=== PATIENT | female | born 1960 | race Caucasian/White ===

== ENCOUNTER 2016-11-11 13:50 | Emergency (ER) | payer MEDICARE, OTHER ==
[~2016-11-11 13:50] MED LIST: /ADVA50050 INH; /ATOR40TA PO; /CARB20TAB PO; /CARBXR20T PO; /MOXI40TA PO; /TIOT18INH INH; ADV500INH INH; ASCO10003 PO; ASPI1TAB PO; ASPI81TA63 PO; ATOR40TA PO; AVELOX PO; BACITAB3 PO; BACT2CRE TOP; CALC1CAP31 PO; CALC1TAB26 PO; CALCIUM PO; CALCTAB43 PO; CALCTAB68 PO; CARA1TAB2 PO; COLA100C2 OR; COLA50CA3 PO; COMBAER6 INH; COMBIVENT INH; CONTOUR TEST STRIPS; CRES20TA PO; CRES40TA PO; DELT1TAB PO; DOXY100C PO; DUONSOL INH; FERR325T3 PO; FISH100049 PO; FLEXERIL OR; FLON0.054; FURO1TAB15 PO; FURO40TA2 PO; GLIP5TAB8 PO; GLUC4GMTAB PO; HYDR-3716 PO; LASI80TA PO; LEVA500T; LEVA500T PO; LEVO250T24 PO; LEXA1TAB PO; LEXAPRO PO; MAGN500T6 PO; MECL12.575 PO; METF500T PO; MILKSUS OR; MIRA255PW PO; MIRA3350 PO; MUCI600T34 PO; NITR0.4S SL; NITR4TASL SL; OMEP20CA3 PO; POTA10CA PO; PRED10PA PO; PRED10TA PO; PRED10TA2; PRED10TA2 OR; PRED10TA2 PO; PRIL20CA PO; PRIN10TA PO; PROB1TAB PO; QUET20XRTB PO; QUET30XR PO; REGL10TA6 PO; SENO8.6T10 PO; SERO400T3 PO; SERO50TA3 PO; SING10TA31 PO; SING10TA32 PO; SPIR1CAP IN; SPIR25TA2 PO; TAB-TAB PO; TEGR200T PO; TEGRETOL PO; THERGRAN PO; TYLE325T5 PO; VIBR100C PO; VICO5TAB OR; VIT D PO; VITA-130 PO; VITMTA PO; ZONE25CA5 PO; ZONI50CA3 PO; spiriva INH
--- NOTE | 2016-11-11 15:04 | EDDOCDS ---
Nurse's Notes [facility] Name: Elvia Richardson Age: 56 yrs Sex: Female : 1960 Arrival Date: 11/11/2016 Time: 13:50 Bed I9 Private MD: Ramon Saucedo P. Diagnosis: Acute bronchitis Presentation: 11/11 14:01 Presenting complaint: Patient states: Pt presents with c/o wheezing productive cough dls green sputum since 11/06 pt uses oxygen continously. Adult Sepsis Screening: The patient does not have new or worsening altered mentation. Patient's respiratory rate is less than 22. Systolic blood pressure is greater than 100. Patient has a qSOFA score of 0- Negative Sepsis Screen. Suicide/Homicide risk assessment- the patient denies having any suicidal and/or homicidal ideations and does not present with any other emotional, behavioral or mental health complaints. Status: Patient is not a service inspector or dependent. Transition of care: patient was not received from another setting of care. 14:01 Acuity: JENN Level 3 dls 14:01 Method Of Arrival: Walkin/Carried/Asstd dls Triage Assessment: 14:06 General: Appears in no apparent distress, Behavior is cooperative. Pain: Pain currently dls is 3 out of 10 on a pain scale. HIV screening NA for this visit Offered previously. Historical: - Allergies: Advil (minimania); Aleveminimania; - Home Meds: 1. aspirin 81 mg Oral chew 1 tab once daily 2. atorvastatin 80 mg oral tab 1 tab once daily 3. Calcium + Vitamin D 600-800mg Oral daily 4. carbamazepine 400 mg Oral Tb12 1 tab every 12 hours 5. Combivent 18-103 mcg/actuation Inhl aero 2 puffs 4 times per day 6. escitalopram oxalate 10 mg oral tab 1 tab once daily 7. ferrous sulfate 325 mg (65 mg iron) Oral tab daily 8. Furosemide 80mg in AM and 40mg at noon Oral 9. glipizide 2.5 mg Oral tr24 1 tabs bid 10. hydrocodone-acetaminophen 7.5-325 mg Oral tab 1 tab every 4-6 hours 11. Mag-G 27 mg (500 mg) oral tab daily 12. Nitrostat 0.4 mg SL subl 1 tab every 5 minutes Took 2 at home prior to arrival 13. [place] 3 Fish Oil oral cap 1000 MG\E\ daily 14. Plavix 75 mg Oral tab 1 tab once daily 15. potassium chloride 10 mEq Oral cpER 1 cap once daily 16. prednisone 20 mg Oral tab once daily 17. Probiotic 100 million oral daily 18. Seroquel 500mg Oral 1 tab once daily 19. Vitamin C 1,000 mg Oral tab daily 20. zonisamide 50 mg oral cap 1 cap 2 times per day - PMHx: Bipolar disorder; congestive heart failure; COPD; Diabetes - NIDDM: controlled; Hypercholesterolemia; Hypertension; iron deficiency anemia; Myocardial infarction; Renal Failure w/o Dialysis; - PSHx: ; Appendectomy; Cholecystectomy; ganglion cyst left; Cataract Surgery- Bilateral; - Social history: Smoking status: Patient/guardian denies using No barriers to communication noted, The patient speaks fluent Wolof. - Family history: Not pertinent. - : The pt / caregiver states he / she is on anticoagulants: Plavix. Home medication list is obtained from [employer] import data. - Exposure Risk Screening:: None identified. Screenin:57 Screening information is obtained from the patient. Fall risk: No risks identified. [facility] Assistance ADL's: requires no assistance with activities of daily living. Abuse/DV Screen: The patient / caregiver reports he/she is: not in a situation that causes fear, pain or injury. Nutritional screening: No deficits noted. Advance Directives: There is no active DNR order. home support is adequate. Assessment: 14:57 General: Appears in no apparent distress, comfortable, Behavior is appropriate for age, [facility] cooperative. General: reviewed discharge instructions with patient, encouraged and answered questions, no new problems or complaints voiced, declines offer of further assistance. Pain: Denies pain. Neurological: Level of Consciousness is awake, alert, Oriented to person, place, time. Respiratory: Airway is patent Respiratory effort is even, unlabored, Respiratory pattern is regular, symmetrical. Vital Signs: 13:51 BP 103 / 69; Pulse 116; Resp 18 S; Temp 100.7(T); Pulse Ox 94% on 2 lpm NC; Weight gr2 111.58 kg (R); Height 5 ft. 3 in. (160.02 cm) (R); Pain 2/10; 13:51 Body Mass Index 43.58 (111.58 kg, 160.02 cm) gr2 Vitals: 13:51 Log In Time: November 11, 2016 at 13:51. gr2 ED Course: 13:50 Patient visited by Kilo Kuhn. gr2 13:50 Patient moved to Waiting gr2 13:51 Ramon Saucedo is Private Physician. gr2 13:53 Patient visited by Kilo Kuhn. gr2 13:54 Patient moved to Pre RCE gr2 14:03 Triage Initiated dls 14:19 Patient moved to I kcs 14:27 [facility] ke 14:27 Patient visited by Shaun Mcnair FNP. ke 14:27 Patient visited by Shaun Mcnair FNP. ke 14:43 Ramon Saucedo is Referral Physician. ke 14:57 The patient / caregiver is instructed regarding the plan of care and ED course. [facility] 14:57 No IV's were initiated during this patient's visit. No procedures done that require [facility] assistance. 15:03 [facility] Payment Agreement was scanned into [employer] and attached to record. jp5 Order Results: There are currently no results for this order. Outcome: 14:45 Discharge ordered by Provider. ke 14:57 Discharge Assessment: Patient awake, alert and oriented x 3. No cognitive and/or [facility] functional deficits noted. Patient verbalized understanding of disposition instructions. patient administered narcotics - no. The following High Risk Discharge criteria are identified: None. Discharged to home ambulatory. Condition: good Condition: stable Condition: improved. Discharge instructions given to patient, Instructed on discharge instructions, follow up and referral plans. medication usage, Demonstrated understanding of instructions, medications, Pt was receptive of discharge instructions/ teaching. Prescriptions given X 2. No special radiology studies were completed. Property :Personal belongings accompany Pt. 15:03 Patient left the ED. [facility] Signatures: Laura Reardon RN RN kcs Scott, Debra, RN RN dls Elsner, Karl, FNP FNP ke Hafner, Jane, RN RN [facility] Kilo Kuhn gr2 MccraryMatiashilaria jp5 MTDD
--- NOTE | 2016-11-11 15:04 | EDDOCDS ---
Physician Documentation [facility] Name: Elvia Richardson Age: 56 yrs Sex: Female : 1960 Arrival Date: 11/11/2016 Time: 13:50 Bed I9 Private MD: Ramon Saucedo P. Disposition: 11/11/16 14:45 Discharged to Home/Self Care. Impression: Acute bronchitis. - Condition is Stable. - Discharge Instructions: Acute Bronchitis. - Prescriptions for Moxifloxacin 400 mg Oral Tablet - take 1 tablet by ORAL route once daily; 10 tablet. Mucinex 600 mg - take 1 tablet by ORAL route 2 times per day; 30 tablet. - Medication Reconciliation, Local Pharmacy Hours form. - Follow up: Ramon Saucedo; When: 4 - 5 days; Reason: Recheck today's complaints, Continuance of care. - Problem is an ongoing problem. - Symptoms are unchanged. Historical: - Allergies: Advil (minimania); Aleveminimania; - Home Meds: 1. aspirin 81 mg Oral chew 1 tab once daily 2. atorvastatin 80 mg oral tab 1 tab once daily 3. Calcium + Vitamin D 600-800mg Oral daily 4. carbamazepine 400 mg Oral Tb12 1 tab every 12 hours 5. Combivent 18-103 mcg/actuation Inhl aero 2 puffs 4 times per day 6. escitalopram oxalate 10 mg oral tab 1 tab once daily 7. ferrous sulfate 325 mg (65 mg iron) Oral tab daily 8. Furosemide 80mg in AM and 40mg at noon Oral 9. glipizide 2.5 mg Oral tr24 1 tabs bid 10. hydrocodone-acetaminophen 7.5-325 mg Oral tab 1 tab every 4-6 hours 11. Mag-G 27 mg (500 mg) oral tab daily 12. Nitrostat 0.4 mg SL subl 1 tab every 5 minutes Took 2 at home prior to arrival 13. [place] 3 Fish Oil oral cap 1000 MG\E\ daily 14. Plavix 75 mg Oral tab 1 tab once daily 15. potassium chloride 10 mEq Oral cpER 1 cap once daily 16. prednisone 20 mg Oral tab once daily 17. Probiotic 100 million oral daily 18. Seroquel 500mg Oral 1 tab once daily 19. Vitamin C 1,000 mg Oral tab daily 20. zonisamide 50 mg oral cap 1 cap 2 times per day - PMHx: Bipolar disorder; congestive heart failure; COPD; Diabetes - NIDDM: controlled; Hypercholesterolemia; Hypertension; iron deficiency anemia; Myocardial infarction; Renal Failure w/o Dialysis; - PSHx: ; Appendectomy; Cholecystectomy; ganglion cyst left; Cataract Surgery- Bilateral; - Social history: Smoking status: Patient/guardian denies using No barriers to communication noted, The patient speaks fluent Chinese. - Family history: Not pertinent. - : The pt / caregiver states he / she is on anticoagulants: Plavix. Home medication list is obtained from [employer] import data. - Exposure Risk Screening:: None identified. Vital Signs: 11/11 13:51 BP 103 / 69; Pulse 116; Resp 18 S; Temp 100.7(T); Pulse Ox 94% on 2 lpm NC; Weight gr2 111.58 kg / 245.99 lbs (R); Height 5 ft. 3 in. (160.02 cm) (R); Pain 2/10; 13:51 Body Mass Index 43.58 (111.58 kg, 160.02 cm) gr2 MDM: 15:03 [facility] Payment Agreement was scanned into [employer] and attached to record. jp5 15:03 Financial registration complete. jp5 Signatures: Jennifer Quiñones, RN RN Shaun Downing, SENIOR FINANCIAL REPORTING ACCOUNTANT Bela BlancaRN RN [facility] Miguelangel Mccrary jp5 The chart was reviewed and I authenticate all verbal orders and agree with the evaluation and treatment provided.Attachments: 15:03 [facility] Payment Agreement jp5 MTDD
--- NOTE | 2016-11-13 16:04 | EDDOCDS ---
Nurse's Notes [facility] Name: Elvia Richardson Age: 56 yrs Sex: Female : 1960 Arrival Date: 11/11/2016 Time: 13:50 Bed I9 Private MD: Ramon Saucedo P. Diagnosis: Acute bronchitis Presentation: 11/11 14:01 Presenting complaint: Patient states: Pt presents with c/o wheezing productive cough dls green sputum since 11/06 pt uses oxygen continously. Adult Sepsis Screening: The patient does not have new or worsening altered mentation. Patient's respiratory rate is less than 22. Systolic blood pressure is greater than 100. Patient has a qSOFA score of 0- Negative Sepsis Screen. Suicide/Homicide risk assessment- the patient denies having any suicidal and/or homicidal ideations and does not present with any other emotional, behavioral or mental health complaints. Status: Patient is not a manager administrative services or dependent. Transition of care: patient was not received from another setting of care. 14:01 Acuity: JENN Level 3 dls 14:01 Method Of Arrival: Walkin/Carried/Asstd dls Triage Assessment: 14:06 General: Appears in no apparent distress, Behavior is cooperative. Pain: Pain currently dls is 3 out of 10 on a pain scale. HIV screening NA for this visit Offered previously. Historical: - Allergies: Advil (minimania); Aleveminimania; - Home Meds: 1. aspirin 81 mg Oral chew 1 tab once daily 2. atorvastatin 80 mg oral tab 1 tab once daily 3. Calcium + Vitamin D 600-800mg Oral daily 4. carbamazepine 400 mg Oral Tb12 1 tab every 12 hours 5. Combivent 18-103 mcg/actuation Inhl aero 2 puffs 4 times per day 6. escitalopram oxalate 10 mg oral tab 1 tab once daily 7. ferrous sulfate 325 mg (65 mg iron) Oral tab daily 8. Furosemide 80mg in AM and 40mg at noon Oral 9. glipizide 2.5 mg Oral tr24 1 tabs bid 10. hydrocodone-acetaminophen 7.5-325 mg Oral tab 1 tab every 4-6 hours 11. Mag-G 27 mg (500 mg) oral tab daily 12. Nitrostat 0.4 mg SL subl 1 tab every 5 minutes Took 2 at home prior to arrival 13. [place] 3 Fish Oil oral cap 1000 MG\E\ daily 14. Plavix 75 mg Oral tab 1 tab once daily 15. potassium chloride 10 mEq Oral cpER 1 cap once daily 16. prednisone 20 mg Oral tab once daily 17. Probiotic 100 million oral daily 18. Seroquel 500mg Oral 1 tab once daily 19. Vitamin C 1,000 mg Oral tab daily 20. zonisamide 50 mg oral cap 1 cap 2 times per day - PMHx: Bipolar disorder; congestive heart failure; COPD; Diabetes - NIDDM: controlled; Hypercholesterolemia; Hypertension; iron deficiency anemia; Myocardial infarction; Renal Failure w/o Dialysis; - PSHx: ; Appendectomy; Cholecystectomy; ganglion cyst left; Cataract Surgery- Bilateral; - Social history: Smoking status: Patient/guardian denies using No barriers to communication noted, The patient speaks fluent French. - Family history: Not pertinent. - : The pt / caregiver states he / she is on anticoagulants: Plavix. Home medication list is obtained from [employer] import data. - Exposure Risk Screening:: None identified. Screenin:57 Screening information is obtained from the patient. Fall risk: No risks identified. [facility] Assistance ADL's: requires no assistance with activities of daily living. Abuse/DV Screen: The patient / caregiver reports he/she is: not in a situation that causes fear, pain or injury. Nutritional screening: No deficits noted. Advance Directives: There is no active DNR order. home support is adequate. Assessment: 14:57 General: Appears in no apparent distress, comfortable, Behavior is appropriate for age, [facility] cooperative. General: reviewed discharge instructions with patient, encouraged and answered questions, no new problems or complaints voiced, declines offer of further assistance. Pain: Denies pain. Neurological: Level of Consciousness is awake, alert, Oriented to person, place, time. Respiratory: Airway is patent Respiratory effort is even, unlabored, Respiratory pattern is regular, symmetrical. Vital Signs: 13:51 BP 103 / 69; Pulse 116; Resp 18 S; Temp 100.7(T); Pulse Ox 94% on 2 lpm NC; Weight gr2 111.58 kg (R); Height 5 ft. 3 in. (160.02 cm) (R); Pain 2/10; 13:51 Body Mass Index 43.58 (111.58 kg, 160.02 cm) gr2 Vitals: 13:51 Log In Time: November 11, 2016 at 13:51. gr2 ED Course: 13:50 Patient visited by Kilo Kuhn. gr2 13:50 Patient moved to Waiting gr2 13:51 Ramon Saucedo is Private Physician. gr2 13:53 Patient visited by Kilo Kuhn. gr2 13:54 Patient moved to Pre RCE gr2 14:03 Triage Initiated dls 14:19 Patient moved to I kcs 14:27 [facility]un Mc[facility]air FNP [facility] ke 14:27 Patient visited by Shaun Mcnair FNP. ke 14:27 Patient visited by Shaun Mcnair FNP. ke 14:43 Ramon Saucedo is Referral Physician. ke 14:57 The patient / caregiver is instructed regarding the plan of care and ED course. [facility] 14:57 No IV's were initiated during this patient's visit. No procedures done that require [facility] assistance. 15:03 [facility] Payment Agreement was scanned into [employer] and attached to record. jp5 11/12 04:02 T-Sheet-- Draft Copy was scanned into [employer] and attached to record. hs2 Order Results: There are currently no results for this order. Outcome: 11/11 14:45 Discharge ordered by Provider. ke 14:57 Discharge Assessment: Patient awake, alert and oriented x 3. No cognitive and/or [facility] functional deficits noted. Patient verbalized understanding of disposition instructions. patient administered narcotics - no. The following High Risk Discharge criteria are identified: None. Discharged to home ambulatory. Condition: good Condition: stable Condition: improved. Discharge instructions given to patient, Instructed on discharge instructions, follow up and referral plans. medication usage, Demonstrated understanding of instructions, medications, Pt was receptive of discharge instructions/ teaching. Prescriptions given X 2. No special radiology studies were completed. Property :Personal belongings accompany Pt. 15:03 Patient left the ED. [facility] Signatures: Laura Reardon RN RN kcs Scott, Debra, RN RN dls Elsner, Karl, FNP FNP ke Hafner, Jane, RN RN [facility] Kilo Kuhn gr2 Miguelangel Mccrary jp5 Marisela Eid, Reg Reg hs2 Chart Complete MTDD
--- NOTE | 2016-11-13 16:04 | EDDOCDS ---
Physician Documentation [facility] Name: Elvia Richardson Age: 56 yrs Sex: Female : 1960 Arrival Date: 11/11/2016 Time: 13:50 Bed I9 Private MD: Ramon Saucedo P. Disposition: 11/11/16 14:45 Discharged to Home/Self Care. Impression: Acute bronchitis. - Condition is Stable. - Discharge Instructions: Acute Bronchitis. - Prescriptions for Moxifloxacin 400 mg Oral Tablet - take 1 tablet by ORAL route once daily; 10 tablet. Mucinex 600 mg - take 1 tablet by ORAL route 2 times per day; 30 tablet. - Medication Reconciliation, Local Pharmacy Hours form. - Follow up: Ramon Saucedo; When: 4 - 5 days; Reason: Recheck today's complaints, Continuance of care. - Problem is an ongoing problem. - Symptoms are unchanged. Historical: - Allergies: Advil (minimania); Aleveminimania; - Home Meds: 1. aspirin 81 mg Oral chew 1 tab once daily 2. atorvastatin 80 mg oral tab 1 tab once daily 3. Calcium + Vitamin D 600-800mg Oral daily 4. carbamazepine 400 mg Oral Tb12 1 tab every 12 hours 5. Combivent 18-103 mcg/actuation Inhl aero 2 puffs 4 times per day 6. escitalopram oxalate 10 mg oral tab 1 tab once daily 7. ferrous sulfate 325 mg (65 mg iron) Oral tab daily 8. Furosemide 80mg in AM and 40mg at noon Oral 9. glipizide 2.5 mg Oral tr24 1 tabs bid 10. hydrocodone-acetaminophen 7.5-325 mg Oral tab 1 tab every 4-6 hours 11. Mag-G 27 mg (500 mg) oral tab daily 12. Nitrostat 0.4 mg SL subl 1 tab every 5 minutes Took 2 at home prior to arrival 13. [place] 3 Fish Oil oral cap 1000 MG\E\ daily 14. Plavix 75 mg Oral tab 1 tab once daily 15. potassium chloride 10 mEq Oral cpER 1 cap once daily 16. prednisone 20 mg Oral tab once daily 17. Probiotic 100 million oral daily 18. Seroquel 500mg Oral 1 tab once daily 19. Vitamin C 1,000 mg Oral tab daily 20. zonisamide 50 mg oral cap 1 cap 2 times per day - PMHx: Bipolar disorder; congestive heart failure; COPD; Diabetes - NIDDM: controlled; Hypercholesterolemia; Hypertension; iron deficiency anemia; Myocardial infarction; Renal Failure w/o Dialysis; - PSHx: ; Appendectomy; Cholecystectomy; ganglion cyst left; Cataract Surgery- Bilateral; - Social history: Smoking status: Patient/guardian denies using No barriers to communication noted, The patient speaks fluent Congolese. - Family history: Not pertinent. - : The pt / caregiver states he / she is on anticoagulants: Plavix. Home medication list is obtained from [employer] import data. - Exposure Risk Screening:: None identified. Vital Signs: 11/11 13:51 BP 103 / 69; Pulse 116; Resp 18 S; Temp 100.7(T); Pulse Ox 94% on 2 lpm NC; Weight gr2 111.58 kg / 245.99 lbs (R); Height 5 ft. 3 in. (160.02 cm) (R); Pain 2/10; 13:51 Body Mass Index 43.58 (111.58 kg, 160.02 cm) gr2 MDM: 15:03 [facility] Payment Agreement was scanned into [employer] and attached to record. jp5 15:03 Financial registration complete. 5 11/12 04:02 T-Sheet-- Draft Copy was scanned into [employer] and attached to record. hs2 Signatures: Jennifer Quiñones, RN RN Shaun Downing, ANIMAL DAYCARE PROVIDER ANIMAL DAYCARE PROVIDER Bela BrittonRN RN [facility] Miguelangel Mccrary jp5 Marisela Eid, Reg Reg hs2 The chart was reviewed and I authenticate all verbal orders and agree with the evaluation and treatment provided.Attachments: 11/11 15:03 [facility] Payment Agreement jp5 11/12 04:02 T-Sheet-- Draft Copy hs2 Chart Complete MTDD
--- NOTE | 2016-11-13 16:04 | EDDOCDS ---
Physician Documentation [facility] Name: Elvia Richardson Age: 56 yrs Sex: Female : 1960 Arrival Date: 11/11/2016 Time: 13:50 Bed I9 Private MD: Ramon Saucedo P. Disposition: 11/11/16 14:45 Discharged to Home/Self Care. Impression: Acute bronchitis. - Condition is Stable. - Discharge Instructions: Acute Bronchitis. - Prescriptions for Moxifloxacin 400 mg Oral Tablet - take 1 tablet by ORAL route once daily; 10 tablet. Mucinex 600 mg - take 1 tablet by ORAL route 2 times per day; 30 tablet. - Medication Reconciliation, Local Pharmacy Hours form. - Follow up: Ramon Saucedo; When: 4 - 5 days; Reason: Recheck today's complaints, Continuance of care. - Problem is an ongoing problem. - Symptoms are unchanged. Historical: - Allergies: Advil (minimania); Aleveminimania; - Home Meds: 1. aspirin 81 mg Oral chew 1 tab once daily 2. atorvastatin 80 mg oral tab 1 tab once daily 3. Calcium + Vitamin D 600-800mg Oral daily 4. carbamazepine 400 mg Oral Tb12 1 tab every 12 hours 5. Combivent 18-103 mcg/actuation Inhl aero 2 puffs 4 times per day 6. escitalopram oxalate 10 mg oral tab 1 tab once daily 7. ferrous sulfate 325 mg (65 mg iron) Oral tab daily 8. Furosemide 80mg in AM and 40mg at noon Oral 9. glipizide 2.5 mg Oral tr24 1 tabs bid 10. hydrocodone-acetaminophen 7.5-325 mg Oral tab 1 tab every 4-6 hours 11. Mag-G 27 mg (500 mg) oral tab daily 12. Nitrostat 0.4 mg SL subl 1 tab every 5 minutes Took 2 at home prior to arrival 13. [place] 3 Fish Oil oral cap 1000 MG\E\ daily 14. Plavix 75 mg Oral tab 1 tab once daily 15. potassium chloride 10 mEq Oral cpER 1 cap once daily 16. prednisone 20 mg Oral tab once daily 17. Probiotic 100 million oral daily 18. Seroquel 500mg Oral 1 tab once daily 19. Vitamin C 1,000 mg Oral tab daily 20. zonisamide 50 mg oral cap 1 cap 2 times per day - PMHx: Bipolar disorder; congestive heart failure; COPD; Diabetes - NIDDM: controlled; Hypercholesterolemia; Hypertension; iron deficiency anemia; Myocardial infarction; Renal Failure w/o Dialysis; - PSHx: ; Appendectomy; Cholecystectomy; ganglion cyst left; Cataract Surgery- Bilateral; - Social history: Smoking status: Patient/guardian denies using No barriers to communication noted, The patient speaks fluent Chadian. - Family history: Not pertinent. - : The pt / caregiver states he / she is on anticoagulants: Plavix. Home medication list is obtained from [employer] import data. - Exposure Risk Screening:: None identified. Vital Signs: 11/11 13:51 BP 103 / 69; Pulse 116; Resp 18 S; Temp 100.7(T); Pulse Ox 94% on 2 lpm NC; Weight gr2 111.58 kg / 245.99 lbs (R); Height 5 ft. 3 in. (160.02 cm) (R); Pain 2/10; 13:51 Body Mass Index 43.58 (111.58 kg, 160.02 cm) gr2 MDM: 15:03 [facility] Payment Agreement was scanned into [employer] and attached to record. jp5 15:03 Financial registration complete. 5 11/12 04:02 T-Sheet-- Draft Copy was scanned into [employer] and attached to record. hs2 Signatures: Jennifer Quiñones, RN RN Shaun Downing, LINE HAUL TRUCK DRIVER LINE HAUL TRUCK DRIVER Bela BrittonRN RN [facility] Miguelangel Mccrary jp5 Marisela Eid, Reg Reg hs2 The chart was reviewed and I authenticate all verbal orders and agree with the evaluation and treatment provided.Attachments: 11/11 15:03 [facility] Payment Agreement jp5 11/12 04:02 T-Sheet-- Draft Copy hs2 Chart Complete MTDD
== END 2016-11-11 15:03 | disposition home or self-care (01) ==
LOC: M ED 13:50
DX: J20.9 Acute bronchitis, unspecified (principal); J44.1 Chronic obstructive pulmonary disease with (acute) exacerbation; I12.9 Hypertensive chronic kidney disease with stage 1 through stage 4 chronic kidney disease, or unspecified chronic kidney disease; I50.9 Heart failure, unspecified; I25.2 Old myocardial infarction; E11.29 Type 2 diabetes mellitus with other diabetic kidney complication; F31.9 Bipolar disorder, unspecified; E78.00 Pure hypercholesterolemia, unspecified; D50.9 Iron deficiency anemia, unspecified; Z90.49 Acquired absence of other specified parts of digestive tract; Z90.89 Acquired absence of other organs; Z79.02 Long term (current) use of antithrombotics/antiplatelets; Z79.82 Long term (current) use of aspirin; Z79.899 Other long term (current) drug therapy; Z88.6 Allergy status to analgesic agent

== ENCOUNTER → 2016-11-22 | Outpatient (REF) | payer MEDICARE, OTHER ==
[~2016-11-22] MED LIST changes: +AZIT250T3 PO; +CEFD1CAP8 PO; +CLOP75TA2 PO; +DRIS50002 PO; +IPRA2IN INH; +PRED20TA PO; +SERO200T PO
[2016-11-22 18:40] LABS: FOLATE 15.5 NG/ML
[2016-11-22 18:44] LABS: PERCENT SATURATION 26.9 % (13.2-37.4)
== END ==
LOC: M LAB REF 16:57
PROVIDERS: ATTEND Internal Medicine Nephrology
DX: N18.9 Chronic kidney disease, unspecified (principal); D63.1 Anemia in chronic kidney disease

== ENCOUNTER → 2016-11-26 | Outpatient (CLI) | payer MEDICARE, OTHER ==
[2016-11-26 08:52] LABS: ALBUMIN 3.4 GM/DL (3.2-5.2); CREATININE FOR GFR 1.53 MG/DL (0.55-1.02); GLOMERULAR FILTRATION RATE 37.1 (>51); MAGNESIUM LEVEL 2.2 MG/DL (1.8-2.4); PHOSPHORUS LEVEL 2.7 MG/DL (2.5-4.9); POTASSIUM SERUM 4.6 MEQ/L (3.5-5.1)
== END ==
LOC: M LAB 08:03
PROVIDERS: ATTEND Physician Assistant
DX: I50.32 Chronic diastolic (congestive) heart failure (principal)

== ENCOUNTER → 2016-11-26 | Outpatient (CLI) | payer MEDICARE, OTHER ==
[2016-11-26 08:35] LABS: BASO # 0.1 K/mm3 (0.0-0.2); BASO % 1.5 % (0.0-1.0); EOS # 0.3 K/mm3 (0.0-0.50); LARGE UNSTAINED CELL # 0.1 K/mm3 (0.0-0.4); LYMPH # 1.6 K/mm3 (1.5-4.5); LYMPH % 21.3 % (24.0-44.0); MEAN CORPUSCULAR HEMOGLOBIN 35.2 pg (27.0-33.0); MEAN CORPUSCULAR HGB CONC 33.6 g/dl (32.0-36.5); MEAN CORPUSCULAR VOLUME 104.6 fl (80.0-96.0); MONO # 0.3 K/mm3 (0.0-0.8); MONO % 4.2 % (0.0-5.0); NEUTROPHILS # 4.8 K/mm3 (1.8-7.7); PLATELET COUNT, AUTOMATED 323 k/mm3 (150-450); RED CELL DISTRIBUTION WIDTH 14.4 % (11.5-14.5); WHITE BLOOD COUNT 7.1 K/mm3 (4.0-10.0)
== END ==
LOC: M LAB 08:07
PROVIDERS: ATTEND Psychiatry & Neurology Psychiatry
DX: Z51.81 Encounter for therapeutic drug level monitoring (principal); Z79.899 Other long term (current) drug therapy

== ENCOUNTER 2016-12-05 11:07 | Inpatient (IN) | payer MEDICARE, OTHER ==
[~2016-12-05] VITALS: Ht 160 cm; Wt 111.3 kg
[~2016-12-05 11:07] MED LIST changes: -AZIT250T3 PO; -CEFD1CAP8 PO; -CLOP75TA2 PO; -DRIS50002 PO; -IPRA2IN INH; -PRED20TA PO; -SERO200T PO
--- NOTE | 2016-12-05 11:50 | REP ---
Portable chest, 126 and the 2017, 11:37 a.m., single AP view, the patient upright: Comparison is 02/09/2016. There is chronic cardiomegaly, unchanged. There is minor discoid atelectasis inferiorly in the right. The lung oden otherwise clear. The princess, mediastinum, bony thorax are unremarkable. Impression: Minor discoid atelectasis inferiorly in the right lung. Chronic cardiomegaly. Signed by Joe Go MD 12/05/2016 11:41 A
[2016-12-05] MEDS ORDERED: methylPREDNISolone INJ 125 MG/2 ML VIAL (J2930) As Ordered ONE (12:03)
[2016-12-05 12:06] LABS: BASO # 0.1 K/mm3 (0.0-0.2); BASO % 1.1 % (0.0-1.0); EOS # 0.1 K/mm3 (0.0-0.50); LARGE UNSTAINED CELL # 0.1 K/mm3 (0.0-0.4); LARGE UNSTAINED CELL % 2.1 % (0.0-4.0); LYMPH # 1.5 K/mm3 (1.5-4.5); LYMPH % 21.1 % (24.0-44.0); MEAN CORPUSCULAR HEMOGLOBIN 34.1 pg (27.0-33.0); MEAN CORPUSCULAR HGB CONC 33.6 g/dl (32.0-36.5); MEAN CORPUSCULAR VOLUME 101.5 fl (80.0-96.0); MONO # 0.5 K/mm3 (0.0-0.8); MONO % 7.8 % (0.0-5.0); NEUTROPHILS # 4.5 K/mm3 (1.8-7.7); PLATELET COUNT, AUTOMATED 161 k/mm3 (150-450); RED CELL DISTRIBUTION WIDTH 14.6 % (11.5-14.5); WHITE BLOOD COUNT 6.7 K/mm3 (4.0-10.0)
[2016-12-05 12:15] LABS: CALCIUM LEVEL 8.7 MG/DL (8.5-10.1); CREATININE FOR GFR 1.69 MG/DL (0.55-1.02); GLOMERULAR FILTRATION RATE 33.1 (>51); POTASSIUM SERUM 3.1 MEQ/L (3.5-5.1)
[2016-12-05] MEDS ORDERED: IPRATROPIUM 0.5MG/ALBUTEROL 2.5MG INH SOL UD 3ML (DUONEB)(J7620) As Ordered ONE (12:19)
[2016-12-05 12:34] LABS: ABG BASE EXCESS 4.8 (-2.0-2.0); ABG DEVICE NASAL CANN; ABG HCO3 29.8 MEQ/L (22.0-26.0); ABG PARTIAL PRESSURE CO2 46.3 mmHg (35.0-45.0); ABG PARTIAL PRESSURE O2 72.9 mmHg (75.0-100.0); ABG STANDARD HCO3 28.7 MEQ/L (22.0-26.0); ABG TOTAL CO2 31.3 MEQ/L (22.0-29.0); ABG pH (ARTERIAL) 7.427 UNITS (7.350-7.450)
[2016-12-05] MEDS ORDERED: POTASSIUM CHLORIDE 10 MEQ SR TABLET As Ordered ONE (13:13)
[2016-12-05] MEDS ORDERED: PRED10TA PO (14:56)
[2016-12-05] MEDS ORDERED: CLOP75TA2 PO (14:56)
[2016-12-05] MEDS ORDERED: IPRA2IN INH (14:56)
[2016-12-05] MEDS ORDERED: CALC1CAP31 PO (14:58)
[2016-12-05] MEDS ORDERED: AZIT250T3 PO (14:58)
[2016-12-05] MEDS ORDERED: DRIS50002 PO (15:00)
[2016-12-05] MEDS ORDERED: SERO400T3 PO (15:02)
[2016-12-05] MEDS ORDERED: SERO200T PO (15:02)
--- NOTE | 2016-12-05 15:46 | HPEPDOC ---
Medical History and Physical Date of Admission 12/05/16 History and Physical ATTENDING: Dr. Lassiter PCP: Dr Saucedo CC: SOB HPI:56 yo female with a past medical history significant for O2 dependent COPD, CAD, chronic kidney disease, hypertension who states she was seen by her primary care provider on Friday and treated for bronchitis with oral steroids and azithromycin. She states since then she has been feeling worse. Increased shortness of breath, wheezing, productive cough of green sputum. She reports a fever of 101.5. Chest tightness. Increased nebulizer use. For these reasons she reported to the emergency department today for further evaluation. Denies any RAMOS, palpitations, abdominal pain, N/V/D or changes in bowel or bladder habits. Upon presentation to the hospital the patient was found to have COPD exacerbation, thus the hospitalist team was consulted. PMHx: COPD. O2 dependent- follows with Dr. Farley CAD/status post stent 2001- . Bipolar disorder. Dr Cantor Diabetes CKD 3. Dr Genao. Hypertension Hyperlipidemia Iron deficiency anemia CHF Migraine headache Chronic low back pain PSHX: Appendectomy Cholecystectomy Ganglion cyst removal Bilateral cataract surgery Cardiac stent SOCHX: Resides in: [place] Marital Status: Kids: 2 Tobacco use: Quit 2006 ETOH: Denies Illicit Drugs: Denies Recent travel: Denies Advanced directives: None FAMHX: Mother: , cervical cancer Father: , emphysema Siblings: 2 sisters, one brother Alive, well. One brother lung cancer. Children: Alive, well Unexpected deaths due to medical reasons: None. ROS: As noted in HPI, otherwise 11pt ROS of systems reviewed and unremarkable. PE: GEN: 56 yo female, appears stated age. Well-nourished, well developed. No acute distress. Alert and oriented x 3. Pleasant, interactive. HEENT: Normocephalic, atraumatic. Pupils are equal, round, and reactive to light. Extraocular movements are intact. No nystagmus appreciated. Sclera are nonicteric. Conjunctiva without injection. Nose midline. Nasal turbinates without bogginess. EACs both patent BL.No facial asymmetry. Moist mucous membranes. Dentition fair. Pharynx pink and moist, no cobblestoning. Neck supple , trachea midline. No lymphadenopathy or thyromegaly appreciated. CHEST: Regular rate and rhythm, +S1, +S2 LUNGS: Decreased breath sounds throughout with diffuse inspiratory/expiratory wheezes. No rales, or rhonchi. Breathing appears symmetric and easy. Patient is speaking in full sentences. No accessory muscle use. ABD: Round, soft, non-tender, non-distended. +Bowel sounds throughout. No rebound or guarding. No costovertebral angle tenderness. EXT: Pulses 2+ bilaterally dorsalis pedis and radial. No lower extremity edema appreciated. SKIN: [place], dry, warm. Capillary refill <2sec. No rashes. NEURO: Alert and oriented x 3. Cranial nerves III-XII are intact. No focal deficits appreciated. CXR: Minor discoid atelectasis inferiorly in the right lung. Chronic cardiomegaly. EKG: Sinus tachycardia, nonspecific ST-T abnormality, 103 bpm BLOOD CULTURES: 2 pending A&P: 56 yo female with a past medical history significant for O2 dependent COPD , CAD, chronic kidney disease, hypertension who states she was seen by her primary care provider on Friday and treated for bronchitis with oral steroids and azithromycin. She states since then she has been feeling worse. Increased shortness of breath, wheezing, productive cough of green sputum. She reports a fever of 101.5. Chest tightness. Increased nebulizer use. For these reasons she reported to the emergency department today for further evaluation. The patient will be admitted to /S for at least [address] Lassiter's service. COPD exacerbation. Solu-Medrol 60 mg IV every 6. IV Rocephin/Zithromax. Supplemental O2. Nebulizer treatments. COPD/O2 dependent. Continue outpatient regimen. CAD/stent. Cont outpt regimen. CKD3. 1.69. Appears to be at baseline 1.4-1.7. Hypertension/CHF. BNP is noted to be 32.2. Hyperlipidemia. Continue statin. DM. Consistent carbohydrate diet. Sliding scale insulin. Iron deficiency anemia. Hemoglobin appears to be at baseline. 11.2. Chronic migraine headache. Cont outpt regimen. Chronic low back pain. Cont outpt regimen. DVT prophylaxis. The patient is a full code. Vital Signs 139/60 96 22 93% 2 L nasal cannula Laboratory Data Labs 24H Laboratory Tests 2 12/05/16 11:45: Creatine Kinase MB 1.0, Creatine Kinase MB Relative Index 2.17, Total Creatine Kinase 46, Troponin I < 0.02 12/05/16 11:46: Anion Gap 10, B-Type Natriuretic Peptide 32.2, White Blood Count 6.7, Red Blood Count 3.29L, Hemoglobin 11.2L, Hematocrit 33.4L, Mean Corpuscular Volume 101.5H , Mean Corpuscular Hemoglobin 34.1H, Mean Corpuscular Hemoglobin Concent 33.6, Red Cell Distribution Width 14.6H, Platelet Count 161, Neutrophils (%) (Auto) 67.0H, Lymphocytes (%) (Auto) 21.1L, Monocytes (%) (Auto) 7.8H, Eosinophils (%) (Auto) 1.0, Basophils (%) (Auto) 1.1H, Neutrophils # (Auto) 4.5, Lymphocytes # ( Auto) 1.5, Monocytes # (Auto) 0.5, Eosinophils # (Auto) 0.1, Basophils # (Auto) 0.1, Blood Urea Nitrogen 22H, Creatinine 1.69H, Sodium Level 143, Potassium Level 3.1L, Chloride Level 103, Carbon Dioxide Level 30, Calcium Level 8.7, Glomerular Filtration Rate 33.1L, Large Unclassified Cells # 0.1, Large Unclassified Cells % 2.1 12/05/16 12:26: Arterial Blood pH 7.427, Arterial Blood Partial Pressure CO2 46.3H, Arterial Blood Partial Pressure O2 72.9L, Arterial Blood Total CO2 31.3H, Arterial Blood HCO3 29.8H, Arterial Blood Base Excess 4.8H, Arterial Blood Oxygen Saturation 94.3L, Blood Gas Bicarbonate Standard 28.7H, Oxygen Delivery Device NASAL SCOTT CBC/BMP Laboratory Tests 12/05/16 11:46 Calcium Level 8.7, Red Blood Count 3.29 L, Mean Corpuscular Volume 101.5 H, Mean Corpuscular Hemoglobin 34.1 H, Mean Corpuscular Hemoglobin Concent 33.6, Red Cell Distribution Width 14.6 H, Neutrophils (%) (Auto) 67.0 H, Lymphocytes ( %) (Auto) 21.1 L, Monocytes (%) (Auto) 7.8 H, Eosinophils (%) (Auto) 1.0, Basophils (%) (Auto) 1.1 H, Neutrophils # (Auto) 4.5, Lymphocytes # (Auto) 1.5, Monocytes # (Auto) 0.5, Eosinophils # (Auto) 0.1, Basophils # (Auto) 0.1 Microbiology Microbiology 12/05/16 Blood Culture, Received Pending 12/05/16 Blood Culture, Received Pending Home Medications Scheduled Ascorbic Acid (Ascorbic Acid) 1,000 Mg Tab 1,000 MG PO DAILY Aspirin (Aspirin 81) 81 Mg Tab 81 MG PO DAILY Atorvastatin Calcium (Atorvastatin Calcium) 40 Mg Tab 80 MG PO QHS Azithromycin (Azithromycin) 250 Mg Tab 250 MG PO DAILY STARTED 12/02/16 FOR 5 DAYS Calcitriol (Calcitriol) 0.25 Mcg Cap 0.25 MCG PO DAILY Carbamazepine (Tegretol) 200 Mg Tab 400 MG PO BID Clopidogrel Bisulfate (Clopidogrel) 75 Mg Tab 75 MG PO DAILY Escitalopram Oxalate (Lexapro) 10 Mg Tab 10 MG PO DAILY Ferrous Sulfate (Ferrous Sulfate) 325 Mg Tab 325 MG PO DAILY Fish Oil (Fish Oil 1000 mg) 1 Cap Cap 1 CAP PO DAILY Furosemide (Furosemide) 40 Mg Tab 40 MG PO DAILY TAKES AT NOON Furosemide (Furosemide) 80 Mg Tab 80 MG PO QAM Glipizide (Glipizide) 5 Mg Tab 2.5 MG PO BID Magnesium Gluconate (Magnesium Gluconate) 500 Mg Tab 500 MG PO DAILY Montelukast Sodium (Singulair) 10 Mg Tab 10 MG PO DAILY Nitroglycerin (Nitrostat) 0.4 Mg Subl 0.4 MG SL NITRO Potassium Chloride (Klor-Con M10) 10 Meq Tabcr 10 MEQ PO DAILY Prednisone (Prednisone) 10 Mg Tab 30 MG PO ASDIRECTED TAPER DOSE - SEE COMMENTS Quetiapine Fumerate (Seroquel Xr) 400 Mg Tab 400 MG PO QHS Quetiapine Fumerate (Seroquel) 200 Mg Tab 200 MG PO QHS Vitamin D (Drisdol) 50,000 Unit Cap 50,000 UNIT PO QMONTH TAKES AT BEGINNING OF MONTH Zonisamide (Zonisamide) 50 Mg Cap 50 MG PO BID Scheduled PRN Acetaminophen (Tylenol) 325 Mg Tab 650 MG PO Q4H PRN PRN PAIN Acetaminophen/Hydrocodone (Hydrocodone/Acetaminophen 7.5-325 mg) 1 Tab Tab 1 TAB PO Q4H PRN PRN PAIN Albuterol/Ipratropium (Combivent Respimat 20-100 Mcg/Act) 1 Aer Aer 2 PUFF INH QID PRN PRN SHORTNESS OF BREATH Ipratropium [place] (Ipratropium [place]) 0.5 Mg/2.5 Ml Soln 0.5 MG INH PRN PRN PRN SHORTNESS OF BREATH Allergies Coded Allergies: Ondansetron (Verified Allergy, Severe, ELEVATED B/P, ELEVATED HR, UNCONSCIOUS EPISODE, 11/04/14) 11/03/14 Lisinopril (Verified Allergy, Intermediate, RASH, 02/09/13) NSAIDs (Verified Adverse Reaction, Unknown, ALEVE,ADVIL- MANIC REACTION, ) Suha Novoa Dec 05, 2016 15:46
[2016-12-05] MEDS ORDERED: DEXTROSE 50% 50 ML SYRINGE IV PRN (16:00)
[2016-12-05] MEDS ORDERED: ANEXSIA, NORCO 7.5MG/325MG TABLET(HYDROCODONE/APAP) PO PRN (16:00)
[2016-12-05] MEDS ORDERED: IPRATROPIUM 0.5MG/ALBUTEROL 2.5MG INH SOL UD 3ML (DUONEB)(J7620) NEB PRN (16:00)
[2016-12-05] MEDS ORDERED: GLUCOSE 4 GM CHEW TABLET PO PRN (16:00)
[2016-12-05] MEDS ORDERED: GLUCAGON FOR INJ 1 MG VIAL (J1610) SC PRN (16:00)
[2016-12-05 17:00] LABS: MAGNESIUM LEVEL 2.2 MG/DL (1.8-2.4)
[2016-12-05 17:12] LABS: VITAMIN B12 LEVEL 234 PG/ML (247-911)
[2016-12-05 17:13] LABS: FOLATE > 24.0 NG/ML (>5.4)
[2016-12-05] MEDS ORDERED: cefTRIAXone SOD 1 GM VIAL (J0696) As Ordered ONE (17:35)
--- NOTE | 2016-12-05 17:59 | EDDOCDS ---
Nurse's Notes [facility] Name: Elvia Richardson Age: 56 yrs Sex: Female : 1960 Arrival Date: 12/05/2016 Time: 11:07 Bed 13 Private MD: Ramon Saucedo P. Diagnosis: Chronic obstructive pulmonary disease with acute lower respiratory infection Presentation: 12/05 11:11 Presenting complaint: Patient states: Increase difficulty breathing, oxygen dependant, dwg worsening symptoms despite being on Prednisone and EES for 3-4 days. Also complains of generalized chest pain. Adult Sepsis Screening: The patient does not have new or worsening altered mentation. Patient has a respiratory rate of greater than or equal to 22 (1 point). Systolic blood pressure is greater than 100. Patient has a qSOFA score of 1- Negative Sepsis Screen. Adult Sepsis Screening: Patient has cough and/or SOB- Positive Sepsis Screen. Notified Homa Doe MD Patient made JENN Level 2. Patient placed in exam room. Charge nurse notified. Suicide/Homicide risk assessment- the patient denies having any suicidal and/or homicidal ideations and does not present with any other emotional, behavioral or mental health complaints. Status: Patient is not a greeter guest services or dependent. Transition of care: patient was not received from another setting of care. 11:11 Acuity: JENN Level 2 dwg 11:11 Method Of Arrival: Walkin/Carried/Asstd dwg Triage Assessment: 11:21 General: Appears in no apparent distress. Pain: Pain currently is 7 out of 10 on a pain dwg scale. HIV screening NA for this visit Offered previously. Historical: - Allergies: Advil (minimania); Aleveminimania; - Home Meds: 1. aspirin 81 mg Oral chew 1 tab once daily (Last dose: 12/05/2016 08:00) 2. atorvastatin 80 mg oral tab 1 tab once daily (Last dose: 12/04/2016 20:00) 3. carbamazepine 400 mg Oral Tb12 1 tab every 12 hours (Last dose: 12/05/2016 08:00) 4. Combivent 18-103 mcg/actuation Inhl aero 2 puffs 4 times per day (Last dose: 12/05/2016 08:00) 5. escitalopram oxalate 10 mg oral tab 1 tab once daily (Last dose: 12/05/2016 08:00) 6. ferrous sulfate 325 mg (65 mg iron) Oral tab daily (Last dose: 12/05/2016 08:00) 7. Furosemide 80mg in AM and 40mg at noon Oral (Last dose: 12/05/2016 08:00) 8. glipizide 2.5 mg Oral tr24 1 tabs bid (Last dose: 12/05/2016 08:00) 9. hydrocodone-acetaminophen 7.5-325 mg Oral tab 1 tab every 4-6 hours (Last dose: 12/04/2016 20:00) 10. Mag-G 27 mg (500 mg) oral tab daily (Last dose: 12/05/2016 08:00) 11. Nitrostat 0.4 mg SL subl 1 tab every 5 minutes Took 2 at home prior to arrival (Last dose: 09/04/2016) 12. Dora 3 Fish Oil oral cap 1000 MG\E\ daily (Last dose: 12/05/2016 08:00) 13. Plavix 75 mg Oral tab 1 tab once daily (Last dose: 12/05/2016 08:00) 14. potassium chloride 10 mEq Oral cpER 1 cap once daily (Last dose: 12/05/2016 08:00) 15. prednisone 30mg Oral tab once daily (Last dose: 12/05/2016 08:00) 16. Seroquel 500mg Oral 1 tab once daily (Last dose: 12/04/2016 20:00) 17. Vitamin C 1,000 mg Oral tab daily (Last dose: 12/05/2016 08:00) 18. Erythromycin Oral Unknown once daily (Last dose: 12/05/2016 08:00) 19. zonisamide 50 mg oral cap 1 cap 2 times per day (Last dose: 12/05/2016 08:00) - PMHx: Bipolar disorder; congestive heart failure; COPD; Diabetes - NIDDM: controlled; Hypercholesterolemia; Hypertension; iron deficiency anemia; Myocardial infarction; Renal Failure w/o Dialysis; - PSHx: Appendectomy; ; Cholecystectomy; Cataract Surgery- Bilateral; Cardiac stents (January 2016); - Social history: Smoking status: Patient states former smoker of tobacco. No barriers to communication noted, The patient speaks fluent Palauan. - Family history: Not pertinent. - : The pt / caregiver states he / she is on anticoagulants: Plavix. Home medication list is obtained from the patient. - Exposure Risk Screening:: None identified. Screenin:27 Screening information is obtained from the patient. Fall risk: No risks identified. kcs Assistance ADL's: requires no assistance with activities of daily living. Abuse/DV Screen: The patient / caregiver reports he/she is: not in a situation that causes fear, pain or injury. Nutritional screening: No deficits noted. Advance Directives: Currently, there is no health care proxy. home support is adequate. Assessment: 11:57 Reassessment: Patient states symptoms have not improved. General: Appears comfortable, kcs obese, well developed, well nourished, well groomed, Behavior is cooperative, pleasant. Neurological: Level of Consciousness is awake, alert. Cardiovascular: Rhythm is sinus rhythm rate = 98 bpm. Respiratory: Airway is patent Respiratory effort is even, labored, Respiratory pattern is regular, symmetrical, Breath sounds are diminished bilaterally. Breath sounds with wheezes bilaterally. edema noted of both lower extremities. Derm: Skin is intact, is healthy with good turgor, Skin is dry, Skin is normal. 13:18 Reassessment: Patient comfortable - still with harsh cough - raspy voice. Drinking kcs fluids and retaining. Respirations easy. Color = pink.. 15:04 Reassessment: Patient resting on stretcher - watching TV. Denies any needs. kcs Respirations still slightly labored - no drooling, no stridor. Color = pink. Nasal O2 on. Drinking fluids and retaining.. 15:15 Adult Sepsis Screening: The patient does not have new or worsening altered mentation. kcs Patient's respiratory rate is less than 22. Systolic blood pressure is greater than 100. Patient has a qSOFA score of 0- Negative Sepsis Screen. Patient has cough and/or SOB- Positive Sepsis Screen. 17:27 Reassessment: Patient states she feels that her breathing is a little better - still kcs with grunting respirations. Watching TV. Drinking fluids and retaining.. General: Appears comfortable, obese, well developed, well nourished, well groomed, Behavior is cooperative, pleasant. Pain: Location: chest Pain currently is 5 out of 10 on a pain scale. Quality of pain is described as tight. Neurological: Level of Consciousness is awake, alert. Cardiovascular: Rhythm is sinus rhythm No ectopy. Respiratory: Airway is patent Respiratory effort is even, labored, Respiratory pattern is regular, symmetrical. Derm: Skin is intact, is healthy with good turgor, Skin is dry, Skin is normal. 17:53 Reassessment: Patient states symptoms have improved. General: Appears comfortable, kcs obese, well developed, well nourished, well groomed, Behavior is cooperative, pleasant. Pain: Location: chest Pain currently is 5 out of 10 on a pain scale. Neurological: Level of Consciousness is awake, alert. Respiratory: Airway is patent Respiratory effort is labored, Respiratory pattern is regular, symmetrical, harsh congested cough. Derm: Skin is intact, is healthy with good turgor, Skin is dry, Skin is normal. Vital Signs: 11:09 BP 102 / 75; Pulse 118; Resp 26; Pulse Ox 89% on 2 lpm NC; Weight 111.13 kg; Height 5 elp ft. 3 in. (160.02 cm); 11:37 BP 130 / 64 (auto/); kcs 11:37 Pulse 100 MON; Pulse Ox 94% ; kcs 11:47 BP 128 / 60 (auto/); kcs 11:48 Pulse 100 MON; Pulse Ox 95% ; kcs 12:02 BP 115 / 59 (auto/); kcs 12:03 Pulse 92 MON; Pulse Ox 94% ; kcs 12:17 BP 133 / 65 (auto/); kcs 12:17 Pulse 90 MON; Pulse Ox 95% ; kcs 12:32 BP 121 / 64 (auto/); kcs 12:32 Pulse 92 MON; Pulse Ox 93% ; kcs 12:47 BP 125 / 64 (auto/); kcs 12:48 Pulse 96 MON; Pulse Ox 89% ; kcs 13:02 BP 132 / 61 (auto/); kcs 13:02 Pulse 94 MON; Pulse Ox 93% ; kcs 13:17 BP 139 / 60 (auto/); kcs 13:17 Pulse 96 MON; Resp 22; Pulse Ox 93% ; kcs 13:32 BP 119 / 64 (auto/); kcs 13:32 Pulse 104 MON; Pulse Ox 92% ; kcs 15:10 BP 127 / 68 (auto/); kcs 15:10 Pulse 94 MON; Resp 20; Pulse Ox 93% ; kcs 15:40 BP 125 / 67 (auto/); kcs 15:41 Pulse 92 MON; Pulse Ox 93% ; kcs 16:10 BP 133 / 64 (auto/); kcs 16:11 Pulse 94 MON; Pulse Ox 93% ; kcs 16:40 BP 134 / 73 (auto/); kcs 16:40 Pulse 92 MON; Pulse Ox 94% ; kcs 17:10 BP 128 / 71 (auto/); kcs 17:10 Pulse 92 MON; Pulse Ox 94% ; kcs 17:26 BP 128 / 71; Pulse 93; Resp 22; Temp 99.4(O); Pulse Ox 93% on 2 lpm NC; Pain 5/10; kcs 17:53 BP 124 / 67; Pulse 92; Resp 22; Temp 99.7(O); Pulse Ox 93% on 2 lpm NC; Pain 5/10; kcs 11:09 Body Mass Index 43.40 (111.13 kg, 160.02 cm) elp Vitals: 11:09 Log In Time: December 05, 2016 at 11:07. RN notified that patient meets Red Flag elp criteria. ED Course: 11:09 Patient visited by Lois Alvarez PCA. elp 11:09 Ramon Saucedo is Private Physician. elp 11:09 Patient moved to Waiting elp 11:10 Patient visited by Lois Alvarez PCA. elp 11:14 Triage Initiated dwg 11:22 Patient moved to 13 dwg 11:30 O2 via nasal cannula \T\ 2L/min. kcs 11:33 Patient has correct armband on for positive identification. Placed in gown. Bed in low ct3 position. Call light in reach. Side rails up X 1. campus monitor on. Pulse ox on. NIBP on. 11:33 EKG done. (by ED staff). Reviewed by Homa Doe MD. ct3 11:34 Patient visited by Lucille Young PCA. ct3 11:40 Inserted saline lock: 20 gauge in left antecubital area The patient tolerated the kcs procedure well. 11:43 Homa Doe MD is Attending Physician. sd1 11:51 Patient visited by Homa Doe MD. sd1 11:57 The patient / caregiver is instructed regarding the plan of care and ED course. kcs 12:01 CIP Sent. kcs 12:01 Troponin Sent. kcs 12:07 Chest, 1 View Returned. EDMS 12:30 -Arterial Blood Gas Sent. js 12:59 Patient name changed from Elvia\S\Yee\S\Richardson\S\ to Elvia\S\E\S\Richardson. EDMS 12:59 [facility] [place] was scanned into [employer] and attached to record. lg 13:03 Patient visited by Lucille Young PCA. ct3 13:20 Patient visited by Laura Reardon RN. kcs 13:47 Patient was ambulated with a Pulseox, per 's order. Patient's initial PulseOx jrd reading was 92% O2 on 2lpm(nasal canula), 108 bpm. Patient walked about 20 feet with normal gait, unassisted. However, patient then became very labored with her breathing and dropped to 89% O2 w/ 118bpm rate. Patient returned to bed without assistance. 13:53 Patient visited by Houston Chaudhry PCA. jrd 15:03 Bibiana Thompson is Hospitalizing Provider. sd1 17:53 IV is intact, with fluids infusing freely. No procedures done that require assistance. kcs Administered Medications: 12:08 Drug: Solu-MEDROL 125 mg [Solu-Medrol 500 mg intravenous solution (125 mg)] Route: IVP; kcs Site: left antecubital; 12:31 Drug: Albuterol-Ipratropium 1 neb [ipratropium-albuterol 0.5 mg-3 mg(2.5 mg base)/3 mL js nebulization soln (1 neb)] Route: Nebulizer; 12:49 Drug: Albuterol-Ipratropium 1 neb [ipratropium-albuterol 0.5 mg-3 mg(2.5 mg base)/3 mL js nebulization soln (1 neb)] Route: Nebulizer; 13:18 Drug: Potassium Chloride 40 mEq [potassium chloride ER 10 mEq tablet,extended release kcs (4 tabs)] Route: PO; 17:46 Drug: cefTRIAXone 1 grams [ceftriaxone 1 gram solution for injection] Route: IVPB; kcs Infused Over: 30 mins; Site: left antecubital; RT: 12:31 ABG's drawn from right brachial artery allens test done and positive no bleeding noted js pressure bandage applied specimen sent pt. tolerated well. Initial Med Neb Given as ordered Patient was instructed and evaluated on procedure Patient tolerated procedure well without adverse effect. Respiratory: Breath sounds are coarse Breath sounds are diminished bilaterally. Breath sounds with wheezes. 12:50 Subsequent Med Neb Given as ordered. Respiratory: Breath sounds are coarse Breath js sounds with wheezes bilaterally. at expiration at inspiration. Order Results: Lab Order: B-Type Natiuretic Peptide; SPEC'M 12/05/16 11:46 Test: BRAIN NATRIURETIC PEPTIDE; Value: 32.2; Range: <100; Units: PG/ML; Status: F Lab Order: Basic Metabolic Profile; SPEC'M 12/05/16 11:46 Test: GLUCOSE, FASTING; Value: 140; Range: 70-105; Abnormal: Above high normal; Units: MG/DL; Status: F Test: BLOOD UREA NITROGEN; Value: 22; Range: 7-18; Abnormal: Above high normal; Units: MG/DL; Status: F Test: CREATININE FOR GFR; Value: 1.69; Range: 0.55-1.02; Abnormal: Above high normal; Units: MG/DL; Status: F Test: GLOMERULAR FILTRATION RATE; Value: 33.1; Range: >51; Abnormal: Below low normal; Status: F Test: SODIUM LEVEL; Value: 143; Range: 136-145; Units: MEQ/L; Status: F Test: POTASSIUM SERUM; Value: 3.1; Range: 3.5-5.1; Abnormal: Below low normal; Units: MEQ/L; Status: F Test: CHLORIDE LEVEL; Value: 103; Range: 98-107; Units: MEQ/L; Status: F Test: CARBON DIOXIDE LEVEL; Value: 30; Range: 21-32; Units: MEQ/L; Status: F Test: ANION GAP; Value: 10; Range: 8-16; Units: MEQ/L; Status: F Test: CALCIUM LEVEL; Value: 8.7; Range: 8.5-10.1; Units: MG/DL; Status: F Test Note: ; Units are mL/min/1.73 m2 Chronic Kidney Disease Staging per NKF: Stage I & II GFR >=60 Normal to Mildly Decreased Stage III GFR 30-59 Moderately Decreased Stage IV GFR 15-29 Severely Decreased Stage V GFR <15 Very Little GFR Left ESRD GFR <15 on OIL BURNER Lab Order: CBC with Diff; SPEC'M 12/05/16 11:46 Test: WHITE BLOOD COUNT; Value: 6.7; Range: 4.0-10.0; Units: K/mm3; Status: F Test: RED BLOOD COUNT; Value: 3.29; Range: 4.00-5.40; Abnormal: Below low normal; Units: M/mm3; Status: F Test: HEMOGLOBIN; Value: 11.2; Range: 12.0-16.0; Abnormal: Below low normal; Units: g/dl; Status: F Test: HEMATOCRIT; Value: 33.4; Range: 36.0-47.0; Abnormal: Below low normal; Units: %; Status: F Test: MEAN CORPUSCULAR VOLUME; Value: 101.5; Range: 80.0-96.0; Abnormal: Above high normal; Units: fl; Status: F Test: MEAN CORPUSCULAR HEMOGLOBIN; Value: 34.1; Range: 27.0-33.0; Abnormal: Above high normal; Units: pg; Status: F Test: MEAN CORPUSCULAR HGB CONC; Value: 33.6; Range: 32.0-36.5; Units: g/dl; Status: F Test: RED CELL DISTRIBUTION WIDTH; Value: 14.6; Range: 11.5-14.5; Abnormal: Above high normal; Units: %; Status: F Test: PLATELET COUNT, AUTOMATED; Value: 161; Range: 150-450; Units: k/mm3; Status: F Test: NEUTROPHILS %; Value: 67.0; Range: 36.0-66.0; Abnormal: Above high normal; Units: %; Status: F Test: LYMPH %; Value: 21.1; Range: 24.0-44.0; Abnormal: Below low normal; Units: %; Status: F Test: MONO %; Value: 7.8; Range: 0.0-5.0; Abnormal: Above high normal; Units: %; Status: F Test: EOS %; Value: 1.0; Range: 0.0-3.0; Units: %; Status: F Test: BASO %; Value: 1.1; Range: 0.0-1.0; Abnormal: Above high normal; Units: %; Status: F Test: LARGE UNSTAINED CELL %; Value: 2.1; Range: 0.0-4.0; Units: %; Status: F Test: NEUTROPHILS #; Value: 4.5; Range: 1.8-7.7; Units: K/mm3; Status: F Test: LYMPH #; Value: 1.5; Range: 1.5-4.5; Units: K/mm3; Status: F Test: MONO #; Value: 0.5; Range: 0.0-0.8; Units: K/mm3; Status: F Test: EOS #; Value: 0.1; Range: 0.0-0.50; Units: K/mm3; Status: F Test: BASO #; Value: 0.1; Range: 0.0-0.2; Units: K/mm3; Status: F Test: LARGE UNSTAINED CELL #; Value: 0.1; Range: 0.0-0.4; Units: K/mm3; Status: F Lab Order: -Arterial Blood Gas; SPEC'M 12/05/16 12:26 Test: ABG pH (ARTERIAL); Value: 7.427; Range: 7.350-7.450; Units: UNITS; Status: F Test: ABG PARTIAL PRESSURE CO2; Value: 46.3; Range: 35.0-45.0; Abnormal: Above high normal; Units: mmHg; Status: F Test: ABG PARTIAL PRESSURE O2; Value: 72.9; Range: 75.0-100.0; Abnormal: Below low normal; Units: mmHg; Status: F Test: ABG TOTAL CO2; Value: 31.3; Range: 22.0-29.0; Abnormal: Above high normal; Units: MEQ/L; Status: F Test: ABG HCO3; Value: 29.8; Range: 22.0-26.0; Abnormal: Above high normal; Units: MEQ/L; Status: F Test: ABG BASE EXCESS; Value: 4.8; Range: -2.0-2.0; Abnormal: Above high normal; Status: F Test: ABG STANDARD HCO3; Value: 28.7; Range: 22.0-26.0; Abnormal: Above high normal; Units: MEQ/L; Status: F Test: ABG O2 SATURATION; Value: 94.3; Range: 95.0-99.0; Abnormal: Below low normal; Units: %; Status: F Test: ABG DEVICE; Value: NASAL SCOTT; Status: F Lab Order: CIP; 12/05/16 11:45 Test: CPK CREATINE PHOSPHOKINASE; Value: 46; Range: 26-192; Units: U/L; Status: F Test: CK-MB VALUE MASS; Value: 1.0; Range: 0.0-3.6; Units: NG/ML; Status: F Test: MB/CK RELATIVE INDEX; Value: 2.17; Range: < OR =4; Status: F Test Note: ; DIAGNOSIS CRITERIA MMB ng/ml Relative Index (RI) NON-AMI < or = 5 N/A [place] > 5 < or = 4 AMI > 5 > 4 Lab Order: Troponin; 12/05/16 11:45 Test: TROPONIN I; Value: < 0.02; Range: < 0.10; Units: NG/ML; Status: F Test Note: ; Troponin I Reference Interval for [email or web address] LOCI: 99th Percentile= 0.00-0.045 ng/ml Risk Stratification: <= 0.10 ng/ml Decreased Risk for Adverse Clinical Events. 0.10-1.50 ng/ml Increased Risk for Adverse Clinical Events. Evaluation of additional criterion and/or repeat testing in 2-6 hours is suggested to rule out myocardial damage. >= 1.50 ng/ml Indicative of Myocardial Injury. Lab Order: VITAMIN B12 LEVEL; SPEC12/05/16 16:07 Test: VITAMIN B12 LEVEL; Value: 234; Range: 247-911; Abnormal: Below low normal; Units: PG/ML; Status: F Test Note: ; VITAMIN B12 NORMAL RANGE NORMAL 247 - 911 PG/ML INDETERMINATE 211 - 246 PG/ML DEFICIENT LESS THAN 211 PG/ML Lab Order: [facility]OLATE; [facility] 16[facility]07 Test: FOLATE; Value: > 24.0; Range: >5.4; Units: NG/ML; Status: F Test Note: ; FOLATE NORMAL RANGE NORMAL GREATER THAN 5.4 NG/ML INDETERMINATE 3.4-5.4 NG/ML DEFICIENT LESS THAN 3.4 NG/ML Lab Order: MAGNESIUM LEVEL; [facility] 16:07 Test: MAGNESIUM LEVEL; Value: 2.2; Range: 1.8-2.4; Units: MG/DL; Status: F Radiology Order: Chest, 1 View Test: Chest, 1 View REASON FOR EXAMINATION: Shortness of Breath; Portable chest, 126 and the 2017, 11:37 a.m., single AP view, the patient; upright:; ; Comparison is 02/09/2016.; ; There is chronic cardiomegaly, unchanged.; ; There is minor discoid atelectasis inferiorly in the right.; ; The lung oden otherwise clear. The princess, mediastinum, bony thorax are; unremarkable.; ; Impression: Minor discoid atelectasis inferiorly in the right lung. Chronic; cardiomegaly.; ; ; Signed by; Joe Go MD 12/05/2016 11:41 A; Outcome: 15:03 Decision to Hospitalize by Provider. sd1 15:40 No special radiology studies were completed. Admission hand-off: Report Faxed. Property kcs :Personal belongings accompany Pt. 17:53 Discharge Assessment: Patient awake, alert and oriented x 3. No cognitive and/or kcs functional deficits noted. Patient verbalized understanding of disposition instructions. Patient awake and alert. patient administered narcotics - no. The following High Risk Discharge criteria are identified: None. Admitted to Med/Surg accompanied by tech, via stretcher, with oxygen, with chart. Condition: stable. 17:58 Patient left the ED. keeley Signatures: Dispatcher [employer] EDMS Homa Doe MD MD sd1 Laura Reardon RN RN kcs Greene, Daniel, RN RN dwg Ganter, LoriLee, Terence Augustin lg, Consuelo, CLOTHES IRONER CLOTHES IRONER ct3 Lois Alvarez, CLOTHES IRONER CLOTHES IRONER elp Houston Chaudhry, CLOTHES IRONER CLOTHES IRONER jrd Corrections: (The following items were deleted from the chart) 12:00 11:57 Cardiovascular: Rhythm is sinus rhythm keeley mina [employer]
--- NOTE | 2016-12-05 17:59 | EDDOCDS ---
Physician Documentation [facility] Name: Elvia Richardson Age: 56 yrs Sex: Female : 1960 Arrival Date: 12/05/2016 Time: 11:07 Bed 13 Private MD: Ramon Saucedo P. Disposition: 12/05/16 15:03 Hospitalization ordered by Bibiana Thompson for Inpatient Admission. Preliminary diagnosis is Chronic obstructive pulmonary disease with acute lower respiratory infection. - Bed requested for 4 [place]. - Status is Inpatient Admission. kcs - Condition is Stable. - Problem is an acute exacerbation. - Symptoms have improved. Historical: - Allergies: Advil (minimania); Aleveminimania; - Home Meds: 1. aspirin 81 mg Oral chew 1 tab once daily (Last dose: 12/05/2016 08:00) 2. atorvastatin 80 mg oral tab 1 tab once daily (Last dose: 12/04/2016 20:00) 3. carbamazepine 400 mg Oral Tb12 1 tab every 12 hours (Last dose: 12/05/2016 08:00) 4. Combivent 18-103 mcg/actuation Inhl aero 2 puffs 4 times per day (Last dose: 12/05/2016 08:00) 5. escitalopram oxalate 10 mg oral tab 1 tab once daily (Last dose: 12/05/2016 08:00) 6. ferrous sulfate 325 mg (65 mg iron) Oral tab daily (Last dose: 12/05/2016 08:00) 7. Furosemide 80mg in AM and 40mg at noon Oral (Last dose: 12/05/2016 08:00) 8. glipizide 2.5 mg Oral tr24 1 tabs bid (Last dose: 12/05/2016 08:00) 9. hydrocodone-acetaminophen 7.5-325 mg Oral tab 1 tab every 4-6 hours (Last dose: 12/04/2016 20:00) 10. Mag-G 27 mg (500 mg) oral tab daily (Last dose: 12/05/2016 08:00) 11. Nitrostat 0.4 mg SL subl 1 tab every 5 minutes Took 2 at home prior to arrival (Last dose: 09/04/2016) 12. [place] 3 Fish Oil oral cap 1000 MG\E\ daily (Last dose: 12/05/2016 08:00) 13. Plavix 75 mg Oral tab 1 tab once daily (Last dose: 12/05/2016 08:00) 14. potassium chloride 10 mEq Oral cpER 1 cap once daily (Last dose: 12/05/2016 08:00) 15. prednisone 30mg Oral tab once daily (Last dose: 12/05/2016 08:00) 16. Seroquel 500mg Oral 1 tab once daily (Last dose: 12/04/2016 20:00) 17. Vitamin C 1,000 mg Oral tab daily (Last dose: 12/05/2016 08:00) 18. Erythromycin Oral Unknown once daily (Last dose: 12/05/2016 08:00) 19. zonisamide 50 mg oral cap 1 cap 2 times per day (Last dose: 12/05/2016 08:00) - PMHx: Bipolar disorder; congestive heart failure; COPD; Diabetes - NIDDM: controlled; Hypercholesterolemia; Hypertension; iron deficiency anemia; Myocardial infarction; Renal Failure w/o Dialysis; - PSHx: Appendectomy; ; Cholecystectomy; Cataract Surgery- Bilateral; Cardiac stents (January 2016); - Social history: Smoking status: Patient states former smoker of tobacco. No barriers to communication noted, The patient speaks fluent Burmese. - Family history: Not pertinent. - : The pt / caregiver states he / she is on anticoagulants: Plavix. Home medication list is obtained from the patient. - Exposure Risk Screening:: None identified. Vital Signs: 12/05 11:09 BP 102 / 75; Pulse 118; Resp 26; Pulse Ox 89% on 2 lpm NC; Weight 111.13 kg / 245 lbs; elp Height 5 ft. 3 in. (160.02 cm); 11:37 BP 130 / 64 (auto/); kcs 11:37 Pulse 100 MON; Pulse Ox 94% ; kcs 11:47 BP 128 / 60 (auto/); kcs 11:48 Pulse 100 MON; Pulse Ox 95% ; kcs 12:02 BP 115 / 59 (auto/); kcs 12:03 Pulse 92 MON; Pulse Ox 94% ; kcs 12:17 BP 133 / 65 (auto/); kcs 12:17 Pulse 90 MON; Pulse Ox 95% ; kcs 12:32 BP 121 / 64 (auto/); kcs 12:32 Pulse 92 MON; Pulse Ox 93% ; kcs 12:47 BP 125 / 64 (auto/); kcs 12:48 Pulse 96 MON; Pulse Ox 89% ; kcs 13:02 BP 132 / 61 (auto/); kcs 13:02 Pulse 94 MON; Pulse Ox 93% ; kcs 13:17 BP 139 / 60 (auto/); kcs 13:17 Pulse 96 MON; Resp 22; Pulse Ox 93% ; kcs 13:32 BP 119 / 64 (auto/); kcs 13:32 Pulse 104 MON; Pulse Ox 92% ; kcs 15:10 BP 127 / 68 (auto/); kcs 15:10 Pulse 94 MON; Resp 20; Pulse Ox 93% ; kcs 15:40 BP 125 / 67 (auto/); kcs 15:41 Pulse 92 MON; Pulse Ox 93% ; kcs 16:10 BP 133 / 64 (auto/); kcs 16:11 Pulse 94 MON; Pulse Ox 93% ; kcs 16:40 BP 134 / 73 (auto/); kcs 16:40 Pulse 92 MON; Pulse Ox 94% ; kcs 17:10 BP 128 / 71 (auto/); kcs 17:10 Pulse 92 MON; Pulse Ox 94% ; kcs 17:26 BP 128 / 71; Pulse 93; Resp 22; Temp 99.4(O); Pulse Ox 93% on 2 lpm NC; Pain 5/10; kcs 17:53 BP 124 / 67; Pulse 92; Resp 22; Temp 99.7(O); Pulse Ox 93% on 2 lpm NC; Pain 5/10; kcs 11:09 Body Mass Index 43.40 (111.13 kg, 160.02 cm) elp MDM: 11:13 -Blood Culture (Adults Only), peripheral from different site, or from device/port/PICC sd1 etc. if present ordered. 11:13 Staffing Operations Manager/Pulse Ox/q 15 min VS ordered. sd1 11:13 IV Saline Lock ordered. sd1 11:13 Oxygen at 4L/Min NC or Home dosage ordered. sd1 11:13 Rhythm Strip to chart ordered. sd1 11:14 -Blood Culture Ordered. EDMS 11:14 B-Type Natiuretic Peptide Ordered. EDMS 11:14 Basic Metabolic Profile Ordered. EDMS 11:14 CBC with Diff Ordered. EDMS 11:14 ECG WITH READING ER PHYS+CARDIAG ordered. EDMS 11:15 Chest, 1 View Ordered. EDMS 11:25 -Blood Culture (Adults Only), peripheral from different site, or from device/port/PICC deg etc. if present complete. 11:26 BLOOD CULTURES Ordered. EDMS 11:54 Solu-MEDROL 125 mg IVP once ordered. sd1 11:54 Albuterol-Ipratropium 1 neb Nebulizer every 20 minutes x3 ordered. sd1 11:55 Call Respiratory ordered. sd1 11:55 -Arterial Blood Gas Ordered. EDMS 11:57 CIP Ordered. EDMS 11:57 Troponin Ordered. EDMS 12:04 Call Respiratory complete. deg 12:16 Financial registration complete. lg 12:37 Basic Metabolic Profile Reviewed. sd1 12:37 CBC with Diff Reviewed. sd1 12:37 -Arterial Blood Gas Reviewed. sd1 12:37 B-Type Natiuretic Peptide Reviewed. sd1 12:37 CIP Reviewed. sd1 12:37 Troponin Reviewed. sd1 12:37 Chest, 1 View Reviewed. sd1 12:48 Potassium Chloride Extended Release Tablet 40 mEq PO once ordered. sd1 12:59 [facility] Payment Agreement was scanned into [employer] and attached to record. lg 13:31 Misc. Nursing Order ordered. sd1 14:18 BED REQUEST+ADM ordered. EDMS 15:54 Admission / Observation Status ordered. EDMS 15:58 CONSISTENT CARBOHYDRATES ordered. EDMS 15:58 VITAMIN B12 LEVEL Ordered. EDMS 15:58 FOLATE Ordered. EDMS 15:59 MAGNESIUM LEVEL Ordered. EDMS 15:59 RESPIRATORY PANEL Ordered. EDMS 17:34 cefTRIAXone 1 grams IVPB once over 30 mins; dilute in 50mL of NS or D5W ordered. kcs Administered Medications: 12:08 Drug: Solu-MEDROL 125 mg [Solu-Medrol 500 mg intravenous solution (125 mg)] Route: IVP; kcs Site: left antecubital; 12:31 Drug: Albuterol-Ipratropium 1 neb [ipratropium-albuterol 0.5 mg-3 mg(2.5 mg base)/3 mL js nebulization soln (1 neb)] Route: Nebulizer; 12:49 Drug: Albuterol-Ipratropium 1 neb [ipratropium-albuterol 0.5 mg-3 mg(2.5 mg base)/3 mL js nebulization soln (1 neb)] Route: Nebulizer; 13:18 Drug: Potassium Chloride 40 mEq [potassium chloride ER 10 mEq tablet,extended release kcs (4 tabs)] Route: PO; 17:46 Drug: cefTRIAXone 1 grams [ceftriaxone 1 gram solution for injection] Route: IVPB; kcs Infused Over: 30 mins; Site: left antecubital; Signatures: Dispatcher [employer] EDMS Homa Doe MD MD sd1 Laura Reardon RN RN Jacquie Kidd, [employer] Attacher Unit deg Joe Heredia RN RN dwg Geovanna Bustamante, Reg Reg lg Terence Servin The chart was reviewed and I authenticate all verbal orders and agree with the evaluation and treatment provided.Attachments: 12:59 [facility] Payment Agreement lg MTDD
[2016-12-05 18:15] VITALS: BP 155/81
[2016-12-05] MEDS: AZITHROMYCIN INJ 500 MG, VIAL MATE ADAPTER 1 EACH in D5W 250 ML IV SCH (18:37)
[2016-12-05] MEDS: methylPREDNISolone INJ 125 MG/2 ML VIAL (J2930) IV SCH ×2 (18:37→23:48)
[2016-12-05] MEDS: HumaLOG INSULIN (NovoLOG) PER UNIT SC SCH ×2 (18:38→21:00)
[2016-12-05] MEDS: ENOXAPARIN 30 MG/0.3 ML SYR (J1650) SC SCH (18:38)
[2016-12-05] MEDS: ZONISAMIDE 50 MG CAP (ZONEGRAN) PO SCH (20:34)
[2016-12-05] MEDS: QUEtiapine FUMARATE 200 MG TAB PO SCH (20:35)
[2016-12-05] MEDS: carBAMazepine 200 MG TAB PO SCH (20:35)
[2016-12-05] MEDS: ATORVASTATIN 20 MG TAB PO SCH (20:35)
[2016-12-05] MEDS: QUEtiapine FUMARATE **XR** 200MG TABLET PO SCH (20:35)
[2016-12-05 22:00] VITALS: BP 119/72
[2016-12-06] MEDS: IPRATROPIUM 0.5MG/ALBUTEROL 2.5MG INH SOL UD 3ML (DUONEB)(J7620) NEB SCH ×5 (01:12→19:08)
[2016-12-06 01:35] VITALS: O2SAT 92
[2016-12-06] MEDS: methylPREDNISolone INJ 125 MG/2 ML VIAL (J2930) IV SCH ×3 (05:16→23:02)
[2016-12-06 06:00] VITALS: BP 123/95
--- NOTE | 2016-12-06 07:19 | ECGEPIP ---
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
[2016-12-06] MEDS: HumaLOG INSULIN (NovoLOG) PER UNIT SC SCH ×4 (09:11→21:00)
[2016-12-06] MEDS: ASCORBIC ACID 500 MG TAB PO SCH (09:12)
[2016-12-06] MEDS: POTASSIUM CHLORIDE 10 MEQ SR TABLET PO SCH (09:12)
[2016-12-06] MEDS: carBAMazepine 200 MG TAB PO SCH ×2 (09:12→20:52)
[2016-12-06] MEDS: ESCITALOPRAM OXALATE 10 MG TAB (LEXAPRO) PO SCH (09:12)
[2016-12-06] MEDS: CLOPIDOGREL 75 MG TAB PO SCH (09:12)
[2016-12-06] MEDS: FUROSEMIDE 80 MG TAB PO SCH (09:12)
[2016-12-06] MEDS: ENOXAPARIN 30 MG/0.3 ML SYR (J1650) SC SCH (09:12)
[2016-12-06] MEDS: ZONISAMIDE 50 MG CAP (ZONEGRAN) PO SCH ×2 (09:12→20:52)
[2016-12-06] MEDS: CALCITRIOL 0.25 MCG CAP (S0169) PO SCH (09:12)
[2016-12-06] MEDS: MAGNESIUM GLUCONATE 500 MG TAB PO SCH (09:13)
[2016-12-06] MEDS: MONTELUKAST 10 MG TAB PO SCH (09:13)
[2016-12-06] MEDS: ASPIRIN 81 MG ENTERIC TAB PO SCH (09:13)
[2016-12-06] MEDS: FERROUS SULFATE 325MG TAB PO SCH (09:13)
[2016-12-06] MEDS: ACETAMINOPHEN TAB 650MG DOSE (2X325MG) PO PRN (09:19)
[2016-12-06 09:27] LABS: BASO % 0.5 % (0.0-1.0); EOS % 0.2 % (0.0-3.0); LARGE UNSTAINED CELL # 0.1 K/mm3 (0.0-0.4); LARGE UNSTAINED CELL % 2.2 % (0.0-4.0); LYMPH # 0.7 K/mm3 (1.5-4.5); LYMPH % 17.9 % (24.0-44.0); MEAN CORPUSCULAR HEMOGLOBIN 34.7 pg (27.0-33.0); MEAN CORPUSCULAR HGB CONC 33.2 g/dl (32.0-36.5); MEAN CORPUSCULAR VOLUME 104.4 fl (80.0-96.0); MONO # 0.1 K/mm3 (0.0-0.8); NEUTROPHILS # 2.8 K/mm3 (1.8-7.7); NEUTROPHILS % 76.3 % (36.0-66.0); PLATELET COUNT, AUTOMATED 172 k/mm3 (150-450); RED CELL DISTRIBUTION WIDTH 13.6 % (11.5-14.5); WHITE BLOOD COUNT 3.7 K/mm3 (4.0-10.0)
[2016-12-06 09:38] LABS: CREATININE FOR GFR 1.71 MG/DL (0.55-1.02); GLOMERULAR FILTRATION RATE 32.6 (>51); MAGNESIUM LEVEL 2.6 MG/DL (1.8-2.4); POTASSIUM SERUM 4.2 MEQ/L (3.5-5.1)
[2016-12-06] MEDS ORDERED: FUROSEMIDE 40 MG TAB PO SCH (12:00)
[2016-12-06 14:00] VITALS: BP 142/77
--- NOTE | 2016-12-06 17:35 | IPNPDOC ---
Text Note Date of Service The patient was seen on 12/06/16 at 17:12. NOTE Subjective: She states her shortness of breath has improved. Continues to have mild wheezing. Objective: Vitals: (see below) General: No acute distress, laying comfortably in bed. HEENT: Moist mucous membranes. Neck: No JVD or lymphadenopathy Cardiac: RRR, No murmurs Pulm: Expiratory wheezing bilaterally b/l. Mild rhonchi. No stridor. Abd: NT/ND + BS Ext: No edema or cyanosis Labs (see below) Images: CXR 12/06/16 Impression: Minor discoid atelectasis inferiorly in the right lung. Chronic cardiomegaly. Assessment/Plan 1. COPD exacerbation- patient is oxygen dependent. Continue steroids, antibiotics, nebs. We'll continue to trend clinical improvement. 2. History of CAD status post stent- continue home meds 3. CKD stage III- stable. Avoid nephrotoxins. 4 Hypertension- continue home meds. 5. Hyperlipidemia- continue statin 6. Type 2 diabetes mellitus- sliding-scale insulin 7. Iron deficiency anemia- hemoglobin baseline. Continue monitor hemoglobin. 8. Chronic migraine headaches- continue home meds 9. Chronic lower back pain- continue meds. DVT prophy: Enoxaparin VS,Fishbone, I+O VS, Fishbone, I+O Laboratory Tests 12/06/16 09:12 Calcium Level 9.0, Red Blood Count 3.15 L, Mean Corpuscular Volume 104.4 H, Mean Corpuscular Hemoglobin 34.7 H, Mean Corpuscular Hemoglobin Concent 33.2, Red Cell Distribution Width 13.6, Neutrophils (%) (Auto) 76.3 H, Lymphocytes (% ) (Auto) 17.9 L, Monocytes (%) (Auto) 3.0, Eosinophils (%) (Auto) 0.2, Basophils (%) (Auto) 0.5, Neutrophils # (Auto) 2.8, Lymphocytes # (Auto) 0.7 L, Monocytes # (Auto) 0.1, Eosinophils # (Auto) 0.0, Basophils # (Auto) 0.0 Vital Signs Date Time Temp Pulse Resp B/P Pulse Ox O2 Delivery O2 Flow Rate FiO2 12/06/16 14:00 96.7 91 20 142/77 91 Room Air 12/06/16 10:13 2.0 I&O- Last 24 Hours up to 6 AM 12/06/16 06:00 Intake Total 915 ml Output Total 900 ml Balance 15 ml HAZEL FRANCO MD Dec 06, 2016 17:35
[2016-12-06 17:51] VITALS: BP 138/83
[2016-12-06] MEDS: cefTRIAXone SOD 1 GM in D5W MINI-BAG PLUS 50 ML IV SCH (17:59)
[2016-12-06] MEDS: AZITHROMYCIN INJ 500 MG, VIAL MATE ADAPTER 1 EACH in D5W 250 ML IV SCH (18:36)
[2016-12-06] MEDS: ATORVASTATIN 20 MG TAB PO SCH (20:52)
[2016-12-06] MEDS: QUEtiapine FUMARATE **XR** 200MG TABLET PO SCH (20:53)
[2016-12-06] MEDS: QUEtiapine FUMARATE 200 MG TAB PO SCH (20:53)
[2016-12-06 22:00] VITALS: BP 147/76
[2016-12-06] MEDS ORDERED: FUROSEMIDE 40 MG/4 ML VIAL (J1940) IV ONE (22:45)
[2016-12-07] MEDS: IPRATROPIUM 0.5MG/ALBUTEROL 2.5MG INH SOL UD 3ML (DUONEB)(J7620) NEB SCH ×4 (02:00→20:00)
[2016-12-07 06:00] VITALS: BP 124/78
[2016-12-07 06:06] LABS: MEAN CORPUSCULAR HEMOGLOBIN 34.3 pg (27.0-33.0); MEAN CORPUSCULAR HGB CONC 32.9 g/dl (32.0-36.5); MEAN CORPUSCULAR VOLUME 104.2 fl (80.0-96.0); RED CELL DISTRIBUTION WIDTH 13.6 % (11.5-14.5); WHITE BLOOD COUNT 5.3 K/mm3 (4.0-10.0)
[2016-12-07 06:19] LABS: CALCIUM LEVEL 8.7 MG/DL (8.5-10.1); CREATININE FOR GFR 1.62 MG/DL (0.55-1.02); GLOMERULAR FILTRATION RATE 34.7 (>51); POTASSIUM SERUM 4.4 MEQ/L (3.5-5.1)
[2016-12-07] MEDS: HumaLOG INSULIN (NovoLOG) PER UNIT SC SCH ×4 (08:01→20:59)
[2016-12-07] MEDS: ENOXAPARIN 30 MG/0.3 ML SYR (J1650) SC SCH (08:01)
[2016-12-07] MEDS: ASCORBIC ACID 500 MG TAB PO SCH (08:02)
[2016-12-07] MEDS: FUROSEMIDE 80 MG TAB PO SCH (08:02)
[2016-12-07] MEDS: ASPIRIN 81 MG ENTERIC TAB PO SCH (08:02)
[2016-12-07] MEDS: carBAMazepine 200 MG TAB PO SCH ×2 (08:02→20:16)
[2016-12-07] MEDS: MONTELUKAST 10 MG TAB PO SCH (08:02)
[2016-12-07] MEDS: CALCITRIOL 0.25 MCG CAP (S0169) PO SCH (08:03)
[2016-12-07] MEDS: ESCITALOPRAM OXALATE 10 MG TAB (LEXAPRO) PO SCH (08:03)
[2016-12-07] MEDS: FERROUS SULFATE 325MG TAB PO SCH (08:03)
[2016-12-07] MEDS: ZONISAMIDE 50 MG CAP (ZONEGRAN) PO SCH ×2 (08:03→20:16)
[2016-12-07] MEDS: POTASSIUM CHLORIDE 10 MEQ SR TABLET PO SCH (08:03)
[2016-12-07] MEDS: CLOPIDOGREL 75 MG TAB PO SCH (08:03)
[2016-12-07] MEDS: MAGNESIUM GLUCONATE 500 MG TAB PO SCH (08:04)
[2016-12-07 08:10] VITALS: O2SAT 94
[2016-12-07] MEDS ORDERED: FURO40TA2 PO (10:59)
[2016-12-07] MEDS ORDERED: FUROSEMIDE 40 MG TAB PO ONE (11:15)
[2016-12-07] MEDS ORDERED: DOCUSATE SODIUM 100 MG CAP PO PRN (11:30)
[2016-12-07] MEDS: ADVAIR DISKUS 500/50 INH PWD INH SCH ×2 (11:51→20:05)
[2016-12-07] MEDS: methylPREDNISolone INJ 125 MG/2 ML VIAL (J2930) IV SCH ×2 (12:38→23:38)
[2016-12-07 14:00] VITALS: BP 144/78
[2016-12-07] MEDS: AZITHROMYCIN 250 MG TAB PO SCH (15:25)
[2016-12-07] MEDS: cefTRIAXone SOD 1 GM in D5W MINI-BAG PLUS 50 ML IV SCH (17:26)
--- NOTE | 2016-12-07 18:59 | EDDOCDS ---
Nurse's Notes [facility] Name: Elvia Richardson Age: 56 yrs Sex: Female : 1960 Arrival Date: 12/05/2016 Time: 11:07 Bed 13 Private MD: Ramon Saucedo P. Diagnosis: Chronic obstructive pulmonary disease with acute lower respiratory infection Presentation: 12/05 11:11 Presenting complaint: Patient states: Increase difficulty breathing, oxygen dependant, dwg worsening symptoms despite being on Prednisone and EES for 3-4 days. Also complains of generalized chest pain. Adult Sepsis Screening: The patient does not have new or worsening altered mentation. Patient has a respiratory rate of greater than or equal to 22 (1 point). Systolic blood pressure is greater than 100. Patient has a qSOFA score of 1- Negative Sepsis Screen. Adult Sepsis Screening: Patient has cough and/or SOB- Positive Sepsis Screen. Notified Homa Doe MD Patient made JENN Level 2. Patient placed in exam room. Charge nurse notified. Suicide/Homicide risk assessment- the patient denies having any suicidal and/or homicidal ideations and does not present with any other emotional, behavioral or mental health complaints. Status: Patient is not a conference service coordinator or dependent. Transition of care: patient was not received from another setting of care. 11:11 Acuity: JENN Level 2 dwg 11:11 Method Of Arrival: Walkin/Carried/Asstd dwg Triage Assessment: 11:21 General: Appears in no apparent distress. Pain: Pain currently is 7 out of 10 on a pain dwg scale. HIV screening NA for this visit Offered previously. Historical: - Allergies: Advil (minimania); Aleveminimania; - Home Meds: 1. aspirin 81 mg Oral chew 1 tab once daily (Last dose: 12/05/2016 08:00) 2. atorvastatin 80 mg oral tab 1 tab once daily (Last dose: 12/04/2016 20:00) 3. carbamazepine 400 mg Oral Tb12 1 tab every 12 hours (Last dose: 12/05/2016 08:00) 4. Combivent 18-103 mcg/actuation Inhl aero 2 puffs 4 times per day (Last dose: 12/05/2016 08:00) 5. escitalopram oxalate 10 mg oral tab 1 tab once daily (Last dose: 12/05/2016 08:00) 6. ferrous sulfate 325 mg (65 mg iron) Oral tab daily (Last dose: 12/05/2016 08:00) 7. Furosemide 80mg in AM and 40mg at noon Oral (Last dose: 12/05/2016 08:00) 8. glipizide 2.5 mg Oral tr24 1 tabs bid (Last dose: 12/05/2016 08:00) 9. hydrocodone-acetaminophen 7.5-325 mg Oral tab 1 tab every 4-6 hours (Last dose: 12/04/2016 20:00) 10. Mag-G 27 mg (500 mg) oral tab daily (Last dose: 12/05/2016 08:00) 11. Nitrostat 0.4 mg SL subl 1 tab every 5 minutes Took 2 at home prior to arrival (Last dose: 09/04/2016) 12. [place] 3 Fish Oil oral cap 1000 MG\E\ daily (Last dose: 12/05/2016 08:00) 13. Plavix 75 mg Oral tab 1 tab once daily (Last dose: 12/05/2016 08:00) 14. potassium chloride 10 mEq Oral cpER 1 cap once daily (Last dose: 12/05/2016 08:00) 15. prednisone 30mg Oral tab once daily (Last dose: 12/05/2016 08:00) 16. Seroquel 500mg Oral 1 tab once daily (Last dose: 12/04/2016 20:00) 17. Vitamin C 1,000 mg Oral tab daily (Last dose: 12/05/2016 08:00) 18. Erythromycin Oral Unknown once daily (Last dose: 12/05/2016 08:00) 19. zonisamide 50 mg oral cap 1 cap 2 times per day (Last dose: 12/05/2016 08:00) - PMHx: Bipolar disorder; congestive heart failure; COPD; Diabetes - NIDDM: controlled; Hypercholesterolemia; Hypertension; iron deficiency anemia; Myocardial infarction; Renal Failure w/o Dialysis; - PSHx: Appendectomy; ; Cholecystectomy; Cataract Surgery- Bilateral; Cardiac stents (January 2016); - Social history: Smoking status: Patient states former smoker of tobacco. No barriers to communication noted, The patient speaks fluent [place]. - Family history: Not pertinent. - : The pt / caregiver states he / she is on anticoagulants: Plavix. Home medication list is obtained from the patient. - Exposure Risk Screening:: None identified. Screenin:27 Screening information is obtained from the patient. Fall risk: No risks identified. kcs Assistance ADL's: requires no assistance with activities of daily living. Abuse/DV Screen: The patient / caregiver reports he/she is: not in a situation that causes fear, pain or injury. Nutritional screening: No deficits noted. Advance Directives: Currently, there is no health care proxy. home support is adequate. Assessment: 11:57 Reassessment: Patient states symptoms have not improved. General: Appears comfortable, kcs obese, well developed, well nourished, well groomed, Behavior is cooperative, pleasant. Neurological: Level of Consciousness is awake, alert. Cardiovascular: Rhythm is sinus rhythm rate = 98 bpm. Respiratory: Airway is patent Respiratory effort is even, labored, Respiratory pattern is regular, symmetrical, Breath sounds are diminished bilaterally. Breath sounds with wheezes bilaterally. edema noted of both lower extremities. Derm: Skin is intact, is healthy with good turgor, Skin is dry, Skin is normal. 13:18 Reassessment: Patient comfortable - still with harsh cough - raspy voice. Drinking kcs fluids and retaining. Respirations easy. Color = pink.. 15:04 Reassessment: Patient resting on stretcher - watching TV. Denies any needs. kcs Respirations still slightly labored - no drooling, no stridor. Color = pink. Nasal O2 on. Drinking fluids and retaining.. 15:15 Adult Sepsis Screening: The patient does not have new or worsening altered mentation. kcs Patient's respiratory rate is less than 22. Systolic blood pressure is greater than 100. Patient has a qSOFA score of 0- Negative Sepsis Screen. Patient has cough and/or SOB- Positive Sepsis Screen. 17:27 Reassessment: Patient states she feels that her breathing is a little better - still kcs with grunting respirations. Watching TV. Drinking fluids and retaining.. General: Appears comfortable, obese, well developed, well nourished, well groomed, Behavior is cooperative, pleasant. Pain: Location: chest Pain currently is 5 out of 10 on a pain scale. Quality of pain is described as tight. Neurological: Level of Consciousness is awake, alert. Cardiovascular: Rhythm is sinus rhythm No ectopy. Respiratory: Airway is patent Respiratory effort is even, labored, Respiratory pattern is regular, symmetrical. Derm: Skin is intact, is healthy with good turgor, Skin is dry, Skin is normal. 17:53 Reassessment: Patient states symptoms have improved. General: Appears comfortable, kcs obese, well developed, well nourished, well groomed, Behavior is cooperative, pleasant. Pain: Location: chest Pain currently is 5 out of 10 on a pain scale. Neurological: Level of Consciousness is awake, alert. Respiratory: Airway is patent Respiratory effort is labored, Respiratory pattern is regular, symmetrical, harsh congested cough. Derm: Skin is intact, is healthy with good turgor, Skin is dry, Skin is normal. Vital Signs: 11:09 BP 102 / 75; Pulse 118; Resp 26; Pulse Ox 89% on 2 lpm NC; Weight 111.13 kg; Height 5 elp ft. 3 in. (160.02 cm); 11:37 BP 130 / 64 (auto/); kcs 11:37 Pulse 100 MON; Pulse Ox 94% ; kcs 11:47 BP 128 / 60 (auto/); kcs 11:48 Pulse 100 MON; Pulse Ox 95% ; kcs 12:02 BP 115 / 59 (auto/); kcs 12:03 Pulse 92 MON; Pulse Ox 94% ; kcs 12:17 BP 133 / 65 (auto/); kcs 12:17 Pulse 90 MON; Pulse Ox 95% ; kcs 12:32 BP 121 / 64 (auto/); kcs 12:32 Pulse 92 MON; Pulse Ox 93% ; kcs 12:47 BP 125 / 64 (auto/); kcs 12:48 Pulse 96 MON; Pulse Ox 89% ; kcs 13:02 BP 132 / 61 (auto/); kcs 13:02 Pulse 94 MON; Pulse Ox 93% ; kcs 13:17 BP 139 / 60 (auto/); kcs 13:17 Pulse 96 MON; Resp 22; Pulse Ox 93% ; kcs 13:32 BP 119 / 64 (auto/); kcs 13:32 Pulse 104 MON; Pulse Ox 92% ; kcs 15:10 BP 127 / 68 (auto/); kcs 15:10 Pulse 94 MON; Resp 20; Pulse Ox 93% ; kcs 15:40 BP 125 / 67 (auto/); kcs 15:41 Pulse 92 MON; Pulse Ox 93% ; kcs 16:10 BP 133 / 64 (auto/); kcs 16:11 Pulse 94 MON; Pulse Ox 93% ; kcs 16:40 BP 134 / 73 (auto/); kcs 16:40 Pulse 92 MON; Pulse Ox 94% ; kcs 17:10 BP 128 / 71 (auto/); kcs 17:10 Pulse 92 MON; Pulse Ox 94% ; kcs 17:26 BP 128 / 71; Pulse 93; Resp 22; Temp 99.4(O); Pulse Ox 93% on 2 lpm NC; Pain 5/10; kcs 17:53 BP 124 / 67; Pulse 92; Resp 22; Temp 99.7(O); Pulse Ox 93% on 2 lpm NC; Pain 5/10; kcs 11:09 Body Mass Index 43.40 (111.13 kg, 160.02 cm) elp Vitals: 11:09 Log In Time: December 05, 2016 at 11:07. RN notified that patient meets Red Flag elp criteria. ED Course: 11:09 Patient visited by Lois Alvarez PCA. elp 11:09 Ramon Saucedo is Private Physician. elp 11:09 Patient moved to Waiting elp 11:10 Patient visited by Lois Alvarez PCA. elp 11:14 Triage Initiated dwg 11:22 Patient moved to 13 dwg 11:30 O2 via nasal cannula \T\ 2L/min. kcs 11:33 Patient has correct armband on for positive identification. Placed in gown. Bed in low ct3 position. Call light in reach. Side rails up X 1. medical technologist generalist on. Pulse ox on. NIBP on. 11:33 EKG done. (by ED staff). Reviewed by Homa Doe MD. ct3 11:34 Patient visited by Lucille Young PCA. ct3 11:40 Inserted saline lock: 20 gauge in left antecubital area The patient tolerated the kcs procedure well. 11:43 Homa Doe MD is Attending Physician. sd1 11:51 Patient visited by Homa Doe MD. sd1 11:57 The patient / caregiver is instructed regarding the plan of care and ED course. kcs 12:01 CIP Sent. kcs 12:01 Troponin Sent. kcs 12:07 Chest, 1 View Returned. EDMS 12:30 -Arterial Blood Gas Sent. js 12:59 Patient name changed from Elvia\S\Yee\S\Richardson\S\ to Elvia\S\E\S\Richardson. EDMS 12:59 [facility] Payment Agreement was scanned into [employer] and attached to record. lg 13:03 Patient visited by Lucille Young PCA. ct3 13:20 Patient visited by Laura Reardon RN. kcs 13:47 Patient was ambulated with a Pulseox, per 's order. Patient's initial PulseOx jrd reading was 92% O2 on 2lpm(nasal canula), 108 bpm. Patient walked about 20 feet with normal gait, unassisted. However, patient then became very labored with her breathing and dropped to 89% O2 w/ 118bpm rate. Patient returned to bed without assistance. 13:53 Patient visited by Houston Chaudhry PCA. jrd 15:03 Bibiana Thompson is Hospitalizing Provider. sd1 17:53 IV is intact, with fluids infusing freely. No procedures done that require assistance. kcs 12/06 09:40 T-Sheet-- Draft Copy was scanned into [employer] and attached to record. gb 09:41 ECG/EKG was scanned into [employer] and attached to record. gb 09:41 Trend VS was scanned into [employer] and attached to record. gb Administered Medications: 12/05 12:08 Drug: Solu-MEDROL 125 mg [Solu-Medrol 500 mg intravenous solution (125 mg)] Route: IVP; kcs Site: left antecubital; 12:31 Drug: Albuterol-Ipratropium 1 neb [ipratropium-albuterol 0.5 mg-3 mg(2.5 mg base)/3 mL js nebulization soln (1 neb)] Route: Nebulizer; 12:49 Drug: Albuterol-Ipratropium 1 neb [ipratropium-albuterol 0.5 mg-3 mg(2.5 mg base)/3 mL js nebulization soln (1 neb)] Route: Nebulizer; 13:18 Drug: Potassium Chloride 40 mEq [potassium chloride ER 10 mEq tablet,extended release kcs (4 tabs)] Route: PO; 17:46 Drug: cefTRIAXone 1 grams [ceftriaxone 1 gram solution for injection] Route: IVPB; kcs Infused Over: 30 mins; Site: left antecubital; Attachments: 09:41 Trend VS gb RT: 12/05 12:31 ABG's drawn from right brachial artery allens test done and positive no bleeding noted js pressure bandage applied specimen sent pt. tolerated well. Initial Med Neb Given as ordered Patient was instructed and evaluated on procedure Patient tolerated procedure well without adverse effect. Respiratory: Breath sounds are coarse Breath sounds are diminished bilaterally. Breath sounds with wheezes. 12:50 Subsequent Med Neb Given as ordered. Respiratory: Breath sounds are coarse Breath js sounds with wheezes bilaterally. at expiration at inspiration. Order Results: Lab Order: B-Type Natiuretic Peptide; SPEC'M 12/05/16 11:46 Test: BRAIN NATRIURETIC PEPTIDE; Value: 32.2; Range: <100; Units: PG/ML; Status: F Lab Order: Basic Metabolic Profile; SPEC'M 12/05/16 11:46 Test: GLUCOSE, FASTING; Value: 140; Range: 70-105; Abnormal: Above high normal; Units: MG/DL; Status: F Test: BLOOD UREA NITROGEN; Value: 22; Range: 7-18; Abnormal: Above high normal; Units: MG/DL; Status: F Test: CREATININE FOR GFR; Value: 1.69; Range: 0.55-1.02; Abnormal: Above high normal; Units: MG/DL; Status: F Test: GLOMERULAR FILTRATION RATE; Value: 33.1; Range: >51; Abnormal: Below low normal; Status: F Test: SODIUM LEVEL; Value: 143; Range: 136-145; Units: MEQ/L; Status: F Test: POTASSIUM SERUM; Value: 3.1; Range: 3.5-5.1; Abnormal: Below low normal; Units: MEQ/L; Status: F Test: CHLORIDE LEVEL; Value: 103; Range: 98-107; Units: MEQ/L; Status: F Test: CARBON DIOXIDE LEVEL; Value: 30; Range: 21-32; Units: MEQ/L; Status: F Test: ANION GAP; Value: 10; Range: 8-16; Units: MEQ/L; Status: F Test: CALCIUM LEVEL; Value: 8.7; Range: 8.5-10.1; Units: MG/DL; Status: F Test Note: ; Units are mL/min/1.73 m2 Chronic Kidney Disease Staging per NKF: Stage I & II GFR >=60 Normal to Mildly Decreased Stage III GFR 30-59 Moderately Decreased Stage IV GFR 15-29 Severely Decreased Stage V GFR <15 Very Little GFR Left ESRD GFR <15 on TAR DISTRIBUTOR OPERATOR Lab Order: CBC with Diff; NIDIA'Cricket 12/05/16 11:46 Test: WHITE BLOOD COUNT; Value: 6.7; Range: 4.0-10.0; Units: K/mm3; Status: F Test: RED BLOOD COUNT; Value: 3.29; Range: 4.00-5.40; Abnormal: Below low normal; Units: M/mm3; Status: F Test: HEMOGLOBIN; Value: 11.2; Range: 12.0-16.0; Abnormal: Below low normal; Units: g/dl; Status: F Test: HEMATOCRIT; Value: 33.4; Range: 36.0-47.0; Abnormal: Below low normal; Units: %; Status: F Test: MEAN CORPUSCULAR VOLUME; Value: 101.5; Range: 80.0-96.0; Abnormal: Above high normal; Units: fl; Status: F Test: MEAN CORPUSCULAR HEMOGLOBIN; Value: 34.1; Range: 27.0-33.0; Abnormal: Above high normal; Units: pg; Status: F Test: MEAN CORPUSCULAR HGB CONC; Value: 33.6; Range: 32.0-36.5; Units: g/dl; Status: F Test: RED CELL DISTRIBUTION WIDTH; Value: 14.6; Range: 11.5-14.5; Abnormal: Above high normal; Units: %; Status: F Test: PLATELET COUNT, AUTOMATED; Value: 161; Range: 150-450; Units: k/mm3; Status: F Test: NEUTROPHILS %; Value: 67.0; Range: 36.0-66.0; Abnormal: Above high normal; Units: %; Status: F Test: LYMPH %; Value: 21.1; Range: 24.0-44.0; Abnormal: Below low normal; Units: %; Status: F Test: MONO %; Value: 7.8; Range: 0.0-5.0; Abnormal: Above high normal; Units: %; Status: F Test: EOS %; Value: 1.0; Range: 0.0-3.0; Units: %; Status: F Test: BASO %; Value: 1.1; Range: 0.0-1.0; Abnormal: Above high normal; Units: %; Status: F Test: LARGE UNSTAINED CELL %; Value: 2.1; Range: 0.0-4.0; Units: %; Status: F Test: NEUTROPHILS #; Value: 4.5; Range: 1.8-7.7; Units: K/mm3; Status: F Test: LYMPH #; Value: 1.5; Range: 1.5-4.5; Units: K/mm3; Status: F Test: MONO #; Value: 0.5; Range: 0.0-0.8; Units: K/mm3; Status: F Test: EOS #; Value: 0.1; Range: 0.0-0.50; Units: K/mm3; Status: F Test: BASO #; Value: 0.1; Range: 0.0-0.2; Units: K/mm3; Status: F Test: LARGE UNSTAINED CELL #; Value: 0.1; Range: 0.0-0.4; Units: K/mm3; Status: F Lab Order: -Arterial Blood Gas; SPEC'M 12/05/16 12:26 Test: ABG pH (ARTERIAL); Value: 7.427; Range: 7.350-7.450; Units: UNITS; Status: F Test: ABG PARTIAL PRESSURE CO2; Value: 46.3; Range: 35.0-45.0; Abnormal: Above high normal; Units: mmHg; Status: F Test: ABG PARTIAL PRESSURE O2; Value: 72.9; Range: 75.0-100.0; Abnormal: Below low normal; Units: mmHg; Status: F Test: ABG TOTAL CO2; Value: 31.3; Range: 22.0-29.0; Abnormal: Above high normal; Units: MEQ/L; Status: F Test: ABG HCO3; Value: 29.8; Range: 22.0-26.0; Abnormal: Above high normal; Units: MEQ/L; Status: F Test: ABG BASE EXCESS; Value: 4.8; Range: -2.0-2.0; Abnormal: Above high normal; Status: F Test: ABG STANDARD HCO3; Value: 28.7; Range: 22.0-26.0; Abnormal: Above high normal; Units: MEQ/L; Status: F Test: ABG O2 SATURATION; Value: 94.3; Range: 95.0-99.0; Abnormal: Below low normal; Units: %; Status: F Test: ABG DEVICE; Value: NASAL SCOTT; Status: F Lab Order: CIP; 12/05/16 11:45 Test: CPK CREATINE PHOSPHOKINASE; Value: 46; Range: 26-192; Units: U/L; Status: F Test: CK-MB VALUE MASS; Value: 1.0; Range: 0.0-3.6; Units: NG/ML; Status: F Test: MB/CK RELATIVE INDEX; Value: 2.17; Range: < OR =4; Status: F Test Note: ; DIAGNOSIS CRITERIA MMB ng/ml Relative Index (RI) NON-AMI < or = 5 N/A [place] > 5 < or = 4 AMI > 5 > 4 Lab Order: Troponin; 12/05/16 11:45 Test: TROPONIN I; Value: < 0.02; Range: < 0.10; Units: NG/ML; Status: F Test Note: ; Troponin I Reference Interval for Acheive CCA LOCI: 99th Percentile= 0.00-0.045 ng/ml Risk Stratification: <= 0.10 ng/ml Decreased Risk for Adverse Clinical Events. 0.10-1.50 ng/ml Increased Risk for Adverse Clinical Events. Evaluation of additional criterion and/or repeat testing in 2-6 hours is suggested to rule out myocardial damage. >= 1.50 ng/ml Indicative of Myocardial Injury. Lab Order: VITAMIN B12 LEVEL; 12/05/16 16:07 Test: VITAMIN B12 LEVEL; Value: 234; Range: 247-911; Abnormal: Below low normal; Units: PG/ML; Status: F Test Note: ; VITAMIN B12 NORMAL RANGE NORMAL 247 - 911 PG/ML INDETERMINATE 211 - 246 PG/ML DEFICIENT LESS THAN 211 PG/ML Lab Order: FOLATE; SPEC 12/05/16 16:07 Test: FOLATE; Value: > 24.0; Range: >5.4; Units: NG/ML; Status: F Test Note: ; FOLATE NORMAL RANGE NORMAL GREATER THAN 5.4 NG/ML INDETERMINATE 3.4-5.4 NG/ML DEFICIENT LESS THAN 3.4 NG/ML Lab Order: MAGNESIUM LEVEL; SPEC'M 12/05/16 16:07 Test: MAGNESIUM LEVEL; Value: 2.2; Range: 1.8-2.4; Units: MG/DL; Status: F Radiology Order: Chest, 1 View Test: Chest, 1 View REASON FOR EXAMINATION: Shortness of Breath; Portable chest, 126 and the 2017, 11:37 a.m., single AP view, the patient; upright:; ; Comparison is 02/09/2016.; ; There is chronic cardiomegaly, unchanged.; ; There is minor discoid atelectasis inferiorly in the right.; ; The lung oden otherwise clear. The princess, mediastinum, bony thorax are; unremarkable.; ; Impression: Minor discoid atelectasis inferiorly in the right lung. Chronic; cardiomegaly.; ; ; Signed by; Joe Go MD 12/05/2016 11:41 A; Outcome: 15:03 Decision to Hospitalize by Provider. sd1 15:40 No special radiology studies were completed. Admission hand-off: Report Faxed. Property kcs :Personal belongings accompany Pt. 17:53 Discharge Assessment: Patient awake, alert and oriented x 3. No cognitive and/or kcs functional deficits noted. Patient verbalized understanding of disposition instructions. Patient awake and alert. patient administered narcotics - no. The following High Risk Discharge criteria are identified: None. Admitted to Med/Surg accompanied by tech, via stretcher, with oxygen, with chart. Condition: stable. 17:58 Patient left the ED. kcs Signatures: Dispatcher [employer] EDMS Homa Deo MD MD sd1 Laura Reardon RN RN kcs Greene, Daniel, RN RN dwg Nandini Rush, Reg Reg gb Geovanna Bustamante, Reg Reg lg Malathi,Lucille Larsen, THIRD OFFICER THIRD OFFICER ct3 Lois Alvarez, THIRD OFFICER THIRD OFFICER elp Houston Chaudhry, THIRD OFFICER THIRD OFFICER jrd Corrections: (The following items were deleted from the chart) 12:00 11:57 Cardiovascular: Rhythm is sinus rhythm kcs kcs Chart Complete MTDD
--- NOTE | 2016-12-07 18:59 | EDDOCDS ---
Physician Documentation [facility] Name: Elvia Richardson Age: 56 yrs Sex: Female : 1960 Arrival Date: 12/05/2016 Time: 11:07 Bed 13 Private MD: Ramon Saucedo P. Disposition: 12/05/16 15:03 Hospitalization ordered by Bibiana Thompson for Inpatient Admission. Preliminary diagnosis is Chronic obstructive pulmonary disease with acute lower respiratory infection. - Bed requested for 4 [place]. - Status is Inpatient Admission. kcs - Condition is Stable. - Problem is an acute exacerbation. - Symptoms have improved. Historical: - Allergies: Advil (minimania); Aleveminimania; - Home Meds: 1. aspirin 81 mg Oral chew 1 tab once daily (Last dose: 12/05/2016 08:00) 2. atorvastatin 80 mg oral tab 1 tab once daily (Last dose: 12/04/2016 20:00) 3. carbamazepine 400 mg Oral Tb12 1 tab every 12 hours (Last dose: 12/05/2016 08:00) 4. Combivent 18-103 mcg/actuation Inhl aero 2 puffs 4 times per day (Last dose: 12/05/2016 08:00) 5. escitalopram oxalate 10 mg oral tab 1 tab once daily (Last dose: 12/05/2016 08:00) 6. ferrous sulfate 325 mg (65 mg iron) Oral tab daily (Last dose: 12/05/2016 08:00) 7. Furosemide 80mg in AM and 40mg at noon Oral (Last dose: 12/05/2016 08:00) 8. glipizide 2.5 mg Oral tr24 1 tabs bid (Last dose: 12/05/2016 08:00) 9. hydrocodone-acetaminophen 7.5-325 mg Oral tab 1 tab every 4-6 hours (Last dose: 12/04/2016 20:00) 10. Mag-G 27 mg (500 mg) oral tab daily (Last dose: 12/05/2016 08:00) 11. Nitrostat 0.4 mg SL subl 1 tab every 5 minutes Took 2 at home prior to arrival (Last dose: 09/04/2016) 12. Gypsy 3 Fish Oil oral cap 1000 MG\E\ daily (Last dose: 12/05/2016 08:00) 13. Plavix 75 mg Oral tab 1 tab once daily (Last dose: 12/05/2016 08:00) 14. potassium chloride 10 mEq Oral cpER 1 cap once daily (Last dose: 12/05/2016 08:00) 15. prednisone 30mg Oral tab once daily (Last dose: 12/05/2016 08:00) 16. Seroquel 500mg Oral 1 tab once daily (Last dose: 12/04/2016 20:00) 17. Vitamin C 1,000 mg Oral tab daily (Last dose: 12/05/2016 08:00) 18. Erythromycin Oral Unknown once daily (Last dose: 12/05/2016 08:00) 19. zonisamide 50 mg oral cap 1 cap 2 times per day (Last dose: 12/05/2016 08:00) - PMHx: Bipolar disorder; congestive heart failure; COPD; Diabetes - NIDDM: controlled; Hypercholesterolemia; Hypertension; iron deficiency anemia; Myocardial infarction; Renal Failure w/o Dialysis; - PSHx: Appendectomy; ; Cholecystectomy; Cataract Surgery- Bilateral; Cardiac stents (January 2016); - Social history: Smoking status: Patient states former smoker of tobacco. No barriers to communication noted, The patient speaks fluent Albanian. - Family history: Not pertinent. - : The pt / caregiver states he / she is on anticoagulants: Plavix. Home medication list is obtained from the patient. - Exposure Risk Screening:: None identified. Vital Signs: 12/05 11:09 BP 102 / 75; Pulse 118; Resp 26; Pulse Ox 89% on 2 lpm NC; Weight 111.13 kg / 245 lbs; elp Height 5 ft. 3 in. (160.02 cm); 11:37 BP 130 / 64 (auto/); kcs 11:37 Pulse 100 MON; Pulse Ox 94% ; kcs 11:47 BP 128 / 60 (auto/); kcs 11:48 Pulse 100 MON; Pulse Ox 95% ; kcs 12:02 BP 115 / 59 (auto/); kcs 12:03 Pulse 92 MON; Pulse Ox 94% ; kcs 12:17 BP 133 / 65 (auto/); kcs 12:17 Pulse 90 MON; Pulse Ox 95% ; kcs 12:32 BP 121 / 64 (auto/); kcs 12:32 Pulse 92 MON; Pulse Ox 93% ; kcs 12:47 BP 125 / 64 (auto/); kcs 12:48 Pulse 96 MON; Pulse Ox 89% ; kcs 13:02 BP 132 / 61 (auto/); kcs 13:02 Pulse 94 MON; Pulse Ox 93% ; kcs 13:17 BP 139 / 60 (auto/); kcs 13:17 Pulse 96 MON; Resp 22; Pulse Ox 93% ; kcs 13:32 BP 119 / 64 (auto/); kcs 13:32 Pulse 104 MON; Pulse Ox 92% ; kcs 15:10 BP 127 / 68 (auto/); kcs 15:10 Pulse 94 MON; Resp 20; Pulse Ox 93% ; kcs 15:40 BP 125 / 67 (auto/); kcs 15:41 Pulse 92 MON; Pulse Ox 93% ; kcs 16:10 BP 133 / 64 (auto/); kcs 16:11 Pulse 94 MON; Pulse Ox 93% ; kcs 16:40 BP 134 / 73 (auto/); kcs 16:40 Pulse 92 MON; Pulse Ox 94% ; kcs 17:10 BP 128 / 71 (auto/); kcs 17:10 Pulse 92 MON; Pulse Ox 94% ; kcs 17:26 BP 128 / 71; Pulse 93; Resp 22; Temp 99.4(O); Pulse Ox 93% on 2 lpm NC; Pain 5/10; kcs 17:53 BP 124 / 67; Pulse 92; Resp 22; Temp 99.7(O); Pulse Ox 93% on 2 lpm NC; Pain 5/10; kcs 11:09 Body Mass Index 43.40 (111.13 kg, 160.02 cm) elp MDM: 11:13 -Blood Culture (Adults Only), peripheral from different site, or from device/port/PICC sd1 etc. if present ordered. 11:13 Dry Cleaning Supervisor/Pulse Ox/q 15 min VS ordered. sd1 11:13 IV Saline Lock ordered. sd1 11:13 Oxygen at 4L/Min NC or Home dosage ordered. sd1 11:13 Rhythm Strip to chart ordered. sd1 11:14 -Blood Culture Ordered. EDMS 11:14 B-Type Natiuretic Peptide Ordered. EDMS 11:14 Basic Metabolic Profile Ordered. EDMS 11:14 CBC with Diff Ordered. EDMS 11:14 ECG WITH READING ER PHYS+CARDIAG ordered. EDMS 11:15 Chest, 1 View Ordered. EDMS 11:25 -Blood Culture (Adults Only), peripheral from different site, or from device/port/PICC deg etc. if present complete. 11:26 BLOOD CULTURES Ordered. EDMS 11:54 Solu-MEDROL 125 mg IVP once ordered. sd1 11:54 Albuterol-Ipratropium 1 neb Nebulizer every 20 minutes x3 ordered. sd1 11:55 Call Respiratory ordered. sd1 11:55 -Arterial Blood Gas Ordered. EDMS 11:57 CIP Ordered. EDMS 11:57 Troponin Ordered. EDMS 12:04 Call Respiratory complete. deg 12:16 Financial registration complete. lg 12:37 Basic Metabolic Profile Reviewed. sd1 12:37 CBC with Diff Reviewed. sd1 12:37 -Arterial Blood Gas Reviewed. sd1 12:37 B-Type Natiuretic Peptide Reviewed. sd1 12:37 CIP Reviewed. sd1 12:37 Troponin Reviewed. sd1 12:37 Chest, 1 View Reviewed. sd1 12:48 Potassium Chloride Extended Release Tablet 40 mEq PO once ordered. sd1 12:59 [facility] Payment Agreement was scanned into Million-[employer]-1 and attached to record. lg 13:31 Misc. Nursing Order ordered. sd1 14:18 BED REQUEST+ADM ordered. EDMS 15:54 Admission / Observation Status ordered. EDMS 15:58 CONSISTENT CARBOHYDRATES ordered. EDMS 15:58 VITAMIN B12 LEVEL Ordered. EDMS 15:58 FOLATE Ordered. EDMS 15:59 MAGNESIUM LEVEL Ordered. EDMS 15:59 RESPIRATORY PANEL Ordered. EDMS 17:34 cefTRIAXone 1 grams IVPB once over 30 mins; dilute in 50mL of NS or D5W ordered. kcs 12/06 09:40 T-Sheet-- Draft Copy was scanned into Million-[employer]-1 and attached to record. gb 09:41 ECG/EKG was scanned into [employer] and attached to record. gb 09:41 Trend VS was scanned into [employer] and attached to record. gb Administered Medications: 12/05 12:08 Drug: Solu-MEDROL 125 mg [Solu-Medrol 500 mg intravenous solution (125 mg)] Route: IVP; kcs Site: left antecubital; 12:31 Drug: Albuterol-Ipratropium 1 neb [ipratropium-albuterol 0.5 mg-3 mg(2.5 mg base)/3 mL js nebulization soln (1 neb)] Route: Nebulizer; 12:49 Drug: Albuterol-Ipratropium 1 neb [ipratropium-albuterol 0.5 mg-3 mg(2.5 mg base)/3 mL js nebulization soln (1 neb)] Route: Nebulizer; 13:18 Drug: Potassium Chloride 40 mEq [potassium chloride ER 10 mEq tablet,extended release kcs (4 tabs)] Route: PO; 17:46 Drug: cefTRIAXone 1 grams [ceftriaxone 1 gram solution for injection] Route: IVPB; kcs Infused Over: 30 mins; Site: left antecubital; Signatures: Dispatcher [employer] EDMS Homa Doe MD MD sd1 Laura Reardon RN RN kcs Jacquie Price, [employer] [facility] deg Joe Heredia, JOCELYNE RN dwg Nandini Rush, Reg Reg gb Geovanna Bustamante, Reg Reg lg Terence Servin The chart was reviewed and I authenticate all verbal orders and agree with the evaluation and treatment provided.Attachments: 12:59 [facility] [place] Payment Agreement lg 12/06 09:40 T-Sheet-- Draft Copy gb 09:41 ECG/EKG gb Chart Complete MTDD
[2016-12-07] MEDS: ACETAMINOPHEN TAB 650MG DOSE (2X325MG) PO PRN (19:43)
[2016-12-07 20:05] VITALS: O2SAT 92
[2016-12-07] MEDS: QUEtiapine FUMARATE 200 MG TAB PO SCH (20:16)
[2016-12-07] MEDS: QUEtiapine FUMARATE **XR** 200MG TABLET PO SCH (20:16)
[2016-12-07] MEDS: ATORVASTATIN 20 MG TAB PO SCH (20:17)
[2016-12-07 22:00] VITALS: BP 129/78
--- NOTE | 2016-12-08 00:49 | ECGEPIP ---
Stationary ECG Study [facility] Test Date: 2016-12-06 Pat Name: YOLANDA PENA Department: Room: [place] [address] Gender: F Metal Checker: : 1960 Requested By: KAYLAN Alex Order Number: [id number] Reading MD: Sergio De Santiago Measurements Intervals [place] Rate: 99 P: 62 MA: 176 QRS: 61 QRSD: 97 T: 40 QT: 356 QTc: 457 Interpretive Statements SINUS RHYTHM NONSPECIFIC ST & T-WAVE ABNORMALITY Last tracing on 12/05/2016 at 11:31:26. No significant changes Electronically Signed On 12-08-2016 0:49:15 EST by Sergio De Santiago
[2016-12-08] MEDS: IPRATROPIUM 0.5MG/ALBUTEROL 2.5MG INH SOL UD 3ML (DUONEB)(J7620) NEB SCH ×4 (02:00→20:00)
[2016-12-08 06:00] VITALS: BP 135/71
[2016-12-08 06:23] LABS: MEAN CORPUSCULAR HEMOGLOBIN 34.5 pg (27.0-33.0); MEAN CORPUSCULAR HGB CONC 33.2 g/dl (32.0-36.5); MEAN CORPUSCULAR VOLUME 103.9 fl (80.0-96.0); RED CELL DISTRIBUTION WIDTH 14.6 % (11.5-14.5); WHITE BLOOD COUNT 5.6 K/mm3 (4.0-10.0)
[2016-12-08 06:34] LABS: CALCIUM LEVEL 8.8 MG/DL (8.5-10.1); CREATININE FOR GFR 1.64 MG/DL (0.55-1.02); GLOMERULAR FILTRATION RATE 34.3 (>51); POTASSIUM SERUM 4.7 MEQ/L (3.5-5.1)
[2016-12-08] MEDS: ADVAIR DISKUS 500/50 INH PWD INH SCH ×2 (07:58→20:06)
[2016-12-08] MEDS: HumaLOG INSULIN (NovoLOG) PER UNIT SC SCH ×4 (08:44→20:44)
[2016-12-08] MEDS: CALCITRIOL 0.25 MCG CAP (S0169) PO SCH (08:44)
[2016-12-08] MEDS: ESCITALOPRAM OXALATE 10 MG TAB (LEXAPRO) PO SCH (08:45)
[2016-12-08] MEDS: FUROSEMIDE 40 MG TAB PO SCH (08:45)
[2016-12-08] MEDS: ASPIRIN 81 MG ENTERIC TAB PO SCH (08:45)
[2016-12-08] MEDS: MAGNESIUM GLUCONATE 500 MG TAB PO SCH (08:45)
[2016-12-08] MEDS: MONTELUKAST 10 MG TAB PO SCH (08:45)
[2016-12-08] MEDS: AZITHROMYCIN 250 MG TAB PO SCH (08:46)
[2016-12-08] MEDS: FERROUS SULFATE 325MG TAB PO SCH (08:46)
[2016-12-08] MEDS: POTASSIUM CHLORIDE 10 MEQ SR TABLET PO SCH (08:46)
[2016-12-08] MEDS: ASCORBIC ACID 500 MG TAB PO SCH (08:46)
[2016-12-08] MEDS: carBAMazepine 200 MG TAB PO SCH ×2 (08:46→20:40)
[2016-12-08] MEDS: ZONISAMIDE 50 MG CAP (ZONEGRAN) PO SCH ×2 (08:46→20:39)
[2016-12-08] MEDS: CLOPIDOGREL 75 MG TAB PO SCH (08:46)
[2016-12-08] MEDS: ENOXAPARIN 30 MG/0.3 ML SYR (J1650) SC SCH (08:47)
--- NOTE | 2016-12-08 11:18 | IPNPDOC ---
Text Note Date of Service The patient was seen on 12/08/16 at 11:16. NOTE Subjective: She states her shortness of breath has improved. Denies any dyspnea on exertion Continues to have mild wheezing. Objective: Vitals: (see below) General: No acute distress, laying comfortably in bed. HEENT: Moist mucous membranes. Neck: No JVD or lymphadenopathy Cardiac: RRR, No murmurs Pulm: Expiratory wheezing bilaterally b/l. No rhonchi. No stridor. Abd: NT/ND + BS Ext: No edema or cyanosis Labs (see below) Images: CXR 12/06/16 Impression: Minor discoid atelectasis inferiorly in the right lung. Chronic cardiomegaly. Assessment/Plan 1. COPD exacerbation- patient is oxygen dependent. Continue steroids, antibiotics, nebs. Patient states she does have significant improvement since yesterday. We'll continue to trend clinical improvement. Sputum cultures pending. 2. History of CAD status post stent- continue home meds 3. CKD stage III- stable. Avoid nephrotoxins. 4 Hypertension- continue home meds. 5. Hyperlipidemia- continue statin 6. Type 2 diabetes mellitus- sliding-scale insulin 7. Iron deficiency anemia- hemoglobin baseline. Continue monitor hemoglobin. 8. Chronic migraine headaches- continue home meds 9. Chronic lower back pain- continue meds. 10. Questionable history of CHF. Patient does have an echocardiogram pending. Continue current doses of Lasix. Patient states she takes 120 mg in the morning and prefers that instead of the dosage being spaced out. DVT prophy: Enoxaparin Plan to discharge in the next 24 hours. VS,Sbe, I+O VS, [place], I+O Laboratory Tests 12/08/16 05:21 Calcium Level 8.8, Red Blood Count 2.96 L, Mean Corpuscular Volume 103.9 H, Mean Corpuscular Hemoglobin 34.5 H, Mean Corpuscular Hemoglobin Concent 33.2, Red Cell Distribution Width 14.6 H Vital Signs Date Time Temp Pulse Resp B/P Pulse Ox O2 Delivery O2 Flow Rate FiO2 12/08/16 09:00 Nasal Cannula 2.0 12/08/16 06:00 97.0 77 18 135/71 92 I&O- Last 24 Hours up to 6 AM 12/08/16 06:00 Intake Total 1730 ml Output Total 1950 ml Balance -220 ml HAZEL FRANCO MD Dec 08, 2016 11:18
[2016-12-08] MEDS: methylPREDNISolone INJ 125 MG/2 ML VIAL (J2930) IV SCH (12:42)
[2016-12-08 14:00] VITALS: BP 142/75
[2016-12-08] MEDS: cefTRIAXone SOD 1 GM in D5W MINI-BAG PLUS 50 ML IV SCH (17:27)
[2016-12-08 20:07] VITALS: O2SAT 97
[2016-12-08] MEDS: ATORVASTATIN 20 MG TAB PO SCH (20:39)
[2016-12-08] MEDS: QUEtiapine FUMARATE **XR** 200MG TABLET PO SCH (20:40)
[2016-12-08] MEDS: QUEtiapine FUMARATE 200 MG TAB PO SCH (20:40)
[2016-12-08 22:00] VITALS: BP 114/63
[2016-12-09] MEDS: methylPREDNISolone INJ 125 MG/2 ML VIAL (J2930) IV SCH (00:03)
[2016-12-09] MEDS: IPRATROPIUM 0.5MG/ALBUTEROL 2.5MG INH SOL UD 3ML (DUONEB)(J7620) NEB SCH ×5 (02:00→19:57)
[2016-12-09 06:00] VITALS: BP 141/84
[2016-12-09 06:09] LABS: MEAN CORPUSCULAR HEMOGLOBIN 34.3 pg (27.0-33.0); MEAN CORPUSCULAR HGB CONC 33.1 g/dl (32.0-36.5); MEAN CORPUSCULAR VOLUME 103.8 fl (80.0-96.0); RED CELL DISTRIBUTION WIDTH 13.6 % (11.5-14.5); WHITE BLOOD COUNT 6.1 K/mm3 (4.0-10.0)
[2016-12-09 06:30] LABS: CALCIUM LEVEL 8.8 MG/DL (8.5-10.1); CREATININE FOR GFR 1.68 MG/DL (0.55-1.02); GLOMERULAR FILTRATION RATE 33.3 (>51); POTASSIUM SERUM 4.7 MEQ/L (3.5-5.1)
[2016-12-09] MEDS: ADVAIR DISKUS 500/50 INH PWD INH SCH ×2 (07:43→19:57)
[2016-12-09] MEDS ORDERED: MIRALAX *UNIT DOSE* 17GM PACKET PO PRN (07:45)
--- NOTE | 2016-12-09 08:31 | IPN ---
DATE: 12/07/2016 SUBJECTIVE: This is a 56-year-old female who was seen and examined at bedside. Overnight, was complaining of shortness of breath and was given Lasix 40 mg intravenously times one. EKG and cardiac markers were performed at that time and were unrevealing. Reports feeling a lot better after she urinated with intravenous Lasix. States that she normally takes Lasix 120 mg by mouth daily in the morning. She was also on the equivalent of Spiriva and Advair outside and wanted to know if they can be restarted. Denies any chest pain, shortness of breath currently, palpitations, fevers, chills, night sweats, nausea, vomiting. Feels constipated, although she states that she usually is constipated while in the hospital. Cough is more frequent with yellow production. OBJECTIVE: VITAL SIGNS: Blood pressure 124/78, heart rate 98, respiration rate 20, temperature 97, pulse oximetry 94% on room air. Intake and output the last 24 hours 2243 and 2900. GENERAL: The patient is sitting in the chair comfortable. No acute distress. Alert, awake, oriented times three. Pleasant, cooperative, obese appearing. HEENT: Normocephalic, atraumatic. Moist oral mucosa. Upper denture in place. Lower portion edentulous. NECK: Supple. Trachea midline. Difficult to appreciate jugular venous distention (JVD) secondary to large neck size. Breath sounds with still expiratory wheezing and occasional rhonchi at the lung bases. HEART: Regular rate and rhythm. S1, S2 present. ABDOMEN: Obese but nontender, nondistended. Bowel sounds present. No guarding. No rebound. EXTREMITIES: No pedal edema. Pedal pulses present bilaterally. LABORATORY DATA: WBC 5.8, hemoglobin 10.4, hematocrit 31.5, platelets 178. Sodium 140, potassium 4.4, chloride 106, carbon dioxide 30, BUN 30, creatinine 1.62 and yesterday 1.71. Glucose 174, calcium 8.7. Cardiac enzymes last night were unrevealing. Blood cultures negative after 24 hours. Chest x-ray on admission showed mild discoid atelectasis inferiorly in the right lung with cardiomegaly, chronic. IMPRESSION/PLAN: Ms. Richardson is a 56-year-old female who presented on 2016 for chronic obstructive pulmonary disease (COPD) exacerbation. 1. COPD exacerbation, on day three of Solu-Medrol. Dose was decreased from 60 every 6 hours to 60 twice a day. Currently on azithromycin and Rocephin, will be day three today. She is oxygen dependent at home with 2 liters nasal cannula at nighttime and as needed only. States that she receives equivalent of Spiriva and Advair outpatient, though we do not have this listed currently as her medication list. We will restart Advair while inpatient. Added incentive spirometry. Because of worsening cough, have checked sputum. Blood culture so far is negative. 2. Coronary artery disease, status post stent. She is on aspirin 81 mg by mouth daily, Lipitor 80 mg at night. Not on a beta sudhakar, likely secondary to underlying lung disease. 3. Chronic kidney disease, baseline is stage III. Her creatinine level appears to be within her baseline since admission. 4. Congestive heart failure, diastolic, decompensated. Most recent echocardiogram was in 2013 and showing ejection fraction of 60 to 65% with underlying pulmonary artery systolic pressure of 38. Repeat echo is pending at this time. 5. Hypertension. Continue blood pressure control. She is on Lasix home dose. 6. Hyperlipidemia. Continue statin. 7. Type 2 diabetes. Continue insulin sliding scale. Was on glipizide outpatient. Dose can be restarted whenever amenable to be discharged. 8. Iron deficiency anemia. Her hemoglobin used to be in the 11 range. Currently, no evidence of bleeding at this time. Continue to monitor. She is on iron supplementation. 9. Constipation. Likely secondary to iron supplementation. We have added Colace as needed. 10. History of migraine headache, continue home medications, including zonisamide. 11. Bipolar disorder. Continue home dose of Tegretol. 12. Chronic low back pain. Her home dose, [place], is ordered; however, has not been needing it. 13. Obesity. Body Mass Index (BMI) 44. Unfortunately, will complicate medical management. 14. Deep vein thrombosis (DVT) prophylaxis. Sequential compression device (SCD), TEDs and Lovenox. My preceptor for this patient encounter was Dr. Lassiter. The preceptor was physically present in the building during the encounter and was fully available. As needed, all aspects of the patient interview, examination, medical decision making process, and medical care plan development were reviewed and approved by the preceptor. The preceptor is aware and concurs with the plan as stated in the body of this note and will attest to such by his/her cosignature. GARO
[2016-12-09] MEDS: HumaLOG INSULIN (NovoLOG) PER UNIT SC SCH ×4 (08:37→20:57)
[2016-12-09] MEDS: MAGNESIUM GLUCONATE 500 MG TAB PO SCH (08:43)
[2016-12-09] MEDS: ENOXAPARIN 30 MG/0.3 ML SYR (J1650) SC SCH (08:43)
[2016-12-09] MEDS: ASPIRIN 81 MG ENTERIC TAB PO SCH (08:44)
[2016-12-09] MEDS: POTASSIUM CHLORIDE 10 MEQ SR TABLET PO SCH (08:44)
[2016-12-09] MEDS: ZONISAMIDE 50 MG CAP (ZONEGRAN) PO SCH ×2 (08:44→21:05)
[2016-12-09] MEDS: CLOPIDOGREL 75 MG TAB PO SCH (08:44)
[2016-12-09] MEDS: CALCITRIOL 0.25 MCG CAP (S0169) PO SCH (08:48)
[2016-12-09] MEDS: carBAMazepine 200 MG TAB PO SCH ×2 (08:48→21:05)
[2016-12-09] MEDS: FERROUS SULFATE 325MG TAB PO SCH (08:48)
[2016-12-09] MEDS: ESCITALOPRAM OXALATE 10 MG TAB (LEXAPRO) PO SCH (08:48)
[2016-12-09] MEDS: DOCUSATE SODIUM 100 MG CAP PO SCH ×2 (08:48→21:05)
[2016-12-09] MEDS: FUROSEMIDE 40 MG TAB PO SCH (08:48)
[2016-12-09] MEDS: ASCORBIC ACID 500 MG TAB PO SCH (08:49)
[2016-12-09] MEDS: MONTELUKAST 10 MG TAB PO SCH (08:49)
[2016-12-09] MEDS: AZITHROMYCIN 250 MG TAB PO SCH (08:49)
[2016-12-09] MEDS: ACETAMINOPHEN TAB 650MG DOSE (2X325MG) PO PRN (08:49)
--- NOTE | 2016-12-09 09:23 | ECHO ---
DATE OF PROCEDURE: 12/08/2016 REASON FOR ECHOCARDIOGRAM: Congestive heart failure. 2D MEASUREMENT: IVS - 1.4 cm LV - 4.4 cm LVPW - 1.4 cm LA - 5.2 cm Aorta - 3.0 cm RV - 3.5 cm IVC - 2.0 cm DOPPLER MEASUREMENT: Peak velocity across the aortic valve - 2.7 m/s. Peak velocity across the LVOT - 1.7 m/s. Peak gradient across the aortic valve - 30 mmHg. Mean gradient across the aortic valve 18 mmHg. Mitral E 1.6, mitral A 1.3 with a ratio of 1.2. Peak gradient across the mitral valve 10 mmHg. Mean gradient across the mitral valve 5 mmHg. 2D COMMENTS: 1. Normal left ventricular size, wall thickness and normal global left ventricular systolic function estimated at 60 to 65%. 2. Moderately enlarged left atrium. Normal right atrium and right ventricle. 3. Normal aortic root. 4. The atrial septum appeared to be normal without evidence of defect or shunt. 5. Small pericardial effusion noted. No evidence of cardiac tamponade. 6. Calcified aortic valve with mildly reduced leaflet motion. Mildly calcified mitral annulus with normal anterior mitral anterior valve leaflet motion. Normal tricuspid valve. Normal pulmonic valve and proximal pulmonary artery branches. 7. The inferior cava appears to be borderline enlarged. DOPPLER: It detects mild aortic regurgitation, mild mitral regurgitation. Abnormal relaxation pattern was noted across the mitral valve annulus consistent with a pseudo-normal pattern, left ventricle end-diastolic pressure might be elevated. IMPRESSION: 1. Normal global left ventricular systolic function. There are features of left ventricular diastolic dysfunction, grade 2. 2. Aortic valve sclerosis with mild aortic regurgitation and mild aortic stenosis. 3. Mitral annulus calcification with mild calcific mitral regurgitation and moderately enlarged left atrium. 4. Small pericardial effusion noted. No evidence of cardiac tamponade. [facility]
[2016-12-09] MEDS: predniSONE 20 MG TAB PO SCH (11:46)
--- NOTE | 2016-12-09 13:50 | REP ---
CT abdomen and pelvis without IV or oral contrast: Renal stone protocol. History: Left CVA pain. Comparison study January 03, 2011. Findings: Preliminary expansion joint finisher radiograph shows an unremarkable bowel gas pattern. There is coarse bibasilar linear discoid atelectasis. This is slightly more pronounced than on the 2011 prior study. It is also a little more prominent than on the May 22, [address] study from [facility]. No pleural effusion is seen. The liver and the spleen are normal in size and homogeneous in texture. There are clips in the gallbladder fossa. No adrenal lesion is seen on either side. There is pancolonic diverticulosis. There is no CT evidence of diverticulitis. Spleen is unremarkable. There is a tiny accessory splenule. No pancreatic abnormality is observed. There is moderate to marked diffuse atrophy affecting the left kidney. This is a new finding when compared with the 2011 prior study. There is no evidence of hydronephrosis. No intrarenal calculus is seen on either side. There are two small cysts in the left kidney lower pole. No bladder calculus or ureteral calculus is seen. No uterine or ovarian abnormality is seen on either side. Small and large intestinal bowel loops are otherwise unremarkable. Impression: Moderate atrophy affecting the left kidney, new since the 2011 study. No urinary tract calculus or hydronephrosis is seen. Vascular calcification noted. Pancolonic diverticulosis without CT evidence of diverticulitis. Prior cholecystectomy. Appendix not directly visualized but no CT evidence to suggest appendicitis. Signed by Richard Kemp MD 12/09/2016 03:17 P
--- NOTE | 2016-12-09 13:55 | IPN ---
DATE OF SERVICE: 12/09/2016 SUBJECTIVE: This is a 56-year-old female who was seen and examined at bedside. Overnight, no reported acute events. Feels her breathing is better. No chest pain, shortness of breath, nausea, vomiting, diarrhea, constipation. Had one bowel movement. OBJECTIVE: VITAL SIGNS: Blood pressure 141/84, heart rate 82, temperature 96.3, respiratory rate 21, pulse oximetry 94% on 2 liters nasal cannula. INTAKE AND OUTPUT: The last 24 hours, 2280 and 2450. Since admission, she is net negative of 3.67 liters. GENERAL: The patient is lying in bed comfortable. In no acute distress. Alert , awake, oriented times three. Pleasant. Cooperative. HEENT: Normocephalic, atraumatic. Moist oral mucosa. Upper denture in place. Lower portion edentulous. No thrush, lesions appreciated. NECK: Supple. Trachea midline. Large neck. Could not appreciate jugular venous distention (JVD) secondary to neck size. CHEST: Symmetric chest rise. No accessory muscle use. Breath sounds still with diffuse wheezing in bilateral lung bases. HEART: Regular rate and rhythm, S1, S2 present. ABDOMEN: Soft, nontender, nondistended. No guarding, no rebound. EXTREMITIES: No pedal edema. Pedal pulses present bilaterally. MUSCULOSKELETAL: Positive for left costovertebral angle (CVA) tenderness. LABORATORY DATA: WBC 6.1, hemoglobin 10.6, hematocrit 32.2, platelets 197. Sodium 142, potassium 4.7, chloride 104, carbon dioxide 32, BUN 32, creatinine 1.68, glucose 168. Sputum showed normal amada. Echocardiogram shows ejection fraction (EF) at 60% to 65%, moderately enlarged left atrium, small pericardial effusion, grade 2 diastolic dysfunction. No evidence of cardiac tamponade. IMPRESSION AND PLAN: Ms. Richardson is a 56-year-old female who presented for chronic obstructive pulmonary disease (COPD) exacerbation. 1. Chronic obstructive pulmonary disease exacerbation. Day #4 of Solu-Medrol. We will switch her to by mouth prednisone today. On azithromycin and Rocephin day #5. She is oxygen-dependent at home, 2 liters nasal cannula, but only as needed and nighttime. She has been on oxygen supplementation fairly throughout the day here. Encourage incentive spirometry use. We have restarted Advair. Sputum culture was checked and was only showing normal amada. Her wheezing could be due to her underlying congestive heart failure (CHF). Continue Rocephin and azithromycin. She still has some distant wheezing, however. It is possible that this could be her baseline. Will try and see if the patient can be weaned off oxygen, as she was only taking it as needed and nightly. 2. Congestive heart failure, grade 2 diastolic. Appears decompensated. Continue Lasix 120 mg daily by mouth in the morning, which she takes at home. However, we have added a one-time dose of Lasix to help with diuresis. It is possible that her wheezing could be secondary to a combination of COPD and CHF. 3. Coronary artery disease (CAD), status post stent. Continue aspirin, Lipitor. Not on a beta sudhakar, likely secondary to underlying lung problem. 4. Chronic kidney disease stage III. Renal function continues to be within her baseline. 5. Hypertension. She is on home-dose Lasix with a one-time dose of intravenous (IV) Lasix added today. 6. Hyperlipidemia. Continue statin. 7. Type 2 diabetes. Continue insulin sliding scale inpatient. She may resume her by mouth medication at discharge. 8. Iron-deficiency anemia. She is on her iron supplementation. Have added stool softeners to help with her bowel movement while on iron supplementation. 9. History of migraine. Continue home medications. 10. History of bipolar disorder. Continue Tegretol. 11. Chronic low back pain. Home-dose [place] is ordered. 12. Obesity. Body mass index (BMI) is 44. Unfortunately, will complicate medical management. 13. Deep venous thrombosis (DVT) prophylaxis. Sequential compression devices (SCDs) and thromboembolic deterrents (TEDs) and Lovenox. DISPOSITION: If she continues to be improving, we hope to have discharge planning within the next 24-48 hours. My preceptor for this patient encounter was Dr. Chavez Lassiter. The preceptor was physically present in the building during the encounter and was fully available. As needed, all aspects of the patient interview, examination, medical decision making process, and medical care plan development were reviewed and approved by the preceptor. The preceptor is aware and concurs with the plan as stated in the body of this note and will attest to such by his/her cosignature. GARO
[2016-12-09 14:00] VITALS: BP 136/67
[2016-12-09] MEDS ORDERED: FUROSEMIDE 40 MG/4 ML VIAL (J1940) IV ONE (14:00)
[2016-12-09] MEDS ORDERED: FUROSEMIDE 20 MG/2 ML VIAL (J1940) IV ONE (16:00)
[2016-12-09] MEDS: cefTRIAXone SOD 1 GM in D5W MINI-BAG PLUS 50 ML IV SCH (16:15)
[2016-12-09] MEDS: QUEtiapine FUMARATE 200 MG TAB PO SCH (21:05)
[2016-12-09] MEDS: ATORVASTATIN 20 MG TAB PO SCH (21:05)
[2016-12-09] MEDS: QUEtiapine FUMARATE **XR** 200MG TABLET PO SCH (21:05)
[2016-12-09 22:00] VITALS: BP 123/73
[2016-12-10 06:00] VITALS: BP 117/73
[2016-12-10 06:11] LABS: MEAN CORPUSCULAR HEMOGLOBIN 34.4 pg (27.0-33.0); MEAN CORPUSCULAR HGB CONC 33.4 g/dl (32.0-36.5); MEAN CORPUSCULAR VOLUME 103.2 fl (80.0-96.0); RED CELL DISTRIBUTION WIDTH 14.7 % (11.5-14.5); WHITE BLOOD COUNT 7.8 K/mm3 (4.0-10.0)
[2016-12-10 06:19] LABS: CALCIUM LEVEL 8.7 MG/DL (8.5-10.1); CREATININE FOR GFR 1.63 MG/DL (0.55-1.02); GLOMERULAR FILTRATION RATE 34.5 (>51); POTASSIUM SERUM 3.7 MEQ/L (3.5-5.1)
[2016-12-10] MEDS: HumaLOG INSULIN (NovoLOG) PER UNIT SC SCH ×2 (07:22→13:00)
[2016-12-10] MEDS: ADVAIR DISKUS 500/50 INH PWD INH SCH (07:43)
[2016-12-10] MEDS: IPRATROPIUM 0.5MG/ALBUTEROL 2.5MG INH SOL UD 3ML (DUONEB)(J7620) NEB SCH ×3 (08:00→12:00)
[2016-12-10] MEDS: CALCITRIOL 0.25 MCG CAP (S0169) PO SCH (08:10)
[2016-12-10] MEDS: DOCUSATE SODIUM 100 MG CAP PO SCH (08:10)
[2016-12-10] MEDS: ENOXAPARIN 30 MG/0.3 ML SYR (J1650) SC SCH (08:10)
[2016-12-10] MEDS: MAGNESIUM GLUCONATE 500 MG TAB PO SCH (08:10)
[2016-12-10] MEDS: ASCORBIC ACID 500 MG TAB PO SCH (08:11)
[2016-12-10] MEDS: FUROSEMIDE 40 MG TAB PO SCH (08:11)
[2016-12-10] MEDS: ESCITALOPRAM OXALATE 10 MG TAB (LEXAPRO) PO SCH (08:11)
[2016-12-10] MEDS: MONTELUKAST 10 MG TAB PO SCH (08:11)
[2016-12-10] MEDS: FERROUS SULFATE 325MG TAB PO SCH (08:11)
[2016-12-10] MEDS: CLOPIDOGREL 75 MG TAB PO SCH (08:11)
[2016-12-10] MEDS: AZITHROMYCIN 250 MG TAB PO SCH (08:12)
[2016-12-10] MEDS: ACETAMINOPHEN TAB 650MG DOSE (2X325MG) PO PRN (08:12)
[2016-12-10] MEDS: POTASSIUM CHLORIDE 10 MEQ SR TABLET PO SCH (08:12)
[2016-12-10] MEDS: ASPIRIN 81 MG ENTERIC TAB PO SCH (08:12)
[2016-12-10] MEDS: predniSONE 20 MG TAB PO SCH (08:12)
[2016-12-10] MEDS: ZONISAMIDE 50 MG CAP (ZONEGRAN) PO SCH (08:12)
[2016-12-10] MEDS: carBAMazepine 200 MG TAB PO SCH (08:12)
[2016-12-10] MEDS ORDERED: CEFD1CAP8 PO (09:42)
[2016-12-10] MEDS ORDERED: PRED20TA PO (09:42)
--- NOTE | 2016-12-10 13:58 | DSES ---
DATE OF ADMISSION: 12/05/2016 DATE OF DISCHARGE: 12/10/2016 PRIMARY CARE PROVIDER: Dr. Ramon Saucedo CONSULTS: None. PROCEDURES: None. COMPLICATIONS: None. DIAGNOSTIC STUDIES: Echocardiogram showed ejection fraction of 60% to 65%, moderately enlarged left atrium, grade 2 diastolic dysfunction, normal left ventricular systolic function , aortic valve sclerosis with aortic regurgitation and mild aortic stenosis, small pericardial effusion but no tamponade. CT abdomen and pelvis without contrast showed moderate atrophy affecting left kidney. No urinary tract calculus or hydronephrosis. Pancolonic diverticulosis without diverticulitis. No appendicitis. Chest x-ray on admission showed a minor discoid atelectasis inferiorly in the right lung. Sputum culture showed normal amada. Blood cultures negative after 72 hours. DISCHARGE DIAGNOSES: 1. Chronic obstructive pulmonary disease (COPD) exacerbation. 2. Diastolic congestive heart failure. 3. Coronary artery disease (CAD), status post stent. 4. Chronic kidney disease stage III. 5. Hypertension. 6. Hyperlipidemia. 7. Anemia. No evidence of bleeding. SECONDARY ADMITTING DIAGNOSES: 1. Chronic obstructive pulmonary disease (COPD) with CO2 dependent as needed and nightly at home. 2. Type 2 diabetes. 3. Iron-deficiency anemia. 4. History of migraine headaches. 5. Bipolar disorder. 6. Chronic back pain. 7. Obesity. Body mass index (BMI) 44. BRIEF HOSPITAL COURSE: Ms. Richardson is a 56-year-old female with past medical history as mentioned above who presented to the emergency department (ED) on the day of admission with complaint of shortness of breath and chest tightness. The patient was previously treated outpatient for bronchitis with oral steroids and azithromycin. However, despite treatment, her symptoms worsened. She reportedly had increased shortness of breath, wheezing, with green productive cough, and her temperature was 101.5. On admission, she had a CXR with unrevealing finding for any infectious etiology. A cardiac workup for her symptoms was negative. EKG did not show any acute cardiac disease. She was then admitted for COPD exacerbation and was also started on Rocephin and azithromycin. With intravenous (IV) steroids, Azithromycin, and Rocephin, her symptoms slowly improved. However, she intermittently complained of shortness of breath. She did require extra doses of diuresis compared to her regular dose of Lasix 120 mg daily. With diuresis , her shortness of breath resolved. This admission, she was net negative of total 6 liters. Because she returned to her baseline prior to discharge without further diuresis, she was continued with her home dose Lasix at discharge. For her other medical conditions, her medications were continued without change. PHYSICAL EXAMINATION AT TIME OF DISCHARGE: VITAL SIGNS: Blood pressure 117/73, heart rate 95, temperature 96.7, respiration rate 20, pulse oximetry 90% on room air. GENERAL: The patient was sitting in chair, comfortable. In no acute distress. She is alert, awake, oriented times three. Pleasant. Cooperative. Obese appearing. HEENT: Normocephalic, atraumatic. Moist oral mucosa. Upper denture in place. Lower portion edentulous. No thrush or lesions appreciated. NECK: Supple. Trachea midline. Could not appreciate jugular venous distention (JVD) secondary to large neck size. CHEST: Symmetric chest rise. No accessory muscle use. Breath sounds are no longer wheezing as wheezing compared to yesterday. It is diminished but clear. HEART: Regular rate and rhythm. S1, S2 present. ABDOMEN: Soft, obese, nontender, nondistended. No guarding, no rebound. EXTREMITIES: No pedal edema. Pedal pulses present bilaterally. LABORATORY DATA: WBC 7.8, hemoglobin 10.4, hematocrit 31.2, platelets 206. Sodium 143, potassium 3.7, chloride 104, carbon dioxide 32, BUN 31, creatinine 0.63, glucose 99. DISPOSITION: Home. CONDITION: Stable. ACTIVITY: As tolerated. The patient may resume her oxygen as needed and nightly. DIET: Carbohydrate-consistency diet. DISCHARGE MEDICATIONS: New medications: - cefdinir 300 mg by mouth twice a day for 2 more days - prednisone 40 mg tapering dose Continue the following home medications: - Tylenol 650 mg by mouth every 4 hours as needed - [place] one tablet every 4 hours as needed - Combivent two puffs inhaled every 4 hours as needed - ascorbic acid 1000 mg daily - aspirin 81 mg daily - Lipitor 80 mg by mouth daily nightly - calcitriol 0.25 mcg by mouth daily - Tegretol 400 mg by mouth twice a day - Plavix 75 mg by mouth daily - Lexapro 10 mg by mouth daily - ferrous sulfate 325 mg by mouth daily - fish oil one capsule daily - Lasix 120 mg by mouth daily (per patient, takes these all in the morning) - glipizide 2.5 mg by mouth twice a day - atrovent 0.5 mg by mouth as needed - magnesium gluconate 500 mg by mouth daily - Singulair 10 mg by mouth daily - Nitrostat 0.4 mg sublingual - potassium chloride 10 mEq by mouth daily - Seroquel 600 total nightly - vitamin D 50,000 units by mouth daily - zonisamide 50 mg by mouth twice a day Stop the following home medications: - azithromycin 250 mg daily - prednisone Followup with Dr. Saucedo in 7- 10 days. INSTRUCTIONS: The patient was instructed to return to the hospital if she has worsening or recurrent symptoms. All this was explained to the patient at the time of discharge and all questions answered. TIME SPENT: 35 minutes. My preceptor for this patient encounter was Dr. Jose Francisco Cummings. The preceptor was physically present in the building during the encounter and was fully available. As needed, all aspects of the patient interview, examination, medical decision making process, and medical care plan development were reviewed and approved by the preceptor. The preceptor is aware and concurs with the plan as stated in the body of this note and will attest to such by his/her cosignature. cc: Dr. Lewis WYMAN
== END 2016-12-10 13:30 | disposition home or self-care (01) | DRG 190 ==
LOC: M ED 11:07 → M ED INP 15:52 → M MSPAV 18:12
PROVIDERS: ADMIT Internal Medicine; ATTEND Internal Medicine
DX: J44.1 Chronic obstructive pulmonary disease with (acute) exacerbation (principal); I50.33 Acute on chronic diastolic (congestive) heart failure; Z68.41 Body mass index [BMI] 40.0-44.9, adult; Z99.81 Dependence on supplemental oxygen; N18.3 Chronic kidney disease, stage 3 (moderate); I12.9 Hypertensive chronic kidney disease with stage 1 through stage 4 chronic kidney disease, or unspecified chronic kidney disease; D50.9 Iron deficiency anemia, unspecified; E11.9 Type 2 diabetes mellitus without complications; I25.10 Atherosclerotic heart disease of native coronary artery without angina pectoris; E78.5 Hyperlipidemia, unspecified; F31.9 Bipolar disorder, unspecified; J45.909 Unspecified asthma, uncomplicated; K59.00 Constipation, unspecified; M54.5 Low back pain; E66.9 Obesity, unspecified; Z79.84 Long term (current) use of oral hypoglycemic drugs; Z79.82 Long term (current) use of aspirin; Z95.9 Presence of cardiac and vascular implant and graft, unspecified; Z90.49 Acquired absence of other specified parts of digestive tract; Z87.891 Personal history of nicotine dependence; Z80.1 Family history of malignant neoplasm of trachea, bronchus and lung; Z80.49 Family history of malignant neoplasm of other genital organs; Z83.6 Family history of other diseases of the respiratory system; Z88.8 Allergy status to other drugs, medicaments and biological substances; Z88.6 Allergy status to analgesic agent; Z79.899 Other long term (current) drug therapy

== ENCOUNTER → 2017-02-15 | Outpatient (CLI) | payer MEDICARE, MEDICAID ==
[~2017-02-15] MED LIST changes: +AZIT250T3 PO; +CEFD1CAP8 PO; +CLOP75TA2 PO; +DRIS50002 PO; +IPRA2IN INH; +PRED20TA PO; +SERO200T PO
[2017-02-15 09:44] LABS: BASO % 0.3 % (0.0-1.0); EOS # 0.4 K/mm3 (0.0-0.50); EOS % 5.3 % (0.0-3.0); LARGE UNSTAINED CELL # 0.1 K/mm3 (0.0-0.4); LARGE UNSTAINED CELL % 1.3 % (0.0-4.0); LYMPH # 1.7 K/mm3 (1.5-4.5); LYMPH % 24.3 % (24.0-44.0); MEAN CORPUSCULAR HEMOGLOBIN 35.5 pg (27.0-33.0); MEAN CORPUSCULAR HGB CONC 33.7 g/dl (32.0-36.5); MEAN CORPUSCULAR VOLUME 105.1 fl (80.0-96.0); MONO # 0.3 K/mm3 (0.0-0.8); MONO % 4.2 % (0.0-5.0); NEUTROPHILS # 4.4 K/mm3 (1.8-7.7); NEUTROPHILS % 64.5 % (36.0-66.0); PLATELET COUNT, AUTOMATED 244 k/mm3 (150-450); RED CELL DISTRIBUTION WIDTH 13.6 % (11.5-14.5); WHITE BLOOD COUNT 6.9 K/mm3 (4.0-10.0)
== END ==
LOC: M LAB 09:13
PROVIDERS: ATTEND Psychiatry & Neurology Psychiatry
DX: Z79.899 Other long term (current) drug therapy (principal)

== ENCOUNTER → 2017-02-15 | Outpatient (CLI) | payer MEDICARE, MEDICAID ==
[2017-02-15 10:02] LABS: ALBUMIN 3.4 GM/DL (3.2-5.2); ALBUMIN/GLOBULIN RATIO 1.03 (1.00-1.93); BILIRUBIN,TOTAL 0.3 MG/DL (0.2-1.0); CALCIUM LEVEL 8.7 MG/DL (8.5-10.1); CREATININE FOR GFR 1.59 MG/DL (0.55-1.02); GLOMERULAR FILTRATION RATE 35.5 (>51); MAGNESIUM LEVEL 2.1 MG/DL (1.8-2.4); POTASSIUM SERUM 4.6 MEQ/L (3.5-5.1); TOTAL PROTEIN 6.7 GM/DL (6.4-8.2)
== END ==
LOC: M LAB 09:09
PROVIDERS: ATTEND Emergency Medicine
DX: E11.9 Type 2 diabetes mellitus without complications (principal)

== ENCOUNTER → 2017-02-24 | Outpatient (CLI) | payer MEDICARE, MEDICAID ==
--- NOTE | 2017-02-24 16:28 | REP ---
Follow-up CT of the chest: There are no comparisons are 02/04/2016 and 05/22/2016 and a remote study of 01/03/2011. There is a focal band of atelectasis in the right lower lobe, stable and unchanged from 05/22/2016. Has decreased in size from 02/04/2016. The configuration of this band of atelectasis is slightly different from that 01/03/2011. This may be a new focal zone of atelectasis, there is/ensuing scarring different from the 01/03/2011 study. Nevertheless is stable and unchanged for 8 months dating to 05/22/2016. In spite of the stability for 8 months, stability should be documented spanning at least 2 years, therefore, another follow-up study in approximate 1 year might be considered for further evaluation. There are no acute infiltrates. There are no nodules or masses. There are no pleural effusions. There is no mediastinal adenopathy. No axillary adenopathy. The absence of IV contrast the study is insensitive for hilar adenopathy. Pericardial thickening is again noted maximally measuring 13 mm along the right cardiac margin, unchanged from 02/04/2016. The thoracic aorta is unremarkable. Cardiac size is borderline, unchanged. The visualized upper abdominal contents are unchanged. There is left renal cortical atrophy, unchanged from 05/22/2016. The left kidney was not imaged on the 02/04/2016 and the left kidney was normal size, 01/03/2011. Impression: The band of increased density in the right lower lobe is stable and unchanged from 05/22/2016, decreased in size from 02/04/2016. Stability should be documented for least 2 years, therefore recommend follow-up CT of the chest in the approximate 1 year. Chronic pericardial thickening is again noted, unchanged. Left renal cortical atrophy is again noted, unchanged from 02/04/2016. Signed by Joe Go MD 02/24/2017 04:19 P
== END ==
LOC: M RAD 14:24
PROVIDERS: ATTEND Internal Medicine Pulmonary Disease
DX: R91.8 Other nonspecific abnormal finding of lung field (principal)

== ENCOUNTER → 2017-03-28 | Outpatient (CLI) | payer MEDICARE, MEDICAID ==
--- NOTE | 2017-03-28 08:53 | REP ---
Clinical: COPD with acute dyspnea. Technique: PA and lateral. Comparison: 12/05/2016. Findings: Mediastinum demonstrates stable cardiomegaly. Pleuroparenchymal changes involving the right base appear increased from prior examination and may reflect chronic changes with superimposed acute process including infiltrate/atelectasis. Remainder of lung oden appear well-aerated and clear. No effusion. No pneumothorax. Skeletal structures intact. Impression: Increased pleuroparenchymal changes at the right base when compared to prior examination. Cannot exclude superimposed acute process. Signed by Shashi Jameson MD 03/28/2017 08:44 A
== END ==
LOC: M LAB 08:22
PROVIDERS: ATTEND Family Medicine
DX: J44.1 Chronic obstructive pulmonary disease with (acute) exacerbation (principal)

== ENCOUNTER → 2017-04-25 | Outpatient (CLI) | payer MEDICARE, MEDICAID ==
[~2017-04-25] VITALS: Ht 160 cm; Wt 108.9 kg
[~2017-04-25] MED LIST changes: +LIDOCAINE 2% INJ 100 MG/5 ML SDV (FOR ANES.) As Ordered ONE; +NS 1,000 ML IV ONE; +PROPOFOL 200 MG/20 ML VIAL As Ordered ONE
--- NOTE | 2017-04-25 10:33 | ROOR ---
Patient Name: Elvia Richardson Procedure Date: 04/25/2017 10:13 AM Date of : 1960 Age: 56 Room: [facility] Gender: Female Note Status: Finalized Procedure: Colonoscopy Indications: High risk colon cancer surveillance: Personal history of colonic polyps, Last colonoscopy: August 2015 Providers: Jose Francisco GARZA MD Referring MD: ROGELIO CEBALLOS MD Requesting Provider: Medicines: Monitored Anesthesia Care Complications: No immediate complications. Procedure: Pre-Anesthesia Assessment: - The heart rate, respiratory rate, oxygen saturations, blood pressure, adequacy of pulmonary ventilation, and response to care were monitored throughout the procedure. The Colonoscope was introduced through the anus and advanced to the cecum, identified by appendiceal orifice and ileocecal valve. The colonoscopy was performed without difficulty. The patient tolerated the procedure well. The quality of the bowel preparation was fair. Findings: The perianal and digital rectal examinations were normal. (EXAM: Complete, PREP: Suboptimal) A 5 mm polyp was found in the sigmoid colon. The polyp was sessile. The polyp was removed with a cold snare. Resection and retrieval were complete. Multiple medium-mouthed diverticula were found in the sigmoid colon. The exam was otherwise without abnormality on direct and retroflexion views. Impression: - Preparation of the colon was fair. - (EXAM: Complete, PREP: Suboptimal) - One 5 mm polyp in the sigmoid colon, removed with a cold snare. Resected and retrieved. - Moderate diverticulosis in the sigmoid colon. - The examination was otherwise normal on direct and retroflexion views. Recommendation: - Repeat colonoscopy in 3 years for surveillance. - Repeat colonoscopy in 3 years because the bowel preparation was suboptimal. - Resume Plavix (clopidogrel) at prior dose today. Jose Francisco Garza MD Jose Francisco GARZA MD 04/25/2017 10:32:39 AM This report has been signed electronically. Number of Addenda: 0 Note Initiated On: 04/25/2017 10:13 AM Estimated Blood Loss: Estimated blood loss: none.
[2017-04-25 11:00] VITALS: BP 136/89
== END | disposition home or self-care (01) ==
LOC: M OPP 08:53
PROVIDERS: ATTEND Internal Medicine Gastroenterology
DX: D12.5 Benign neoplasm of sigmoid colon (principal); K57.30 Diverticulosis of large intestine without perforation or abscess without bleeding; Z88.8 Allergy status to other drugs, medicaments and biological substances; J44.9 Chronic obstructive pulmonary disease, unspecified; J45.909 Unspecified asthma, uncomplicated; F31.9 Bipolar disorder, unspecified; N18.3 Chronic kidney disease, stage 3 (moderate)

== ENCOUNTER → 2017-06-18 | Outpatient (CLI) | payer MEDICARE, MEDICAID ==
[~2017-06-18] MED LIST changes: -ATOR40TA PO; +ATOR40TA75 PO; +AZIT-12 PO; -AZIT250T3 PO; +BACITAB PO; -BACITAB3 PO; -CALCTAB43 PO; +CALCTAB74 PO; -FURO1TAB15 PO; +FURO80TA2 PO; +LEVA1TAB2 PO; -LEVA500T PO; +LEVO250T12 PO; -LEVO250T24 PO; -LIDOCAINE 2% INJ 100 MG/5 ML SDV (FOR ANES.) As Ordered ONE; -NS 1,000 ML IV ONE; -PROPOFOL 200 MG/20 ML VIAL As Ordered ONE; -VITA-130 PO; +VITA500T PO
[2017-06-18 14:01] LABS: ALBUMIN 3.6 GM/DL (3.2-5.2); CREATININE FOR GFR 1.55 MG/DL (0.55-1.02); GLOMERULAR FILTRATION RATE 36.6 (>51); MAGNESIUM LEVEL 2.2 MG/DL (1.8-2.4); PHOSPHORUS LEVEL 3.7 MG/DL (2.5-4.9)
[2017-06-18 14:03] LABS: POTASSIUM SERUM 5.3 MEQ/L (3.5-5.1)
== END ==
LOC: M LAB 12:31
PROVIDERS: ATTEND Physician Assistant
DX: I50.32 Chronic diastolic (congestive) heart failure (principal)

== ENCOUNTER → 2017-08-19 | Outpatient (CLI) | payer MEDICARE, MEDICAID ==
[2017-08-19 08:58] LABS: BASO % 0.1 % (0.0-1.0); EOS # 0.3 10^3/uL (0.0-0.50); EOS % 4.1 % (0.0-3.0); IMMATURE GRANULOCYTE % 0.5 % (0-0); LYMPH # 1.4 10^3/uL (1.5-4.5); LYMPH % 18.8 % (24.0-44.0); MEAN CORPUSCULAR HEMOGLOBIN 34.2 pg (27.0-33.0); MEAN CORPUSCULAR HGB CONC 33.1 g/dl (32.0-36.5); MEAN CORPUSCULAR VOLUME 103.3 fl (80.0-96.0); MONO # 0.5 10^3/uL (0.0-0.8); MONO % 6.6 % (0.0-5.0); NEUTROPHILS # 5.2 10^3/uL (1.8-7.7); NEUTROPHILS % 69.9 % (36.0-66.0); PLATELET COUNT, AUTOMATED 219 10^3/uL (150-450); RED CELL DISTRIBUTION WIDTH 13.1 % (11.5-14.5); WHITE BLOOD COUNT 7.4 10^3/uL (4.0-10.0)
== END ==
LOC: M LAB 08:11
PROVIDERS: ATTEND Psychiatry & Neurology Psychiatry
DX: Z51.81 Encounter for therapeutic drug level monitoring (principal); Z79.899 Other long term (current) drug therapy

== ENCOUNTER → 2017-08-19 | Outpatient (CLI) | payer MEDICARE, MEDICAID ==
[2017-08-19 09:27] LABS: ALBUMIN 3.5 GM/DL (3.2-5.2); ALBUMIN/GLOBULIN RATIO 0.81 (1.00-1.93); BILIRUBIN,TOTAL 0.3 MG/DL (0.2-1.0); CALCIUM LEVEL 9.3 MG/DL (8.5-10.1); CREATININE FOR GFR 1.5 MG/DL (0.55-1.02); MAGNESIUM LEVEL 1.8 MG/DL (1.8-2.4); POTASSIUM SERUM 4.4 MEQ/L (3.5-5.1); TOTAL PROTEIN 7.8 GM/DL (6.4-8.2)
== END ==
LOC: M LAB 08:08
PROVIDERS: ATTEND Emergency Medicine
DX: I10 Essential (primary) hypertension (principal); E11.9 Type 2 diabetes mellitus without complications; E78.2 Mixed hyperlipidemia; E83.42 Hypomagnesemia; Z51.81 Encounter for therapeutic drug level monitoring; Z79.899 Other long term (current) drug therapy

== ENCOUNTER → 2017-08-25 | Outpatient (REF) | payer MEDICARE, MEDICAID ==
[2017-08-25 13:24] LABS: BASO % 0.5 % (0.0-1.0); EOS # 0.3 10^3/uL (0.0-0.50); EOS % 4.1 % (0.0-3.0); IMMATURE GRANULOCYTE % 0.8 % (0-0); LYMPH # 1.6 10^3/uL (1.5-4.5); LYMPH % 26.7 % (24.0-44.0); MEAN CORPUSCULAR HEMOGLOBIN 34.6 pg (27.0-33.0); MONO # 0.4 10^3/uL (0.0-0.8); MONO % 6.8 % (0.0-5.0); NEUTROPHILS # 3.7 10^3/uL (1.8-7.7); NEUTROPHILS % 61.1 % (36.0-66.0); PLATELET COUNT, AUTOMATED 216 10^3/uL (150-450); RED CELL DISTRIBUTION WIDTH 13.3 % (11.5-14.5)
[2017-08-25 13:32] LABS: ALBUMIN 3.5 GM/DL (3.2-5.2); ALBUMIN/GLOBULIN RATIO 0.92 (1.00-1.93); ALKALINE PHOSPHATASE 121 U/L (45-117); ALT/SGPT 24 U/L (12-78); ANION GAP 6 MEQ/L (8-16); AST/SGOT 13 U/L (15-37); BILIRUBIN,TOTAL 0.3 MG/DL (0.2-1.0); BLOOD UREA NITROGEN 26 MG/DL (7-18); CALCIUM LEVEL 8.6 MG/DL (8.5-10.1); CARBON DIOXIDE LEVEL 35 MEQ/L (21-32); CHLORIDE LEVEL 103 MEQ/L (98-107); CREATININE FOR GFR 1.48 MG/DL (0.55-1.02); GLOMERULAR FILTRATION RATE 38.6 (>51); GLUCOSE, FASTING 92 MG/DL (70-105); POTASSIUM SERUM 4.2 MEQ/L (3.5-5.1); SODIUM LEVEL 144 MEQ/L (136-145); TOTAL PROTEIN 7.3 GM/DL (6.4-8.2)
[2017-08-25 14:20] LABS: ERYTHROCYTE SEDIMENTATION RATE 61 mm/hr (0-30)
== END ==
LOC: M LABNEURO 10:17
PROVIDERS: ATTEND Psychiatry & Neurology Neurology
DX: G43.009 Migraine without aura, not intractable, without status migrainosus (principal)

== ENCOUNTER → 2017-11-05 | Outpatient (REF) | payer MEDICARE, MEDICAID ==
[2017-11-05 17:39] LABS: FOLATE 7.3 NG/ML; VITAMIN B12 LEVEL 378 PG/ML
== END ==
LOC: M LAB REF 16:18
DX: D53.9 Nutritional anemia, unspecified (principal)
CPT/HCPCS: 82746

== ENCOUNTER 2018-03-07 10:55 | Inpatient (IN) | payer MEDICARE, MEDICAID ==
[2018-03-07] MEDS: FUROSEMIDE 40 MG TAB PO (12:00)
[2018-03-07] MEDS: FUROSEMIDE 80 MG TAB PO (12:00)
[2018-03-07 12:19] LABS: BASO % 0.2 % (0.0-1.0); EOS # 0.2 10^3/uL (0.0-0.50); EOS % 1.3 % (0.0-3.0); HEMATOCRIT 30.1 % (36.0-47.0); HEMOGLOBIN 9.9 g/dl (12.0-15.5); IMMATURE GRANULOCYTE % 0.4 % (0-3.0); LYMPH # 1.1 10^3/uL (1.5-4.5); LYMPH % 8.6 % (24.0-44.0); MEAN CORPUSCULAR HEMOGLOBIN 34.9 pg (27.0-33.0); MEAN CORPUSCULAR HGB CONC 32.9 g/dl (32.0-36.5); MONO # 0.8 10^3/uL (0.0-0.8); MONO % 6.2 % (0.0-5.0); NEUTROPHILS # 10.7 10^3/uL (1.8-7.7); NEUTROPHILS % 83.3 % (36.0-66.0); PLATELET COUNT, AUTOMATED 216 10^3/uL (150-450); RED BLOOD COUNT 2.84 10^6/uL (4.00-5.40); RED CELL DISTRIBUTION WIDTH 13.6 % (11.5-14.5); WHITE BLOOD COUNT 12.8 10^3/uL (4.0-10.0)
[2018-03-07] MEDS: IPRATROPIUM 0.5MG/ALBUTEROL 2.5MG INH SOL UD 3ML (DUONEB)(J7620) NEB ×4 (12:20→19:59)
[2018-03-07 12:22] LABS: INR 1.08; PROTHROMBIN TIME 14.2 SECONDS (12.4-14.5)
[2018-03-07 12:42] LABS: ANION GAP 8 MEQ/L (8-16); BLOOD UREA NITROGEN 20 MG/DL (7-18); CALCIUM LEVEL 8.9 MG/DL (8.5-10.1); CARBON DIOXIDE LEVEL 33 MEQ/L (21-32); CHLORIDE LEVEL 101 MEQ/L (98-107); CK-MB VALUE MASS < 1.0 NG/ML (<3.6); CPK CREATINE PHOSPHOKINASE 61 U/L (26-192); GLOMERULAR FILTRATION RATE 35.1 (>51); GLUCOSE, FASTING 140 MG/DL (70-100); MB/CK RELATIVE INDEX 1.63 (< OR =4); POTASSIUM SERUM 3.5 MEQ/L (3.5-5.1); SODIUM LEVEL 142 MEQ/L (136-145); TROPONIN I < 0.02 NG/ML (< 0.10)
[2018-03-07 12:53] LABS: ABG BASE EXCESS 5.9 (-2.0-2.0); ABG HCO3 30.9 MEQ/L (22.0-26.0); ABG O2 SATURATION 99.1 % (95.0-99.0); ABG PARTIAL PRESSURE O2 145.4 mmHg (75.0-100.0); ABG STANDARD HCO3 29.9 MEQ/L (22.0-26.0); ABG TOTAL CO2 32.4 MEQ/L (22.0-29.0); ABG pH (ARTERIAL) 7.436 UNITS (7.350-7.450)
[2018-03-07 12:56] LABS: INFLUENZA A AMPLIFICATION NEGATIVE (NEGATIVE); INFLUENZA B AMPLIFICATION NEGATIVE (NEGATIVE)
[2018-03-07] MEDS: cefTRIAXone SOD 1 GM in D5W MINI-BAG PLUS 50 ML IV (13:13)
[2018-03-07] MEDS: AZITHROMYCIN INJ 500 MG, VIAL MATE ADAPTER 1 EACH in D5W 250 ML IV (13:42)
[2018-03-07 13:59] LABS: LACTIC ACID SEPSIS PROTOCOL 1.5 MMOL/L (0.4-2.0)
[2018-03-07] MEDS ORDERED: GLUCAGON FOR INJ 1 MG VIAL (J1610) SC (14:15)
[2018-03-07] MEDS ORDERED: DEXTROSE 50% 50 ML SYRINGE IV (14:15)
[2018-03-07] MEDS ORDERED: ONDANSETRON 4 MG TAB (S0181) PO (14:15)
[2018-03-07] MEDS ORDERED: ACETAMINOPHEN TAB 650MG DOSE (2X325MG) PO (14:15)
[2018-03-07] MEDS ORDERED: NITROGLYCERIN 0.4 MG SUBL TABLET SL (14:15)
[2018-03-07] MEDS ORDERED: GLUCOSE 4 GM CHEW TABLET PO (14:15)
[2018-03-07 14:39] LABS: REASON FOR REVIEW ANEMIA / RBC MORPH; SLIDE REVIEW Report; SOURCE PERIPHERAL SMEAR
[2018-03-07 15:12] LABS: FERRITIN 391 NG/ML (8-252); IRON (FE) 30 UG/DL (50-170); PERCENT SATURATION 14.3 % (13.2-45.0); TOTAL IRON BINDING CAPACITY 210 UG/DL (250-450)
[2018-03-07 15:25] LABS: RETIC HEMOGLOBIN EQUIVALENT 30.5 pg (24-36); RETICULOCYTE % 2.6 % (0.5-1.5)
[2018-03-07] MEDS: methylPREDNISolone INJ 125 MG/2 ML VIAL (J2930) IV (15:32)
[2018-03-07 17:23] LABS: BEDSIDE GLUCOSE 169 MG/DL (70-105)
[2018-03-07] MEDS: LACTOBACILLUS ACIDOPHILUS CAP (BACID) PO (18:34)
[2018-03-07] MEDS: QUEtiapine FUMARATE 200 MG TAB PO (18:35)
[2018-03-07] MEDS: QUEtiapine FUMARATE **XR** 200MG TABLET PO (18:35)
[2018-03-07] MEDS: HumaLOG INSULIN (NovoLOG) PER UNIT SC ×2 (18:36→21:00)
[2018-03-07] MEDS: ADVAIR HFA 230/21MCG INHALER INH (20:00)
[2018-03-07] MEDS ORDERED: QUEtiapine FUMARATE 200 MG TAB PO (21:00)
[2018-03-07] MEDS ORDERED: QUEtiapine FUMARATE **XR** 200MG TABLET PO (21:00)
[2018-03-07 21:19] LABS: CPK CREATINE PHOSPHOKINASE 59 U/L (26-192); TROPONIN I < 0.02 NG/ML (< 0.10)
[2018-03-07 21:20] LABS: CK-MB VALUE MASS < 1.0 NG/ML (<3.6); MB/CK RELATIVE INDEX 1.69 (< OR =4)
[2018-03-07] MEDS: DIVALPROEX 500 MG TAB PO (21:26)
[2018-03-07] MEDS: ATORVASTATIN 20 MG TAB PO (21:26)
[2018-03-07] MEDS: MONTELUKAST 10 MG TAB PO (21:26)
[2018-03-07] MEDS: carBAMazepine 200 MG TAB PO (21:26)
[2018-03-07] MEDS: HEPARIN SOD (PORCINE) 5000 UNITS/ML VIAL SC (21:27)
[2018-03-07 21:37] LABS: BEDSIDE GLUCOSE 232 MG/DL (70-105)
[2018-03-08] MEDS: IPRATROPIUM 0.5MG/ALBUTEROL 2.5MG INH SOL UD 3ML (DUONEB)(J7620) NEB ×4 (01:46→20:00)
[2018-03-08] MEDS: methylPREDNISolone INJ 125 MG/2 ML VIAL (J2930) IV ×2 (03:23→17:13)
[2018-03-08] MEDS: HEPARIN SOD (PORCINE) 5000 UNITS/ML VIAL SC ×3 (05:43→22:08)
[2018-03-08 05:53] LABS: BASO % 0.2 % (0.0-1.0); EOS % 0.3 % (0.0-3.0); HEMATOCRIT 28.1 % (36.0-47.0); HEMOGLOBIN 9.2 g/dl (12.0-15.5); IMMATURE GRANULOCYTE % 0.7 % (0-3.0); LYMPH # 0.8 10^3/uL (1.5-4.5); LYMPH % 6.4 % (24.0-44.0); MEAN CORPUSCULAR HEMOGLOBIN 34.5 pg (27.0-33.0); MEAN CORPUSCULAR HGB CONC 32.7 g/dl (32.0-36.5); MEAN CORPUSCULAR VOLUME 105.2 fl (80.0-96.0); MONO # 0.5 10^3/uL (0.0-0.8); MONO % 3.8 % (0.0-5.0); NEUTROPHILS # 11.4 10^3/uL (1.8-7.7); NEUTROPHILS % 88.6 % (36.0-66.0); PLATELET COUNT, AUTOMATED 199 10^3/uL (150-450); RED BLOOD COUNT 2.67 10^6/uL (4.00-5.40); RED CELL DISTRIBUTION WIDTH 13.4 % (11.5-14.5); WHITE BLOOD COUNT 12.9 10^3/uL (4.0-10.0)
[2018-03-08 06:27] LABS: BLOOD UREA NITROGEN 22 MG/DL (7-18); CALCIUM LEVEL 8.9 MG/DL (8.5-10.1); CARBON DIOXIDE LEVEL 31 MEQ/L (21-32); CHLORIDE LEVEL 101 MEQ/L (98-107); CPK CREATINE PHOSPHOKINASE 62 U/L (26-192); CREATININE FOR GFR 1.57 MG/DL (0.55-1.30); GLUCOSE, FASTING 139 MG/DL (70-100); POTASSIUM SERUM 3.7 MEQ/L (3.5-5.1); SODIUM LEVEL 138 MEQ/L (136-145); TROPONIN I < 0.02 NG/ML (< 0.10)
[2018-03-08 06:32] LABS: CK-MB VALUE MASS < 1.0 NG/ML (<3.6); MB/CK RELATIVE INDEX 1.61 (< OR =4)
[2018-03-08] MEDS: FUROSEMIDE 80 MG TAB PO (07:06)
[2018-03-08] MEDS: HumaLOG INSULIN (NovoLOG) PER UNIT SC ×4 (07:07→20:20)
[2018-03-08 07:17] LABS: ANION GAP 6 MEQ/L (8-16)
[2018-03-08] MEDS: ADVAIR HFA 230/21MCG INHALER INH ×2 (08:08→20:30)
[2018-03-08] MEDS: TIOTROPIUM INHALER/CAPSULE (SPIRIVA) INH (08:09)
[2018-03-08] MEDS: FERROUS SULFATE 325MG TAB PO (08:16)
[2018-03-08] MEDS: ASCORBIC ACID 500 MG TAB PO (08:17)
[2018-03-08] MEDS: carBAMazepine 200 MG TAB PO ×2 (08:17→22:06)
[2018-03-08] MEDS: ASPIRIN 81 MG ENTERIC TAB PO (08:17)
[2018-03-08] MEDS: PANTOPRAZOLE 40MG TAB (PROTONIX) PO (08:17)
[2018-03-08] MEDS: CLOPIDOGREL 75 MG TAB PO (08:17)
[2018-03-08] MEDS: MAGNESIUM OXIDE 400 MG TAB (MAG-OX) PO (08:17)
[2018-03-08] MEDS: OMEGA-3 1050MG CAPSULE PO (08:17)
[2018-03-08] MEDS: ESCITALOPRAM OXALATE 10 MG TAB (LEXAPRO) PO (08:18)
[2018-03-08] MEDS: POTASSIUM CHLORIDE 10 MEQ SR TABLET PO (08:18)
[2018-03-08] MEDS: LACTOBACILLUS ACIDOPHILUS CAP (BACID) PO ×2 (08:18→17:55)
[2018-03-08] MEDS: CALCITRIOL 0.25 MCG CAP (S0169) PO (08:18)
[2018-03-08 12:20] LABS: BEDSIDE GLUCOSE 218 MG/DL (70-105)
[2018-03-08] MEDS: FUROSEMIDE 40 MG TAB PO (14:02)
[2018-03-08] MEDS: cefTRIAXone SOD 1 GM in D5W MINI-BAG PLUS 50 ML IV (14:04)
[2018-03-08] MEDS: AZITHROMYCIN INJ 500 MG, VIAL MATE ADAPTER 1 EACH in D5W 250 ML IV (15:23)
[2018-03-08 17:07] LABS: BEDSIDE GLUCOSE 139 MG/DL (70-105)
[2018-03-08] MEDS: QUEtiapine FUMARATE 200 MG TAB PO (17:55)
[2018-03-08] MEDS: QUEtiapine FUMARATE **XR** 200MG TABLET PO (17:56)
[2018-03-08] MEDS: DIVALPROEX 500 MG TAB PO (22:06)
[2018-03-08] MEDS: ATORVASTATIN 20 MG TAB PO (22:07)
[2018-03-08] MEDS: MONTELUKAST 10 MG TAB PO (22:07)
[2018-03-08] MEDS: ANEXSIA, NORCO 7.5MG/325MG TABLET(HYDROCODONE/APAP) PO (22:08)
[2018-03-09] MEDS: IPRATROPIUM 0.5MG/ALBUTEROL 2.5MG INH SOL UD 3ML (DUONEB)(J7620) NEB ×4 (01:54→20:00)
[2018-03-09] MEDS: methylPREDNISolone INJ 125 MG/2 ML VIAL (J2930) IV ×2 (04:13→15:58)
[2018-03-09] MEDS: HEPARIN SOD (PORCINE) 5000 UNITS/ML VIAL SC ×3 (06:10→21:40)
[2018-03-09 06:21] LABS: BASO % 0.1 % (0.0-1.0); EOS % 0.3 % (0.0-3.0); HEMATOCRIT 27.1 % (36.0-47.0); HEMOGLOBIN 8.8 g/dl (12.0-15.5); IMMATURE GRANULOCYTE % 1.6 % (0-3.0); LYMPH # 1.1 10^3/uL (1.5-4.5); MEAN CORPUSCULAR HEMOGLOBIN 34.6 pg (27.0-33.0); MEAN CORPUSCULAR HGB CONC 32.5 g/dl (32.0-36.5); MEAN CORPUSCULAR VOLUME 106.7 fl (80.0-96.0); MONO # 0.4 10^3/uL (0.0-0.8); MONO % 4.6 % (0.0-5.0); NEUTROPHILS # 7.7 10^3/uL (1.8-7.7); NEUTROPHILS % 81.4 % (36.0-66.0); PLATELET COUNT, AUTOMATED 198 10^3/uL (150-450); RED BLOOD COUNT 2.54 10^6/uL (4.00-5.40); RED CELL DISTRIBUTION WIDTH 13.3 % (11.5-14.5); WHITE BLOOD COUNT 9.4 10^3/uL (4.0-10.0)
[2018-03-09 06:55] LABS: ANION GAP 9 MEQ/L (8-16); BLOOD UREA NITROGEN 26 MG/DL (7-18); CALCIUM LEVEL 8.9 MG/DL (8.5-10.1); CARBON DIOXIDE LEVEL 30 MEQ/L (21-32); CHLORIDE LEVEL 105 MEQ/L (98-107); CREATININE FOR GFR 1.59 MG/DL (0.55-1.30); GLOMERULAR FILTRATION RATE 35.4 (>51); GLUCOSE, FASTING 151 MG/DL (70-100); POTASSIUM SERUM 3.7 MEQ/L (3.5-5.1); SODIUM LEVEL 144 MEQ/L (136-145)
[2018-03-09] MEDS: FUROSEMIDE 80 MG TAB PO (07:58)
[2018-03-09] MEDS: carBAMazepine 200 MG TAB PO ×2 (07:58→21:40)
[2018-03-09] MEDS: ESCITALOPRAM OXALATE 10 MG TAB (LEXAPRO) PO (07:58)
[2018-03-09] MEDS: HumaLOG INSULIN (NovoLOG) PER UNIT SC ×4 (07:59→21:40)
[2018-03-09] MEDS: OMEGA-3 1050MG CAPSULE PO (07:59)
[2018-03-09] MEDS: ASCORBIC ACID 500 MG TAB PO (07:59)
[2018-03-09] MEDS: CALCITRIOL 0.25 MCG CAP (S0169) PO (07:59)
[2018-03-09] MEDS: PANTOPRAZOLE 40MG TAB (PROTONIX) PO (08:00)
[2018-03-09] MEDS: LACTOBACILLUS ACIDOPHILUS CAP (BACID) PO ×2 (08:00→17:52)
[2018-03-09] MEDS: ASPIRIN 81 MG ENTERIC TAB PO (08:00)
[2018-03-09] MEDS: FERROUS SULFATE 325MG TAB PO (08:00)
[2018-03-09] MEDS: CLOPIDOGREL 75 MG TAB PO (08:00)
[2018-03-09] MEDS: MAGNESIUM OXIDE 400 MG TAB (MAG-OX) PO (08:00)
[2018-03-09] MEDS: POTASSIUM CHLORIDE 10 MEQ SR TABLET PO (08:00)
[2018-03-09 08:04] LABS: BEDSIDE GLUCOSE 226 MG/DL (70-105)
[2018-03-09] MEDS: TIOTROPIUM INHALER/CAPSULE (SPIRIVA) INH (08:14)
[2018-03-09] MEDS: ADVAIR HFA 230/21MCG INHALER INH ×2 (08:14→20:31)
[2018-03-09] MEDS: FUROSEMIDE 40 MG TAB PO (11:47)
[2018-03-09 11:56] LABS: BEDSIDE GLUCOSE 259 MG/DL (70-105)
[2018-03-09 12:53] LABS: FOLATE 13.5 NG/ML (>5.4); VITAMIN B12 LEVEL 265 PG/ML (247-911)
[2018-03-09] MEDS: cefTRIAXone SOD 1 GM in D5W MINI-BAG PLUS 50 ML IV (13:24)
[2018-03-09] MEDS: AZITHROMYCIN INJ 500 MG, VIAL MATE ADAPTER 1 EACH in D5W 250 ML IV (14:33)
[2018-03-09 16:42] LABS: BEDSIDE GLUCOSE 179 MG/DL (70-105)
[2018-03-09] MEDS: QUEtiapine FUMARATE **XR** 200MG TABLET PO (17:52)
[2018-03-09] MEDS: QUEtiapine FUMARATE 200 MG TAB PO (17:52)
[2018-03-09 20:07] LABS: BEDSIDE GLUCOSE 258 MG/DL (70-105)
[2018-03-09] MEDS: MONTELUKAST 10 MG TAB PO (21:40)
[2018-03-09] MEDS: ATORVASTATIN 20 MG TAB PO (21:40)
[2018-03-09] MEDS: DIVALPROEX 500 MG TAB PO (21:41)
[2018-03-10] MEDS: IPRATROPIUM 0.5MG/ALBUTEROL 2.5MG INH SOL UD 3ML (DUONEB)(J7620) NEB ×4 (00:50→20:00)
[2018-03-10] MEDS: methylPREDNISolone INJ 125 MG/2 ML VIAL (J2930) IV ×2 (04:13→17:30)
[2018-03-10 05:45] LABS: BASO % 0.4 % (0.0-1.0); EOS % 0.3 % (0.0-3.0); HEMATOCRIT 27.7 % (36.0-47.0); HEMOGLOBIN 8.9 g/dl (12.0-15.5); LYMPH # 1.3 10^3/uL (1.5-4.5); LYMPH % 18.9 % (24.0-44.0); MEAN CORPUSCULAR HGB CONC 32.1 g/dl (32.0-36.5); MEAN CORPUSCULAR VOLUME 109.1 fl (80.0-96.0); MONO # 0.4 10^3/uL (0.0-0.8); MONO % 5.7 % (0.0-5.0); NEUTROPHILS % 71.7 % (36.0-66.0); PLATELET COUNT, AUTOMATED 204 10^3/uL (150-450); RED BLOOD COUNT 2.54 10^6/uL (4.00-5.40); RED CELL DISTRIBUTION WIDTH 13.2 % (11.5-14.5)
[2018-03-10 06:10] LABS: ANION GAP 4 MEQ/L (8-16); BLOOD UREA NITROGEN 29 MG/DL (7-18); CARBON DIOXIDE LEVEL 33 MEQ/L (21-32); CHLORIDE LEVEL 104 MEQ/L (98-107); CREATININE FOR GFR 1.46 MG/DL (0.55-1.30); GLUCOSE, FASTING 153 MG/DL (70-100); POTASSIUM SERUM 3.6 MEQ/L (3.5-5.1); SODIUM LEVEL 141 MEQ/L (136-145)
[2018-03-10] MEDS: HEPARIN SOD (PORCINE) 5000 UNITS/ML VIAL SC ×3 (06:37→21:01)
[2018-03-10] MEDS: carBAMazepine 200 MG TAB PO ×2 (08:02→21:02)
[2018-03-10] MEDS: POTASSIUM CHLORIDE 10 MEQ SR TABLET PO (08:02)
[2018-03-10] MEDS: OMEGA-3 1050MG CAPSULE PO (08:02)
[2018-03-10] MEDS: LACTOBACILLUS ACIDOPHILUS CAP (BACID) PO ×2 (08:02→17:30)
[2018-03-10] MEDS: ASCORBIC ACID 500 MG TAB PO (08:03)
[2018-03-10] MEDS: CALCITRIOL 0.25 MCG CAP (S0169) PO (08:03)
[2018-03-10] MEDS: FERROUS SULFATE 325MG TAB PO (08:03)
[2018-03-10] MEDS: CLOPIDOGREL 75 MG TAB PO (08:03)
[2018-03-10] MEDS: ASPIRIN 81 MG ENTERIC TAB PO (08:03)
[2018-03-10] MEDS: PANTOPRAZOLE 40MG TAB (PROTONIX) PO (08:03)
[2018-03-10] MEDS: FUROSEMIDE 80 MG TAB PO (08:03)
[2018-03-10] MEDS: ESCITALOPRAM OXALATE 10 MG TAB (LEXAPRO) PO (08:04)
[2018-03-10] MEDS: HumaLOG INSULIN (NovoLOG) PER UNIT SC ×4 (08:04→20:55)
[2018-03-10] MEDS: MAGNESIUM OXIDE 400 MG TAB (MAG-OX) PO (08:04)
[2018-03-10] MEDS: ADVAIR HFA 230/21MCG INHALER INH ×2 (08:19→20:12)
[2018-03-10] MEDS: TIOTROPIUM INHALER/CAPSULE (SPIRIVA) INH (08:20)
[2018-03-10] MEDS: FUROSEMIDE 40 MG TAB PO (11:59)
[2018-03-10 13:16] LABS: BEDSIDE GLUCOSE 241 MG/DL (70-105)
[2018-03-10] MEDS: cefTRIAXone SOD 1 GM in D5W MINI-BAG PLUS 50 ML IV (13:18)
[2018-03-10] MEDS: AZITHROMYCIN INJ 500 MG, VIAL MATE ADAPTER 1 EACH in D5W 250 ML IV (14:11)
[2018-03-10 16:47] LABS: BEDSIDE GLUCOSE 228 MG/DL (70-105)
[2018-03-10] MEDS: QUEtiapine FUMARATE **XR** 200MG TABLET PO (17:30)
[2018-03-10] MEDS: QUEtiapine FUMARATE 200 MG TAB PO (17:30)
[2018-03-10 20:49] LABS: BEDSIDE GLUCOSE 224 MG/DL (70-105)
[2018-03-10] MEDS: ATORVASTATIN 20 MG TAB PO (21:02)
[2018-03-10] MEDS: MONTELUKAST 10 MG TAB PO (21:02)
[2018-03-10] MEDS: DIVALPROEX 500 MG TAB PO (21:02)
[2018-03-11] MEDS: IPRATROPIUM 0.5MG/ALBUTEROL 2.5MG INH SOL UD 3ML (DUONEB)(J7620) NEB ×2 (02:48→08:00)
[2018-03-11] MEDS: methylPREDNISolone INJ 125 MG/2 ML VIAL (J2930) IV (04:02)
[2018-03-11 05:53] LABS: HEMATOCRIT 29.5 % (36.0-47.0); HEMOGLOBIN 9.3 g/dl (12.0-15.5); MEAN CORPUSCULAR HEMOGLOBIN 34.1 pg (27.0-33.0); MEAN CORPUSCULAR HGB CONC 31.5 g/dl (32.0-36.5); MEAN CORPUSCULAR VOLUME 108.1 fl (80.0-96.0); PLATELET COUNT, AUTOMATED 225 10^3/uL (150-450); RED BLOOD COUNT 2.73 10^6/uL (4.00-5.40); RED CELL DISTRIBUTION WIDTH 13.3 % (11.5-14.5); WHITE BLOOD COUNT 7.8 10^3/uL (4.0-10.0)
[2018-03-11 06:02] LABS: ADD MANUAL DIFFER YES; DIFF SLIDE NUMBER 26; POS COUNT POS FLAG; POSITIVE MORPH POS FLAG
[2018-03-11 06:05] LABS: ANION GAP 6 MEQ/L (8-16); BLOOD UREA NITROGEN 29 MG/DL (7-18); C REACTIVE PROTEIN QUANTITATIV 8.31 MG/DL (0.00-0.30); CALCIUM LEVEL 9.4 MG/DL (8.5-10.1); CARBON DIOXIDE LEVEL 32 MEQ/L (21-32); CHLORIDE LEVEL 104 MEQ/L (98-107); CREATININE FOR GFR 1.45 MG/DL (0.55-1.30); GLOMERULAR FILTRATION RATE 39.3 (>51); GLUCOSE, FASTING 165 MG/DL (70-100); POTASSIUM SERUM 3.9 MEQ/L (3.5-5.1); SODIUM LEVEL 142 MEQ/L (136-145)
[2018-03-11] MEDS: HEPARIN SOD (PORCINE) 5000 UNITS/ML VIAL SC (06:18)
[2018-03-11 06:29] LABS: BANDS 5 % (< 11); LYMPHOCYTES 19 % (16-52); MONOCYTES 5 % (0-8); NEUTROPHILS 71 % (35-75); PLATELET ESTIMATE NORMAL (NORMAL)
[2018-03-11] MEDS: CALCITRIOL 0.25 MCG CAP (S0169) PO (08:07)
[2018-03-11] MEDS: FERROUS SULFATE 325MG TAB PO (08:07)
[2018-03-11] MEDS: carBAMazepine 200 MG TAB PO (08:07)
[2018-03-11] MEDS: MAGNESIUM OXIDE 400 MG TAB (MAG-OX) PO (08:07)
[2018-03-11] MEDS: CLOPIDOGREL 75 MG TAB PO (08:07)
[2018-03-11] MEDS: PANTOPRAZOLE 40MG TAB (PROTONIX) PO (08:07)
[2018-03-11] MEDS: ASCORBIC ACID 500 MG TAB PO (08:08)
[2018-03-11] MEDS: OMEGA-3 1050MG CAPSULE PO (08:08)
[2018-03-11] MEDS: ESCITALOPRAM OXALATE 10 MG TAB (LEXAPRO) PO (08:08)
[2018-03-11] MEDS: LACTOBACILLUS ACIDOPHILUS CAP (BACID) PO (08:09)
[2018-03-11] MEDS: HumaLOG INSULIN (NovoLOG) PER UNIT SC (08:09)
[2018-03-11] MEDS: FUROSEMIDE 80 MG TAB PO (08:09)
[2018-03-11] MEDS: ASPIRIN 81 MG ENTERIC TAB PO (08:09)
[2018-03-11] MEDS: POTASSIUM CHLORIDE 10 MEQ SR TABLET PO (08:10)
[2018-03-11] MEDS: TIOTROPIUM INHALER/CAPSULE (SPIRIVA) INH (08:32)
[2018-03-11] MEDS: ADVAIR HFA 230/21MCG INHALER INH (08:32)
[2018-03-11] MEDS: predniSONE 20 MG TAB PO (09:39)
[2018-03-11 11:54] LABS: BEDSIDE GLUCOSE 263 MG/DL (70-105)
[2018-03-12] MEDS ORDERED: predniSONE 20 MG TAB PO (09:00)
== END 2018-03-11 11:57 | disposition home or self-care (01) | DRG 190 ==
LOC: M ED 10:55 → M ED INP 14:58 → M MSPAV 16:05
DX: J44.1 Chronic obstructive pulmonary disease with (acute) exacerbation (principal); J18.9 Pneumonia, unspecified organism; J96.11 Chronic respiratory failure with hypoxia; I50.32 Chronic diastolic (congestive) heart failure; I13.0 Hypertensive heart and chronic kidney disease with heart failure and stage 1 through stage 4 chronic kidney disease, or unspecified chronic kidney disease; Z68.42 Body mass index [BMI] 45.0-49.9, adult; E66.01 Morbid (severe) obesity due to excess calories; J44.0 Chronic obstructive pulmonary disease with (acute) lower respiratory infection; G43.909 Migraine, unspecified, not intractable, without status migrainosus; I25.10 Atherosclerotic heart disease of native coronary artery without angina pectoris; E78.5 Hyperlipidemia, unspecified; D50.9 Iron deficiency anemia, unspecified; K21.9 Gastro-esophageal reflux disease without esophagitis; N18.3 Chronic kidney disease, stage 3 (moderate); E11.22 Type 2 diabetes mellitus with diabetic chronic kidney disease; M54.5 Low back pain; F32.9 Major depressive disorder, single episode, unspecified; I25.2 Old myocardial infarction; Z99.81 Dependence on supplemental oxygen; Z79.82 Long term (current) use of aspirin; Z79.84 Long term (current) use of oral hypoglycemic drugs; Z79.899 Other long term (current) drug therapy; Z88.8 Allergy status to other drugs, medicaments and biological substances; Z88.6 Allergy status to analgesic agent; Z90.49 Acquired absence of other specified parts of digestive tract; Z98.41 Cataract extraction status, right eye; Z98.42 Cataract extraction status, left eye; Z95.9 Presence of cardiac and vascular implant and graft, unspecified; Z87.891 Personal history of nicotine dependence

== ENCOUNTER → 2018-08-20 | Outpatient (CLI) | payer MEDICARE, MEDICAID ==
[2018-08-20 11:23] LABS: CREATININE FOR GFR 1.68 MG/DL (0.55-1.30); GLOMERULAR FILTRATION RATE 33.2 (>51)
== END ==
LOC: M LAB 10:02
DX: Z04.89 Encounter for examination and observation for other specified reasons (principal)
CPT/HCPCS: 82565

== ENCOUNTER → 2018-08-31 | Outpatient (CLI) | payer MEDICARE, MEDICAID ==
[2018-08-31 12:17] LABS: ANION GAP 11 MEQ/L (8-16); BLOOD UREA NITROGEN 16 MG/DL (7-18); CALCIUM LEVEL 8.9 MG/DL (8.5-10.1); CARBON DIOXIDE LEVEL 30 MEQ/L (21-32); CHLORIDE LEVEL 101 MEQ/L (98-107); CREATININE FOR GFR 1.59 MG/DL (0.55-1.30); GLOMERULAR FILTRATION RATE 35.4 (>51); GLUCOSE, FASTING 87 MG/DL (70-100); POTASSIUM SERUM 4.1 MEQ/L (3.5-5.1); SODIUM LEVEL 142 MEQ/L (136-145)
== END ==
LOC: M LAB 10:26
DX: K91.2 Postsurgical malabsorption, not elsewhere classified (principal)
CPT/HCPCS: 80048

== ENCOUNTER → 2018-09-11 | Outpatient (CLI) | payer MEDICARE, MEDICAID | LOC: M PAIN 13:15 | DX: Z53.29 Procedure and treatment not carried out because of patient's decision for other reasons (principal) ==

== ENCOUNTER → 2018-10-06 | Outpatient (CLI) | payer MEDICARE, MEDICAID ==
[2018-10-06 11:11] LABS: ESTIMATED AVERAGE GLUCOSE 111 MG/DL (60-110); HEMOGLOBIN A1c 5.5 %
== END ==
LOC: M LAB 08:40
DX: E11.21 Type 2 diabetes mellitus with diabetic nephropathy (principal)
CPT/HCPCS: 83036

== ENCOUNTER → 2018-10-06 | Outpatient (CLI) | payer MEDICARE, MEDICAID ==
[2018-10-06 10:16] LABS: ANION GAP 8 MEQ/L (8-16); BLOOD UREA NITROGEN 18 MG/DL (7-18); CALCIUM LEVEL 9.2 MG/DL (8.8-10.2); CARBON DIOXIDE LEVEL 30 MEQ/L (21-32); CHLORIDE LEVEL 103 MEQ/L (98-107); CREATININE FOR GFR 1.44 MG/DL (0.55-1.30); GLOMERULAR FILTRATION RATE 39.5 (>45); GLUCOSE, FASTING 99 MG/DL (70-100); MAGNESIUM LEVEL 1.8 MG/DL (1.8-2.4); POTASSIUM SERUM 4.3 MEQ/L (3.5-5.1); SODIUM LEVEL 141 MEQ/L (136-145)
== END ==
LOC: M LAB 08:32
DX: I50.32 Chronic diastolic (congestive) heart failure (principal)

== ENCOUNTER → 2018-10-06 | Outpatient (CLI) | payer MEDICARE, MEDICAID ==
[~2018-10-06] MED LIST changes: +ALBU83IN INH; +ATOR80TA59 PO; +AVEL1TAB3 PO; +BREO1INH3 INH; +DIVA250T67 PO; -DRIS50002 PO; +DRIS50003 PO; +INCR1INH INH; +KLOR10TA76 PO; +MAGN400T5 PO; +NEBUMIS2 XX; +PANT40TA3 PO; -POTA10CA PO; +POTA10TA17 PO; -QUET20XRTB PO; +SERO200T43 PO; +SERO50TA27 PO; -SERO50TA3 PO; -ZONE25CA5 PO; +ZONE25CA6 PO
[2018-10-06 09:48] LABS: BASO % 0.5 % (0.0-1.0); EOS # 0.3 10^3/uL (0.0-0.50); EOS % 5.2 % (0.0-3.0); HEMATOCRIT 35.1 % (36.0-47.0); HEMOGLOBIN 11.4 g/dl (12.0-15.5); LYMPH # 1.8 10^3/uL (1.5-4.5); LYMPH % 30.6 % (24.0-44.0); MEAN CORPUSCULAR HEMOGLOBIN 33.5 pg (27.0-33.0); MEAN CORPUSCULAR HGB CONC 32.5 g/dl (32.0-36.5); MEAN CORPUSCULAR VOLUME 103.2 fl (80.0-96.0); MONO # 0.4 10^3/uL (0.0-0.8); MONO % 7.3 % (0.0-5.0); NEUTROPHILS # 3.3 10^3/uL (1.8-7.7); NEUTROPHILS % 56.1 % (36.0-66.0); PLATELET COUNT, AUTOMATED 241 10^3/uL (150-450); WHITE BLOOD COUNT 5.8 10^3/uL (4.0-10.0)
[2018-10-06 09:54] LABS: HEMATOCRIT 35.1 % (36.0-47.0)
[2018-10-06 10:17] LABS: ALBUMIN 3.7 GM/DL (3.2-5.2); BILIRUBIN,TOTAL 0.4 MG/DL (0.2-1.0); CALCIUM LEVEL 9.3 MG/DL (8.8-10.2); CREATININE FOR GFR 1.4 MG/DL (0.55-1.30); GLOMERULAR FILTRATION RATE 40.8 (>45); PERCENT SATURATION 26.2 % (13.2-45.0); PHOSPHORUS LEVEL 3.7 MG/DL (2.5-4.9); POTASSIUM SERUM 4.2 MEQ/L (3.5-5.1); TOTAL PROTEIN 6.9 GM/DL (6.4-8.2)
[2018-10-06 10:24] LABS: TOTAL 25(OH) VITAMIN D 51.4 NG/ML (30.0-100.0)
[2018-10-06 11:11] LABS: HEMOGLOBIN A1c 5.4 %
== END ==
LOC: M LAB 08:46
PROVIDERS: ATTEND Surgery
DX: K91.2 Postsurgical malabsorption, not elsewhere classified (principal); E55.9 Vitamin D deficiency, unspecified; Z98.84 Bariatric surgery status

== ENCOUNTER → 2018-10-20 | Outpatient (REF) | payer MEDICARE, MEDICAID ==
[2018-10-20 14:17] LABS: FOLATE 5.7 NG/ML; VITAMIN B12 LEVEL 395 PG/ML
== END ==
LOC: M LAB REF 13:07
DX: D53.1 Other megaloblastic anemias, not elsewhere classified (principal)
CPT/HCPCS: 82746

== ENCOUNTER 2018-11-27 18:00 | Emergency (ER) | payer MEDICARE, MEDICAID ==
[~2018-11-27] VITALS: Ht 160 cm; Wt 94.1 kg
[2018-11-27] MEDS ORDERED: METOCLOPRAMIDE INJ 10MG/2ML VIAL (J2765) IV ONE (18:30)
[2018-11-27] MEDS ORDERED: CHARCOAL ACTIVATED LIQUID 25 GM/120 ML BTL PO ONE (18:30)
[2018-11-27 18:33] LABS: BASO % 0.4 % (0.0-1.0); EOS # 0.4 10^3/uL (0.0-0.50); EOS % 4.9 % (0.0-3.0); HEMATOCRIT 34.4 % (36.0-47.0); HEMOGLOBIN 11.3 g/dl (12.0-15.5); LYMPH # 3.2 10^3/uL (1.5-4.5); MEAN CORPUSCULAR HEMOGLOBIN 34.3 pg (27.0-33.0); MEAN CORPUSCULAR HGB CONC 32.8 g/dl (32.0-36.5); MEAN CORPUSCULAR VOLUME 104.6 fl (80.0-96.0); MONO # 0.7 10^3/uL (0.0-0.8); MONO % 8.1 % (0.0-5.0); NEUTROPHILS # 3.7 10^3/uL (1.8-7.7); NEUTROPHILS % 46.4 % (36.0-66.0); PLATELET COUNT, AUTOMATED 251 10^3/uL (150-450); RED BLOOD COUNT 3.29 10^6/uL (4.00-5.40)
[2018-11-27 19:08] LABS: ACETAMINOPHEN LEVEL 42.7 UG/ML (10.0-30.0); ALBUMIN 3.2 GM/DL (3.2-5.2); ALT/SGPT 23 U/L (12-78); BILIRUBIN,DIRECT < 0.1 MG/DL (0.0-0.2); BILIRUBIN,TOTAL 0.2 MG/DL (0.2-1.0); BLOOD UREA NITROGEN 17 MG/DL (7-18); CALCIUM LEVEL 8.3 MG/DL (8.8-10.2); CARBON DIOXIDE LEVEL 24 MEQ/L (21-32); CHLORIDE LEVEL 109 MEQ/L (98-107); CPK CREATINE PHOSPHOKINASE 60 U/L (26-192); CREATININE FOR GFR 1.51 MG/DL (0.55-1.30); ETHYL ALCOHOL (ETHANOL) < 0.003 % (0.000-0.010); GLOMERULAR FILTRATION RATE 37.4 (>45); GLUCOSE, FASTING 150 MG/DL (70-100); POTASSIUM SERUM 3.8 MEQ/L (3.5-5.1); SALICYLATE LEVEL < 1.7 MG/DL (5.0-30.0); SODIUM LEVEL 144 MEQ/L (136-145); TOTAL PROTEIN 6.2 GM/DL (6.4-8.2)
[2018-11-27 23:30] VITALS: BP 139/68
--- NOTE | 2018-11-29 06:52 | ECGEPIP ---
Stationary ECG Study [facility] - ED Test Date: 2018-11-27 Pat Name: YOLANDA PENA Department: Room: - Gender: F Platform Stapler: fortunato : 1960 Requested By: DAMEON Avelar Order Number: [id number] Reading MD: Leisa Martinez Measurements Intervals [place] Rate: 67 P: 26 MS: 188 QRS: 34 QRSD: 102 T: 7 QT: 423 QTc: 449 Interpretive Statements SINUS RHYTHM NONSPECIFIC ST T WAVE CHANGES 03/07/[address] T WAVE CHANGES Electronically Signed On 11-29-2018 6:51:56 EST by Leisa Martinez
== END 2018-11-27 23:41 | disposition home or self-care (01) ==
LOC: EDBD 18:00 → M ED 18:00
DX: T40.691A Poisoning by other narcotics, accidental (unintentional), initial encounter (principal); X58.XXXA Exposure to other specified factors, initial encounter; Y92.89 Other specified places as the place of occurrence of the external cause; E11.9 Type 2 diabetes mellitus without complications; I50.9 Heart failure, unspecified; J44.9 Chronic obstructive pulmonary disease, unspecified; E78.00 Pure hypercholesterolemia, unspecified; F31.9 Bipolar disorder, unspecified; F41.9 Anxiety disorder, unspecified; G47.33 Obstructive sleep apnea (adult) (pediatric); G43.909 Migraine, unspecified, not intractable, without status migrainosus; Z79.899 Other long term (current) drug therapy; Z79.82 Long term (current) use of aspirin; Z88.8 Allergy status to other drugs, medicaments and biological substances; Z87.891 Personal history of nicotine dependence
CPT/HCPCS: 36415; 80048; 80076; 82550; 84443; 85025; 93005; 93041; 94760; 96374; 99285; G0480; J2765

== ENCOUNTER → 2018-12-02 | Outpatient (CLI) | payer MEDICARE, MEDICAID ==
--- NOTE | 2018-12-03 07:31 | REP ---
Clinical: Lung screening. History smoking. Comparison: 02/24/2017 Technique: Axial low-dose noncontrast images from the thoracic inlet to the upper abdomen using lung screening technique. Findings: The lung oden are well-aerated with scattered chronic-appearing fibroatelectatic changes similar to prior examination. No consolidation, obvious significant nodule or mass lesion is appreciated. No pleural effusion/reaction or pneumothorax. Tracheobronchial tree is patent. Mediastinum demonstrates mild atherosclerotic changes of the coronary arteries without cardiomegaly. Impression: Lung-RADS category I-S. No nodule or suspicious abnormality. Chronic fibroatelectatic changes may obscure small nodule or active pathology. Management recommendations include annual low-dose CT evaluation. Electronically Signed by Shashi Jameson MD 12/03/2018 07:23 A
== END ==
LOC: M RAD 08:29
PROVIDERS: ATTEND Internal Medicine Pulmonary Disease
DX: Z12.2 Encounter for screening for malignant neoplasm of respiratory organs (principal); Z87.891 Personal history of nicotine dependence

== ENCOUNTER → 2018-12-23 | Outpatient (CLI) | payer MEDICARE, MEDICAID ==
[2018-12-23 08:23] LABS: BASO % 0.7 % (0.0-1.0); EOS # 0.2 10^3/uL (0.0-0.50); EOS % 4.3 % (0.0-3.0); HEMATOCRIT 34.6 % (36.0-47.0); HEMOGLOBIN 11.6 g/dl (12.0-15.5); LYMPH # 1.7 10^3/uL (1.5-4.5); LYMPH % 32.1 % (24.0-44.0); MEAN CORPUSCULAR HEMOGLOBIN 34.3 pg (27.0-33.0); MEAN CORPUSCULAR HGB CONC 33.5 g/dl (32.0-36.5); MEAN CORPUSCULAR VOLUME 102.4 fl (80.0-96.0); MONO # 0.3 10^3/uL (0.0-0.8); MONO % 6.1 % (0.0-5.0); NEUTROPHILS # 3.1 10^3/uL (1.8-7.7); NEUTROPHILS % 56.6 % (36.0-66.0); PLATELET COUNT, AUTOMATED 224 10^3/uL (150-450); RED BLOOD COUNT 3.38 10^6/uL (4.00-5.40); WHITE BLOOD COUNT 5.4 10^3/uL (4.0-10.0)
== END ==
LOC: M LAB 07:45
PROVIDERS: ATTEND Psychiatry & Neurology Psychiatry
DX: Z79.899 Other long term (current) drug therapy (principal)

== ENCOUNTER → 2018-12-23 | Outpatient (CLI) | payer MEDICARE, MEDICAID ==
[2018-12-23 08:53] LABS: ALBUMIN 3.6 GM/DL (3.2-5.2); BILIRUBIN,TOTAL 0.3 MG/DL (0.2-1.0); CREATININE FOR GFR 1.49 MG/DL (0.55-1.30); POTASSIUM SERUM 4.9 MEQ/L (3.5-5.1); TOTAL PROTEIN 6.8 GM/DL (6.4-8.2)
[2018-12-23 09:05] LABS: HEMOGLOBIN A1c 5.3 %
== END ==
LOC: M LAB 07:49
PROVIDERS: ATTEND Physician Assistant
DX: N18.4 Chronic kidney disease, stage 4 (severe) (principal); E11.21 Type 2 diabetes mellitus with diabetic nephropathy; Z79.899 Other long term (current) drug therapy

== ENCOUNTER → 2018-12-23 | Outpatient (CLI) | payer MEDICARE, MEDICAID ==
[2018-12-23 08:51] LABS: CALCIUM LEVEL 9.1 MG/DL (8.8-10.2); CREATININE FOR GFR 1.47 MG/DL (0.55-1.30); GLOMERULAR FILTRATION RATE 38.6 (>45); POTASSIUM SERUM 4.4 MEQ/L (3.5-5.1)
== END ==
LOC: M LAB 07:54
PROVIDERS: ATTEND Physician Assistant
DX: I50.32 Chronic diastolic (congestive) heart failure (principal)

== ENCOUNTER → 2019-02-14 | Outpatient (CLI) | payer MEDICARE, MEDICAID ==
[~2019-02-14] MED LIST changes: -/ADVA50050 INH; -/ATOR40TA PO; -/CARB20TAB PO; -/CARBXR20T PO; -/MOXI40TA PO; -/TIOT18INH INH; +ADVA1AER2 INH; -ASPI1TAB PO; +ASPI81TA26 PO; +AVEL1TAB2 PO; +CARB1TAB20 PO; -GLUC4GMTAB PO; +LEAD1CHW PO; -LEXAPRO PO; +LIPI1TAB2 PO; -MIRA255PW PO; +POLY1POW4 PO; +PRED-351 PO; -PRED10TA PO; -QUET30XR PO; +SERO300T20 PO; -SERO400T3 PO; +SERO400T4 PO; -SERO50TA27 PO; +SERO50TA4 PO; +SPIR1CAP INH; +TEGR1TAB PO
[2019-02-14 08:41] LABS: HEMOGLOBIN 11.2 g/dl (12.0-15.5); MEAN CORPUSCULAR HEMOGLOBIN 34.1 pg (27.0-33.0); MEAN CORPUSCULAR HGB CONC 32.9 g/dl (32.0-36.5); MEAN CORPUSCULAR VOLUME 103.7 fl (80.0-96.0); PLATELET COUNT, AUTOMATED 206 10^3/uL (150-450); RED BLOOD COUNT 3.28 10^6/uL (4.00-5.40); WHITE BLOOD COUNT 6.3 10^3/uL (4.0-10.0)
--- NOTE | 2019-02-14 09:29 | REP ---
Clinical: Hypertension. Technique: PA and lateral. Comparison: 03/28/2017. Findings: Bibasilar fibroatelectatic changes are appreciated and may represent both acute and chronic change. No focal consolidation. No definite effusion. No pneumothorax. Mediastinum and cardiac silhouette are stable. Prior CABG. Impression: Acute on chronic bibasilar fibroatelectatic changes suggested. Electronically Signed by Shashi Jameson MD 02/14/2019 09:21 A
[2019-02-14 09:49] LABS: ALBUMIN 3.5 GM/DL (3.2-5.2); BILIRUBIN,TOTAL 0.4 MG/DL (0.2-1.0); CALCIUM LEVEL 8.7 MG/DL (8.8-10.2); CHOLESTEROL RISK RATIO 3.132 (<5); CREATININE FOR GFR 1.29 MG/DL (0.55-1.30); GLOMERULAR FILTRATION RATE 44.9 (>45); POTASSIUM SERUM 5.1 MEQ/L (3.5-5.1); THYROID STIMULATING HORMONE 1.67 uIU/ML (0.358-3.740); TOTAL PROTEIN 6.6 GM/DL (6.4-8.2)
[2019-02-14 10:22] LABS: HEMOGLOBIN A1c 5.1 %
--- NOTE | 2019-02-14 12:51 | ECGEPIP ---
Stationary ECG Study [facility] Test Date: 2019-02-14 Pat Name: YOLANDA PENA Department: Room: - Gender: F Sales Incentive Analyst: JULISA : 1960 Requested By: Kalin Callejas Order Number: [id number] Reading MD: Amparo Kauffman Measurements Intervals [place] Rate: 71 P: 64 [place]: 221 QRS: 48 QRSD: 97 T: 29 QT: 406 QTc: 442 Interpretive Statements SINUS RHYTHM WITH FIRST DEGREE AV BLOCK NEW SEPTAL T ABN AGAIN PRESENT C/W 11/27/18 Electronically Signed On 02-14-2019 12:51:19 EDT by Amparo Kauffman
[2019-02-15 10:43] LABS: TOTAL 25(OH) VITAMIN D 49.5 NG/ML (30.0-100.0)
== END ==
LOC: M LAB 08:13
PROVIDERS: ATTEND Family Medicine
DX: I10 Essential (primary) hypertension (principal)

== ENCOUNTER → 2019-04-29 | Outpatient (REF) | payer MEDICARE, MEDICAID ==
[2019-05-05 16:11] LABS: HPV HYBRID CAPTURE II Negative (Negative)
== END ==
LOC: M SFHCWAGY 10:09
PROVIDERS: ATTEND Nurse Practitioner Women's Health
DX: Z12.4 Encounter for screening for malignant neoplasm of cervix (principal)
CPT/HCPCS: 87624; G0123

== ENCOUNTER → 2019-04-29 | Outpatient (CLI) | payer MEDICARE, MEDICAID ==
[~2019-04-29] MED LIST changes: -OMEP20CA3 PO; +OMEP20CA4 PO
--- NOTE | 2019-04-29 11:12 | REPMRS ---
Patient History The patient states she had a clinical breast exam in 04/2019. Family history of breast cancer in sister, unknown cancer in mother, unknown cancer in brother. Benign radio exam breast specimen of the right breast, April 19, 2013. Benign stereotatic loc for ea lesion of the right breast, April 19, 2013.
== END ==
LOC: M WHC 10:17
PROVIDERS: ATTEND Nurse Practitioner Women's Health
DX: Z01.419 Encounter for gynecological examination (general) (routine) without abnormal findings (principal); Z12.31 Encounter for screening mammogram for malignant neoplasm of breast; Z80.3 Family history of malignant neoplasm of breast; Z80.8 Family history of malignant neoplasm of other organs or systems; Z86.018 Personal history of other benign neoplasm
CPT/HCPCS: 77063; 77067; 87624; G0101; G0123

== ENCOUNTER → 2019-06-14 | Outpatient (CLI) | payer MEDICARE, MEDICAID ==
--- NOTE | 2019-06-15 04:43 | REP ---
Clinical: Pneumonia. Technique: PA and lateral. Comparison: 02/14/2019. Findings: Right middle lobe/right lower lobe infiltrates with small right pleural effusion. Chronic bibasilar fibro atelectatic changes are appreciated. There is a subtle area of irregular opacity along the subpleural left mid lung zone which represents a new finding. No pneumothorax. Mediastinum and cardiac silhouette stable. Impression: 1. Chronic fibro atelectatic changes with superimposed basilar atelectasis and suspected right basilar infiltrates with small pleural effusion. 2. Very subtle irregular opacity along the subpleural lateral left midlung zone. 3. Above findings require follow-up to resolution and/or chest CT evaluation. Electronically Signed by Shashi Jameson MD 06/15/2019 04:34 A
== END ==
LOC: M SMT 09:21
PROVIDERS: ATTEND Internal Medicine Pulmonary Disease
DX: R91.8 Other nonspecific abnormal finding of lung field (principal); J90 Pleural effusion, not elsewhere classified

== ENCOUNTER → 2019-07-23 | Outpatient (CLI) | payer MEDICARE, MEDICAID ==
[2019-07-23 07:18] LABS: BASO % 0.8 % (0.0-1.0); EOS # 0.2 10^3/uL (0.0-0.5); EOS % 4.3 % (0.0-3.0); HEMATOCRIT 35.4 % (36.0-47.0); HEMOGLOBIN 11.7 g/dl (12.0-15.5); LYMPH % 37.8 % (24.0-44.0); MEAN CORPUSCULAR HEMOGLOBIN 34.7 pg (27.0-33.0); MEAN CORPUSCULAR HGB CONC 33.1 g/dl (32.0-36.5); MONO # 0.4 10^3/uL (0.0-0.8); MONO % 7.2 % (0.0-5.0); NEUTROPHILS # 2.6 10^3/uL (1.5-8.5); NEUTROPHILS % 49.7 % (36.0-66.0); PLATELET COUNT, AUTOMATED 198 10^3/uL (150-450); RED BLOOD COUNT 3.37 10^6/uL (4.00-5.40); WHITE BLOOD COUNT 5.2 10^3/uL (4.0-10.0)
== END ==
LOC: M LAB 06:38
PROVIDERS: ATTEND Psychiatry & Neurology Psychiatry
DX: Z79.899 Other long term (current) drug therapy (principal)

== ENCOUNTER → 2019-08-10 | Outpatient (CLI) | payer MEDICARE ==
--- NOTE | 2019-08-10 09:53 | REP ---
REASON: History of pneumonia. COMPARISON: 06/14/2019. Patchy bibasilar opacities have improved, however, a significant residual persists. The basilar opacities seen today have waxed and waned over the years when multiple priors have also been reviewed. There is bilateral chronic CP angle blunting. There are no new abnormal opacities. The heart is unchanged. The osseous structures are stable and intact. IMPRESSION: Likely chronic basilar changes as described above. Correlate clinically. Electronically Signed by Stefan Mathews DO 08/10/2019 02:35 P
== END ==
LOC: M SMT 08:02
PROVIDERS: ATTEND Internal Medicine Pulmonary Disease
DX: R91.8 Other nonspecific abnormal finding of lung field (principal)

== ENCOUNTER → 2019-10-20 | Outpatient (CLI) | payer MEDICARE, MEDICAID ==
[~2019-10-20] MED LIST changes: -MECL12.575 PO; +MECL12.589 PO; +OMEP1CAP73 PO; -OMEP20CA4 PO; +ZONI50CA11 PO; -ZONI50CA3 PO
[2019-10-20 07:47] LABS: HEMATOCRIT 33.3 % (36.0-47.0)
[2019-10-20 07:49] LABS: BASO % 0.4 % (0.0-1.0); EOS # 0.2 10^3/uL (0.0-0.5); EOS % 3.4 % (0.0-3.0); HEMATOCRIT 32.3 % (36.0-47.0); HEMOGLOBIN 10.8 g/dl (12.0-15.5); LYMPH # 1.7 10^3/uL (1.5-5.0); LYMPH % 30.7 % (24.0-44.0); MEAN CORPUSCULAR HEMOGLOBIN 36.1 pg (27.0-33.0); MEAN CORPUSCULAR HGB CONC 33.4 g/dl (32.0-36.5); MONO # 0.3 10^3/uL (0.0-0.8); MONO % 6.1 % (0.0-5.0); NEUTROPHILS # 3.3 10^3/uL (1.5-8.5); NEUTROPHILS % 59.2 % (36.0-66.0); PLATELET COUNT, AUTOMATED 155 10^3/uL (150-450); RED BLOOD COUNT 2.99 10^6/uL (4.00-5.40); WHITE BLOOD COUNT 5.5 10^3/uL (4.0-10.0)
[2019-10-20 08:18] LABS: ALBUMIN 3.4 GM/DL (3.2-5.2); BILIRUBIN,TOTAL 0.5 MG/DL (0.2-1.0); CREATININE FOR GFR 1.11 MG/DL (0.55-1.30); GLOMERULAR FILTRATION RATE 53.2 (>45); MAGNESIUM LEVEL 1.8 MG/DL (1.8-2.4); PERCENT SATURATION 28.5 % (13.2-45.0); POTASSIUM SERUM 4.6 MEQ/L (3.5-5.1); TOTAL PROTEIN 6.2 GM/DL (6.4-8.2)
[2019-10-20 08:41] LABS: HEMOGLOBIN A1c 5.2 %
[2019-10-20 11:11] LABS: TOTAL 25(OH) VITAMIN D 56.8 NG/ML (30.0-100.0)
== END ==
LOC: M LAB 07:11
PROVIDERS: ATTEND Physician Assistant
DX: K91.2 Postsurgical malabsorption, not elsewhere classified (principal); E55.9 Vitamin D deficiency, unspecified; Z98.84 Bariatric surgery status; Z86.39 Personal history of other endocrine, nutritional and metabolic disease; D64.9 Anemia, unspecified; R53.83 Other fatigue; E03.9 Hypothyroidism, unspecified

== ENCOUNTER → 2019-10-20 | Outpatient (CLI) | payer MEDICARE, MEDICAID ==
[~2019-10-20] MED LIST changes: +MECL12.575 PO; -MECL12.589 PO; +OMEP-172 PO; -OMEP1CAP73 PO; -ZONI50CA11 PO; +ZONI50CA3 PO
[2019-10-20 07:49] LABS: HEMATOCRIT 33.3 % (36.0-47.0); HEMOGLOBIN 10.8 g/dl (12.0-15.5); MEAN CORPUSCULAR HEMOGLOBIN 35.5 pg (27.0-33.0); MEAN CORPUSCULAR HGB CONC 32.4 g/dl (32.0-36.5); MEAN CORPUSCULAR VOLUME 109.5 fl (80.0-96.0); PLATELET COUNT, AUTOMATED 160 10^3/uL (150-450); RED BLOOD COUNT 3.04 10^6/uL (4.00-5.40); WHITE BLOOD COUNT 5.6 10^3/uL (4.0-10.0)
[2019-10-20 08:22] LABS: ALBUMIN 3.3 GM/DL (3.2-5.2); BILIRUBIN,TOTAL 0.4 MG/DL (0.2-1.0); CALCIUM LEVEL 8.7 MG/DL (8.8-10.2); CHOLESTEROL RISK RATIO 2.304 (<5); CREATININE FOR GFR 1.12 MG/DL (0.55-1.30); GLOMERULAR FILTRATION RATE 52.7 (>45); POTASSIUM SERUM 4.4 MEQ/L (3.5-5.1); THYROID STIMULATING HORMONE 1.69 uIU/ML (0.358-3.740); TOTAL PROTEIN 6.2 GM/DL (6.4-8.2)
[2019-10-20 08:40] LABS: HEMOGLOBIN A1c 5.2 %
== END ==
LOC: M LAB 07:13
PROVIDERS: ATTEND Family Medicine
DX: D64.9 Anemia, unspecified (principal); R53.83 Other fatigue; E03.9 Hypothyroidism, unspecified

== ENCOUNTER → 2020-01-17 | Outpatient (CLI) | payer MEDICARE, MEDICAID ==
[~2020-01-17] MED LIST changes: -MECL12.575 PO; +MECL12.589 PO; -OMEP-172 PO; +OMEP1CAP73 PO; +ZONI50CA11 PO; -ZONI50CA3 PO
--- NOTE | 2020-01-18 03:43 | REP ---
Clinical: Lung screening. History smoking. Comparison: 12/02/2018 Technique: Axial low-dose noncontrast images from the thoracic inlet to the upper abdomen using lung screening technique. Findings: The lung oden are well-aerated. Chronic changes at the bilateral lung bases remain relatively stable. No consolidation, significant nodule or mass lesion is appreciated. No pleural effusion/reaction or pneumothorax. Tracheobronchial tree is patent. Mediastinum demonstrates mild atherosclerotic changes of the coronary arteries without cardiomegaly. Impression: 1. Lung-RADS category I-S. Stable chronic changes primarily involving the bilateral lung bases. 2. Annual follow-up should be considered. Electronically Signed by Shashi Jameson MD 01/18/2020 03:33 A
== END ==
LOC: M RAD 12:45
PROVIDERS: ATTEND Internal Medicine Pulmonary Disease
DX: Z87.891 Personal history of nicotine dependence (principal)

== ENCOUNTER → 2020-02-08 | Outpatient (REF) | payer MEDICARE, MEDICAID | LOC: M LAB REF 13:17 | PROVIDERS: ATTEND Internal Medicine Nephrology | DX: K91.2 Postsurgical malabsorption, not elsewhere classified (principal); D53.1 Other megaloblastic anemias, not elsewhere classified ==

== ENCOUNTER → 2020-03-17 | Outpatient (CLI) | payer MEDICARE, MEDICAID ==
[~2020-03-17] MED LIST changes: +VITA-243 PO; -VITA500T PO
[2020-03-17 08:53] LABS: BASO % 0.5 % (0.0-1.0); EOS # 0.2 10^3/uL (0.0-0.5); HEMATOCRIT 33.4 % (36.0-47.0); HEMOGLOBIN 11.2 g/dl (12.0-15.5); LYMPH # 1.8 10^3/uL (1.5-5.0); LYMPH % 47.9 % (24.0-44.0); MEAN CORPUSCULAR HEMOGLOBIN 36.5 pg (27.0-33.0); MEAN CORPUSCULAR HGB CONC 33.5 g/dl (32.0-36.5); MEAN CORPUSCULAR VOLUME 108.8 fl (80.0-96.0); MONO # 0.3 10^3/uL (0.0-0.8); MONO % 7.1 % (0.0-5.0); NEUTROPHILS # 1.5 10^3/uL (1.5-8.5); NEUTROPHILS % 39.5 % (36.0-66.0); PLATELET COUNT, AUTOMATED 167 10^3/uL (150-450); RED BLOOD COUNT 3.07 10^6/uL (4.00-5.40); WHITE BLOOD COUNT 3.8 10^3/uL (4.0-10.0)
== END ==
LOC: M LAB 08:26
PROVIDERS: ATTEND Psychiatry & Neurology Psychiatry
DX: Z79.899 Other long term (current) drug therapy (principal)

== ENCOUNTER → 2020-05-30 | Outpatient (CLI) | payer MEDICARE, MEDICAID ==
[~2020-05-30] MED LIST changes: +PANT40TA29 PO; -PANT40TA3 PO; -TAB-TAB PO; +TAB-TAB2 PO
[2020-05-30 07:39] LABS: HEMATOCRIT 36.5 % (36.0-47.0); HEMOGLOBIN 12.2 g/dl (12.0-15.5); MEAN CORPUSCULAR HEMOGLOBIN 36.5 pg (27.0-33.0); MEAN CORPUSCULAR HGB CONC 33.4 g/dl (32.0-36.5); MEAN CORPUSCULAR VOLUME 109.3 fl (80.0-96.0); PLATELET COUNT, AUTOMATED 179 10^3/uL (150-450); RED BLOOD COUNT 3.34 10^6/uL (4.00-5.40); WHITE BLOOD COUNT 4.5 10^3/uL (4.0-10.0)
[2020-05-30 07:59] LABS: HEMOGLOBIN A1c 4.9 %
--- NOTE | 2020-05-30 07:59 | REP ---
Clinical: Fatigue and anemia. Technique: PA and lateral. Comparison: 08/10/2019. Findings: Mediastinum and cardiac silhouette are stable with evidence of prior CABG again noted chronic-appearing bibasilar fibroatelectatic changes are similar to prior examination. No new acute consolidation, obvious effusion, or pneumothorax. Skeletal structures are intact. Impression: Chronic stable bibasilar changes. Electronically Signed by Shashi Jameson MD 05/30/2020 07:50 A
[2020-05-30 08:09] LABS: ALBUMIN 3.6 GM/DL (3.2-5.2); ALT/SGPT 55 U/L (12-78); BILIRUBIN,TOTAL 0.3 MG/DL (0.2-1.0); BLOOD UREA NITROGEN 20 MG/DL (7-18); CALCIUM LEVEL 8.9 MG/DL (8.8-10.2); CARBON DIOXIDE LEVEL 31 MEQ/L (21-32); CHLORIDE LEVEL 106 MEQ/L (98-107); CHOLESTEROL LEVEL 172 MG/DL (<200); CREATININE FOR GFR 1.16 MG/DL (0.55-1.30); GLOMERULAR FILTRATION RATE 50.6 (>45); GLUCOSE, FASTING 87 MG/DL (70-100); HDL CHOLESTEROL 86 MG/DL (>40); LDL CHOLESTEROL 73 MG/DL (<100); NON-HDL-C 86 MG/DL; POTASSIUM SERUM 5.5 MEQ/L (3.5-5.1); SODIUM LEVEL 140 MEQ/L (136-145); TOTAL PROTEIN 6.4 GM/DL (6.4-8.2); TRIGLYCERIDES LEVEL 67 MG/DL (<150)
[2020-05-30 10:28] LABS: TOTAL 25(OH) VITAMIN D 46.4 NG/ML (30.0-100.0)
--- NOTE | 2020-05-30 23:07 | ECGEPIP ---
[facility] Test Date: 2020-05-30 Pat Name: YOLANDA PENA Department: Room: - Gender: Female Rewind Operator: DAVIDSON : 1960 Requested By: Kalin Callejas Order Number: [id number] Reading MD: Jose Francisco Bowen Measurements Intervals [place] Rate: 70 P: 68 [place]: 215 QRS: 59 QRSD: 96 T: 46 QT: 388 QTc: 419 Interpretive Statements SINUS RHYTHM WITH FIRST DEGREE AV BLOCK No significant change compared with 02/14/2019. Electronically Signed on 05-30-2020 23:06:41 EDT by Jose Francisco Bowen
== END ==
LOC: M LAB 06:51
PROVIDERS: ATTEND Family Medicine
DX: D64.9 Anemia, unspecified (principal); R53.83 Other fatigue; Z79.899 Other long term (current) drug therapy

== ENCOUNTER → 2020-08-09 | Outpatient (REF) | payer MEDICARE, MEDICAID | LOC: M LAB REF 16:53 | PROVIDERS: ATTEND Nurse Practitioner Family | DX: D53.1 Other megaloblastic anemias, not elsewhere classified (principal) ==

== ENCOUNTER → 2020-12-03 | Outpatient (CLI) | payer MEDICARE, MEDICAID ==
[~2020-12-03] MED LIST changes: +MAGN400T2 PO; -MECL12.589 PO; +MECL12.590 PO
== END ==
LOC: M LABSMTC 08:08
PROVIDERS: ATTEND Anesthesiology
DX: Z01.812 Encounter for preprocedural laboratory examination (principal); Z20.822 Contact with and (suspected) exposure to COVID-19

== ENCOUNTER 2020-12-08 07:01 | Day surgery (SDC) | payer MEDICARE, MEDICAID ==
[~2020-12-08] VITALS: Ht 160 cm; Wt 66.2 kg
[~2020-12-08 07:01] MED LIST changes: +NS 1,000 ML IV ONE
--- OUTSIDE RECORDS SUMMARY | 2020-12-08 07:06 | CCD | Continuity of Care Document ---
Author Author Elvia KENNEY MD Organization Unknown Address [facility] [place] [address] Phone [phone] Care Team Providers Care Field Sales Trainer Name Role Phone Shaun Mcnair AUTM [phone] Ramon Saucedo MD AUTM [phone] Bridgette Artis MD AUTM [phone] Ganesh Sumner MD AUTM [phone] Uriel Brooks MD AUTM [phone] Thania Morelos MD AUTM [phone] Cricket Youngblood MD AUTM [phone] Problems Active Problems Provider Date Coronary arteriosclerosis Diane Sue Dangelow, PA-C Onset: 2010 Old myocardial infarction Diane Sue Dangelow, PA-C Onset: 2010 Patient post percutaneous transluminal coronary angiop lasty Diane Dangelow, PA-C Onset: 09/17/2011 Benign hypertensive heart disease with congestive card iac failure Diane E Loretow, PA-C Onset: 09/17/2011 Chronic diastolic heart failure Diane E Symenow, PA-C Onset: 09/17/2011 Aortic valve disorder Diane E Symenow, PA-C Onset: 09/17/2011 Pure hypercholesterolemia Diane E Lunaenow, PA-C Onset: 2010 Morbid obesity Diane E Symenow, PA-C Onset: 09/17/2011 Mitral valve disorder Diane E Lunaenow, PA-C Onset: 10/12/2015 Obesity Diane E Symenow, PA-C Onset: 10/12/2015 Mixed hyperlipidemia Diane Rogers JACQUELINE Mares Onset: 12/02/2016 Dietary management surveillance Diane Rogers JACQUELINE Mares Onset: 06/18/2017 Social History Type Date Description Comments Sex Unknown Tobacco Use Start: Unknown End: Unknown Former Cigarette Smo ker 3 Packs Daily Hx of 40 yrs quit 2006 ETOH Use Does not consume alcohol Tobacco Use Start: Unknown End: Unknown Patient is a former smoker up to 3ppd x40 yrs, quit 2006 Smoking Status Reviewed: 03/13/20 Patient is a former smoker up to 3ppd x40 yrs, quit 2006 Exercise Type/Frequency Does housework sporadica lly Exercise Type/Frequency Walks daily Exercise Limitations Shortness Of Breath when ca rrying something heavy Allergies, Adverse Reactions, Alerts Active Allergies Reaction Severity Comments Date Advil manic 09/19/2008 Aleve manic state 07/18/2009 Zofran loss of conscienceness 08/10 Medications Active Medications SIG Qnty Indications Ordering Provide r Date Iron 325(65Fe) mg Tablets 1 by mouth twice a day Unknown 03/12/2020 Meloxicam 7.5mg Tablets 1 by mouth every day Unknown 03/12/2020 Vitamin C 500mg Capsules 1 by mouth every day Unknown 03/12/2020 Potassium 99mg Tablets 1 by mouth every day Unknown 03/12/2020 Breo Ellipta 200-25mcg/Inh Aerosol 1 puff daily as directed Unknown 06/09/2019 Ferrous Sulfate 325(65Fe) mg Table ts 1 by mouth every day Unknown 03/23/2019 Cyanocobalamin 1000mcg/ML Solution injection once monthly Unknown 9 Seroquel 200mg Tablets 1 by mouth every night at bedtime Unknown 08/31/2018 Magnesium Oxide 400mg Capsules 1 by mouth daily Unknown 08/31/2018 Aspir-[address] 1 by mouth every day Unknown 08/31/2018 Vitamin B-12 ER 1500mcg Tablets ER 1 by mouth every day Unknown 01/07/2018 Incruse Ellipta 62.5mcg/Inh Aeroso l 1 puff daily Unknown 06/17/2017 Calcitriol 0.25mcg Capsules 3 by mouth 7 days weekly Ryan Genao MD 08/29/2016 Atorvastatin Calcium 80mg Tablets 1 by mouth every night at bedtime 30tabs I25.10 Terence Kenney MD 01/22/2016 Seroquel XR 400mg Tablets ER 24HR 1 by mouth every day at bedtime with 200 MG dose Bridgette Hardy MD 01/21/2016 Tab-A-Kasey Tablets 1 by mouth every day Unknown 10/18/2014 Lexapro 10mg Tablets 1 po qd Ramon Saucedo MD 10/08/2010 Nitrostat 0.4mg Tablets Sub 1 sl every 5min x3 as needed for chest pain 25tabs I25.10 Terence Kenney MD 01/20/2009 Combivent Aerosol 2 Puffs qid (inplace of Duoneb if not at home) 1units Terence Kenney MD 2008 Duoneb Solution q4h prn Ramon Saucedo MD Singulair 10mg Tablets 1 PO q d Ramon Saucedo MD Carbamazepine 400mg Tablets 1 PO bid Ramon Saucedo MD Immunizations Description No Information Available Vital Signs Date Vital Result Comment 03/13/2020 9:48am Weight 146.00 lb Home Weight 141lb no home weight Height 63 inches 5'3" BMI (Body Mass Index) 25.9 kg/m2 Heart Rate 60 /min Regular Respiratory Rate 16 /min BP Systolic Right Arm 128 mmHg sitting, regular c uff BP Diastolic Right Arm 74 mmHg sitting, regular cuff BP Systolic Left Arm 124 mmHg sitting BP Diastolic Left Arm 74 mmHg sitting 09/15/2019 9:08am Weight 159.00 lb Home Weight 155lb home weight Height 63 inches 5'3" BMI (Body Mass Index) 28.2 kg/m2 Heart Rate 64 /min Regular Respiratory Rate 16 /min BP Systolic Right Arm 118 mmHg Sitting, regular c uff BP Diastolic Right Arm 64 mmHg Sitting, regular cuff BP Systolic Left Arm 116 mmHg Sitting BP Diastolic Left Arm 64 mmHg Sitting Results Test Acquired Date Facility Test Result H/L Range Note Renal Profile 08/09/2020 [facility] ([facility])- - Glucose 98 70-100 Blood Urea Nitrogen 22.7 High 5-21 Creatinine 0.7 0.6-1.5 GFR (Calculated) 85 Sodium 141.1 136-146 Potassium 4.88 3.5-5.3 Chloride 104.3 98-110 Carbon Dioxide 29.1 20-32 Calcium 8.7 8.4-10.4 Phosphorus 3.7 Albumin 3.7 3.5-4.7 CBC without Differential 08/09/2020 [facility] ([facility])- - White Blood Count 3.7 Low 4.3-10.9 Red Blood Count 3.27 Low 4.70-6.20 Platelets 197 130-400 Hemoglobin 11.7 Low 13.0-17.0 Hematocrit 35.5 Low 39.0-50.0 Laboratory test finding 08/09/2020 [facility] ([facility])- - Magnesium Level 1.90 Procedures Description No Information Available Medical Devices Description No Information Available Encounters Type Date Location Provider Dx Diagnosis Office Visit 09/07/2020 10:32a Main Office Terence Kenney MD I50.32 Chronic diastolic (congestive) heart failure I35.1 Nonrheumatic aortic (valve) insufficiency I34.0 Nonrheumatic mitral (valve) insufficiency E78.2 Mixed hyperlipidemia Assessments Date Code Description Provider 09/07/2020 I50.32 Chronic diastolic (congestive) h eart failure Terence Kenney MD 09/07/2020 I35.1 Nonrheumatic aortic (valve) insu fficiency Terence Kenney MD 09/07/2020 I34.0 Nonrheumatic mitral (valve) insu fficiency Terence Kenney MD 09/07/2020 E78.2 Mixed hyperlipidemia Terence rosa MD Plan of Treatment 03/13/2020 - Diane Mares PA-C* I25.10 Atherosclerotic heart disease of [place] coronary artery with * I25.2 Old myocardial infarction * Z95.5 Presence of coronary angioplasty implant and graft * I50.32 Chronic diastolic (congestive) heart failure* Recommendations:* Follow a 2 grams sodium diet and 50 ounces fluid restriction per 24 hour and do daily weights. Call the office for weight gain of 3 lbs or more. * I11.0 Hypertensive heart disease with heart failure * I35.1 Nonrheumatic aortic (valve) insufficiency * I34.0 Nonrheumatic mitral (valve) insufficiency * E78.2 Mixed hyperlipidemia * Z71.3 Dietary counseling and surveillance* Recommendations:* Follow a low fat/low cholesterol diet and do at least 30 minutes of sustained aerobic activity daily. * All * Follow up:* 6 month follow up. Functional Status Functional Condition Comment Date Status Independent with all ADL's Activ e Mental Status Description No Information Available Referrals Description No Information Available
--- OUTSIDE RECORDS SUMMARY | 2020-12-08 07:06 | CCD ---
Author Author [facility] Organization [facility] Address Unknown Phone Unavailable Care Team Providers Care Tooth Cutter Pinion Name Role Phone Bonnie Salgaod Unavailable PROBLEMS Type Condition ICD9-CM Code [id number] Code Onset Dates Condition S tatus SNOMED Code Notes Problem History of abnormal mammogram V15.89 Active 16 2086514 Problem Postmenopausal bleeding 627.1 Active 72154407 Problem Postmenopausal status (age-related) (natural) V49.81 Active 87668125 Problem Routine gynecological examination V72.31 Active 605552095044836 Problem Morbid obesity 278.01 Active 691671471 ALLERGIES Allergen (clinical drug ingredient) Drug/Non Drug Allergy do cumented on EMR Reaction Allergy Type Onset Date Status ibuprofen Advil(ND Code:[address]-78) manic state Drug Allergy Active ondansetron Zofran(ND Code:[address]-47) Unknown Drug Allergy Active naproxen Aleve(ND Code:[address]-65) manic state Drug Allergy Active ENCOUNTERS from 1960 to 2020-10-05 Encounter Location Date Provider Diagnosis [facility] [address] [place] [id number] Apr, Bonnie Salgado Routine gynecologica l examination Z01.419 ; Encounter for screening mammogram for malignant neoplasm of breast Z12.31 and Cervical cancer screening Z12.4 IMMUNIZATIONS No Information SOCIAL HISTORY Sex Assigned At : Social History Observation Description Sex Assigned At Unknown Language: Question Answer Notes Languages spoken: Slovak Sexual Hx: Question Answer Notes Had sex in the last 12 months (vaginal, oral, or anal)? No LMP: post menopause Have you ever had an STD? No BMI Care Goal Follow-Up Question Answer Notes Above Normal BMI Follow-Up Giving encouragement to exercise, Weight monitoring REASON FOR REFERRAL No Information VITAL SIGNS Weight 181 lbs Apr, Height 63 in Apr, BMI 32.06 kg/m2 Apr, Heart Rate 95 /min Apr, Respiratory Rate 18 /min Apr, Temperature 98.9 degrees Fahrenheit Apr, Oximetry 86 Apr, Blood pressure systolic 120 mm Hg Apr, Blood pressure diastolic 80 mm Hg Apr, MEDICATIONS Medication SIG (Take, Route, Frequency, Duration) Notes Start Da te End Date Status Pepcid 20 MG 1 tablet Orally bid Not -Taking Atorvastatin Calcium 80 MG 1 tablet Orally Once a day Active Seroquel XR 400 MG 1 tablet in the evening Orally Once a day Active Magnesium 400 MG 1 tablet with food Orally once a day Active Nitroglycerin 2 MG as directed Bucally as needed Active Lasix 20 MG 1 tablet in am Orally Once a day Active Breo Ellipta 200-25 MCG/INH INHALE 1 PUFF BY MOUTH ONCE LISA Y Inhalation for 90 Active Singulair 10 mg 1 tablet in the evening p.o. Once a day for 30 day(s) Active Calcitriol 0.25 MCG 3 capsule Orally Once a day Active Q55-Iuxqei 1 MG Orally Active Combivent 18-103 MCG/ACT 2 puffs Inhalation Four times a day Active Cyanocobalamin 1000 MCG/ML INJECT ONE MILLILITER INTRA MUSCULARLY ONCE A MONTH Injection for 30 Active Incruse Ellipta 62.5 MCG/INH 1 puff Inhalation Once a day Active Escitalopram Oxalate 10 MG 1 tablet Orally Once a day Active Vicodin ES 7.5-300 MG 1 tablet as needed Orally every 6 hrs Active SEROquel 200 MG 1 tablet Orally Once a day Active Multivitamins otc 1 tab(s) p.o. once a day Active Aspir-81 81 MG 1 tablet p.o. Once a day for 30 day(s) Active Carbamazepine 200 MG 2 tablets p.o. Twice a day for 30 day(s) Active PROCEDURES No Information RESULTS Component Value Reference Range Woman to Woman DIGITAL WOMAN SCREEN MAMM O (Ultrasound if indicated) Reviewed date:05/04/2019 16:05:30 Interpretation: Performing Lab:[facility], [place] [address] PAP REQUEST FOR SERVICE Reviewed date:05/05/2019 16:27:13 Interpretation:neg pap, hpv neg Performing Lab:[facility] [address] [facility] [address] , ,[place] [address] PAP REQUEST FOR SERVICE Reviewed date:05/10/2019 15:49:40 Interpretation:neg pap, hpv neg Performing Lab:[facility] [address] [facility] [address] , ,[place] [address] REASON FOR VISIT ANNUAL & MAMMO MEDICAL (GENERAL) HISTORY Type Description Date Medical History heart disease Medical History copd Medical History bipolar Medical History hpercholesterolemia Medical History diabetes Medical History hx of [place] Medical History morbid obesity Medical History chronic pain Surgical History cholecystectomy Surgical History appendectomy Surgical History C section 1981 Surgical History ganglion cyst removed left top of hand Surgical History cardiac stent Surgical History colonoscopy Surgical History biopsy right breast benign 05/2013 Surgical History gastric bypass 08/25/18 Hospitalization History COPD, at [facility] for eight days 08/2015 Goals Section No Information Health Concerns No Information MEDICAL EQUIPMENT No Information MENTAL STATUS No Information FUNCTIONAL STATUS No Information ASSESSMENTS Encounter Date Diagnosis Assessment Notes Treatment Notes Treatm ent Clinical Notes Apr, Routine gynecological examination (ICD-10 - Z01. 419) Apr, Encounter for screening mamm ogram for malignant neoplasm of breast (ICD-10 - Z12.31) Apr, Cervical cancer screening (ICD-10 - Z12.4) PLAN OF TREATMENT Next Appt Details 1 Year Reason:mammo Follow Up:1 Yearmammo Insurance Providers Payer Name Payer Address Payer Phone Insured Name Patient Relati onship to Insured Coverage Start Date Coverage End Date MEDICARE Part A and B [address] [facility] [phone] YOLANDA PENA MEDICAID [facility] [address] [facility] [id number] YOLANDA PENA
--- OUTSIDE RECORDS SUMMARY | 2020-12-08 07:06 | CCD ---
Author Author [facility] Organization [facility] Address Unknown Phone Unavailable Care Team Providers Care De Icer Element Winder Name Role Phone Bonnie Salgado Unavailable PROBLEMS Type Condition ICD9-CM Code FHE21-TD Code Onset Dates Condition S tatus SNOMED Code Notes Problem History of abnormal mammogram V15.89 Active 16 5092173 Problem Postmenopausal bleeding 627.1 Active 39605403 Problem Postmenopausal status (age-related) (natural) V49.81 Active 52498778 Problem Routine gynecological examination V72.31 Active 266732278881485 Problem Morbid obesity 278.01 Active 049848570 ALLERGIES Allergen (clinical drug ingredient) Drug/Non Drug Allergy do cumented on EMR Reaction Allergy Type Onset Date Status ibuprofen Advil(ND Code:[address]-58) manic state Drug Allergy Active ondansetron Zofran(ND Code:[address]-04) Unknown Drug Allergy Active naproxen Aleve(ND Code:[address]-07) manic state Drug Allergy Active ENCOUNTERS from 1960 to 2020-10-06 Encounter Location Date Provider Diagnosis [facility] [address] [place] [phone] Apr, Bonnie Salgado Routine gynecologica l examination Z01.419 ; Encounter for screening mammogram for malignant neoplasm of breast Z12.31 and Cervical cancer screening Z12.4 IMMUNIZATIONS No Information SOCIAL HISTORY Sex Assigned At : Social History Observation Description Sex Assigned At Unknown Language: Question Answer Notes Languages spoken: Afghan Sexual Hx: Question Answer Notes Had sex [...] 3 capsule Orally Once a day Active C31-Fulkrl 1 MG Orally Active Combivent 18-103 MCG/ACT [...] if indicated) Reviewed date:05/04/2019 16:05:30 Interpretation: Performing Lab:[facility] [address] PAP REQUEST FOR SERVICE Reviewed date:05/05/2019 16:27:13 Interpretation:neg pap, hpv neg Performing Lab:[facility] LABORATORY [address] [facility] [address] , ,[place] [address] PAP REQUEST FOR SERVICE Reviewed date:05/10/2019 15:49:40 Interpretation:neg pap, hpv neg Performing Lab:[facility] [address] [facility] [address] , ,[place] [address] REASON FOR VISIT ANNUAL & MAMMO MEDICAL (GENERAL) HISTORY Type Description Date Medical History heart disease Medical History copd Medical History bipolar Medical History hpercholesterolemia Medical History diabetes Medical History hx of [place] Medical History morbid obesity Medical History chronic pain Surgical History cholecystectomy Surgical History appendectomy Surgical History C section 1981 Surgical History ganglion cyst removed left top of hand Surgical History cardiac stent Surgical History colonoscopy Surgical History biopsy right breast benign 05/2013 Surgical History gastric bypass 08/25/18 Hospitalization History COPD, at [facility] for eight days 08/2015 Goals Section No [...] Part A and B [address] [facility] [phone] YOLANDA PENA [facility]ID [facility] [address] [facility] [id number] YOLANDA PENA
--- OUTSIDE RECORDS SUMMARY | 2020-12-08 07:07 | CCD ---
Author Author [facility] Organization [facility] Address Unknown Phone Unavailable Care Team Providers Care Press Room Supervisor Name Role Phone Shawnee Mullins Unavailable Unavailable Shawnee Mullins Unavailable Unavailable Shawnee Mullins Unavailable Unavailable Shawnee Mullins Unavailable Unavailable Emily Mares Unavailable Unavailable Emily Mares Unavailable Unavailable SymenoEmily quintanilla Unavailable Unavailable Emily Mares Unavailable Unavailable Emily Mares Unavailable Unavailable Emily Mares Unavailable Unavailable Emily Mares Unavailable Unavailable Emily Mares Unavailable Unavailable Emily Mares Unavailable Unavailable Emily Mares PA Unavailable Unavailable Emily Mares Unavailable Unavailable Emily Mares Unavailable Unavailable Symenow, Emily Diane PA Unavailable Unavailable Symenow, Emily Diane PA Unavailable Unavailable Symenow, Emily Diane PA Unavailable Unavailable Symenow, Emily Diane PA Unavailable Unavailable Symenow, Emily Diane PA Unavailable Unavailable Symenow, Emily Diane PA Unavailable Unavailable Symenow, Emily Diane PA Unavailable Unavailable Symenow, Emily Diane PA Unavailable Unavailable Symenow, Emily Diane PA Unavailable Unavailable Symenow, Emily Diane PA Unavailable Unavailable Symenow, Emily Diane PA Unavailable Unavailable Symenow, Emily Diane PA Unavailable Unavailable Symenow, Emily Diane PA Unavailable Unavailable Symenow, Emily Diane PA Unavailable Unavailable Symenow, Emily Diane PA Unavailable Unavailable Symenow, Emily Diane PA Unavailable Unavailable Symenow, Emily Diane PA Unavailable Unavailable Symenow, Emily Diane PA Unavailable Unavailable Symenow, Emily Diane PA Unavailable Unavailable Symenow, Emily Diane PA Unavailable Unavailable Symenow, Emily Diane PA Unavailable Unavailable Symenow, Emily Diane PA Unavailable Unavailable Symenow, Emily Diane PA Unavailable Unavailable Symenow, Emily Diane PA Unavailable Unavailable GRANT CEBALLOS MD Unavailable ([phone] 05 GRANT CEBALLOS MD Unavailable ([phone] 05 GRANT CEBALLOS MD Unavailable ([phone] 05 GRANT CEBALLOS MD Unavailable ([phone] 05 GRANT CEBALLOS MD Unavailable ([phone] 05 GRANT CEBALLOS MD Unavailable ([phone] 05 GRANT CEBALLOS MD Unavailable [phone] GRANT CEBALLOS MD Unavailable ([phone] 05 GRANT CEBALLOS MD Unavailable ([phone] 05 GRANT CEBALLOS MD Unavailable ([phone] 05 GRANT CEBALLOS MD Unavailable ([phone] 05 BLACK, GRANT CHRISTOPHER MD Unavailable [phone] BLACK, GRANT MERCADO MD Unavailable [phone] BLACK, GRANT MERCADO MD Unavailable [phone] BLACK, GRANT MERCADO MD Unavailable [phone] BLACK, GRANT MCCARTHYER MD Unavailable [phone] BLACK, GRANT MERCADO MD Unavailable [phone] BLACK, GRANT MERCADO MD Unavailable [phone] BLACK, GRANT MERCADO MD Unavailable [phone] BLACK, GRANT MERCADO MD Unavailable [phone] BLACK, GRANT MERCADO MD Unavailable [phone] BLACK, GRANT MERCADO MD Unavailable [phone] BLACK, GRANT MERCADO MD Unavailable [phone] BLACK, GRANT MERCADO MD Unavailable [phone] BLACK, GRANT EMRCADO MD Unavailable [phone] BLACK, GRANT MERCADO MD Unavailable [phone] BLACK, GRANT MERCADO MD Unavailable [phone] BLACK, GRANT MERCADO MD Unavailable [phone] BLACK, RGANT MERCADO MD Unavailable [phone] BLACK, GRANT MERCADO MD Unavailable [phone] BLACK, GRANT MERCADO MD Unavailable [phone] BLACK, GRANT MERCADO MD Unavailable [phone] BLACK, GRANT MERCADO MD Unavailable [phone] BLACK, GRANT MERCADO MD Unavailable [phone] BLACK, GRANT MERCADO MD Unavailable [phone] BLACK, GRANT MERCADO MD Unavailable [phone] BLACK, GRANT MERCADO MD Unavailable [phone] BLACK, GRANT MERCADO MD Unavailable [phone] BLACK, GRANT MERCADO MD Unavailable [phone] BLACK, GRANT MERCADO MD Unavailable [phone] BLACK, GRANT MERCADO MD Unavailable [phone] BLACK, GRANT CHRISTOPHER MD Unavailable [phone] BLACK, GRANT MERCADO MD Unavailable [phone] BLACK, GRANT MERCADO MD Unavailable [phone] BLACK, GRANT MERCADO MD Unavailable [phone] GRANT CEBALLOS MD Unavailable [phone] BLACK, GRANT MERCADO MD Unavailable [phone] BLACK, GRANT MERCADO MD Unavailable [phone] BLACK, GRANT MERCADO MD Unavailable [phone] BLACK, GRANT MERCADO MD Unavailable [phone] FISCHI, Lexa BAILON MD Unavailable Unavailable FISCHI, Lexa BAILON MD Unavailable Unavailable FISCHI, Lexa BAILON MD Unavailable Unavailable FISCHI, Lexa BAILON MD Unavailable Unavailable FISCHI, Lexa BAILON MD Unavailable Unavailable FISCHI, Lexa BAILON MD Unavailable Unavailable FISCHI, Lexa BAILON MD Unavailable Unavailable FISCHI, Lexa BAILON MD Unavailable Unavailable FISCHI, Lexa BAILON MD Unavailable Unavailable FISCHI, Lexa BAILON MD Unavailable Unavailable FISCHI, Lexa BAILON MD Unavailable Unavailable FISCHI, Lexa BAILON MD Unavailable Unavailable FISCHI, Lexa BAILON MD Unavailable Unavailable FISCHI, Lexa BAILON MD Unavailable Unavailable FISCHI, Lexa BAILON MD Unavailable Unavailable FISCHI, Lexa BAILON MD Unavailable Unavailable FISCHI, Lexa BAILON MD Unavailable Unavailable FISCHI, Lexa BAILON MD Unavailable Unavailable FISCHI, Lexa BAILON MD Unavailable Unavailable FISCHI, Lexa BAILON MD Unavailable Unavailable FISCHI, Lexa BAILON MD Unavailable Unavailable FISCHI, Lexa BAILON MD Unavailable Unavailable FISCHI, Lexa BAILON MD Unavailable Unavailable FISCHI, Lexa BAILON MD Unavailable Unavailable FISCHI, Lexa BAILON MD Unavailable Unavailable FISCHI, Lexa BAILON MD Unavailable Unavailable FISCHI, Lexa BAILON MD Unavailable Unavailable FISCHI, Lexa BAILON MD Unavailable Unavailable FISCHI, Lexa BAILON MD Unavailable Unavailable FISCHI, Lexa BAILON MD Unavailable Unavailable FISCHI, Lexa BAILON MD Unavailable Unavailable FISCHI, Lexa BAILON MD Unavailable Unavailable FISCHI, Lexa BAILON MD Unavailable Unavailable FISCHI, Lexa BAILON MD Unavailable Unavailable FISCHI, Lexa BAILON MD Unavailable Unavailable FISCHI, Lexa BAILON MD Unavailable Unavailable FISCHI, Lexa BAILON MD Unavailable Unavailable FISCHI, Lexa BAILON MD Unavailable Unavailable FISCHI, Lexa BAILON MD Unavailable Unavailable FISCHI, Lexa BAILON MD Unavailable Unavailable FISCHI, Lexa BAILON MD Unavailable Unavailable FISCHI, Lexa BAILON MD Unavailable Unavailable FISCHI, Lexa BAILON MD Unavailable Unavailable FISCHI, Lexa BAILON MD Unavailable Unavailable FISCHI, Lexa BAILON MD Unavailable Unavailable FISCHI, Lexa BAILON MD Unavailable Unavailable FISCHI, Lexa BAILON MD Unavailable Unavailable FISCHI, Lexa BAILON MD Unavailable Unavailable FISCHI, Lexa BAILON MD Unavailable Unavailable FISCHI, Lexa BAILON MD Unavailable Unavailable FISCHI, Lexa BAILON MD Unavailable Unavailable FISCHI, Lexa BAILON MD Unavailable Unavailable FISCHI, Lexa BAILON MD Unavailable Unavailable FISCHI, Lexa BAILON MD Unavailable Unavailable FISCHI, Lexa BAILON MD Unavailable Unavailable FISCHI, Lexa BAILON MD Unavailable Unavailable FISCHI, Lexa BAILON MD Unavailable Unavailable FISCHI, Lexa BAILON MD Unavailable Unavailable FISCHI, Lexa BAILON MD Unavailable Unavailable FISCHI, Lexa BAILON MD Unavailable Unavailable FISCHI, Lexa BAILON MD Unavailable Unavailable FISCHI, Lexa BAILON MD Unavailable Unavailable FISCHI, Lexa BAILON MD Unavailable Unavailable FISCHI, Lexa BAILON MD Unavailable Unavailable FISCHI, Lexa BAILON MD Unavailable Unavailable FISCHI, Lexa BAILON MD Unavailable Unavailable FISCHI, Lexa BAILON MD Unavailable Unavailable FISCHI, Lexa BAILON MD Unavailable Unavailable FISCHI, Lexa BAILON MD Unavailable Unavailable FISCHI, Lexa BAILON MD Unavailable Unavailable FISCHI, Lexa BAILON MD Unavailable Unavailable FISCHI, Lexa BAILON MD Unavailable Unavailable FISCHI, Lexa BAILON MD Unavailable Unavailable FISCHI, Lexa BAILON MD Unavailable Unavailable FISCHI, Lexa BAILON MD Unavailable Unavailable FISCHI, Lexa BAILON MD Unavailable Unavailable FISCHI, Lexa BAILON MD Unavailable Unavailable FISCHI, Lexa BAILON MD Unavailable Unavailable Sue CROW MD Unavailable Unavailable Sue CROW MD Unavailable Unavailable Sue CROW MD Unavailable Unavailable Sue CROW MD Unavailable Unavailable Sue CROW MD Unavailable Unavailable Sue CROW MD Unavailable Unavailable Sue CROW MD Unavailable Unavailable Sue CROW MD Unavailable Unavailable Sue CROW MD Unavailable Unavailable Sue CROW MD Unavailable Unavailable Sue CROW MD Unavailable Unavailable Sue CROW MD Unavailable Unavailable Sue CROW MD Unavailable Unavailable Sue CROW MD Unavailable Unavailable Sue CROW MD Unavailable Unavailable Sue CROW MD Unavailable Unavailable Sue CROW MD Unavailable Unavailable Sue CROW MD Unavailable Unavailable Sue CROW MD Unavailable Unavailable Sue CROW MD Unavailable Unavailable Sue CROW MD Unavailable Unavailable Sue CROW MD Unavailable Unavailable Sue CROW MD Unavailable Unavailable Sue CROW MD Unavailable Unavailable Sue CROW MD Unavailable Unavailable Sue CROW MD Unavailable Unavailable Sue CROW MD Unavailable Unavailable Sue CROW MD Unavailable Unavailable CROWSue Foss MD Unavailable Unavailable CROWSue Foss MD Unavailable Unavailable CROWSue Foss MD Unavailable Unavailable CROWSue Foss MD Unavailable Unavailable CROWSue Foss MD Unavailable Unavailable CROWSue Foss MD Unavailable Unavailable CROWSue Foss MD Unavailable Unavailable CROWSue MD Unavailable Unavailable CROWSue MD Unavailable Unavailable CROWSue Foss MD Unavailable Unavailable CROWSue MD Unavailable Unavailable CROWSue Foss MD Unavailable Unavailable CROWSue Foss MD Unavailable Unavailable CROWSue Foss MD Unavailable Unavailable CROWSue Foss MD Unavailable Unavailable CROWSue MD Unavailable Unavailable CROWSue Foss MD Unavailable Unavailable CROWSue MD Unavailable Unavailable CROWSue MD Unavailable Unavailable CROWSue Foss MD Unavailable Unavailable CROWSue MD Unavailable Unavailable CROWSue Foss MD Unavailable Unavailable CROWSue Foss MD Unavailable Unavailable CROWSue Foss MD Unavailable Unavailable Sue CROW MD Unavailable Unavailable CROWSue Foss MD Unavailable Unavailable Sue CROW MD Unavailable Unavailable Sue CROW MD Unavailable Unavailable CROWSue Foss MD Unavailable Unavailable Keiko Youngblood MD Unavailable Unavailable Keiko Youngblood MD Unavailable Unavailable Keiko Youngblood MD Unavailable Unavailable Keiko Youngblood MD Unavailable Unavailable Keiko Youngblood MD Unavailable Unavailable Keiko Youngblood MD Unavailable Unavailable Keiko Youngblood MD Unavailable Unavailable Keiko Youngblood MD Unavailable Unavailable Keiko Youngblood MD Unavailable Unavailable Keiko Youngblood MD Unavailable Unavailable Keiko Youngblood MD Unavailable Unavailable Keiko Youngblood MD Unavailable Unavailable Keiko Youngblood MD Unavailable Unavailable Keiko Youngblood MD Unavailable Unavailable Keiko Youngblood MD Unavailable Unavailable Keiko Youngblood MD Unavailable Unavailable Keiko Youngblood MD Unavailable Unavailable Keiko Youngblood MD Unavailable Unavailable Keiko Youngblood MD Unavailable Unavailable Keiko Youngblood MD Unavailable Unavailable Keiko Youngblood MD Unavailable Unavailable Keiko Youngblood MD Unavailable Unavailable Keiko Youngblood MD Unavailable Unavailable Keiko Youngblood MD Unavailable Unavailable Keiko Youngblood MD Unavailable Unavailable Keiko Youngblood MD Unavailable Unavailable Keiko Youngblood MD Unavailable Unavailable Keiko Youngblood MD Unavailable Unavailable Keiko Youngblood MD Unavailable Unavailable Keiko Youngblood MD Unavailable Unavailable Keiko Youngblood MD Unavailable Unavailable Keiko Youngblood MD Unavailable Unavailable Keiko Youngblood MD Unavailable Unavailable Keiko Youngblood MD Unavailable Unavailable Keiko Youngblood MD Unavailable Unavailable Keiko Youngblood MD Unavailable Unavailable Keiko Youngblood MD Unavailable Unavailable Keiko Youngblood MD Unavailable Unavailable Keiko Youngblood MD Unavailable Unavailable Keiko Youngblood MD Unavailable Unavailable Keiko Youngblood MD Unavailable Unavailable Keiko Youngblood MD Unavailable Unavailable Keiko Youngblood MD Unavailable Unavailable Keiko Youngblood MD Unavailable Unavailable Keiko Youngblood MD Unavailable Unavailable Keiko Youngblood MD Unavailable Unavailable Keiko Youngblood MD Unavailable Unavailable Keiko Youngblood MD Unavailable Unavailable Keiko Youngblood MD Unavailable Unavailable Keiko Youngblood MD Unavailable Unavailable Keiko Youngblood MD Unavailable Unavailable Keiko Youngblood MD Unavailable Unavailable Keiko Youngblood MD Unavailable Unavailable Keiko Youngblood MD Unavailable Unavailable Keiko Youngblood MD Unavailable Unavailable Keiko Youngblood MD Unavailable Unavailable Keiko Youngblood MD Unavailable Unavailable Keiko Youngblood MD Unavailable Unavailable Keiko Youngblood MD Unavailable Unavailable Keiko Youngblood MD Unavailable Unavailable Keiko Youngblood MD Unavailable Unavailable Keiko Youngblood MD Unavailable Unavailable Keiko Youngblood MD Unavailable Unavailable Keiko Youngblood MD Unavailable Unavailable Keiko Youngblood MD Unavailable Unavailable Josefina PLASCENCIA MD Unavailable Unavailable Josefina PLASCENCIA MD Unavailable Unavailable Josefina PLASCENCIA MD Unavailable Unavailable Josefina PLASCENCIA MD Unavailable Unavailable Josefina PLASCENCIA MD Unavailable Unavailable Josefina PLASCENCIA MD Unavailable Unavailable Josefina PLASCENCIA MD Unavailable Unavailable Josefina PLASCENCIA MD Unavailable Unavailable Josefina PLASCENCIA MD Unavailable Unavailable SEARS, A CHERIE DO Unavailable Unavailable SEARS, A CHERIE DO Unavailable Unavailable SEARS, A CHERIE DO Unavailable Unavailable SEARS, A CHERIE DO Unavailable Unavailable SEARS, A CHERIE DO Unavailable Unavailable SEARS, A CHERIE DO Unavailable Unavailable SEARS, A CHERIE DO Unavailable Unavailable SEARS, A CHERIE DO Unavailable Unavailable SEARS, A CHERIE DO Unavailable Unavailable SEARS, A CHERIE DO Unavailable Unavailable SEARS, A CHERIE DO Unavailable Unavailable SEARS, A CHERIE DO Unavailable Unavailable SEARS, A CHERIE DO Unavailable Unavailable SEARS, A CHERIE DO Unavailable Unavailable SEARS, A CHERIE DO Unavailable Unavailable SEARS, A CHERIE DO Unavailable Unavailable SEARS, A CHERIE DO Unavailable Unavailable SEARS, A CHERIE DO Unavailable Unavailable SEARS, A CHERIE DO Unavailable Unavailable SEARS, A CHERIE DO Unavailable Unavailable SEARS, A CHERIE DO Unavailable Unavailable SEARS, A CHERIE DO Unavailable Unavailable SEARS, A CHERIE DO Unavailable Unavailable SEARS, A CHERIE DO Unavailable Unavailable SEARS, A CHERIE DO Unavailable Unavailable SEARS, A CHERIE DO Unavailable Unavailable SEARS, A CHERIE DO Unavailable Unavailable SEARS, A CHERIE DO Unavailable Unavailable SEARS, A CHERIE DO Unavailable Unavailable SEARS, A CHERIE DO Unavailable Unavailable SEARS, A CHERIE DO Unavailable Unavailable SEARS, A CHERIE DO Unavailable Unavailable SEARS, A CHERIE DO Unavailable Unavailable SEARS, A CHERIE DO Unavailable Unavailable SEARS, A CHERIE DO Unavailable Unavailable SEARS, A CHERIE DO Unavailable Unavailable SEARS, A CHERIE DO Unavailable Unavailable SEARS, A CHERIE DO Unavailable Unavailable SEARS, A CHERIE DO Unavailable Unavailable SEARS, A CHERIE DO Unavailable Unavailable SEARS, A CHERIE DO Unavailable Unavailable SEARS, A CHERIE DO Unavailable Unavailable SEARS, A CHERIE DO Unavailable Unavailable SEARS, A CHERIE DO Unavailable Unavailable SEARS, A CHERIE DO Unavailable Unavailable SEARS, A CHERIE DO Unavailable Unavailable Re-disclosure Warning The records that you are about to access may contain information from federally-assisted alcohol or drug abuse programs. If such information is present, then the following federally mandated warning applies: This information has been disclosed to you from records protected by federal confidentiality rules (42 CFR part 2). The federal rules prohibit you from making any further disclosure of this information unless further disclosure is expressly permitted by the written consent of the person to whom it pertains or as otherwise permitted by 42 CFR part 2. A general authorization for the release of medical or other information is NOT sufficient for this purpose. The Federal rules restrict any use of the information to criminally investigate or prosecute any alcohol or drug abuse patient.The records that you are about to access may contain highly sensitive health information, the redisclosure of which is protected by Article 27-F of the [facility] Public Health law. If you continue you may have access to information: Regarding HIV / AIDS; Provided by facilities licensed or operated by the [facility] Office of Mental Health; or Provided by the [facility] Office for People With Developmental Disabilities. If such information is present, then the following [facility] mandated warning applies: This information has been disclosed to you from confidential records which are protected by state law. State law prohibits you from making any further disclosure of this information without the specific written consent of the person to whom it pertains, or as otherwise permitted by law. Any unauthorized further disclosure in violation of state law may result in a fine or fdc sentence or both. A general authorization for the release of medical or other information is NOT sufficient authorization for further disc losure. Allergies and Adverse Reactions Type Description Substance Reaction Status Data Source(s ) [facility] History Family Member Name Family Member Gender Family Member Status Date o f Status Description Data Source(s) Unknown Unknown Problem [facility] ([facility] Encounters Encounter Providers Location Date Indications Data Source(s ) Office Visit Attender: SHERICE CROW MD Main Office 09/07/2020 10:32:0 0 AM EDT [facility] ([facility] Inpatient Attender: UVALDO HAZEL MDReferrer: UVALDO MEDINA CHI, MD [id number] 06/13/2020 11:00:00 AM EDT - 06/14/2020 04:29:[address] [facility] Patient discharged. Outpatient Attender: Shawnee Pearson er: MITCH PLASCENCIA MDConsultant: ROGELIO CEBALLOS MD 06/11/2020 09:38:00 AM EDT - 06/13/2020 09:15:00 AM EDT [facility] Patient discharged. [place] [address] [address] 06/01/2020 12:00:00 AM EDT eCW1 ([facility]) [place] [address] [address] 05/01/2020 12:00:00 AM EDT eCW1 ([facility]) Outpatient Attender: Diane MCCAIN Main Office 03/13/2020 09:45:00 AM EDT [facility] ([facility]) Outpatient Referrer: Britta Youngblood MD 01/25/2020 11:18:00 AM E [facility] Outpatient Attender: CHERIE Gan/Dong/Enoc/Janet 01/19/2020 01:30:00 PM EDT [facility] ([facility]) Outpatient Referrer: Britta Youngblood MD 12/06/2019 07:24:[address] [facility] Outpatient Referrer: Britta Youngblood MD 12/06/2019 07:24:[address] [facility] Outpatient Referrer: Britta Youngblood MD 12/03/2019 01:05:[address] [facility] Outpatient Referrer: Britta Youngblood MD 12/03/2019 12:59:[address] [facility] Medications Medication Brand Name Start Date Product Form Dose Route Admi nistrative Instructions Pharmacy Instructions Status Indications Reaction Description Data Source(s) ferrous sulfate 325 MG Oral Tablet ferrous sulfate tab let 325 mg ferrous sulfate tablet 325 mg 06/14/2020 07:00:00 AM EDT 325 mg Oral acti ve 325 mg, Oral, Daily with breakfast, First dose on Fri06/14/20 at 0700
Separate from antacids as far as possible.Take with food, do not crush
[facility] Medication administered onsite atorvastatin 80 MG Oral Tablet atorvastatin (LIPITOR) tablet 80 mg atorvastatin (LIPITOR) tablet 80 mg 06/13/2020 09:00:00 PM EDT 80 mg Oral active 80 mg, Oral, Daily, First dose on Fri06/13/[address] [facility] Medication administered onsite montelukast 10 MG Oral Tablet montelukast (SINGULAIR) tablet 10 mg montelukast (SINGULAIR) tablet 10 mg 06/13/2020 09:00:00 PM EDT 10 mg Oral active 10 mg, Oral, Nightly, First dose on Fri06/13/[address] [facility] Medication administered onsite 24 HR quetiapine 200 MG Extended Release Oral Tablet QUEtiapine (SEROquel XR) 24hr tablet 400 mg QUEtiapine (SEROquel XR) 24hr tablet 400 mg 06/13/2020 09:00:00 PM EDT 400 mg Oral active 400 mg, Oral, Nightly, First dose on Fri06/13/[address] [facility] Medication administered onsite 60 ACTUAT formoterol fumarate 0.005 MG/A CTUAT / mometasone furoate 0.2 MG/ACTUAT Metered Dose Inhaler mometasone-formoterol (DULERA) 200-5 MCG/ACT inhaler 2 puff mometasone-formoterol (DULERA) 200-5 MCG/ACT inhaler 2 puff 06/13/2020 08:00:00 PM EDT 2 {puff} Inhalation active 2 pu ff, Inhalation, 2 times daily, First dose on Fri06/13/20 at 2000
Please send a spacer home with patient if discharged with a metered dose inhaler. After use of steroid inhaler please have patient rinse mouth with water
[facility] Medication administered onsite sodium chloride 0.9% (NS) infusion 7597-3981-00 06/13/2020 04:00:00 P M EDT Intravenous completed at 100 mL/hr, Intravenous, Continuous, Starting Fri06/13/20 at 1600, For 2 hours, Post-op [facility] Medication administered onsite Acetaminophen 325 MG Oral Tablet acetaminophen (TYLENO L) 325 MG tablet 650 mg acetaminophen (TYLENOL) 325 MG tablet 650 mg 06/13/2020 03:07:17 PM EDT 650 mg Oral active 650 mg, Or al, Every 4 hours PRN, headaches, and non cardiac pain, Starting Fri06/13/20 at 1507, Post-op
"Maximum dose of acetaminophen is 4,000 mg from all sources in 24 hours."
[facility] Medication administered onsite Nitroglycerin 0.4 MG Sublingual Tablet n itroglycerin (NITROSTAT) SL tablet 0.4 mg nitroglycerin (NITROSTAT) SL tablet 0.4 mg 06/13/2020 03:07:17 P M EDT 0.4 mg Sublingual active 0.4 mg, S ublingual, Every 5 min PRN, chest pain, Starting Fri06/13/20 at 1507, Post-op
May administer every 5 minutes for 3 doses and call cardio lab MD.
[facility] Medication administered onsite Escitalopram 10 MG Oral Tablet escitalopram (LEXAPRO) tablet 10 mg escitalopram (LEXAPRO) tablet 10 mg 06/13/2020 02:00:00 PM EDT 10 mg Oral active 10 mg, Oral, Daily, First dose on Fri06/13/[address] [facility] Medication administered onsite Carbamazepine 200 MG Oral Tablet carBAMazepine (TEGret ol) tablet 400 mg carBAMazepine (TEGretol) tablet 400 mg 06/13/2020 02:00:00 PM EDT 4 00 mg Oral active 400 mg, Oral, 2 times daily, First dose on Fri06/13/20 at 1400
For administration and preparation considerations, refer to Hazardous Drugs in the Workplace Policy on Intranet.
[facility] Medication administered onsite Aspirin 81 MG Chewable Tablet aspirin chewable tablet 81 mg aspirin chewable tablet 81 mg 06/13/2020 02:00:00 PM EDT 81 mg Oral activ e 81 mg, Oral, Daily, First dose on Fri06/13/[address] [facility] Medication administered onsite normal saline flush 0.9 % injection 3 mL [id number] 06/13/2020 02:00:00 PM EDT 3 mL Intravenous active 3 mL , Intravenous, Every 8 hours (scheduled), First dose on Fri06/13/20 at 1400
flush per protocol, D/C Main IV fluid if appropriate
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 Medication administered onsite Calcitriol 0.44684 MG Oral Capsule calcitriol (ROCALTR OL) capsule 0.25 mcg calcitriol (ROCALTROL) capsule 0.25 mcg 06/13/2020 02:00:00 PM EDT 0.25 ug Oral active 0.25 mcg, Oral, Luann y, First dose on Fri06/13/[address] [facility] Medication administered onsite sodium chloride 0.9% (NS) infusion 2822-7801-64 06/13/2020 02:00:00 PM EDT 100 mL/h Intravenous active at 100 m L/hr, 100 mL/hr, Intravenous, Continuous, Starting Fri06/13/20 at 1400, Pre-op
Start two hours prior to scheduled start time
[facility] Medication administered onsite Simethicone 80 MG Chewable Tablet simethicone (MYLICON ) chewable tablet 80 mg simethicone (MYLICON) chewable tablet 80 mg 06/13/2020 12:51:56 PM EDT 80 mg Oral active 80 mg, Oral, E very 6 hours PRN, flatulence, Starting Fri06/13/[address] [facility] Medication administered onsite Albuterol 0.833 MG/ML / Ipratropium Brom tatianna 0.167 MG/ML Inhalant Solution ipratropium-albuterol (DUO-NEB) 0.5-2.5 mg/mL nebulizer solution 3 mL ipratropium-albuterol (DUO-NEB) 0.5-2.5 mg/mL nebulizer solution 3 mL 06/13/2020 12:51:46 PM EDT 3 mL Inhalation active 3 mL, Inhalation, Every 6 hours PRN, shortness of breath, Starting Fri06/13/[address] [facility] Medication administered onsite Magnesium Hydroxide 80 MG/ML Oral Suspension Milk Of Magnesi a 05/24/2020 12:00:00 AM EDT ORAL active M EDSHANTANU ([facility]) POLYETHYLENE GLYCOL 3350 105 MG/ML / Pot assium Chloride 0.56226 MEQ/ML / Sodium Bicarbonate 0.017 MEQ/ML / Sodium Chloride 0.0479 MEQ/ML Oral Solution [NuLytely] Nulytely With Flavor Packs 05/24/2020 12:00:00 AM EDT active [facility] ([facility] ) ferrous sulfate 325 MG Oral Tablet Iron 03/12/2020 12:00:00 AM EDT ORAL active [facility] ([facility]) meloxicam 7.5 MG Oral Tablet Meloxicam 03/12/2020 12:00:00 AM EDT ORAL active [facility] ([facility]) Ascorbic Acid 500 MG Oral Tablet Vitamin C 03/12/2020 12:00:00 AM EDT ORAL active [facility] ([facility]) Potassium 03/12/2020 12:00:00 AM EDT ORAL active [facility] ([facility]) Simethicone 80 MG Chewable Tablet simethicone (MYLICON ) 80 MG chewable tablet simethicone (MYLICON) 80 MG chewable tablet 08/25/2018 12:00:00 AM EDT 80 mg Oral aborted Chew 1 tablet (80 mg total) every 6 (six) hours as needed for flatulence [facility] Acetaminophen 325 MG / Hydrocodone Andrew trate 7.5 MG Oral Tablet HYDROcodone- acetaminophen (NORCO) 7.5-325 MG per tablet HYDROcodone-acetaminophen (NORCO) 7.5-325 MG per tablet 1 {tbl} Oral aborted Take 1 tablet by mouth every 6 (six) hours as needed for pain [facility] Albuterol 0.83 MG/ML Inhalant Solution a lbuterol (PROVENTIL) (2.5 MG/3ML) 0.083% nebulizer solution albuterol (PROVENTIL) (2.5 MG/3ML) 0.083 % nebulizer solution 2.5 mg aborted Take 2.5 mg by nebulization every 6 (six) hours as needed for shortness of breath [facility] 24 HR quetiapine 200 MG Extended Release Oral Tablet QUEtiapine (SEROQUEL XR) 200 MG 24 hr tablet QUEtiapine (SEROQUEL XR) 200 MG 24 hr tablet 200 mg Oral aborted Take 200 mg by mouth nightly [facility] Insurance Providers Payer name Policy type / Coverage type Policy ID Covered green party ID Covered green party's relationship to pena Policy Pena Plan Information ANOTNY [id number] SP [id number] [facility] [id number] SP [id number] [facility] HMO [id number] SP [id number] [facility] O [id number] S [id number] MEDICAID M [id number] INSURANCE COVID-19 COVID Donna C OVID [facility] MEDICARE [id number] Donna [id number] MEDICAID [id number] Donna [id number] UNHC CP DUAL COMP - FACILITY [id number] 18 [id number] MEDICAID -O/P [id number] 18 [id number] MEDICAID [id number] [facility] MEDICARE [id number] MEDICARE [id number] Donna [id number] UNHC CP DUAL COMP - FACILITY [id number] 18 [id number] MEDICARE PART A -O/P [id number] 18 [id number] UNHC COMMUNITY PLAN XIX [id number] 18 [id number] MEDICARE PART A -O/P [id number] 18 [id number] UNHC AMERICHOICE XIX -HMO [id number] 18 [id number] MEDICAID -O/P EMERGENCY ROOM [id number] 18 [id number] MEDICAID [id number] SP [id number] MEDICARE [id number] SP [id number] [facility] Medigap Part B [id number] Self [id number] [facility] Comm Plan [facility] Garcia Commercial [id number] Self [id number] Medicaid Medigap Part B [id number] Self [id number] Medicaid Medigap Part B [id number] Self [id number] [facility]-[place] Medigap Part B [id number] Self [id number] Medicare (Part B) Medicare Primary [id number] Self [id number] [facility] Medigap Part B [id number] Self [id number] [facility] Comm Plan FHP Garcia Commercial [id number] Self [id number] Medicaid Medigap Part B [id number] Self [id number] Medicaid Medigap Part B [id number] Self [id number] [facility] Medigap Part B [id number] Self [id number] Medicare (Part B) Medicare Primary [id number] Self [id number] Medicaid Medigap Part B [id number] Self [id number] Uhc-MCR Dual Cov Plan Commercial [id number] Self [id number] ANSI-Medicare Part B [id number] ANSI-Medicaid [id number] ANSI-Medicaid [id number] ANSI-Medicare Part B [id number] [facility] Medigap Part B [id number] Self [id number] [facility] Comm Plan [facility] Commercial [id number] Self [id number] Medicaid Medigap Part B [id number] Self [id number] Medicaid Medigap Part B [id number] Self [id number] [facility] Medigap Part B [id number] Self [id number] Medicare (Part B) Medicare Primary [id number] Self [id number] Medicaid Medigap Part B [id number] Self [id number] [facility] Dual Cov Plan Commercial [id number] Self [id number] [facility] Medigap Part B [id number] Self [id number] [facility] Comm [facility] Commercial [id number] Self [id number] Medicaid Medigap Part B [id number] Self [id number] Medicaid Medigap Part B [id number] Self [id number] [facility] Medigap Part B [id number] Self [id number] Medicare (Part B) Medicare Primary [id number] Self [id number] Medicaid Medigap Part B [id number] Self [id number] [facility] Cov Plan Commercial [id number] Self [id number] [facility] [id number] SP [id number] [place] Part B [id number] Self [id number] [place] [id number] Self [id number] [facility] Medicare Commercial [id number] Self [id number] [place] Medigap Part B [id number] Self [id number] [place] Medigap Part B [id number] Self [id number] [facility] Medicare Commercial [id number] Self [id number] [facility] [id number] SP [id number] [place] Medigap Part B [id number] Self [id number] [place] Medig[place] Part B [id number] Self [id number] [facility] Medicare Commercial [id number] Self [id number] MEDICARE [id number] SP [id number] Medicare [facility] Medigap Part B [id number] Self [id number] Medicaid Medicaid [id number] Self [id number] Medicare Medicare Primary [id number] Self [id number] ANSI-Medicare Part B [id number] ANSI-Medicaid [id number] [place] Medigap Part B [id number] Self [id number] [facility] Community Plan Commercial [id number] Self [id number] [place] Primary [id number] Self [id number] [place]ig[place] Part B [id number] Self [id number] [facility] Community Plan Commercial [id number] Self [id number] [place] Primary [id number] Self [id number] Uhc Comm Plan [facility] Commercial [id number] Self [id number] Medicaid Medigap Part B [id number] Self [id number] Medicaid Medigap Part B [id number] Self [id number] Uh-Community Plan-[facility] Medigap Part B [id number] Self [id number] Medicare (Part B) Medicare Primary [id number] Self [id number] MEDICARE [id number] Donna [id number] MEDICARE PI PI MEDICARE [id number] Donna [id number] MEDICAID PI PI MEDICARE [id number] Donna [id number] [facility]hc Comm Plan [facility] Commercial [id number] Self [id number] Medicaid Medigap Part B [id number] Self [id number] Medicaid Medigap Part B [id number] Self [id number] [facility] Medigap Part B [id number] Self [id number] Medicare (Part B) Medicare Primary [id number] Self [id number] MEDICARE [id number] SP [id number] W [facility] Comm Plan [facility] Commercial [id number] Self [id number] Medicaid Medigap Part B [id number] Self [id number] Medicaid Medigap Part B [id number] Self [id number] [facility] Medigap Part B [id number] Self [id number] Medicare (Part B) Medicare Primary [id number] Self [id number] MEDICARE C [id number] S [id number] W [place] Medig[place] Part B [id number] Self [id number] [facility] Community Plan Commercial [id number] Self [id number] [place] Primary [id number] Self [id number] Uhc Comm Plan FH Garcia Commercial [id number] Self [id number] Medicaid Medigap Part B [id number] Self [id number] Medicaid Medigap Part B [id number] Self [id number] [facility]-Community Plan-[place] Medigap Part B [id number] Self [id number] Medicare (Part B) Medicare Primary [id number] Self [id number] [place] Medigap Part B [id number] Self [id number] [facility] Community Plan Commercial [id number] Self [id number] Medicare [facility] Medicare Primary [id number] Self [id number] Uhc Comm Plan [facility] Commercial [id number] Self [id number] Medicaid Medigap Part B [id number] Self [id number] Medicaid Medigap Part B [id number] Self [id number] [facility] Medigap Part B [id number] Self [id number] Medicare (Part B) Medicare Primary [id number] Self [id number] [place] Part B [id number] Self [id number] [facility] Community Plan Commercial [id number] Self [id number] [place] Primary [id number] Self [id number] MEDICAID -O [id number] MEDICARE PART A -O [id number] 18 [id number] MEDICAID -I/P [id number] 18 [id number] MEDICARE PART A -I/P [id number] 18 [id number] [place] Part B [id number] Self [id number] [facility] Community [facility] Commercial [id number] Self [id number] Medicare [facility] Medicare Primary [id number] Self [id number] Medicaid Medicaid [id number] Self [id number] Medicare Medicare Primary [id number] Self [id number] Medicaid Medicaid [id number] Self [id number] Medicare Medicare Primary [id number] Self [id number] Medicaid Medicaid [id number] Self [id number] Medicare Medicare Primary [id number] Self [id number] Uhc Comm Plan [facility] Commercial [id number] Self [id number] Medicaid Medigap Part B [id number] Self [id number] Medicaid Medigap Part B [id number] Self [id number] [facility] Medigap Part B [id number] Self [id number] Medicare (Part B) Medicare Primary [id number] Self [id number] MEDICARE [id number] SP [id number] [place] Medigap Part B [id number] Self [id number] [facility] Community [facility] Commercial [id number] Self [id number] [place] Primary [id number] Self [id number] [facility] Medigap Part B [id number] Self [id number] [place] Medigap Part B [id number] Self [id number] [place]/[facility] Medicare Primary [id number] Self [id number] [place] Medig[place] Part B [id number] Self [id number] Uhc Community Plan Commercial [id number] Self [id number] [place] Primary [id number] Self [id number] UNHC COMMUNITY PLAN MCDHMO [id number] SP [id number] [place]ig[place] Part B [id number] Self [id number] Uhc Community Plan Commercial [id number] Self [id number] [place] Medicare Primary [id number] Self [id number] MEDICAID [id number] SP [id number] Uhc Comm Plan FHP [place] Commercial [id number] Self [id number] Medicaid Medigap Part B [id number] Self [id number] Medicaid Medigap Part B [id number] Self [id number] Uhc-Community Plan-[place] Medigap Part B [id number] Self [id number] Medicare (Part B) Medicare Primary [id number] Self [id number] Uhc Comm Plan FHP [place] Commercial [id number] Self [id number] Medicaid Medigap Part B [id number] Self [id number] Medicaid Medigap Part B [id number] Self [id number] [facility]hc-Community Plan-[place] Medigap Part B [id number] Self [id number] Medicare (Part B) Medicare Primary [id number] Self [id number] UNHC COMMUNITY PLAN MCDO [id number] SP [id number] MEDICAID [id number] SP [id number] [place] Part B [id number] Self [id number] [place] Primary [id number] Self [id number] [place]ig[place] Part B [id number] Self [id number] [place] Primary [id number] Self [id number] Uhc Community Plan Commercial [id number] Self [id number] [place] Medicare Primary [id number] Self [id number] UNHC COMMUNITY PLAN MCDO [id number] SP [id number] [place] Medicare Primary Self Uhc Community Plan Commercial Self Uhc-Community Plan-[place] Commercial Self Uhc-Community Plan-[place] Commercial Self Uhc Comm Plan FHP Garcia Commercial Self Medicaid Medicaid 1 1 Self 1 1 UNHC COMMUNITY PLAN MCDHMO [id number] SP [id number] [facility] HEALTH GARCIA [id number] SP [id number] [facility] [id number] SP [id number] [facility] Community Plan Commercial Self UNITED HEALTHCARE(MCAID) O [id number] S [id number] [facility] HEALTH GARCIA [id number] SP [id number] [place] Medigap Part B Self [employer] Garcia/MCR Health Maintenance [facility] (HMO) Self UHC MEDICAID [id number] Donna [id number] UHC [id number] Donna [id number] United Healthcare Commercial Self UNHC COMMUNITY PLAN MCDHMO [id number] SP [id number] UNITED HEALTHCARE [id number] SP [id number] MEDICAID [id number] SP [id number] MEDICAID [id number] SP [id number] Problems, Conditions, and Diagnoses Code Display Name Description Problem Type Effective Dates Data Source(s) E11.9 Diabetes mellitus Diabetes mellitus [id number] 06/13/2020 12:00:[address] [facility] F31.10 Bipolar affective, manic Bipolar affective, manic 6457 200006/13/2020 12:00:[address] [facility] J45.909 Asthma Asthma [id number] 06/13/2020 12:00:[address] [facility] J44.9 COPD (chronic obstructive pulmonary dise ase) COPD (chronic obstructive pulmonary disease) [id number] 06/13/2020 12:00:[address] [facility] I25.10 Coronary artery disease Coronary artery disease [id number] 06/13/2020 12:00:[address] [facility] E78.5 Hyperlipidemia Hyperlipidemia [id number] 06/13/2020 12:00: [address] [facility] I10 Hypertension Hypertension [id number] 06/13/2020 12:00:[address] [facility] I20.9 Angina pectoris Angina pectoris [id number] 06/13/2020 12:0 0:[address] [facility] I21.9 Acute myocardial infarction, unspecified Acute myocardial infarction, unspecified Diagnosis 06/13/2020 11:00:[address] [facility] I10 Essential (primary) hypertension Essential (primary) h ypertension Diagnosis 06/13/2020 11:00:[address] [facility] E785 Hyperlipidemia, unspecified Hyperlipidemia, unspecifie d Diagnosis 06/11/2020 09:38:00 AM EDT [facility] R911 Solitary pulmonary nodule Solitary pulmonary nodule Di agnosis 06/11/2020 09:38:00 AM EDT [facility] [id number] Personal history of nicotine dependence Personal history of nicotine dependence Diagnosis 06/11/2020 09:38:00 AM EDT [facility] I252 Old myocardial infarction Old myocardial infarction Di agnosis 06/11/2020 09:38:00 AM EDT [facility] F319 Bipolar disorder, unspecified Bipolar disorder, unspec ified Diagnosis 06/11/2020 09:38:00 AM EDT [facility] F419 Anxiety disorder, unspecified Anxiety disorder, unspec ified Diagnosis 06/11/2020 09:38:00 AM EDT [facility] E119 Type 2 diabetes mellitus without complic ations Type 2 diabetes mellitus without complications Diagnosis 06/11/2020 09:38:00 AM EDT [facility] J441 Chronic obstructive pulmonary disease wi th (acute) exacerbation Chronic obstructive pulmonary disease with (acute) exacerbation Diagnosis 06/11/2020 09:38:00 AM EDT [facility] I209 Angina pectoris, unspecified Angina pectoris, unspecif ied Diagnosis 06/11/2020 09:38:00 AM EDT [facility] Surgeries/Procedures Procedure Description Date Indications Data Source(s) BLOOD COUNT COMPLETE AUTOMATED CBC Routine 06/14/2020 4:39 A M EDT 06/14/2020 08:39:00 AM EDT [facility] BASIC METABOLIC PANEL CALCIUM TOTAL BASIC METABOLIC PANEL Routi ne 06/14/2020 4:39 AM EDT 06/14/2020 08:39:00 AM EDT [facility] CARDIAC CATHETERIZATION CARDIAC CATHETERIZATION Routine 06/13/2020 2:46 PM EDT Acute myocardial infarction 06/13/2020 06:46:23 PM EDT Acute myocardial infarction [facility] Acute myocardial infarction 2019 NCOV AMPLIFIED 2019 NCOV AMPLIFIED Routine 06/13/2020 12:30 PM EDT 06/13/2020 04:30:00 PM EDT [facility] ECG ROUTINE ECG W/LEAST 12 LDS TRCG ONLY W/O I&R ECG 12-LEAD Routine 06/13/2020 11:55 AM EDT 06/13/2020 03:55:[address] [facility] ECG ROUTINE ECG W/LEAST 12 LDS W/I&R 03/13/2020 12:00: 00 AM EDT [facility] ([facility]) Spirometry 01/19/2020 12:00:00 AM EDT M [facility]ENT ([facility], ) Results ID Date Data Source [id number] 12/03/2020 09:00:00 AM EST [facility] Name Value Range Interpretation Code Description Data Ely rce(s) Supporting Document(s) SARS coronavirus 2 RNA Not Detected [facility] [place] This lab was ordered by [facility] and reported by [facility]. ID Date Data Source [id number] 08/09/2020 09:43:00 AM EDT [facility] ([facility]) Name Value Range Interpretation Code Description Data Ely rce(s) Supporting Document(s) Magnesium Level 1.90 [facility] ([facility]) ID Date Data Source [id number] 08/09/2020 09:43:00 AM EDT [facility] ([facility]) Name Value Range Interpretation Code Description Data Ely rce(s) Supporting Document(s) White Blood Count 3.7 4.3-10.9 [facility] ([facility] Red Blood Count 3.27 4.70-6.20 [facility] ([facility]) Platelets 197 130-400 [facility] Hematocrit 35.5 39.0-50.0 [facility] ([facility]) Hemoglobin 11.7 13.0-17.0 [facility]) ID Date Data Source [id number] 08/09/2020 09:43:00 AM EDT [facility] Name Value Range Interpretation Code Description Data Ely rce(s) Supporting Document(s) Glucose 98 70-100 [facility] [place] Blood Urea Nitrogen 22.7 5-21 [facility] ([facility] Creatinine 0.7 0.6-1.5 [facility] ([facility]) Glomerular filtration rate/1.73 sq M.pre dicted [Volume Rate/Area] in Serum or Plasma by Creatinine-based formula (MDRD) 85 [facility] ([facility]) Chloride 104.3 98-110 [facility] [place] Sodium 141.1 136-146 [facility] [place] Potassium 4.88 3.5-5.3 [facility] [place] Phosphorus 3.7 [facility] ([facility]) Carbon Dioxide 29.1 20-32 [facility] Calcium 8.7 8.4-10.4 [facility] [place] Albumin 3.7 3.5-4.7 [facility] [place] ID Date Data Source [id number] 07/20/2020 10:26:00 AM EDT [facility] ([facility], ) Name Value Range Interpretation Code Description Data Ely rce(s) Supporting Document(s) FVC-Pred 3.04 L [facility] ([facility], ) PDFReport Laboratory test result [facility] ([facility] ) FVC-%Pred-Pre 75 L [facility] ([facility]) FVC-Pre 2.28 L [facility] ([facility]) FVC-LLN 2.39 L [facility] ([facility]) Fev1-Pre 1.16 L [facility] ([facility]) Fev1-Pred 2.34 L [facility] ([facility]) Fev1-%Pred-Pre 49 L [facility] ([facility]) Fev6-Pred 2.93 L [facility] ([facility], ) Fev1-LLN 1.79 L [facility] ([facility]) Fev6-Pre 2.17 L [facility] ([facility]) Fev6-LLN 2.29 L [facility] ([facility]) Snq9tyt-Elkb 78 % [facility] ([facility]) Fev6-%Pred-Pre 74 L [facility] ([facility], ) Rok4etg-QXX 68 % [facility] ([facility]) Zug9ocj-%Pred-Pre 65 % [facility] ([facility]) Taz5rzk-Oae 51 % [facility] ([facility]) Dpx8jva-Tav 95 % [facility] ([facility]) Dym3nqm-%Pred-Pre 98 % [facility] ([facility]) Flh8osn-Utgt 96 % [facility] ([facility]) FEFMax-Pre 3.11 L/E/sec [facility] ([facility]) FEFMax-%Pred-Pre 52 L/E/sec [facility] ([facility]) FEFMax-Pred 5.94 L/E/sec [facility] ([facility]) Nte1601-Uqt 0.50 L/E/sec [facility] ([facility]) Bbf3686-Lqzy 2.19 L/E/sec [facility] ([facility]) FEFMax-LLN 4.32 L/E/sec [facility] ([facility]) Sto1292-CUR 1.03 L/E/sec [facility] ([facility]) Aej7228-%Pred-Pre 22 L/E/sec [facility] ([facility]) ExpTime-Pre 8.05 sec [facility] ([facility]) Onq1quh2-Pjfy 81 % [facility] ([facility]) Kad6qlm4-Tpp 53 % [facility] ([facility]) Ofy3uil1-ZWS 72 % [facility] ([facility], ) Xtx8bdj0-%Pred-Pre 66 % [facility] ([facility], ) ID Date Data Source [id number] 06/15/2020 01:41:55 PM [facility]T [facility] INFORMATIONPatient MRN Name Date of Age Gend*PT [id number] Yolanda Pena 1960 59 years F SDCXPT Location Admission Date/Time Visit ID Attending [id number] 06/13/20 1100 --- --- EPI ID CSN Admitting Provider [id number] ---Attestation signed by Uvaldo Hazel MD at 06/15/2020 1:41 PMAgree with d/c home.Signature: JERMAINE Reesate: June 15, 2020Time: 1:41 PM --Physician Discharge Summary Yolanda PenaMRN: [id number] date: 06/13/2020Attending Physician: No admitting provider for patient encounter.Admission Diagnosis: Angina pectorisSecondary Diagnoses: Principal Problem: Angina pectorisActive Problems: Hypertension Hyperlipidemia Coronary artery disease COPD (chronic obstructive pulmonary disease) Asthma Bipolar affective, manic Diabetes mellitus Atherosclerosis of [place] coronary artery of [place] heartPrinciple Procedures:Cardiac catheterization 06/13/2020: Ost Cx to Mid Cx lesion is 25% stenosed.The left circumflex stent is patent with minimal in-stent restenosis. There isno other angiographically significant disease. Medical management recommended.Indication for Admission: chest painHospital Course & Complications:This patient is a 59 years female with PMHx CAD s/p NH in 2006 with PCI, DM type2, Bipolar disorder, COPD, asthma, CVA- 30 years ago, past smoker, gastricbypass with 140lb weight loss. Patient presented to [facility] on Friday morning after developingleft sided chest pressure while watching TV. She had associated dizziness anddiaphoresis. She tells me her symptoms were similar to when she had her NH [id number]. She was given SL nitro by EMS with no change. She states that thediscomfort resolved with time. She has since had intermittent chest pressure.At [place] she was ruled out for acute event. She reportedly had Echo donewhich revealed moderate AR and . Transfer was arranged for further workup. On arrival she feels well. Has had mild chest pressure intermittently sinceSunday. She was treated with nitro patch which has since been discontinued. Jeff underwent coronary angiography in 2018 which revealed patent stent in LCx.She had an abnormal stress test at that time. She reports no other cardiacconcerns on presentation. She follows with Dr Crow in [place]. Cardiac catheterization as above did not show any occlusive disease, and onlyminimal instent restenosis of the LCx. Medical therapy was recommended. Patientwill continue daily aspirin, statin therapy. Her blood pressure has beenacceptable with no anti-hypertensive medications. Recommend checking lipid paneland adding PCSK9 inhibitor if not at acceptable level. The patient has ambulatedaround the unit. Denies any recurrence of chest pain. Recommend follow up withher PCP for non-cardiac causes of chest pain. Patient will follow up with Ramírez MCCAIN at Dr. Crow's office in 2 weeks.Past Medical History:Past Medical History:Diagnosis Date Asthma Bipolar affective, manic COPD (chronic obstructive pulmonary disease) Coronary artery disease Sherice Crow MD Dependence on supplemental oxygen 2 L/min via N/C Depression Diabetes mellitus type 2; oral medication Hyperlipidemia Hypertension Myocardial infarction 2002 and 2016 Pneumonia StrokeMost Recent Labs:BMP:Lab ResultsComponent Value Date NA 145 06/14/2020 K 4.0 06/14/2020 CL 112 (H) 06/14/2020 CO2 30 06/14/2020 ANIONGAP 3 (L) 06/14/2020 CALCIUM 8.4 06/14/2020 GLU 76 06/14/2020 BUN 19 06/14/2020 CREATININE 0.91 06/14/2020 GFRAA >60 06/14/2020 GFRNONAA >60 06/14/2020Cardiac:Lab ResultsComponent Value Date TROPONINI <0.06 01/15/2016CBC Brief:Lab Resul tsComponent Value Date WBC 4.0 (L) 06/14/2020 HGB 11.8 (L) 06/14/2020 HCT 34.0 (L) 06/14/2020 PLT 143 (L) 06/14/2020D-Dimer: No results found for: DDAT, PROCALCITON, CKUBAZEXduZ3f:Lab ResultsComponent Value Date HGBA1C 5.5 08/04/2018Hyperlipidemia: No results found for: CHOL, TRIG, HDL, CHOLHDL, LDL, LDLCALCMagnesium: No results found for: MGThyroid:Lab ResultsComponent Value Date TSH 1.030 08/04/2018Medications:Your medication listCONTINUE taking these medications Instructions Last Dose Given Morning Afternoon Evening Bedtime As Neededacetaminophen 325 MG tabletCommonly known as: TYLENOL Take 2 tablets (650 mg total) by mouth every 6 (six) hours as needed for painaspirin 81 MG chewable tablet Chew 81 mg dailyatorvastatin 80 MG tabletCommonly known as: LIPITOR Take 80 mg by mouth dailyBREO ELLIPTA IN Inhale dailycalcitriol 0.25 MCG capsuleCommonly known as: ROCALTROL Take 0.25 mcg by mouth dailycarBAMazepine 200 MG tabletCommonly known as: TEGretol Take 400 mg by mouth 2 (two) times a dayescitalopram 10 MG tabletCommonly known as: LEXAPRO Take 10 mg by mouth dailyferrous sulfate 325 (65 FE) MG tablet Take 325 mg by mouth daily with breakfastINCRUSE ELLIPTA IN Inhale 1 puff dailyipratropium-albuterol 18-103 MCG/ACT inhalerCommonly known as: COMBIVENT Inhale 1 puff every 6 (six) hours as neededMagnesium 200 MG Tabs Take 200 mg by mouth dailymeloxicam 7.5 MG tabletCommonly known as: MOBIC Take 7.5 mg by mouth dailyQUEtiapine 400 MG 24 hr tabletCommonly known as: SEROquel XR Take 400 mg by mouth nightlysimethicone 80 MG chewable tabletCommonly known as: MYLICON Chew 1 tablet (80 mg total) every 6 (six) hours as needed for flatulenceSINGULAIR 10 MG tabletGeneric drug: montelukast Take 10 mg by mouth nightlyvitamin D (Ergocalciferol) 1.25 MG (97083 UT) Caps Take 1 capsule by mouth every 30 (thirty) daysDischarge Exam:Vitals: Temp: [97.7 F-99 F] 98.6 FHeart Rate: [63-90] 63Resp: [17-18] 18BP: (115-135)/(57-79) 123/63Pleasant, comfortable, not in acute distress.Awake, alert, oriented times 3.Lungs: Clear to auscultation bilaterally.Heart: regular rate and rhythm, S1, S2 normal, Soft SMAbdomen: Soft, nontender, bowel sounds present.Extremities: No edema. +2 pulses bilaterally radial, femoral, and dorsalis pedis. Right radial sitewith elastoplast, no bleeding, no complications, healing appropriately.Skin: No rash or lumps.Discharged Condition:stableDisposition: Home or Self CareFollow Up: Diane MCCAIN 06/29/20ignature: Álvaro Phoenix PADate: June 14, 2020Time: 8:50 AM Name Value Range Interpretation Code Description Data Ely rce(s) Supporting Document(s) ID Date Data Source [id number] 06/12/2020 10:03:00 [place] [address] CONSULTATIONNAME: BECKY Rogers ROOM#: [id number] OF : 1960 MR#: [id number] PHYS: Shawnee Mullins PA-C DATE: 06/11/20CHIEF COMPLAINT: This is a 59-year-old white female who presented with chest pressure for thelast few days.HISTORY OF PRESENT ILLNESS:This patient has not been doing well for the last few days. She has constant chest pressure in the upperchest. Patient has known history of coronary artery disease, NH, COPD, anxiety, diabetes controlledwith diet.MEDICATIONS:1. Aspirin 81 mg daily2. Lipitor 80 mg daily3. Combivent inhaler4. Depakote 250 mg b.i.d.5. DuoNeb treatment6. Lasix 40 mg daily7. Lexapro 10 mg daily8. Plavix 75 mg daily9. Protonix 40 mg daily10. Seroquel 200 mg at iirykfo51. Tegretol 200 mg b.i.d.12. Glipizide 2.5 mg twice a dayREVIEW OF SYSTEMS:The patient has constant, dull chest pain. She is tender in the upper chest. There is no history of anyorthopnea or paroxysmal nocturnal dyspnea. No chills or fever. No cough or hemoptysis. No boweldisturbance. No urinary problem. No ankle edema.PAST MEDICAL HISTORY:The patient has COPD, diabetes, hypertension, history of epilepsy.FAMILY HISTORY:Father is . Mother had cervical cancer.PHYSICAL EXAMINATION:GENERAL: Moderately-built.VITAL SIGNS: Blood pressure is 140/80. Pulse was 70.HEENT: Head and eyes are normal. Pupils and fundus are normal. Mouth normal. Tongue dry. [address] [place] [address] CONSULTATIONNAME: BECKY Rogers ROOM#: [id number] OF : 1960 MR#: [id number] PHYS: Shawnee Mullins PA-C DATE: 06/11/20NECK: Supple. No lymphadenopathy. Thyroid not enlarged. Neck veins are not distended. No carotidbruits.CHEST: Symmetrical.HEART: Regular sinus rhythm. No murmur or gallop.LUNGS: Clear with no rales or rhonchi.ABDOMEN: Soft and nontender.EXTREMITIES: Normal. Peripheral pulses are palpable.NEUROLOGICAL: Normal.IMPRESSION:Patient's CBC was reviewed. Patient is slightly anemic. Hemoglobin is 11.2. Troponin is normal.Patient is quite tender in the upper chest, most likely atypical chest pain and costochondritis, however Iwill do a cardiac work up, including repeat BNP and Troponin. The iron is low. We will give Ilaaljt808 mg IV and Procrit 20,000 subcutaneous. Nitropaste will be removed from the chest. Solu-Medrolwill be given for 2 dosages at 62.5 mg b.i.d. for costochondritis. I will review the records from ' office, her previous stress test and echocardiogram and make further suggestions.DD: Marcus Ruiz MD, PC 06/12/20 09:34DT: CRISTIANE 06/12/20 21:52DS: Marcus Ruiz MD, PC 06/15/20 08:43 2 Name Value Range Interpretation Code Description Data Ely rce(s) Supporting Document(s) ID Date Data Source [id number] 06/14/2020 07:30:17 AM EDT [facility] Name Value Range Interpretation Code Description Data Ely rce(s) Supporting Document(s) SODIUM 145 mmol/L (136-145) [facility] POTASSIUM 4.0 mmol/L (3.6-5.2) [facility] CHLORIDE 112 mmol/L (100-108) H [facility] CO2 30 mmol/L (22-31) [facility] ANION GAP 3 mmol/L (7-16) L [facility] UREA NITROGEN 19 mg/dL (7-24) [facility] CREATININE 0.91 mg/dL (0.60-1.00) [facility] BUN/CREAT RATIO 20.9 RATIO (10.0-20.0) H [facility] GLUCOSE 76 mg/dL (70-99) [facility] CALCIUM 8.4 mg/dL (8.4-10.2) [facility] GFR >60 ml/min/1.73m2 (>59) [facility] GFR ( AMER) >60 ml/min/1.73m2 (>59) [facility] GFR INTERPRETATION [facility] --NORMAL KIDNEY FUNCTION OR MILD DISEASE - GFR >OR= 60CHRONIC KIDNEY DISEASE - GFR 15 - 59RENAL FAILURE - GFR <15 Est. GFR calculation based on the MDRDstudy equation, which assumes a steadystate for creatinine. Est. GFR should notbe used for medication dosing. ID Date Data Source [id number] 06/14/2020 06:56:35 AM EDT [facility] Name Value Range Interpretation Code Description Data Ely rce(s) Supporting Document(s) WBC 4.0 10*3/uL (4.1-11.0) L [facility] RBC 3.22 10*6/uL (4.00-5.40) L [facility] HGB 11.8 g/dL (12.0-16.0) L [facility] HCT 34.0 % (36.0-47.0) L [facility] PERFORMED AT [address] [place] [address] [address] [address] MCV 105.8 fL (80.0-95.0) H [facility] MCH 36.7 pg (27.0-32.0) H [facility] MCHC 34.7 g/dL (32.0-36.0) [facility] RDW 12.8 % (10.5-14.5) [facility] PLT 143 10*3/uL (150-450) L [facility] MPV 6.9 fL (7.1-10.7) L [facility] ID Date Data Source [id number] 06/13/2020 03:09:53 PM EDT [facility]PAT[facility] NT INFORMATIONPatient MRN Name Date of Age Gend*PT [id number] Yolanda Pena 1960 59 years F SDCXPT Location Admission Date/Time Visit ID Attending [id number] 06/13/20 1100 --- Uvaldo Hazel MD([id number]) EPI ID CSN Admitting Provider [id number] Attestation signed by Uvaldo Hazel MD at 06/13/2020 3:09 PMI saw and evaluated the patient and reviewed Ms. Núñez's note. I agree withthe history, physical and medical decision making.Signature: JERMAINE Reesate: June 13, 2020Time: 3:09 PM --ADMISSION HISTORY AND PHYSICALName: Yolanda Pena Gender: femaleDate of : 1960 Age: 59 yearsDate/Time of Admit: 06/13/2020 11:00 AM Code Status: Full CodePrimary Care Provider / Referring Physician: ROGELIO CEBALLOS MDInformant:Current HistoryChief Complaint: Chest painHPI:This patient is a 59 years female with PMHx CAD s/p NH in 2005 with PCI, DM type2, Bipolar disorder, COPD, asthma, CVA- 30 years ago, past smoker, gastricbypass with 140lb weight loss.Patient presented to [facility] on Friday morning after developingleft sided chest pressure while watching TV. She had associated dizziness anddiaphoresis. She tells me her symptoms were similar to when she had her NH [id number]. She was given SL nitro by EMS with no change. She states that thediscomfort resolved with time. She has since had intermittent chest pressure.At [place] she was ruled out for acute event. She reportedly had Echo donewhich revealed moderate AR and . Transfer was arranged for further workup.On arrival she feels well. Has had mild chest pressure intermittently sinceSunday. She was treated with nitro patch which has since been discontinued.She last underwent coronary angiography in 2018 which revealed patent stent inLCx. She had an abnormal stress test at that time. She reports no othercardiac concerns since that time.She follows with Dr Crow in [place].Review of Systems:Negative for review of all 10 systems, except as noted above.Past HistoryPast Medical History:Diagnosis Date Asthma Bipolar affective, manic COPD (chronic obstructive pulmonary disease) Coronary artery disease Sherice Crow MD Dependence on supplemental oxygen 2 L/min via N/C Depression Diabetes mellitus type 2; oral medication Hyperlipidemia Hypertension Myocardial infarction 2002 and 2016 Pneumonia StrokePast Surgical History:Procedure Laterality Date APPENDECTOMY BREAST SURGERY CARDIAC CATHETERIZATION CARDIAC CATHETERIZATION N/A 08/19/2018 Procedure: Cardiac catheterization; Surgeon: Jordan Montes MD; Laterality:N/A; CARDIAC CATHETERIZATION N/A 08/19/2018 Procedure: Coronary angiography; Surgeon: Jordan Montes MD; Laterality:N/A; CARDIAC CATHETERIZATION N/A 08/19/2018 Procedure: Left ventriculography; Surgeon: Jordan Montes MD; Laterality:N/A; SECTION CHOLECYSTECTOMY CORONARY STENT PLACEMENT EYE SURGERY GASTRIC BYPASS N/A 08/25/2018 Procedure: GASTRIC BYPASS EDITH-EN-Y W/ LIVER BX LAPAROSCOPY; Surgeon: MD Prachi; Laterality: N/A; [facility] PA TO ASSIST PANENDOSCOPY N/A 07/27/2018 Procedure: ENDOSCOPY W ANESTHESIA; Surgeon: Julio Núñez MD; Laterality:N/A; OK PER YOLANDA ENDO DEPT TO OVERRIDE CONFLICTSNo family history on file.Social HistorySocial History Narrative Not on fileSocial HistorySocioeconomic History Marital status: Spouse name: Not on file Number of children: Not on file Years of education: Not on file Highest education level: Not on fileOccupational History Not on fileSocial Needs Financial resource strain: Not on file Food insecurity: Worry: Not on file Inability: Not on file Transportation needs: Medical: Not on file Non-medical: Not on fileTobacco Use Smoking status: Former Smoker Smokeless tobacco: Never UsedSubstance and Sexual Activity Alcohol use: No Drug use: No Sexual activity: Not on fileLifestyle Physical activity: Days per week: Not on file Minutes per session: Not on file Stress: Not on fileRelationships Social connections: Talks on phone: Not on file Gets together: Not on file Attends worship service: Not on file Active member of club or organization: Not on file Attends meetings of clubs or organizations: Not on file Relationship status: Not on file Intimate partner violence: Fear of current or ex partner: Not on file Emotionally abused: Not on file Physically abused: Not on file Forced sexual activity: Not on fileOther Topics Concern Not on fileSocial History Narrative Not on fileMedications and AllergiesALLERGIES/SENSITIVITIES:AllergiesAllergen Reactions Aleve [Naproxen Sodium] Other (See Comments) patient experienced 'mini abimbola ' Nsaids Other (See Comments) patient experienced 'mini abimbola ' Zofran [Ondansetron Hcl] Other (See Comments) unconsciousScheduled Meds: normal saline flush 3 mL Intravenous Q8H SCHContinuous Infusions:PRN Meds:.acetaminophen, atropine sulfatePhysicalBlood Pressure: BP: 127/79 Pulse: Heart Rate: 78Temperature: Temp: 99 F Respirations: Resp: 18Admission Weight: Weight: 68.5 kg (151 lb) O2 Saturation: SpO2: 93 %Today's Weight: Weight: 68.5 kg (151 lb)Physical ExamPleasant, comfortable, not in acute distress.Awake, alert, oriented times 3.Moves all extremities.General appearance: alert, appears stated age and cooperativeHEENT: No recent change in vision or hearing.Lungs: Clear to aus cultation bilaterally.Chest wall: no tendernessHeart: RR Soft SMAbdomen: Soft, nontender, bowel sounds present.Extremities: No edema.Pulses: 2+ and symmetricSkin: No rash or lumps.DiagnosticsLabReviewed from [facility]:WBC 5.2 H/H 11.7/34.5 Plt 145Na 141 K 5.5 Glu 116 BUN 22 Creat 1.2BNP 99Trop <0.01Echo 05/11/19 - Dr Crow office:Mild concentric LVHMild dilated left atrium with impaired LV diastolic functionNormal right heart chamberNormal IVCModerate aortic valvular sclerosis with mild stenosisMild degenerative changes mitral valveEcho 06/12/20:Reported moderate AR and ASEF 50%A ssessment & PlanPrincipal Problem: 1. Angina pectoris/ Hx CAD s/p PCI 2005: Transferred for [facility]. Orders placed.Has been NPO since 0900. COVID pending.Continue ASA, statin. Further plan pending cath results.2. Hypertension: stable3. Hyperlipidemia: Continue statin4. COPD/ Asthma: Stable. Continue home meds5. Bipolar affective, manic: Stable. Continue home meds6. Diabetes mellitus: Stable. Pt reports A1c 4.9. No longer prescribedmedication.Signature: EMILY NÚÑEZ, NPDate: June 13, 2020Time: 11:35 AM Name Value Range Interpretation Code Description Data Ely rce(s) Supporting Document(s) ID Date Data Source [id number] 06/13/2020 02:59:[address] [facility] Name Value Range Interpretation Code Description Data Ely rce(s) Supporting Document(s) &PDF [facility] JYQTIj4eRxQBVlPl03/LVEabAZBua4QcPWsnEAl5IIqbXBPsO2GbtDfiTIjIMDUKFsiXHJABXKrIQUSZ vci mGuSciRZK1u2SdiOYoP60nmL7pXNNcw73uDWgbVU5+DQplbmRvYmoNCjQgMCBvYmoNCiAgPDwvRmlsdG SkGU3ImHT8OQEsX30gJRXlJMSgO4UpNTU7ZCM+Zh6MPNBzwAWnZW3ZUmcH7Jfvt6l69w2L/E3ZIc6gMx cgQM4MHINYADrwENQ7hEsa3Dcc2uZwe2nOHRxw4vqZ pGLnb0eqQTIAQbzmW2oUeYP3cKGtnYx//yKKMgH5E0K/8m7ODFo5jf86O4lj8+Dy3f6XnVo2o0qv3TqX BOcBO/DHxLczMM5Hqv6o9JuAEJYGT5LE/+tXath2cUNETSwLsjjH35tA3liHc91hM/tsMvtx/Annel/I8J [file] H+[employer] Analyst+82m1fixiH+IIhdIWtzn8su6SDcdgx3OFQRQ88/tU44K/ibh7CPi6zwqtHyYD/zz2O3gm9EwzyN0 TukeAtuDtwnPsu5ePFsVYu4/xuk3SYo12CO7bHo/hg 8i0qdeweCo59LXMH5/jDYf869h6IGbborewlERCl+3y8HXjtPesum6rPVhwoXXFsNmnoqr3LxeTS56SU uP5I69rvxrH4+BU/yKL77vwdf2h0opp899iur/nRysolh11131Dt/Zpb9jdw6BSfjNGdVpUsusgyhCnb mIoE5OmCaVlWeaEYqPNO7Ut9PwqbpIg4Cea6EfV1Xd +sdG3Ya4Is0yk/O76we7Fi0CVwOCKWBqeVggTn/XC+lC7An7r+79x26rxzmbAjm3/Q3EwzdwfKKLwtt9 PPuU6HNp1QkEdbMay88817pDxpWBkB/W21m5qs78FqWcYOL103TKKFaFirO1lpKR8Qwxt0WpV1uEOQuN OJrjc5tIonmI7Nvtj44izWdE3+gph7pu3p8qo1qJSa /dQNikQmQ/YltF8+wEYS4wX/fAx7J5qydi35E0404Ee1EUT4eFEyiS6hMjwtVG2uP+qPo+m/72faHafg nOBY6KLbmp0LAw4yg6IE3F33fv1FvZIbya71cY6LZRV/KjIOCvIfURLMk2hAHm16vtfc4rr36GjU9vLO KSJVAmF7S34fMfQsi17zE9Z/SkzFruyPb2T8yfoq1s mtjxbV24oqHIVhFSZfUIqo4GplMWGsSm4dVc6sR1ZwKVnR7rZEFx0rxKlbmQL0xci4UyIdCxZpwK5az9 k4s6B6JKi1J/DqJG40pmxq63MJ/v5p100db8kMJ6YtY9okLOUJKtz2epmlgMxaxjlpCBObJj7WA85iv/ 1JVA9Xbj465R5dZM3hrgabtVWQU0Wd9b1yornU+JM1 xOh9D822hMpeKMufSCPKTtdNwCw4XEo6tsb5xUqVmQjp/ndRQzR63+YsjhLp8G9kcb7jpkbYbPfxtI85 u5dn7bt37j7f2PD7D+sNHnu0D2C4yuhumMjmoQRfZ++bK/qHlLzRwSWN60kqGbq7un2teduZlTES7xvM a/2Ov8f3beSIEPwDiaDPG4PUBhdaml7qbbLYW+ly+b lsLrNZZ+IdtkEvizeCXieatC3jK2YmomzCf7PF04xklIi+mm9qk+KObYRLO/TQHToOi8xczASWiAVbIo l0t/a0Z63pnynh7/us5sae9JlBnTjbommKvA0vLUf5Zymk4UDCFtcQy9BrYI5+KJjbUIycemdJWOy3OC party coordinator/VLPBBk1m5mFtjKywewg1tEQG344730Xg6rubuL [file] AgICAgICAgICAgICAgICAgICAgICAgICAgICAgICAg ICAgICAgICAgICAgICAgICAgDQogICAgICAgICAgICAgICAgICAgICAgICAgICAgICAgICAgICAgICAg ICAgICAgICAgICAgICAgICAgICAgICAgICAgICAgICAgICAgICAgICAgICAgICAgICAgICAgICAgICAg DQogICAgICAgICAgICAgICAgICAgICAgICAgICAgIC AgICAgICAgICAgICAgICAgICAgICAgICAgICAgICAgICAgICAgICAgICAgICAgICAgICAgICAgICAgIC AgICAgICAgICAgDQogICAgICAgICAgICAgICAgICAgICAgICAgICAgICAgICAgICAgICAgICAgICAgIC AgICAgICAgICAgICAgICAgICAgICAgICAgICAgICAg ICAgICAgICAgICAgICAgICAgICAgDQogICAgICAgICAgICAgICAgICAgICAgICAgICAgICAgICAgICAg ICAgICAgICAgICAgICAgICAgICAgICAgICAgICAgICAgICAgICAgICAgICAgICAgICAgICAgICAgICAg ICAgDQogICAgICAgICAgICAgICAgICAgICAgICAgIC AgICAgICAgICAgICAgICAgICAgICAgICAgICAgICAgICAgICAgICAgICAgICAgICAgICAgICAgICAgIC AgICAgICAgICAgICAgDQogICAgICAgICAgICAgICAgICAgICAgICAgICAgICAgICAgICAgICAgICAgIC AgICAgICAgICAgICAgICAgICAgICAgICAgICAgICAg ICAgICAgICAgICAgICAgICAgICAgICAgDQogICAgICAgICAgICAgICAgICAgICAgICAgICAgICAgICAg ICAgICAgICAgICAgICAgICAgICAgICAgICAgICAgICAgICAgICAgICAgICAgICAgICAgICAgICAgICAg ICAgICAgDQogICAgICAgICAgICAgICAgICAgICAgIC AgICAgICAgICAgICAgICAgICAgICAgICAgICAgICAgICAgICAgICAgICAgICAgICAgICAgICAgICAgIC AgICAgICAgICAgICAgICAgDQogICAgICAgICAgICAgICAgICAgICAgICAgICAgICAgICAgICAgICAgIC AgICAgICAgICAgICAgICAgICAgICAgICAgICAgICAg TAWvFPXlHLFqSGLjGPCzMHZiSURtMADnFLWoWYf6G9jaJDTqRYXtQH7uUNt6Rb6+MKuGWoUjCHL5siPm tB9DIR6ih2MiOWmpFTAjz2DoDTl2DD0WVVLsPWquSF4PTVipqg9TELUcHLOrlGDFa9xlNlSeWQS6DSQc SkpoYN2XWNNxR9fvslCiVZLhBTAFWNsvPHALOEepIH OYHZ8EKaEeC9GseR08DJUQFt3+IMtplhUwWeeLFbF4MUKfy1PrRQf4YT1RWSUbCbuol4UxQthjNCXTXQ rcIR0JYNK6RYJ9HHLvCa9AOTRlJ067hjTvUI5EIw6XGxSdOL9toi9PCeqaAEYiVurGObz2XOkxOZ2HwE DkQRuRtTDfNJ36sjrVIkXcK8Whr7ZiNjU4IQLeUpGp HLsuZYMuMXGjpkXrcEFcRPjrME7DWEApthQjNmgwYIUQDLo+Hg9HAZ2fa5ZoLRoyOWDwHT9act8SHOyY MzOvV0Z0fEDzK2T6PZnrJo7XZQGuQSYiWuOcTAZFNSrhEA0TCU9dxmV6BX2OeHXuPZMvXVYwxFPpFYt8 P28wjFJcUNsyCR7UWYN+Sara+Yz8MSECwHUIrMWWvTj TiOGLIAnYpM0TzH5TMo7HeR7MzAD41pApqkuMiZIefOU3WUH1dXISeHZMMJD3PbOTifK5atqZdAiEtFM JVHcWuI59bbISpGDEuQHC1AWOvYf5TTBWmR1OqyhPwoSfgcwIaVGHgNOIHSK4IMDgzgkIevBZpqOvrWN 44vOqcZG6LOx6VQkXtLG0osp7SfNAjUa0HKQWzQG4X CZNxSUNmAGLvLFZ3BYRyLaFnSUprTBBbRBXrWEP7ASDaOHZbUR3DLgKmSWNhEDP6LFEmGKJjUTHjvy4S OJOyFMO2WiA8FhGlZZSrMEDjUPugJHVyIHYcBUwrZNRqJMLfGI9YAoNrTMWsEZH3HaAbDBHrSPHecx0O ZCPyFJOfJjB0ZDHgSVOrEIAwTRzaPDCxQZU8WDL2CG PpLFFhKX8NQnJdKBLgGENmSeBtXGCrYMOcyg8SHWUrJLNxYwRwBoChPMJtTWXcQPloJERfOTI3LnPoNG WuHUKxXT9TRgOaIKFrQJd7MAVoVCEoWEKnry9COBWdSSIsEwm6JwBlKUYzVKMwTAgrSGXwPFX8UCqlWP QgGRRpJI6XUkPdALQnWSy0MddeKYKhQFAdsq8PMHKb CDQiUSB3YWTiVHLsRBTbTEkcJTIiWLH1ZxW6XNOaUMYtKQ8HVwMlMLBwPVCtTTWlWKDaEMSvlh9EQUWd DUZgPEYaXuMoSMPcKRPhATdxXFJsCHP4IvG1JGRbNQWdVI7XAfPxUPWgYJR3EWLjAJWgQMOmdy1OKEFt UTGuOCWiZSEqVPWyZCKpJKsaLTFrLHSoHXf6VKKbCO IkYA2EYtLdDKZkErB6TmJsVGTfZXRcjt0EUVGzRLGpUlN5JPPxORWlXSHbKBvePJUxQMUxSqfhFZWoTI XqAP9BPvLjYAIuJJK4XTbyWMHlMOEsla8VFRTaUPT9UlZ8HpLgLXIwNBMkEPqaEZLeGSRmEyP8ROBpLL MrWQ4UMsYpPOIyTYI5YsOmORWjDBVfbb1McDSviQnr ol1ELAfCKc7RcEioYEAfRTniGc6qbZNkGBTuQNDBIm6HwiPrGEZoETEDZAvoTFIsEUHxCcG9BxH2C9T8 LTOeJcplV6SoU0J8UpNqLqE6VYVjNkX5FXUmJrl9PUmfUWs6AQPtXjO8ZxBdZNvbWiY6JeI6C7O+IF0g DQo+Ff6Yo0ThccI5gkYyLSp1WcktFO5MKXKIL7XFMh== ID Date Data Source [id number] 06/13/2020 12:30:00 PM EDT [facility] Name Value Range Interpretation Code Description Data Ely rce(s) Supporting Document(s) SARS coronavirus 2 RNA [Presence] in Res piratory specimen by CAREY with probe detection [facility] This lab was reported by [facility]. ID Date Data Source [id number] 06/13/2020 02:59:03 PM EDT [facility] Name Value Range Interpretation Code Description Data Ely rce(s) Supporting Document(s) SPECIMEN DESCRIPTION [facility] COVID19 RESULT (NDET) [facility] THIS ASSAY AMPLIFIES AND DETECTSTHE TARG ET RNA USING REAL-TIME PCR.NEGATIVE 2019_NCOV RT-PCR RESULTS DONOT PRECLUDE 2019_NCOV INFECTION ANDSHOULD NOT BE USED THE SOLE BASISFOR PATIENT MANAGEMENT DECISIONS. COMMENT [facility] UNDER AN EMERGENCY USE AUTHORIZATION(EUA ) FOR THE DETECTION AND/OR DIAGNOSISOF THE VIRUS THAT CAUSES COVID-19.[facility] [address] [place] [id number] [place] [id number]. ID Date Data Source [id number] 06/13/2020 12:12:[address] [facility] Name Value Range Interpretation Code Description Data Ely rce(s) Supporting Document(s) EKG [facility] OCZEFs4dNgWWZwOma1CkYpQoVMMxEY7jfac8C5S5oWVyM2QtkCGyk2dwV3ZlR7TfWFWlIZBEGK7RfIPf jb2 [file] VDslqDo6sbAa1wKNM0vWeDyxv+QZ4H1MxLwdKSTjdRGCBgR/G5BbT9vpvfj2sqZ3AxsZf6aM+Yoana+FI 4D8fcEbkGQKQtDJLoCT904psg71IfrPBPDvReoz0oxC8KkxFb5lEuJeky+YO7B7nbM8xNZGluQAEkOB9 +6lym10Xb1NNPVfJetw/ixL/VjlD/2pX+Miguel Angel+FJBR [file] 8JthEvYNSuVNZSJj5Kj995SEVuZRAWIhx+LltzwFHfeJbaLRBHVKJ8KwNGHMLSJ3S= ID Date Data Source [id number] 06/13/2020 06:02:00 AM EDT [facility] Name Value Range Interpretation Code Description Data Ely rce(s) Supporting Document(s) BASIC METABOLIC PANEL [facility] BASIC METABOLIC PANEL Sodium [Moles/volume] in Serum or Plasma 141 mEq/L 134 - 153 [facility] Potassium [Moles/volume] in Serum or Plasma 5.5 mEq/L 3.6 - 5.0 H [facility] Chloride [Moles/volume] in Serum or Plasma 104 mEq/L 98 - 107 [facility] Carbon dioxide, total [Moles/volume] in Serum or Plasma 29 MEQ/L 22 - 30 [facility] Glucose [Mass/volume] in Serum or Plasma 116 MG/DL 65 - 110 H [facility] BUN 25 MG/DL 7 - 21 [facility] Creatinine [Mass/volume] in Serum or Plasma 1.2 MG/DL 0.7 - 1.5 [facility] BUN/CREAT 21 8 - 27 [facility] Calcium [Mass/volume] in Serum or Plasma 9.6 MG/DL 8.4 - 10.2 [facility] Anion gap 3 in Serum or Plasma 8.0 mmol/L 8.0 - 16.0 [facility]GE 59 [facility] GFR >60 [facility] NON-AA GFR 49 mL/min [facility] [facility] Male GFR Inter prentation 20-49 yrs >60 mL/min Normal 50-59 yrs >56 mL/min Normal 60-69 yrs >49 mL/min Normal 70-79yrs >42 mL/min Normal 80 and above >35 mL/min Normal Female GFR Interpretation 20-39 yrs >60 mL/min Normal 40-49 yrs >58 mL/min Normal 50-59 yrs >51 mL/min Normal 60-69 yrs >45 mL/min Normal 70-79 yrs >39 mL/min Normal 80 and above >32 mL/min Normal ID Date Data Source [id number] 06/13/2020 05:41:00 AM EDT [facility] Name Value Range Interpretation Code Description Data Ely rce(s) Supporting Document(s) CBC W/AUTOMATED DIFF [facility] COMPLETE BLOOD COUNT Leukocytes [#/volume] in Blood by Automated count 4.4 10^3/uL 4.2 - 1 1.0 [facility] Erythrocytes [#/volume] in Blood by Automated count 3.24 10^6/uL 4. 20 - 5.40 L [facility] Hemoglobin [Mass/volume] in Blood 11.7 g/dL 12.0 - 16.0 L [facility] Hematocrit [Volume Fraction] of Blood by Automated count 34.5 % 3 7.0 - 47.0 L [facility] Erythrocyte mean corpuscular volume [Entitic volume] b y Automated count 106.5 fL 81.0 - 101 H [facility] Erythrocyte mean corpuscular hemoglobin [Entitic mass] by Automated count 36.1 pg 27.0 - 34.0 H [facility] Erythrocyte mean corpuscular hemoglobin concentration [Mass/volume] by Automated count 33.9 g/dL 31.0 - 36.0 [facility] Erythrocyte distribution width [Ratio] by Automated count 11.7 % 11.5 - 14.5 [facility] Platelets [#/volume] in Blood by Automated count 152 10^3/uL 150 - 45 0 [facility] Platelet mean volume [Entitic volume] in Blood by Automated count 8.7 fL 7.4 - 10.4 [facility] Neutrophils/100 leukocytes in Blood by Automated count 77.3 % 37. 0 - 80.0 [facility] Lymphocytes/100 leukocytes in Blood by Manual count 19.5 % 25.0 - 40.0 L [facility] Monocytes/100 leukocytes in Blood by Automated count 2.5 % 3.0 - 8.0 L [facility] Eosinophils/100 leukocytes in Blood by Automated count 0.0 % 0.0 - 7.0 [facility] Basophils/100 leukocytes in Blood by Automated count 0.0 % 0.0 - 2.5 [facility] %IG 0.7 % 0.0 - [facility].0 [facility] % 0.0 - 0.0 [facility] al Neutrophils [#/volume] in Blood by Automated count 3.42 10^3/uL 2.00 - 6.90 [facility] Lymphocytes [#/volume] in Blood by Automated count 0.86 10^3/uL 0.60 - 3.40 [facility] Monocytes [#/volume] in Blood by Automated count 0.11 10^3/uL 0.00 - 0.90 [facility] Eosinophils [#/volume] in Blood by Automated count 0.00 10^3/uL 0.00 - 0.70 [facility] Basophils [#/volume] in Blood by Automated count 0.00 10^3/uL 0.00 - 0.20 [facility] #IG 0.03 10^3/uL 0.00 - 0.10 [facility] #NRBC 0.00 10^3/uL 0.00 - 0.00 [facility] MANUAL DIFF NOT INDICATED [facility] RBC MORPH NOT INDICATED [facility] sp[facility] ID Date Data Source [id number] 06/12/2020 10:32:00 AM EDT [facility] Name Value Range Interpretation Code Description Data Ely rce(s) Supporting Document(s) Fibrin D-dimer FEU [Mass/volume] in Platelet poor plasma 0.71 ug /mL 0.27 - 0.50 H [facility] ID Date Data Source [id number] 06/12/2020 09:39:00 AM EDT [facility] [address] [place] [address] PHONE: [phone] FAX: [phone] Name .................. : BECKY Rogers Acct Number.................. : [id number] ROOM. ................. : TR-05 Number ................... : [id number] Stay type ............. : E/R Discharge Date......... ... : Admit Date ......... : 06/11/20 Admit Phys .................... : THAIS CHRISTINA Date of ....... : 1960 Family Phys ................... : BLACK CHRI Phone .................. : [phone] Age ................................ : 59 Film# .................. .:[id number] Sex ................................. : F Unsigned transcriptions are preliminary reports and do not represent a medical or legal document CT HEAD W/O CONTRAST [id number] COMPLETE:06/11/20 11:10 SRG 32422 R chloe(s): Weakness CT OF THE HEAD WITHOUT CONTRAST: FINDINGS: No intra- axial or extra-axial collections of fluid. Ventricles and sulci unremarkable. No midline shift or mass effect. Visualized paranasal sinuses and mastoid air cells unremarkable. IMPRESSION: No acute intracranial process. While performing the above CT examination, radiation dose reduction was accomplished utilizing automated exposure control, adjusting of the mA and kV based on the patient's body size and/or the use of imperative reconstructive techniques. CT dose: 776.4 mGycm Electronically Reviewed and Signed By John Paul Harris MD , 06/12/20 09:39, S Transcribe Initials: KATARINA , Transcribe Date: 06/11/20 12:24, Dictation Date: Copy for: EMERGENCY DEPT via [facility] [place] Copy for: 710 MED REC Page 1 of 1 Name Value Range Interpretation Code Description Data Ely rce(s) Supporting Document(s) ID Date Data Source [id number] 06/12/2020 09:26:00 AM EDT [facility] [address] [place] [address] PHONE: [phone] FAX: [phone] Name .................. : BECKY Rogers Acct Number.................. : [id number] ROOM. ................. : TR-05 Number ................... : [id number] Stay type ............. : E/R Discharge Date......... ... : Admit Date ......... : 06/11/20 Admit Phys .................... : VENERUS BR Date of ....... : 1960 Family Phys ................... : BLACK CHRI Phone .................. : [phone] Age ................................ : 59 Film# .................. .:[id number] Sex ................................. : F Unsigned transcriptions are preliminary reports and do not represent a medical or legal document CHEST PORTABLE [id number] COMPLETE:06/11/20 10:04 [facility] [address] Shazia son(s): Chest Pain PORTABLE CHEST X-RAY: HISTORY: Chest pain. COMPARISON: 09/21/17 FINDINGS: Mild cardiomegaly Pulmonary vessels are normal in caliber. The aorta is calcified. Linear atelectasis is present at the right lung base. The lungs are otherwise clear. No pleural effusion. IMPRESSION: Right basilar atelectasis without acute cardiopulmonary disease. Electronically Reviewed and Signed By Ganesh Dow MD , 06/12/20 09:26, APM Transcribe Initials: KATARINA , Transcribe Date: 06/11/20 10:21, Dictation Date: Copy for: EMERGENCY DEPT via modem Copy for: 710 MED REC Page 1 of 1 Name Value Range Interpretation Code Description Data Eyl rce(s) Supporting Document(s) ID Date Data Source [id number] 06/12/2020 10:58:00 AM EDT [facility] Name Value Range Interpretation Code Description Data Ely rce(s) Supporting Document(s) BNP 145 PG/ML 0 - 125 H [facility] ID Date Data Source [id number] 06/12/2020 10:51:00 AM EDT [facility] Name Value Range Interpretation Code Description Data Ely rce(s) Supporting Document(s) Cobalamin (Vitamin B12) [Mass/volume] in Serum or Plasma 955 PG/ML 232 - 1245 [facility] ID Date Data Source [id number] 06/12/2020 10:38:00 AM EDT [facility] Name Value Range Interpretation Code Description Data Ely rce(s) Supporting Document(s) Iron [Mass/volume] in Serum or Plasma 89 UG/DL 42 - 135 [facility] ID Date Data Source [id number] 06/12/2020 10:16:00 AM EDT [facility] Name Value Range Interpretation Code Description Data Ely rce(s) Supporting Document(s) TROPONIN T <0.01 NG/ML 0.00 - 0.10 [facility] ospital TROPONIN T0.1 ng/ml Recommended as the c linical threshold value forTroponin T. ID Date Data Source [id number] 06/12/2020 07:33:00 AM EDT [facility] Name Value Range Interpretation Code Description Data Ely rce(s) Supporting Document(s) BASIC METABOLIC PANEL [facility] BASIC METABOLIC PANEL Sodium [Moles/volume] in Serum or Plasma 139 mEq/L 134 - 153 [facility] Potassium [Moles/volume] in Serum or Plasma 5.2 mEq/L 3.6 - 5.0 H [facility] Chloride [Moles/volume] in Serum or Plasma 102 mEq/L 98 - 107 [facility] Carbon dioxide, total [Moles/volume] in Serum or Plasma 29 MEQ/L 22 - 30 [facility] Glucose [Mass/volume] in Serum or Plasma 96 MG/DL 65 - 110 [facility] BUN 24 MG/DL 7 - 21 [facility] Creatinine [Mass/volume] in Serum or Plasma 1.2 MG/DL 0.7 - 1.5 [facility] BUN/CREAT 20 8 - 27 [facility] al Calcium [Mass/volume] in Serum or Plasma 9.5 MG/DL 8.4 - 10.2 [facility] Anion gap 3 in Serum or Plasma 8.0 mmol/L 8.0 - 16.0 [facility]GE 59 [facility] GFR >60 [facility] NON-AA GFR 49 mL/min [facility] GFR Inter prentation 20-49 yrs >60 mL/min Normal 50-59 yrs >56 mL/min Normal 60-69 yrs >49 mL/min Normal 70-79yrs >42 mL/min Normal 80 and above >35 mL/min Normal Female GFR Interpretation 20-39 yrs >60 mL/min Normal 40-49 yrs >58 mL/min Normal 50-59 yrs >51 mL/min Normal 60-69 yrs >45 mL/min Normal 70-79 yrs >39 mL/min Normal 80 and above >32 mL/min Normal ID Date Data Source [id number] 06/12/2020 07:25:00 AM EDT [facility] Name Value Range Interpretation Code Description Data Ely rce(s) Supporting Document(s) Hemoglobin A1c/Hemoglobin.total in Blood 5.1 % 4.4 - 6.1 [facility] {A1]{HB] ID Date Data Source [id number] 06/12/2020 07:14:00 AM T [facility] Name Value Range Interpretation Code Description Data Ely rce(s) Supporting Document(s) CBC W/AUTOMATED DIFF [facility] COMPLETE BLOOD COUNT Leukocytes [#/volume] in Blood by Automated count 6.6 10^3/uL 4.2 - 1 1.0 [facility] Erythrocytes [#/volume] in Blood by Automated count 3.03 10^6/uL 4. 20 - 5.40 L [facility] Hemoglobin [Mass/volume] in Blood 10.8 g/dL 12.0 - 16.0 L [facility] Hematocrit [Volume Fraction] of Blood by Automated count 31.7 % 3 7.0 - 47.0 L [facility] Erythrocyte mean corpuscular volume [Entitic volume] b y Automated count 104.6 fL 81.0 - 101 H [facility] Erythrocyte mean corpuscular hemoglobin [Entitic mass] by Automated count 35.6 pg 27.0 - 34.0 H [facility] Erythrocyte mean corpuscular hemoglobin concentration [Mass/volume] by Automated count 34.1 g/dL 31.0 - 36.0 [facility] Erythrocyte distribution width [Ratio] by Automated count 11.5 % 11.5 - 14.5 [facility] Platelets [#/volume] in Blood by Automated count 147 10^3/uL 150 - 45 0 L [facility] Platelet mean volume [Entitic volume] in Blood by Automated count 8.9 fL 7.4 - 10.4 [facility] Neutrophils/100 leukocytes in Blood by Automated count 67.0 % 37. 0 - 80.0 [facility] Lymphocytes/100 leukocytes in Blood by Manual count 24.3 % 25.0 - 40.0 L [facility] Monocytes/100 leukocytes in Blood by Automated count 7.7 % 3.0 - 8.0 [facility] Eosinophils/100 leukocytes in Blood by Automated count 0.3 % 0.0 - 7.0 [facility] Basophils/100 leukocytes in Blood by Automated count 0.2 % 0.0 - 2.5 [facility] %IG 0.5 % 0.0 - 0.0 H [facility] al %NRBC 0.0 % 0.0 - 0.0 [facility] al Neutrophils [#/volume] in Blood by Automated count 4.42 10^3/uL 2.00 - 6.90 [facility] Lymphocytes [#/volume] in Blood by Automated count 1.60 10^3/uL 0.60 - 3.40 [facility] Monocytes [#/volume] in Blood by Automated count 0.51 10^3/uL 0.00 - 0.90 [facility] Eosinophils [#/volume] in Blood by Automated count 0.02 10^3/uL 0.00 - 0.70 [facility] Basophils [#/volume] in Blood by Automated count 0.01 10^3/uL 0.00 - 0.20 [facility] #IG 0.03 10^3/uL 0.00 - 0.10 [facility] #NRBC 0.00 10^3/uL 0.00 - 0.00 [facility] MANUAL DIFF NOT INDICATED [facility] RBC MORPH NOT INDICATED [facility] ID Date Data Source [id number] 06/12/2020 02:39:00 [place] [address] RESPIRATORY CARE REPORT ==== ---------NAME------- NUMBER SEX AGE ADMIT DISC. XRAY# F/C TYPEHOLDER YOLANDA Rogers [id number] F 59 06/11/20 [id number] MB4 O/P DATE OF : 1960 M/R# [id number] #: [id number] LOCATION: EMERGENCY DEPT EKG [id number] COMP LETE:06/11/20 14:43 [facility] [address] PHYSICIAN: KYLIE CHRISTINA Name Value Range Interpretation Code Description Data Ely rce(s) Supporting Document(s) ID Date Data Source [id number] 06/11/2020 09:38:00 AM EDT [facility] 1 OrderSheet [facility] Emergency Department [address] [place] [address] Phone #: ext- [phone] 06/11/2020 09:38 Patient: YOLANDA PENA Sex: F : 1960 Age: 59yWEIGHT:64.8 kg (S) HEIGHT:63 inches (S) BMI:25.3ALLERGIES: Advil, Aleve, ZofranCHIEF COMPLAINT: chest pain, discomfort, anxiety, SOBDIAGNOSIS: Chest painLAB ORDERSOrder Description Priority Entered Acknowledged InitialedUrinalysis (Clean STAT 09:50 06/11/2020 09:57 Nikhil Perez RN Physician;Troponin-T STAT 09:50 06/11/2020 09:57 Jose G Perez RN Latonia brumfield;BNP STAT 09:51 06/11/2020 09:57 Jose G Perez RN Physician;CMP STAT 09:51 06/11/2020 09:57 Jose G Perez RN Physician;CBC w Diff STAT 09:51 06/11/2020 09:57 Jose G Perez RN Physician;D-Dimer STAT 09:51 06/11/2020 09:58 Jose G Perez RN Physician;Troponin-T STAT 12:39 06/11/2020 13:14 Masha Plascencia supervisor frame sample and pattern, Igor ER Physician; [id number] STUDY ORDERSOrder Description Priority Entered Acknowledged InitialedChest Portable 1 STAT 09:51 06/11/2020 09:58 Fox Perez RN(Oxygen?(No)) Physician; Reason for Study: Chest PainCT Head W/O Cont STAT 10:00 06/11/2020 10:38 Jose G(Oxygen?(No)) Mitch Perez RN Physician; 2 OrderSheet [facility] Emergency Department [address] [place] [address] Phone #: ext- [phone] 06/11/2020 09:38 Patient: YOLANDA PENA Sex: F : 1960 Age: 59y NOTES: Tremor / LE weakness Reason for Study: WeaknessMEDICATION/IV/DRIP/FLUID ORDERSOrder Description Priority Entered Acknowledged InitialedNitroGLYCERIN 09:52 06/11/2020 10:08 PeterTopical Ointment Mitch Perez RN1 in. Physician;Adrianna Levi Tx 3 09:52 06/11/2020 10:09 Vishal (NOW) Mitch Perez RN Physician;SOLU-Medrol 125 09:52 06/11/2020 10:10 Petermg IV X1 Dose: 125 Mitch Perez RNmg (X1) Physician;Ativan IVP 1 mg 10:06 06/11/2020 10:15 Jose G(HIGH ALERT Mitch Perez RNMEDICATION, Physician;NOW)GENERAL ORDERSOrder Description Priority Entered Acknowledged InitialedCardiac Monitor 09:51 06/11/2020 09:57 Jose G(continuous) Mitch Perez RN Physician;EKG 09:51 06/11/2020 09:57 Joes G Perez RN Physician;Pulse oximeter 09:51 06/11/2020 09:57 Jose G(Continuous) Mitch Perez RN Physician;Saline Lock 09:51 06/11/2020 09:57 Jose G Perez RN Physician;[Electronically signed by Jose G Perez RN (16:04 06/11/2020)][Electronically signed by Mitch Plascencia Physician (00:09 06/12/2020)][Electronically locked by Jose G Perez RN (16:04 06/11/2020)] Name Value Range Interpretation Code Description Data Ely rce(s) Supporting Document(s) ID Date Data Source [id number] 06/11/2020 09:38:00 AM EDT [facility] 1 Medication Reconciliation Report [facility] Emergency Department [address] [place] [address] Phone #: ext - [phone] 06/11/2020 09:38 Patient: YOLANDA PENA Sex: F : 1960 Age: 59yWeight: 64.8 kgHeight/Length: 63 in.BMI: 25.3ALLERGIES: Advil, Aleve, ZofranThe patient's Home Medications are listed below:THE FOLLOWING MEDICATIONS NEED TO BE RECONCILED: Aspir-81 Oral, daily Aspirin Adult Low Dose Oral Atorvastatin Calcium Oral 80 mg, daily Calcitriol Oral CarBAMazepine Oral 200 mg, 2x a day Lasix Oral 120mg, daily Lexapro Oral 10 mg, daily Magnesium Oral 200 mg, daily Plavix Oral 75 mg, daily SEROquel Oral (400 mg) 1 tablet, dailyThe source(s) of the original Home Medication information:patient's pill bottlesThe following Medications were given to the patient in the Emergency Department:NITROGLYCERIN [TOPICAL OINTMENT] Topical 1 in., administered: 06/11/2020 10:03:00 AMDuoneb [Neb Tx] Neb TX 1 unit dose, administered: 06/11/2020 10:03:00 AM 2 Medication Reconciliation Report [facility] Emergency Department [address] [place] [address] Phone #: ext- [phone] 06/11/2020 09:38 -- Patient: YOLANDA PENA Sex: F : 1960 Age: 59ySolu- Medrol [IVP] IVP 125 mg, administered: 06/11/2020 10:05:00 AMAtivan [IVP] IVP 1 mg, administered: 06/11/2020 10:15:00 AMThe following Medications were prescribed to the patient:None. Name Value Range Interpretation Code Description Data Ely rce(s) Supporting Document(s) ID Date Data Source [id number] 06/11/2020 09:38:00 AM EDT [facility] 1 Medication Administration Record [facility] Emergency Department [address] [place] [address] Phone #: ext- [phone] 06/11/2020 09:38 Patient: YOLANDA PENA Sex: F : 1960 Age: 59yWeight: 64.8 kgHeight/Length: 63 inBMI: 25.3ALLERGIES: Aleve, Advil, Zofran Date/Time Medication Administered Medication OrderedGiven NITROGLYCERIN [TOPICAL OINTMENT] NitroGLYCERIN Dbxxbfp12:03 06/11/2020 Dose: 1 in. Ointment Topical Ointment 1 in.Jose G Peerz RNGiven DUONEB [NEB TX] DuoNeb Neb Tx 3 mL (NOW)10:03 06/11/2020 Dose: 1 unit dose Nebulizer Neb TXPeKevin Salinasven SOLU-MEDROL [IVP] SOLU-Medrol 125 mg IV X1 Dose:10:05 06/11/2020 (METHYLPREDNISOLONE SODIUM 125 mg (X1)Jose G Perez RN SUCC) Dose: 125 mg IVP Site: #1 left ACGiven ATIVAN [IVP] (LORAZEPAM) Ativan IVP 1 mg (HIGH ALERT10:15 06/11/2020 Dose: 1 mg IVP MEDICATION, NOW)Jose G Perez RN Site: #1 left AC Name Value Range Interpretation Code Description Data Ely rce(s) Supporting Document(s) ID Date Data Source [id number] 06/11/2020 09:38:00 AM EDT [facility] 1 General Instructions [facility] Emergency Department [address] [place] [address] Phone #: ext- [phone] 06/11/2020 09:38 Patient: YOLANDA PENA Sex: F : 1960 Age: 59yPrecordial chest pain characterized as "discomfort", "pressure" and "tightn ess".(Electronically signed by Mitch Plascencia, Physician 06/12/2020 00:09) Name Value Range Interpretation Code Description Data Ely rce(s) Supporting Document(s) ID Date Data Source [id number] 06/11/2020 09:38:00 AM EDT [facility] 1 Clinical Report - Nurses [facility] Emergency Department [address] [place] [address] Phone #: ext- [phone] 06/11/2020 09:38 Patient: YOLANDA PENA Sex: F : 1960 Age: 59yTRIAGEArrived by EMS. Historian: patient.Triage time: late entry - 09:38 06/11/2020. Acuity: LEVEL 3.Chief Complaint: CHEST PAIN.Alert. No acute distress.This started today. Onset. (0700). ( Pt state she was sitting on her couch drinking coffee, a different typethan she is used to and suddenly developed central chest pain; Pt also complains of bilateral legweakness; Pt very fidgety during triage, fingers have constant movement, pt states this is not normal forher and she does not feel anxious.).EMS Treatment PRACTICING DERMATOLOGIST:ASA 244 mg via EMS, pt took 81 at home PO. NITROGLYCERIN did not give more d/t SBP [id number] X1 SL.SEPSIS SCREEN: SIRS Screen negative. Sepsis Screen negative . No suspected or confirmed signs ofinfection present. (10:05 06/11/2020). --10:05 06/11/20 Bonnie Atkinson R.N.09:57 06/11/20. BP: 116/81. MAP: 92. HR: 78. RR: 18. O2 saturation: 94% on room air. Temp: 98.3 F(oral). Pain level now: 04/19. --10:05 06/11/20 Bonnie Atkinson R.N.Weight: 64.8 kg stated. Height/Length: 63 inches Per Patient. BMI: 25.3. --09:38 8/2/20 Bonnie Atkinson R.N.MedicationsAspir-81 Oral, daily. Aspirin Adult Low Dose Oral. Atorvastatin Calcium Oral 80 mg, daily. --10:02 06/11/20 Jose G Perez RN Calcitriol Oral. CarBAMazepine Oral 200 mg, 2x a day. Lasix Oral 120mg, daily. Lexapro Oral 10 mg, daily. Magnesium Oral 200 mg, daily. Plavix Oral 75 mg, daily. SEROquel Oral (Tablet 400 mg) 1 tablet, daily. --10:02 06/11/20 Jose G Perez RN.AllergiesAleve. Probable Moderate(confusion) --10:02 06/11/20 Jose G Perez RN.PROBLEMS: 2 Clinical Report - Nurses [facility] Emergency Department [address] [place] [address] Phone #: ext- [phone] 06/11/2020 09:38 Patient: YOLANDA PENA Sex: F : 1960 Age: 59yBipolar Disorder.Stage 3 kidney disease.Hypertension.Pneum onia.Emphysema.Asthma.Diabetes Mellitus.Acute Myocardial Infarction.COPD - Chronic Obstructive Pulmonary Disease. --10:04 06/11/20 Bonnie Atkinson R.N.Medication/allergy information source: the patient's pill bottles. --10:05 06/11/20 Bonnie Atkinson R.N.ADDITIONAL SURGERIES:Appendectomy.Breast Biopsy.C section.Cardiac stenting.Cataract Surgery.Cholecystectomy.Ganglion cyst. --10:04 06/11/20 Bonnie Atkinson R.N.HistoryPAST MEDICAL HX: Immunizations: up-to-date. The patient is post-menopausal.SOCIAL HX: Former smoker. No alcohol use or drug use. She was offered HIV testing but declined.Patient education was provided. She was offered hepatitis C testing but declined. Patient education wasprovided. ( COVID screen negative). She has not traveled outside the [place]Infectious disease exposure: No infectious disease exposure. Patient is not a known carrier of tuberculosis,hepatitis, HIV, MRSA or VRE. Patient is not a known carrier of CRE.SELF HARM ASSESSMENT: Self harm assessment was performed. The patient answered "no" to thequestion(s) "Do you have thoughts of harming or killing yourself?" and "Do you have a plan for harming orkilling yourself?".ABUSE ASSESSMENT: Abuse assessment. The patient had positive responses to the question(s) "Do youfeel safe in your home?". Abuse denied. No suspicion of abuse. No report of abuse.NUTRITIONAL RISK ASSESSMENT: The nutritional risk assessment revealed no deficiencies.FUNCTIONAL ASSESSMENT: Functional assessment: no impairments noted.LEARNING NEEDS ASSESSMENT: The learning needs assessment revealed no barriers.FALL RISK ASSESSMENT: Fall risk assessment completed. No risk factors identified. 3 Clinical Report - Nurses [facility] Emergency Department [address] [place] [address] Phone #: ext- [phone] 06/11/2020 09:38 Patient: YOLANDA PENA Sex: F : 1960 Age: 59y SKIN INTEGRITY ASSESSMENT: Skin integrity risk assessment completed. No skin integrity risk identified. --10:05 06/11/20 Bonnie Atkinson R.N. Interventions Identification band on patient. --10:05 06/11/20 Bonnie Atkinson R.N.PHYSICAL ASSESSMENTTo room via stretcher. Patient gowned.GENERAL / NEURO / PSYCH: Alert. Oriented X 4. Appears in no acute distress. ( Pt constantlymoving fingers/hands and states she is unable to stop.).HEENT: Mucous membranes are pink.RESPIRATORY: Respirations not labored. Chest pain reproducible. Mid- and lower sternal tenderness.The tenderness reproduces the patient's subjective complaint. Breath sounds within normal limits.CVS: Heart sounds within normal limits. Pulses within normal limits. Capillary refill less than 2 seconds.GI / : Abdomen soft and nontender.SKIN: Skin is warm and dry. Normal skin turgor. --10:07 06/11/20 Bonnie Atkinson R.N.NURSING PROGRESS NOTESCardiac monitor, NIBP monitor and pulse oximeter placed on patient; clinical research monitor- Lead II; monitoralarms on; monitor strip added to paper chart. Patient gowned. Reassurance given. Three patientidentifiers checked. Call light placed in reach. Side rails up x 2. Bed placed in lowest position. Brakesof bed on. Patient ready for evaluation- ED physician notified. --10:08 06/11/20 Bonnie Atkinson R.N. EKG time: (late entry - 09:40 06/11/2020). EKG was ordered, performed by a nurse and shown to the ED physician. --10:06/11/20 Bonnie Atkinson R.N. 09:50 06/11/2020 Site #1 started via IV in the left antecubital space with an 18g angiocath, with aseptic technique and good blood return; one attempt. Blood drawn: purple tube(s). Labeled in the presence of the patient and sent to the lab. Saline lock flushed with 10 mL saline (blood drawn per Ana Cristina CASANOVA, IV per EMS). --10:10 06/11/20 Jose G Perez RN 10:03 06/11/2020 NITROGLYCERIN Topical Ointment 1 inch given. Allergies verified and confirmed 5 rights. Information reviewed with patient including reason for taking this medication. Verbalizes understanding. (applied to left anterior chest). --10:06/11/20 Jose G Perez RN 10:03 06/11/2020 Duoneb Neb TX Nebulizer 1 unit dose given. Given by the nurse. Allergies verified and confirmed 5 rights. Information reviewed with patient including reason for taking this medication. Verbalizes understanding. --10:06/11/20 Jose G Perez RN 10:05 06/11/2020 Solu-Medrol (methylPREDNISolone Sodium Succ) IVP 125 mg given over 2 minute(s) via site #1. Allergies verified and confirmed 5 rights. IV patency established. IV site checked: no pain, redness, or swelling. IV flushed thoroughly pre- and post-medication administration. IVP given by RN. Information reviewed with patient including reason for taking this medication. Verbalizes understanding. --10:10 06/11/20 Jose G Perez RN 4 Clinical Report - Nurses [facility] Emergency Department [address] [place] [address] Phone #: ext- [phone] 06/11/2020 09:38 Patient: YOLANDA PENA Sex: F : 1960 Age: 59y 10:15 06/11/2020 Ativan (LORazepam) IVP 1 mg given over 3 minute(s) via site #1. Allergies verified and confirmed 5 rights. IV patency established. IV site checked: no pain, redness, or swelling. IV flushed thoroughly pre- and post- medication administration. IVP given by RN. Information reviewed with patient including reason for taking this medication and sedative warning. Verbalizes understanding. --10:15 06/11/20 Jose G Perez RN Patient transported to CT by wheelchair with lead quality control technician. --10:39 06/11/20 Jose G Perez RN Patient returned from CT by wheelchair with lead quality control technician. --10:49 06/11/20 Jose G Perez RN ( pt remains awake and alert, continues to voices lower sternal chest pain, is now to be admitted to AIU). --13:55 06/11/20 Jose G Perez RN 13:54 06/11/20. BP: 121/75. MAP: 90. HR: 81. RR: 16. O2 saturation: 95%. Pain level now: 03/19. --13:55 06/11/20 Jose G Perez RN.DISPOSITION / DISCHARGE Disposition: observation for further evaluation and cardiac monitoring. Transported via wheelchair by nurse with monitor. Report was given in person and at bedside. Bed obtained and ready (rm 107). --15:45 06/11/20 Jose G Perez RN 15:44 06/11/20. BP: 115/78. MAP: 90. HR: 80. RR: 16. O2 saturation: 95%. Temp: 98.5 F. Pain level now: 04/19. --15:45 06/11/20 Jose G Perez RN Departure time: 15:49 06/11/2020. --15:49 06/11/20 Jose G Perez RN 15:53 06/11/20. Report was given to a nurse in person and at bedside. Report included information regarding patient's care and treatment, current and abnormal vital signs and abnormal labs. Report included treatment information regarding medications given or pending; type and amount of IV fluids and medications infusing and total volume infused. All questions were answered. Report was acknowledged and care was transferred. (Marah CASANOVA/ Hoda CASANOVA). --16:04 06/11/20 Jose G Perez RN.Locked/Released at 06/11/2020 16:04 by Jose G Perez RN Name Value Range Interpretation Code Description Data Ely rce(s) Supporting Document(s) ID Date Data Source [id number] 06/11/2020 09:38:00 AM EDT [facility] 1 Clinical Report - Physicians/Mid Levels [facility] Emergency Department [address] [place] [address] Phone #: ext- [phone] 06/11/2020 09:38 [id number] Sex[facility] F : 1960 Age: 59y Time Seen: 09:44 06/11/2020. Arrived- By private vehicle. Historian- patient. Disposition decision: 14:32 06/11/2020.HISTORY OF PRESENT ILLNESS Chief Complaint: CHEST PAIN and DISCOMFORT. SHORTNESS OF BREATH and ANXIETY Chest pressure. It is described as pressure, tightness, aching, "pain" and well localized. This started at 7 AM and is still present. It was abrupt in onset and has been waxing/waning. Onset during light activity. When seen in the E.D., severity described as 6 / 10. Modifying factors- worsened by exertion, movement, walking and cough. No nausea, vomiting or diaphoresis. She has had mild difficulty breathing at rest. Similar symptoms previously. Patient has had similar symptoms occasionally. Recent medical care: Not recently seen/assessed.REVIEW OF SYSTEMSNo fever, chills, cough, pedal edema or calf pain. No missed periods, abnormal bleeding, vaginaldischarge, fainting episodes or headache. No sore throat, blurred vision, abdominal pain, black stools ordifficulty with urination. No skin rash, enlarged lymph nodes, joint pain or bloody stools.PAST HISTORYPast history not negative. See nurses notes. Diabetes mellitus. Heart disease. Coronary arterydisease. Lung disease. Renal disease. Other disease. Hyperlipidemia. COPD / Pneumonia /Emphysema / AsthmaAMIBipolarStage 3 Kidney diseaseHyperlipidemia. Surgeries: Appendectomy. Bariatric surgery- gastric bypass. Breast biopsy. . Cataract surgery. Cholecystectomy. (Cardiac stenting Ganglion cyst).SOCIAL HISTORYFormer smoker. No alcohol use or drug use. No recent travel.ADDITIONAL NOTESThe nursing notes have been reviewed with agreement regarding the chief complaint, HPI, ROS, PMH andpatient medications and allergies.PHYSICAL EXAMVital Signs: 06/11/2020 09:57 BP: 116/81. MAP: 92. HR: 78. RR: 18. O2 saturation: 94% on room air. 2 Clinical Report - Physicians/Mid Levels [facility] Emergency Department [address] [place] [address] Phone #: ext- [phone] 06/11/2020 09:38 Patient: YOLANDA PENA Sex: F : 1960 Age: 59y Temp: 98.3 F. Pain level now: 04/19. Have been reviewed and appear to be correct. Blood pressure normal. Heart rate normal. Respiratory rate normal. Temperature normal. Oxygen saturation low. Appearance: Alert. Oriented X3. Anxious. Patient in moderate distress. In distress. (Tremorous / Anxious). Eyes: Pupils equal, round and reactive to light. Eyes inspection not normal. Pale conjunctivae. ENT: Nose normal. Pharynx normal. Neck: Normal inspection. Neck supple. CVS: Normal heart rate and rhythm. Heart sounds normal. Pulses normal. Respiratory: No respiratory distress. Breath sounds abnormal. Mildly decreased air movement diffusely over both lungs. Painless inspiration. Chest nontender. Abdomen: Soft and nontender. Bowel sounds normal. No organomegaly. No mass. Back: Normal external inspection. Skin: Skin warm and dry. Abnormal skin color. No rash. Normal skin turgor. Pallor. Extremities: Extremities exhibit normal ROM. No lower extremity edema. Neuro: Oriented X 3. No motor deficit. No sensory deficit. (Tremor (widespread) - Face / UEs / LEs).LABS, X-RAYS, AND EKGLaboratory Tests: Laboratory tests have been ordered, with results reviewed and considered in themedical decision making process. Troponin-T: (SHANNAN: 06/11/2020 12:48) ( [facility] 06/11/2020 13:23) Final results Test Result Flag Units (Reference) TROPONIN T <0.01 NG/ML (0.00 - 0.10) TROPONIN T0.1 ng/ml Recommended as the clinical threshold value forTroponin T. CT Head W/O Cont: (SHANNAN: 06/11/2020 10:00) ( [facility] 06/11/2020 12:25) In Progress CT HEAD W/O CONTRAST Reason(s): Weakness TRANSPORTATION: S IV? O2? Oxygen?(No) Room: ED : Menopause CMTS: Tremor / LE weakness Exam CT HEAD W/[place] [address] PHONE: [phone] FAX: [phone] Name .................. : BECKY Rogers Acct Number.................. : [id number] ROOM. ................. : TR-05 Number ................... : [id number] Stay type ............. : E/R Discharge Date......... ... : Admit Date ......... : 06/11/20 Admit Phys .................... : THAIS SANFORD Date of ....... : 1960 Family Phys ................... : BLACK CHRI Phone .................. : [phone] Age ................................ : 59 Film# .................. .:[id number] Sex ................................. : F Unsigned transcriptions are preliminary reports and do not represent a medical or legal document CT HEAD W/O CONTRAST [id number] COMPLETE:06/11/20 11:10 [facility] [id number] Reason(s): Weakness 3 Clinical Report - Physicians/Mid Levels [facility] Emergency Department [address] [place] [address] Phone #: ext- [phone] 06/11/2020 09:38 Patient: YOLNADA PENA Sex: F : 1960 Age: 59y CT OF THE HEAD WITHOUT CONTRAST: FINDINGS: No intra-axial or extra-axial collections of fluid. Ventricles and sulci unremarkable. No midline shift or mass effect. Visualized paranasal sinuses and mastoid air cells unremarkable. IMPRESSION: No acute intracranial process. While performing the above CT examination, radiation dose reduction was accomplished utilizing automated exposure control, adjusting of the mA and kV based on the patient's body size and/or the use of imperative reconstructive techniques. CT dose: mGycm Electronically Reviewed and Signed By DCTNAME , SIGNDATE, RANJITH Transcribe Initials: DZ , Transcribe Date: 06/11/20 12:24, Dictation Date: <<REPDIST>> Page 1 of 1BNP: (SHANNAN: 06/11/2020 09:50) ( MsgRcvd 06/11/2020 10:38) Final results Test Result Flag Units (Reference) BNP 99 PG/ML (0 - 125)CMP: (SHANNAN: 06/11/2020 09:50) ( MsgRcvd 06/11/2020 10:39) Final results Test Result Flag Units (Reference) COMPREHENSIVE METABOLIC PANEL COMPREHENSIVE METABOLIC PANEL SODIUM 135 mEq/L (134 - 153) POTASSIUM 4.1 mEq/L (3.6 - 5.0) CHLORIDE 101 mEq/L (98 - 107) CO2 26 MEQ/L (22 - 30) GLUCOSE 120 H MG/DL (65 - 110) BUN 22 H MG/DL (7 - 21) CREATININE 1.1 MG/DL (0.7 - 1.5) BUN/CREAT 20 (8 - 27) TOTAL PROTEIN 6.0 L G/DL (6.3 - 8.2) ALBUMIN 4.2 G/DL (3.9 - 5.0) GLOBULIN 1.8 L GM/DL (2.4 - 3.2) A/G RATIO 2.3 H (0.8 - 2.0) CALCIUM 8.9 MG/DL (8.4 - 10.2) TOTAL BILI <0.7 MG/DL (0.2 - 1.3) ALKALINE PHOS 82 U/L (38 - 126) SGOT/AST 49 H U/L (5 - 40) SGPT/ALT 50 U/L (7 - 56) 4 Clinical Report - Physicians/Mid Levels [facility] Emergency Department [address] [place] [address] Phone #: ext- [phone] 06/11/2020 09:38 Patient: YOLANDA PENA Sex: F : 1960 Age: 59y ANION GAP 8.0 mmol/L (8.0 - 16.0) AGE 59 yrs NON-AA GFR 54 mL/min AFR AMER GFR >60 Male GFR Interprentation 20-49 yrs >60 mL/min Eojeud74-05 yrs >56 mL/min Normal 60-69 yrs >49 mL/min Normal 70-79yrs>42 mL/min Normal 80 and above >35 mL/min Normal Female GFRInterpretation 20-39 yrs >60 mL/min Normal 40-49 yrs >58 mL/minNormal 50-59 yrs >51 mL/min Normal 60-69 yrs >45 mL/min Plncwv31-98 yrs >39 mL/min Normal 80 and above >32 mL/min NormalCBC w Diff: (SHANNAN: 06/11/2020 09:50) ( MsgRcvd 06/11/2020 10:17) Final results Test Result Flag Units (Reference) CBC W/AUTOMATED DIFF COMPLETE BLOOD COUNT WBC 5.2 10/uL (4.2 - 11.0) RBC 3.12 L 10/uL (4.20 - 5.40) HEMOGLOBIN 11.2 L g/dL (12.0 - 16.0) HEMATOCRIT 32.9 L % (37.0 - 47.0) MCV 105.4 H fL (81.0 - 101) MCH 35.9 H pg (27.0 - 34.0) MCHC 34.0 g/dL (31.0 - 36.0) RDW 11.6 % (11.5 - 14.5) PLATELETS 145 L 10/uL (150 - 450) MPV 8.6 fL (7.4 - 10.4) NEUT 74.4 % (37.0 - 80.0) LYMPH 18.7 L % (25.0 - 40.0) MONO 5.0 % (3.0 - 8.0) EOS 1.5 % (0.0 - 7.0) BASO 0.2 % (0.0 - 2.5) %IG 0.2 H % (0.0 - 0.0) %NRBC 0.0 % (0.0 - 0.0) #NEUT 3.86 10/uL (2.00 - 6.90) #LYMPH 0.97 10/uL (0.60 - 3.40) #MONO 0.26 10/uL (0.00 - 0.90) #EOS 0.08 10/uL (0.00 - 0.70) #BASO 0.01 10/uL (0.00 - 0.20) #IG 0.01 10/uL (0.00 - 0.10) #NRBC 0.00 10/uL (0.00 - 0.00) MANUAL DIFF NOT INDICATED RBC MORPH NOT INDICATEDD-Dimer: (SHANNAN: 06/11/2020 09:50) ( [facility] 06/11/2020 10:15) Final results Test Result Flag Units (Reference) D-DIMER QUANT 0.42 ug/mL (0.27 - 0.50)Chest Portable 1 View: (SHANNAN: 06/11/2020 09:51) ( [facility] 06/11/2020 10:29) In ProgressCHEST PORTABLEReason(s): Chest PainTRANSPORTATION: S IV? O2? Oxygen?(No) Room: ED [place] [address] PHONE: [phone] FAX: [phone] Clinical Report - Physicians/Mid Levels [facility] Emergency Department [address] [place] [address] Phone #: ext- [phone] 06/11/2020 09:38 Patient: YOLANDA PENA Sex: F : 1960 Age: 59y Name .................. : BECKY Rogers Acct Number.................. : [id number] ROOM. ................. : [address] Number ................... : [id number] Stay type ............. : E/R Discharge Date......... ... : Admit Date ......... : 06/11/20 Admit Phys .................... : THAIS CHRISTINA Date of ....... : 1960 Family Phys ................... : BLACK [employer] Phone .................. : [phone] Age ................................ : 59 Film# .................. .:[id number] Sex ................................. : F Unsigned transcriptions are preliminary reports and do not represent a medical or legal document CHEST PORTABLE [id number] COMPLETE:06/11/20 10:04 [facility] [id number] Reason(s): Chest Pain PORTABLE CHEST X-RAY: HISTORY: Chest pain. COMPARISON: 09/21/17 FINDINGS: Mild cardiomegaly Pulmonary vessels are normal in caliber. The aorta is calcified. Linear atelectasis is present at the right lung base. The lungs are otherwise clear. No pleural effusion. IMPRESSION: Right basilar atelectasis without acute cardiopulmonary disease. Electronically Reviewed and Signed By DCTNAME , SIGNDATE, GRISELDA Transcribe Initials: KATARINA , Transcribe Date: 06/11/20 10:21, Dictation Date: <<REPDIST>> Page 1 of 1 Troponin-T: (SHANNAN: 06/11/2020 09:50) ( MsgRcvd 06/11/2020 10:38) Final results Test Result Flag Units (Reference) TROPONIN T <0.01 NG/ML (0.00 - 0.10) TROPONIN T0.1 ng/ml Recommended as the clinical threshold value forTropomao T. . Note - Tests: (CXR - R basilar atelectasis. EKG - NSR, poss. LAE).PROGRESS AND PROCEDURESCourse of Care: 11:42 Jun 11 2020. Patient is stable. Symptoms better. 6 Clinical Report - Physicians/Mid Levels [facility] Emergency Department [address] [place] [address] Phone #: ext- [phone] 06/11/2020 09:38 Patient: YOLANDA PENA Sex: F : 1960 Age: 59y 13:37 Jun 11 2020. I just spoke with Dr. Mullins and he will be by to evaluate for observation admit for chest pain. 14:[address] Mullins is working on orders to admit pt. for observation overnight. Repeat troponin was negative (after 3 hours). Critical care performed (130 minutes). Time is exclusive of separately billable procedures. Time includes: direct patient care, patient reassessment, coordination of patient care, interpretation of data (laboratory data, pulse oximetry and chest xrays), review of patient's medical records, medical consultation, family consultation regarding treatment decisions and documentation of patient care- see progress notes. Procedures included in critical care time: peripheral IV placement and phlebotomy- see progress notes. Disposition: Observation in the Acute Inpatient Unit, Monitored. 14:30 Jun 11 2020 Admit to observation status for chest pain to Dr. Mullins. UTI (catheter associated) was not present prior to being placed in observation. Pressure ulcer was not present prior to being placed in observation. Vascular infection (catheter associated)n was not present prior to being placed in observation. Surgical site infection was not present prior to being placed in observation. An object left in surgery was not present prior to being placed in observation. Blood incompatibility was not present prior to being placed in observation. Air embolism was not present prior to being placed in observation.CLINICAL IMPRESSION Precordial chest pain characterized as "discomfort", "pressure" and "tightness".(Electronically signed by Mitch Plascencia, Physician 06/12/2020 00:09) Name Value Range Interpretation Code Description Data Ely rce(s) Supporting Document(s) ID Date Data Source [id number] 06/11/2020 08:49:00 PM EDT [facility] Name Value Range Interpretation Code Description Data Ely rce(s) Supporting Document(s) [facility] yellow NORMAL: Yellow [facility] CLARITY clear NORMAL: Clear [facility] Specific gravity of Urine by Test strip 1.010 1.001 - 1.030 [facility] pH 5 5 - 9 [facility] Glucose [Mass/volume] in Urine by Test strip NORM NORMAL: Negat [facility] Bilirubin.total [Presence] in Urine by Test strip NEG NORMAL: Negative [facility] Ketones [Presence] in Urine by Test strip NEG NORMAL: Negative [facility] Protein [Mass/volume] in Urine by Test strip NEG NORMAL: Negat [facility] Nitrite [Presence] in Urine by Test strip NEG NORMAL: Negative [facility] BLOOD NEG NORMAL: Negative [facility] Leukocyte esterase [Presence] in Urine by Test strip 25 DEAN L: Negative [facility] Urobilinogen [Mass/volume] in Urine by Test strip NOR less oscar n 1.0 mg/dL [facility] MICROSCOPIC See Below [facility] ital WBC 0 - 1 NORMAL: NONE SEEN [facility] Erythrocytes [#/volume] in Urine by Test strip None Seen NORMAL: NON E SEEN [facility] EPITHELIAL None Seen NORMAL: NONE SEEN [facility] Bacteria [Presence] in Urine sediment by Light microscopy No ne Seen NORMAL: NONE SEEN [facility] ID Date Data Source [id number] 06/11/2020 05:24:00 PM EDT [facility] Name Value Range Interpretation Code Description Data Ely rce(s) Supporting Document(s) TROPONIN T <0.01 NG/ML 0.00 - 0.10 [facility] ospital TROPONIN T0.1 ng/ml Recommended as the c linical threshold value forTroponin T. ID Date Data Source [id number] 06/11/2020 01:23:00 PM EDT [facility] Name Value Range Interpretation Code Description Data Ely rce(s) Supporting Document(s) TROPONIN T <0.01 NG/ML 0.00 - 0.10 [facility] ospital TROPONIN T0.1 ng/ml Recommended as the c linical threshold value forTroponin T. ID Date Data Source [id number] 06/11/2020 10:38:00 AM EDT [facility] Name Value Range Interpretation Code Description Data Ely rce(s) Supporting Document(s) COMPREHENSIVE METABOLIC PANEL [facility] COMPREHENSIVE METABOLIC PANEL Sodium [Moles/volume] in Serum or Plasma 135 mEq/L 134 - 153 [facility] Potassium [Moles/volume] in Serum or Plasma 4.1 mEq/L 3.6 - 5.0 [facility] Chloride [Moles/volume] in Serum or Plasma 101 mEq/L 98 - 107 [facility] Carbon dioxide, total [Moles/volume] in Serum or Plasma 26 MEQ/L 22 - 30 [facility] Glucose [Mass/volume] in Serum or Plasma 120 MG/DL 65 - 110 H [facility] BUN 22 MG/DL 7 - 21 H [facility] Creatinine [Mass/volume] in Serum or Plasma 1.1 MG/DL 0.7 - 1.5 [facility] BUN/CREAT 20 8 - 27 [facility] al Protein [Mass/volume] in Serum or Plasma 6.0 G/DL 6.3 - 8.2 L [facility] Albumin [Mass/volume] in Serum or Plasma 4.2 G/DL 3.9 - 5.0 [facility] Globulin [Mass/volume] in Serum by calculation 1.8 GM/DL 2.4 - 3.2 L [facility] A/G RATIO 2.3 0.8 - 2.0 H [facility] al Calcium [Mass/volume] in Serum or Plasma 8.9 MG/DL 8.4 - 10.2 [facility] Bilirubin.total [Mass/volume] in Serum or Plasma <0.7 MG/DL 0.2 - 1.3 [facility] Alkaline phosphatase [Enzymatic activity/volume] in Serum or Plasma 82 U/L 38 - 126 [facility] Aspartate aminotransferase [Enzymatic activity/volume] in Serum or Plasma 49 U/L 5 - 40 H [facility] Alanine aminotransferase [Enzymatic activity/volume] in Seru m or Plasma 50 U/L 7 - 56 [facility] Anion gap 3 in Serum or Plasma 8.0 mmol/L 8.0 - 16.0 [facility] AGE 59 yrs [facility] al NON-AA GFR 54 mL/min [facility] AFR AMER GFR >60 [facility] Male GFR In terprentation 20-49 yrs >60 mL/min Normal 50-59 yrs >56 mL/min Normal 60-69 yrs >49 mL/min Normal 70-79yrs >42 mL/min Normal 80 and above >35 mL/min Normal Female GFR Interpretation 20-39 yrs >60 mL/min Normal 40-49 yrs >58 mL/min Normal 50-59 yrs >51 mL/min Normal 60-69 yrs >45 mL/min Normal 70-79 yrs >39 mL/min Normal 80 and above >32 mL/min Normal ID Date Data Source [id number] 06/11/2020 10:38:00 AM EDT [facility] Name Value Range Interpretation Code Description Data Ely rce(s) Supporting Document(s) TROPONIN T <0.01 NG/ML 0.00 - 0.10 [facility] ospital TROPONIN T0.1 ng/ml Recommended as the c linical threshold value forTroponin T. ID Date Data Source [id number] 06/11/2020 10:38:00 AM EDT [facility] Name Value Range Interpretation Code Description Data Ely rce(s) Supporting Document(s) BNP 99 PG/ML 0 - 125 [facility] ID Date Data Source [id number] 06/11/2020 10:17:00 AM EDT [facility] Name Value Range Interpretation Code Description Data Ely rce(s) Supporting Document(s) CBC W/AUTOMATED DIFF [facility] COMPLETE BLOOD COUNT Leukocytes [#/volume] in Blood by Automated count 5.2 10^3/uL 4.2 - 1 1.0 [facility] Erythrocytes [#/volume] in Blood by Automated count 3.12 10^6/uL 4. 20 - 5.40 L [facility] Hemoglobin [Mass/volume] in Blood 11.2 g/dL 12.0 - 16.0 L [facility] Hematocrit [Volume Fraction] of Blood by Automated count 32.9 % 3 7.0 - 47.0 L [facility] Erythrocyte mean corpuscular volume [Entitic volume] b y Automated count 105.4 fL 81.0 - 101 H [facility] Erythrocyte mean corpuscular hemoglobin [Entitic mass] by Automated count 35.9 pg 27.0 - 34.0 H [facility] Erythrocyte mean corpuscular hemoglobin concentration [Mass/volume] by Automated count 34.0 g/dL 31.0 - 36.0 [facility] Erythrocyte distribution width [Ratio] by Automated count 11.6 % 11.5 - 14.5 [facility] Platelets [#/volume] in Blood by Automated count 145 10^3/uL 150 - 45 0 L [facility] Platelet mean volume [Entitic volume] in Blood by Automated count 8.6 fL 7.4 - 10.4 [facility] Neutrophils/100 leukocytes in Blood by Automated count 74.4 % 37. 0 - 80.0 [facility] Lymphocytes/100 leukocytes in Blood by Manual count 18.7 % 25.0 - 40.0 L [facility] Monocytes/100 leukocytes in Blood by Automated count 5.0 % 3.0 - 8.0 [facility] Eosinophils/100 leukocytes in Blood by Automated count 1.5 % 0.0 - 7.0 [facility] Basophils/100 leukocytes in Blood by Automated count 0.2 % 0.0 - 2.5 [facility] %IG 0.2 % 0.0 - 0.0 H [facility] al %NRBC 0.0 % 0.0 - 0.0 [facility] al Neutrophils [#/volume] in Blood by Automated count 3.86 10^3/uL 2.00 - 6.90 [facility] Lymphocytes [#/volume] in Blood by Automated count 0.97 10^3/uL 0.60 - 3.40 [facility] Monocytes [#/volume] in Blood by Automated count 0.26 10^3/uL 0.00 - 0.90 [facility] Eosinophils [#/volume] in Blood by Automated count 0.08 10^3/uL 0.00 - 0.70 [facility] Basophils [#/volume] in Blood by Automated count 0.01 10^3/uL 0.00 - 0.20 [facility] #IG 0.01 10^3/uL 0.00 - 0.10 [facility] #NRBC 0.00 10^3/uL 0.00 - 0.00 [facility] MANUAL DIFF NOT INDICATED [facility] RBC MORPH NOT INDICATED [facility] ID Date Data Source [id number] 06/11/2020 10:15:00 AM EDT [facility] Name Value Range Interpretation Code Description Data Ely rce(s) Supporting Document(s) Fibrin D-dimer FEU [Mass/volume] in Platelet poor plasma 0.42 ug /mL 0.27 - 0.50 [facility] ID Date Data Source [id number] 02/08/2020 10:02:00 AM EDT [facility] ([facility]) Name Value Range Interpretation Code Description Data Ely rce(s) Supporting Document(s) White Blood Count 4.0 4.0-10.0 [facility] ([facility]) Red Blood Count 3.32 4.00-5.40 [facility] ([facility]) Platelets 221 172-450 [facility] Hematocrit 36.7 36.0-47.0 [facility] ([facility]) Hemoglobin 12.1 12.0-16.0 [facility] ([facility]) ID Date Data Source [id number] 02/08/2020 10:02:00 AM EDT [facility] ([facility]) Name Value Range Interpretation Code Description Data Eyl rce(s) Supporting Document(s) Magnesium Level 1.68 [facility] ([facility]) ID Date Data Source [id number] 02/08/2020 10:02:00 AM EDT [facility] ([facility]) Name Value Range Interpretation Code Description Data Ely rce(s) Supporting Document(s) Blood Urea Nitrogen 16.6 5-21 [facility] ([facility]) Creatinine 1.05 0.6-1.5 [facility] ([facility]) Glucose 97 70-100 [facility] ([facility]) Glomerular filtration rate/1.73 sq M.pre dicted [Volume Rate/Area] in Serum or Plasma by Creatinine-based formula (MDRD) 53 [facility] ([facility]) Sodium 137.0 136-146 [facility] Potassium 4.60 3.5-5.3 [facility] Carbon Dioxide 29.7 20-32 [facility] ([facility]) Chloride 103.5 98-110 [facility] Calcium 9.12 8.4-10.4 [facility] Albumin 4.0 3.5-4.7 [facility] Phosphorus 3.34 [facility] ID Date Data Source [id number] 12/03/2019 12:00:00 AM EST [facility] Britta Youngblood MD Patient Name: YAN PENA [facility] Date of : 1960[place] [address] Date of Exam: 12/03/2019PH#: Fax: [phone] EXAM: HIP RIGHT UNILATERAL (COMPLETE) X-RAYCLINICAL INFORMATION: Bilateral hip pain, sciatica.COMPARISON: CT abdomen and pelvis in bone window settings 12/09/16.FINDINGS:AP and frogleg views were provided.The hip joint space is preserved. There is a tiny rim osteophyte in thefemoral head and at the acetabular roof. No flattening of the femoral orother changes of AVN. No fracture or focal lesion in the hip or proximalfemoral shaft. The acetabulum, pubic rami, symphysis pubis, visualizediliac bone and SI joint were unremarkable. There are some pelvicphleboliths present.IMPRESSION:Some mild hip degenerative change without acute bony finding.Clark Albert, JESSICA/Maximiliano you for referring YOLANDA PENA to our office. Electronically Signed - CLARK ALBERT MD 12/03/19 16:32 Name Value Range Interpretation Code Description Data Ely rce(s) Supporting Document(s) ID Date Data Source [id number] 12/03/2019 12:00:00 AM EST [facility] Britta Youngblood MD Patient Name: YAN PENA [facility] Date of : 1960[place] [address] Date of Exam: 12/03/2019#: Fax: [phone] EXAM: HIP LEFT UNILATERAL (COMPLETE) X-RAYCLINICAL INFORMATION: Bilateral hip pain, sciatica.COMPARISON: CT abdomen and pelvis in bone window settings 12/09/16.FINDINGS:AP and frogleg views were provided.The hip joint space is preserved. There is a tiny rim osteophyte in thefemoral head rim seen inferiorly and anteriorly on the AP and frogleg viewsrespectively. There is no acetabular roof osteophyte or joint spacenarrowing. The acetabulum, pubic rami, symphysis pubis, visualized iliacbone and SI joint were unremarkable. No focal lesion in the hip to suggestAVN or fracture.IMPRESSION:Minimal degenerative changes of the hip with small rim osteophyte,otherwise negative.Clark Albert, JESSICA/Maximiliano you for referring YOLANDA PENA to our office. Electronically Signed - CLARK ALBERT MD 12/03/19 16:32 Name Value Range Interpretation Code Description Data Ely rce(s) Supporting Document(s) ID Date Data Source [id number] 12/03/2019 12:00:00 AM EST [facility] Britta Youngblood MD Patient Name: YAN PENA [facility] Date of : 1960[place] [address] Date of Exam: 12/03/2019#: Fax: [phone] EXAM: LUMBOSACRAL SPINE (4 VIEWS)CLINICAL INFORMATION: Chronic low back pain, sciatica. No trauma.FINDINGS:There were no prior studies.Five views were provided.Disc spaces are markedly narrowed at L4-5 and L5-S1 with posteriorosteophytes and anterior osteophytes at both levels. There is mildnarrowing at the L3-4 disc space relatively preserving L2-3 and L1- 2.Anterior osteophytes at both those levels. There is facet arthropathy fromL4- 5 through L5-S1. No spondylolysis or spondylolisthesis. Loss oflordosis is noted which may be due to spasm or the degenerative disc/facetchange. Atherosclerotic calcifications throughout the aorta and iliacvessels. No aneurysm. Right upper quadrant clips from priorcholecystectomy. AP view shows pedicles, spinous and transverse processesintact. Sacral ala, foramina and SI joints symmetric.IMPRESSION:1. Degenerative disc disease worst at L4-5 and L5- S1 with facet arthriticchanges at those levels as well, lesser degenerative changes at the levelsabove as described. No compression deformity but straightening of thespine may reflect some spasm.2. right upper quadrant surgical clips consistent with priorcholecystectomy. There is anastomotic suture line in the left upperquadrant suggesting bariatric surgery.Clark Albert, JESSICA/Maximiliano you for referring YOLANDA PENA to our office. Electronically Signed - CLARK ALBERT MD 12/03/19 16:32 Name Value Range Interpretation Code Description Data Ely rce(s) Supporting Document(s) Procedure Social History Code Duration Value Status Description Data Source(s ) Smoking 07/20/2020 12:00:00 AM EDT Patient is a former smoker completed Patient is a former smoker [facility] ([facility], ) Alcohol intake 06/14/2020 12:00:00 AM EDT No completed [facility] Smoking 06/14/2020 12:00:00 AM EDT Former smoker completed Former smoker [facility] Smoking 03/13/2020 12:00:00 AM EDT Patient is a former smoker completed Patient is a former smoker JOSEPH ([facility]) Vital Signs ID Date Data Source UNK Name Value Range Interpretation Code Description Data Source(s) Body weight 68.494 kg 68.494 kg [facility], ) Body mass index (BMI) [Ratio] 27.6 kg/m2 27.6 k g/m2 [facility] ([facility], ) Body weight 151.00 [lb_av] 151.00 [lb_av] VARSHAEN T ([facility], ) Body height 62 [in_i] 62 [in_i] [facility] ([facility]) 5'2" Oxygen saturation in Arterial blood by Pulse oximetry 95 % 95 % [facility] ([facility]) Heart rate 78 /min 78 /min [facility] ([facility]) Diastolic blood pressure 90 mm[Hg] 90 mm[Hg] [facility] ([facility]) Systolic blood pressure 130 mm[Hg] 130 mm[Hg] Cricket [place] ([facility], ) Oxygen saturation in Arterial blood by Pulse oximetry 94 % 94 % [facility] Respiratory rate 18 /min 18 /min [facility] Body temperature 36.[address] [facility] Heart rate 75 /min 75 /min [facility] Diastolic blood pressure 62 mm[Hg] 62 mm[Hg] [facility] Systolic blood pressure 109 mm[Hg] 109 mm[Hg] [facility] Body mass index (BMI) [Ratio] 25.66 kg/m2 25.66 kg/m2 [facility] Body weight 65.[address] [facility] Body height [address] [facility] Systolic blood pressure 112 mm[Hg] 112 mm[Hg] [place] ([facility]) Body weight 66.679 kg 66.679 kg [facility] ([facility]) Body mass index (BMI) [Ratio] 26.9 kg/m2 26.9 k g/m2 [facility] ([facility]) Body weight 147.00 [lb_av] 147.00 [lb_av] MEDEN T ([facility]) Body height 62 [in_i] 62 [in_i] [facility] ([facility]) 5'2" Diastolic blood pressure 72 mm[Hg] 72 mm[Hg] [facility] ([facility]) Diastolic blood pressure 74 mm[Hg] 74 mm[Hg] [facility] ([facility]) sitting Systolic blood pressure 124 mm[Hg] 124 mm[Hg] [facility] sitting Diastolic blood pressure 74 mm[Hg] 74 mm[Hg] [facility] ([facility]) sitting, regular cuff Systolic blood pressure 128 mm[Hg] 128 mm[Hg] [facility] ([facility]) sitting, regular cuff Respiratory rate 16 /min 16 /min [facility] ( [facility]) Heart rate 60 /min 60 /min [facility] ([facility]) Regular Body mass index (BMI) [Ratio] 25.9 kg/m2 25.9 k g/m2 [facility] Body height 63 [in_i] 63 [in_i] [facility] ([facility]) 5'3" Body weight 146.00 [lb_av] 146.00 [lb_av] MEDEN T ([facility]) Heart rate 65 /min 65 /min [facility] ([facility]) Diastolic blood pressure 80 mm[Hg] 80 mm[Hg] [facility] ([facility]) Systolic blood pressure 122 mm[Hg] 122 mm[Hg] [facility] ([facility]) Body weight 66.679 kg 66.679 kg [facility] ([facility]) Body mass index (BMI) [Ratio] 26.9 kg/m2 26.9 k g/m2 [facility] ([facility]) Body weight 147.00 [lb_av] 147.00 [lb_av] MEDEN T ([facility], ) Body height 62 [in_i] 62 [in_i] MEDSHANTANU ([facility], ) 5'2" Oxygen saturation in Arterial blood by Pulse oximetry 94 % 94 % JOSEPH ([facility], ) ID Date Data Source [id number] 06/16/2020 12:54:39 PM EDT [facility] Name Value Range Interpretation Code Description Data Source(s) WEIGHT RECORDED 145.20 pounds 145.20 pounds [facility] Height 63 Inches 063 Inches [facility] Patient Treatment Plan of Care Planned Activity Planned Date Details Description Data Source (s) Simethicone 80 MG Chewable Tablet 08/25/2018 12:00:[address] [facility] Albuterol 0.83 MG/ML Inhalant Solution [facility] 24 HR quetiapine 200 MG Extended Release Oral Tablet [facility] Acetaminophen 325 MG / Hydrocodone Bitartrate 7.[address] [facility]
[2020-12-08] MEDS ORDERED: propofoL 200 MG/20 ML VIAL As Ordered ONE (07:10)
[2020-12-08] MEDS ORDERED: LIDOCAINE 2% 100MG/5ML SDV (FOR ANES.) As Ordered ONE (07:10)
--- NOTE | 2020-12-08 08:45 | ROOR ---
Patient Name: Elvia Richardson Procedure Date: 12/08/2020 8:08 AM Date of : 1960 Age: 60 Room: [facility] Gender: Female Note Status: Finalized Procedure: Colonoscopy Indications: High risk colon cancer surveillance: Personal history of colonic polyps Providers: Jose Francisco GARZA MD Referring MD: KARISSA HOOPER MD Requesting Provider: Medicines: Monitored Anesthesia Care Complications: No immediate complications. Procedure: Pre-Anesthesia Assessment: - The heart rate, respiratory rate, oxygen saturations, blood pressure, adequacy of pulmonary ventilation, and response to care were monitored throughout the procedure. The Colonoscope was introduced through the anus and advanced to the terminal ileum, with identification of the appendiceal orifice and IC valve. The colonoscopy was performed without difficulty. The patient tolerated the procedure well. The quality of the bowel preparation was good. Findings: The perianal and digital rectal examinations were normal. A 8 mm polyp was found in the cecum. The polyp was flat. The polyp was removed with a piecemeal technique using a cold snare. Resection and retrieval were complete. Multiple small and large-mouthed diverticula were found in the sigmoid colon. Small Internal Hemorrhoids. The exam was otherwise without abnormality on direct and retroflexion views. Impression: - One 8 mm polyp in the cecum, removed piecemeal using a cold snare. Resected and retrieved. - Moderate diverticulosis in the sigmoid colon. - Small Internal Hemorrhoids. - The examination was otherwise normal on direct and retroflexion views. Recommendation: - Repeat colonoscopy in 5 years for surveillance. Procedure Code(s): --- Professional --- 52692, Colonoscopy, flexible; with removal of tumor(s), polyp(s), or other lesion(s) by snare technique Diagnosis Code(s): --- Professional --- K57.30, Diverticulosis of large intestine without perforation or abscess without bleeding K63.5, Polyp of colon Z86.010, Personal history of colonic polyps CPT copyright 2019 [employer]. All rights reserved. The codes documented in this report are preliminary and upon test hole driller review may be revised to meet current compliance requirements. Jose Francisco Garza MD Jose Francisco GARZA MD 12/08/2020 8:45:09 AM Electronically signed by Jose Francisco GARZA MD Number of Addenda: 0 Note Initiated On: 12/08/2020 8:08 AM Estimated Blood Loss: Estimated blood loss: none.
[2020-12-08 09:07] VITALS: BP 132/67
== END 2020-12-08 09:09 | disposition home or self-care (01) ==
LOC: M OPP 07:01
PROVIDERS: ATTEND Internal Medicine Gastroenterology
DX: Z12.11 Encounter for screening for malignant neoplasm of colon (principal); Z86.010 Personal history of colon polyps; K63.5 Polyp of colon; K57.30 Diverticulosis of large intestine without perforation or abscess without bleeding; K64.8 Other hemorrhoids; I25.2 Old myocardial infarction; I10 Essential (primary) hypertension; E78.5 Hyperlipidemia, unspecified; M19.90 Unspecified osteoarthritis, unspecified site; F31.9 Bipolar disorder, unspecified; G43.909 Migraine, unspecified, not intractable, without status migrainosus; J44.9 Chronic obstructive pulmonary disease, unspecified; Z95.5 Presence of coronary angioplasty implant and graft; Z87.891 Personal history of nicotine dependence; Z98.84 Bariatric surgery status; Z88.6 Allergy status to analgesic agent; Z88.8 Allergy status to other drugs, medicaments and biological substances; Z79.82 Long term (current) use of aspirin; Z79.51 Long term (current) use of inhaled steroids; Z79.899 Other long term (current) drug therapy; Z80.41 Family history of malignant neoplasm of ovary; Z80.1 Family history of malignant neoplasm of trachea, bronchus and lung

== ENCOUNTER → 2021-01-17 | Outpatient (CLI) | payer MEDICARE, MEDICAID ==
[~2021-01-17] MED LIST changes: +MECL-136 PO; -MECL12.590 PO; -NS 1,000 ML IV ONE
--- NOTE | 2021-01-17 08:21 | REP ---
INDICATION: PERSONAL HX OF NICOTINE DEPENDENCE COMPARISON: 01/17/2020, 12/02/2018, 02/24/2017 TECHNIQUE: Axial noncontrast images from the thoracic inlet to the upper abdomen using low-dose lung screening technique (LDCT). FINDINGS: Lung oden again demonstrate mild basilar scarring primarily involving the right middle lobe and right lower lobe. Small scattered calcifications are also identified suggesting prior granulomatous disease. No acute consolidation, suspicious nodule or mass lesion appreciated. No effusion. No pneumothorax. Tracheobronchial tree is patent. IMPRESSION: Lung-RADS category 2. Chronic stable changes. No suspicious nodule. Management recommendations include annual low-dose CT surveillance. <Electronically signed by Shashi Jameson > 01/17/21 [id number]
== END ==
LOC: M RAD 06:50
PROVIDERS: ATTEND Internal Medicine Pulmonary Disease
DX: Z12.2 Encounter for screening for malignant neoplasm of respiratory organs (principal); R91.1 Solitary pulmonary nodule; Z87.891 Personal history of nicotine dependence

== ENCOUNTER → 2021-04-27 | Outpatient (CLI) | payer MEDICARE, MEDICAID ==
[2021-04-27 10:29] LABS: BASO % 0.6 % (0.0-1.0); EOS # 0.2 10^3/uL (0.0-0.5); EOS % 4.5 % (0.0-3.0); HEMATOCRIT 37.4 % (36.0-47.0); HEMOGLOBIN 12.4 g/dl (12.0-15.5); LYMPH # 2.1 10^3/uL (1.5-5.0); LYMPH % 44.3 % (24.0-44.0); MEAN CORPUSCULAR HEMOGLOBIN 35.9 pg (27.0-33.0); MEAN CORPUSCULAR HGB CONC 33.2 g/dl (32.0-36.5); MEAN CORPUSCULAR VOLUME 108.4 fl (80.0-96.0); MONO # 0.4 10^3/uL (0.0-0.8); MONO % 7.9 % (2.0-8.0); NEUTROPHILS % 42.5 % (36.0-66.0); PLATELET COUNT, AUTOMATED 210 10^3/uL (150-450); RED BLOOD COUNT 3.45 10^6/uL (4.00-5.40); WHITE BLOOD COUNT 4.7 10^3/uL (4.0-10.0)
== END ==
LOC: M LAB 09:30
PROVIDERS: ATTEND Psychiatry & Neurology Psychiatry
DX: F31.76 Bipolar disorder, in full remission, most recent episode depressed (principal)

== ENCOUNTER → 2021-04-27 | Outpatient (CLI) | payer MEDICARE, MEDICAID ==
[2021-04-27 10:29] LABS: HEMATOCRIT 37.5 % (36.0-47.0); HEMOGLOBIN 12.4 g/dl (12.0-15.5); MEAN CORPUSCULAR HEMOGLOBIN 35.9 pg (27.0-33.0); MEAN CORPUSCULAR HGB CONC 33.1 g/dl (32.0-36.5); MEAN CORPUSCULAR VOLUME 108.7 fl (80.0-96.0); PLATELET COUNT, AUTOMATED 212 10^3/uL (150-450); RED BLOOD COUNT 3.45 10^6/uL (4.00-5.40); WHITE BLOOD COUNT 4.7 10^3/uL (4.0-10.0)
[2021-04-27 10:54] LABS: ALBUMIN 3.8 GM/DL (3.2-5.2); ALT/SGPT 35 U/L (12-78); BILIRUBIN,TOTAL 0.5 MG/DL (0.2-1.0); BLOOD UREA NITROGEN 17 MG/DL (7-18); CALCIUM LEVEL 9.1 MG/DL (8.8-10.2); CARBON DIOXIDE LEVEL 30 MEQ/L (21-32); CHLORIDE LEVEL 109 MEQ/L (98-107); CHOLESTEROL LEVEL 179 MG/DL (<200); CHOLESTEROL RISK RATIO 1.967 (<5); GLOMERULAR FILTRATION RATE > 60.0 (>45); GLUCOSE, FASTING 82 MG/DL (70-100); HDL CHOLESTEROL 91 MG/DL (>40); LDL CHOLESTEROL 69 MG/DL (<100); NON-HDL-C 88 MG/DL; SODIUM LEVEL 142 MEQ/L (136-145); TOTAL PROTEIN 6.7 GM/DL (6.4-8.2); TRIGLYCERIDES LEVEL 96 MG/DL (<150)
[2021-04-27 10:55] LABS: TOTAL 25(OH) VITAMIN D 39.7 NG/ML (30.0-100.0)
--- NOTE | 2021-04-27 11:16 | ECGEPIP ---
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
--- NOTE | 2021-04-29 07:28 | REP ---
INDICATION: COPD COMPARISON: 05/30/2020 TECHNIQUE: PA and lateral. FINDINGS: The mediastinum and cardiac silhouette are normal. The lung oden findings stable changes consistent with COPD/emphysematous disease. No acute consolidation, effusion, or pneumothorax identified. The skeletal structures are intact and normal. IMPRESSION: No acute cardiopulmonary process. If the patient remains symptomatic consider chest CT for further investigation. <Electronically signed by Shashi Jameson > 04/29/21 [id number]
== END ==
LOC: M LAB 09:23
PROVIDERS: ATTEND Family Medicine
DX: J44.9 Chronic obstructive pulmonary disease, unspecified (principal); I10 Essential (primary) hypertension; R53.83 Other fatigue; F31.76 Bipolar disorder, in full remission, most recent episode depressed; Z79.899 Other long term (current) drug therapy

== ENCOUNTER → 2021-05-06 | Outpatient (CLI) | payer SELFPAY ==
[~2021-05-06] MED LIST changes: +CYAN1000VL; +PRED20TA; +PRED5PAK PO; +QUET400T42; +[UNRECOGNIZED DRUG - CODE] XX
== END ==
LOC: M LABSMTC 08:11
PROVIDERS: ATTEND Pediatrics
DX: Z11.52 Encounter for screening for COVID-19 (principal)

== ENCOUNTER 2021-05-07 10:00 | Emergency (ER) | payer MEDICARE, MEDICAID ==
[~2021-05-07] VITALS: Ht 160 cm; Wt 70.6 kg
[~2021-05-07 10:00] MED LIST changes: -CYAN1000VL; -PRED20TA; -PRED5PAK PO; -QUET400T42; -[UNRECOGNIZED DRUG - CODE] XX
[2021-05-07] MEDS ORDERED: CYAN1000VL (10:19)
[2021-05-07] MEDS ORDERED: PRED20TA (10:19)
[2021-05-07] MEDS ORDERED: QUET400T42 (10:19)
--- NOTE | 2021-05-07 11:08 | REP ---
INDICATION: DYSPNEA/COUGH. COMPARISON: Comparison chest x-ray April 27, 2021. TECHNIQUE: Upright AP radiograph.. FINDINGS: The lungs are well inflated and free of infiltrate. There is right base linear fibrosis unchanged from the April 27 study, and the May 30, 2020 prior study. There is left coronary artery stent material visible. The heart is not enlarged. No infiltrate is seen. The pleural angles are sharp. Pulmonary vasculature is not increased. The thoracic aorta is somewhat calcific. IMPRESSION: Status post left coronary artery stenting. Linear fibrosis right base. No acute infiltrate.. <Electronically signed by Andrae Kemp > 05/07/21 [id number]
[2021-05-07 12:34] LABS: VENOUS BASE EXCESS 0.7 (-2.0-2.0); VENOUS HCO3 26.7 MEQ/L (23.0-27.0); VENOUS O2 SATURATION 56.8 % (60.0-80.0); VENOUS PARTIAL PRESSURE CO2 48.7 mmHg (38.0-50.0); VENOUS PARTIAL PRESSURE O2 29.5 mmHg (30.0-50.0); VENOUS PH 7.357 UNITS (7.330-7.430); VENOUS STANDARD HCO3 24.3 MEQ/L; VENOUS TOTAL CO2 28.2 MEQ/L (24.0-28.0)
[2021-05-07 12:38] LABS: HEMATOCRIT 33.3 % (36.0-47.0); HEMOGLOBIN 10.9 g/dl (12.0-15.5); LYMPH # 0.7 10^3/uL (1.5-5.0); LYMPH % 22.7 % (24.0-44.0); MEAN CORPUSCULAR HEMOGLOBIN 35.4 pg (27.0-33.0); MEAN CORPUSCULAR HGB CONC 32.7 g/dl (32.0-36.5); MEAN CORPUSCULAR VOLUME 108.1 fl (80.0-96.0); MONO # 0.3 10^3/uL (0.0-0.8); MONO % 8.1 % (2.0-8.0); NEUTROPHILS # 2.1 10^3/uL (1.5-8.5); NEUTROPHILS % 68.9 % (36.0-66.0); PLATELET COUNT, AUTOMATED 136 10^3/uL (150-450); RED BLOOD COUNT 3.08 10^6/uL (4.00-5.40); WHITE BLOOD COUNT 3.1 10^3/uL (4.0-10.0)
[2021-05-07 13:18] LABS: ALBUMIN 3.1 GM/DL (3.2-5.2); ALT/SGPT 41 U/L (12-78); BILIRUBIN,DIRECT < 0.1 MG/DL (0.0-0.2); BILIRUBIN,TOTAL 0.2 MG/DL (0.2-1.0); BLOOD UREA NITROGEN 15 MG/DL (7-18); CALCIUM LEVEL 8.4 MG/DL (8.8-10.2); CARBON DIOXIDE LEVEL 26 MEQ/L (21-32); CHLORIDE LEVEL 108 MEQ/L (98-107); CK-MB VALUE MASS < 1.0 NG/ML (<3.6); CPK CREATINE PHOSPHOKINASE 48 U/L (26-192); CREATININE FOR GFR 0.85 MG/DL (0.55-1.30); GLOMERULAR FILTRATION RATE > 60.0 (>45); GLUCOSE, FASTING 88 MG/DL (70-100); MB/CK RELATIVE INDEX 2.08 (< OR =4); NT-PRO BNP 112 PG/ML (<125); POTASSIUM SERUM 4.6 MEQ/L (3.5-5.1); SODIUM LEVEL 138 MEQ/L (136-145); TOTAL PROTEIN 6.2 GM/DL (6.4-8.2); TROPONIN I < 0.02 NG/ML (< 0.10)
[2021-05-07] MEDS ORDERED: [UNRECOGNIZED DRUG - CODE] XX (14:24)
[2021-05-07] MEDS ORDERED: [UNRECOGNIZED DRUG - OTHER] IV ONE (14:50)
[2021-05-07] MEDS ORDERED: EPINEPHrine INJ 1 MG/ML 1ML AMP IM PRN (14:50)
[2021-05-07] MEDS ORDERED: ALBUTEROL 90 MCG/ACT 8GM HFA INHALER INH PRN (14:50)
[2021-05-07] MEDS ORDERED: ALBUTEROL SULFATE 2.5 MG/0.5 ML INH NEB SOLN INH PRN (14:50)
[2021-05-07] MEDS ORDERED: diphenhydrAMINE 50MG/ML VIAL (J1200) IV PRN (14:50)
[2021-05-07] MEDS ORDERED: methylPREDNISolone 125MG 2ML VIAL IV PRN (14:50)
[2021-05-07] MEDS ORDERED: NS 1,000 ML IV SCH (14:50)
[2021-05-07] MEDS ORDERED: PRED5PAK PO (14:53)
[2021-05-07 16:15] VITALS: BP 137/76
[2021-05-07] MEDS ORDERED: ACETAMINOPHEN TAB 650MG DOSE (2X325MG) PO ONE (16:35)
--- NOTE | 2021-05-07 22:33 | ECGEPIP ---
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
== END 2021-05-07 16:45 | disposition home or self-care (01) ==
LOC: M ED 10:00
DX: B97.21 SARS-associated coronavirus as the cause of diseases classified elsewhere (principal); J44.9 Chronic obstructive pulmonary disease, unspecified; J45.909 Unspecified asthma, uncomplicated; I25.10 Atherosclerotic heart disease of native coronary artery without angina pectoris; Z79.899 Other long term (current) drug therapy; Z79.82 Long term (current) use of aspirin; Z88.8 Allergy status to other drugs, medicaments and biological substances; Z98.84 Bariatric surgery status; Z87.891 Personal history of nicotine dependence

== ENCOUNTER 2021-05-07 15:09 | Outpatient (CLI) | payer OTHER ==
[2021-05-07] VITALS (10 sets, daily range): BP systolic 131–161; BP diastolic 63–85
[~2021-05-07 15:09] MED LIST changes: +CYAN1000VL; +PRED20TA; +PRED5PAK PO; +QUET400T42; +[UNRECOGNIZED DRUG - CODE] XX
[2021-05-07] MEDS ORDERED: ACETAMINOPHEN TAB 650MG DOSE (2X325MG) PO PRN (16:55)
[2021-05-07] MEDS ORDERED: diphenhydrAMINE 50MG/ML VIAL (J1200) IV PRN (16:55)
[2021-05-07] MEDS ORDERED: methylPREDNISolone 125MG 2ML VIAL IV PRN (16:55)
[2021-05-07] MEDS ORDERED: EPINEPHrine INJ 1 MG/ML 1ML AMP IM PRN (16:55)
[2021-05-07] MEDS ORDERED: ALBUTEROL SULFATE 2.5 MG/0.5 ML INH NEB SOLN INH PRN (16:55)
[2021-05-07] MEDS ORDERED: ALBUTEROL 90 MCG/ACT 8GM HFA INHALER INH PRN (16:55)
[2021-05-07] MEDS ORDERED: NS 1,000 ML IV SCH (16:55)
[2021-05-07] MEDS ORDERED: CASIRIVIMAB (REGN10933) 600 MG, IMDEVIMAB (REGN10987) 600 MG in NS 250 ML IV ONE (19:00)
--- NOTE | 2021-05-07 19:00 | HPEPDOC ---
General Date of Admission Date of Service: May 07, 2021 Attending Physician: CAROLYN CROW MD [facility] Chief Complaint The patient is a 60-year-old female admitted with a reason for visit of Covid- 19. Source: Patient Exam Limitations: No limitations Timing/Duration: Day(s) (2), Constant Severity: Mild Associated Symptoms: Chest Pain, Cough, Shortness of breath History of Present Illness Mrs. Richardson is a 60 y/o female with COPD who received the IPWireless COVID vaccination several months ago but several days ago developed a cough, pleuritic chest pain, faint wheeze, and generalized malaise and also discovered her home nebulizer was broken. Yesterday she was tested and found to be positive for COVID-19 along with a friend of hers. She was unable to secure a PCM appointment and could not use her nebulizer treatments so she presented to the ED. She does not use oxygen at home. She denies fevers, chills, loss of taste or smell, or weakness/confusion. She lives at home alone but is part of a care facility and has a button she can use to summon help if need be. Home Medications Scheduled Aspirin (Aspirin EC) 81 Mg Tab, 81 MG PO DAILY, (Reported) Atorvastatin Calcium (Atorvastatin Calcium) 80 Mg Tab, 80 MG PO QHS, (Reported) Calcitriol (Calcitriol) 0.25 Mcg Cap, 0.75 MCG PO DAILY, (Reported) Carbamazepine (Tegretol) 200 Mg Tab, 400 MG PO BID, (Reported) Ergocalciferol (Vitamin D2) (Drisdol) 50,000 Unit Cap, 50,000 UNIT PO QMONTH, (Reported) Escitalopram Oxalate (Lexapro) 10 Mg Tab, 10 MG PO DAILY, (Reported) Ferrous Sulfate (Ferrous Sulfate) 325 Mg Tab, 325 MG PO DAILY, (Reported) Magnesium Oxide (Magnesium Oxide) 400 Mg Tablet, 400 MG PO DAILY, (Reported) Montelukast Sodium (Singulair) 10 Mg Tab, 10 MG PO QHS, (Reported) Pantoprazole Sodium (Pantoprazole Sodium) 40 Mg Tab, 40 MG PO DAILY, (Reported) Prednisone (Prednisone) 5 Mg Tab.ds.pk, 0 PO ASDIRECTED 6 day dose pack taper Umeclidinium Dyer (Incruse Ellipta) 62.5 Mcg/Inh Inh, 62.5 MCG INH DAILY, (Reported) Scheduled PRN Ipratropium Dyer (Ipratropium Dyer) 0.5 Mg/2.5 Ml Soln, 0.5 MG INH Q4H PRN for SHORTNESS OF BREATH, (Reported) Nitroglycerin (Nitrostat) 0.4 Mg Subl, 0.4 MG SL NITRO PRN for CHEST PAIN, (Reported) Miscellaneous Medications Cyanocobalamin (Cyanocobalamin Injection) 1,000 Mcg/1 Ml Vial, (Reported) Prednisone (Prednisone) 20 Mg Tablet, (Reported) Quetiapine Fumarate (Quetiapine Fumarate ER) 400 Mg Tab.er.24h, (Reported) Allergies Coded Allergies: ondansetron (Verified Allergy, Severe, elevated b/p,elevated hr, unconscious episode, 05/07/21) lisinopril (Verified Allergy, Intermediate, rash, 05/07/21) NSAIDS (Non-Steroidal Anti-Inflamma (Verified Adverse Reaction, Intermediate, manic reaction, 05/07/21) Past Medical History Medical History COPD, no oxygen requirement 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 HLD CAD with stent x2 (stent in stent last GEOFF in 2017) Surgical History gastric bypass cholecystectomy appendectomy c section Family History Significant Family History: No pertinent family hx Social History * Smoker: quit greater than 1 year, cigarettes Alcohol: Denies Drugs: denies Recent Travel/Sick Contacts: Reports: Recent sick contacts; Denies: Recent travel A-FIB/CHADSVASC A-FIB History Current/History of A-Fib/PAF?: No Current PO Anticoag Therapy: No Age/Risk Factor Scoring CHADSVASC: CHADSVASC Response (Comments) Value Age Risk Factor Age < 65 years old 0 Gender Risk Factor Female 1 Hx of CHF No 0 Hx of HTN No 0 Hx of Stroke/TIA/or VTE No 0 Hx of Diabetes No 0 Hx of Vascular Disease No 0 Total 1 Treatment Treatment ordered: NONE Review of Systems Constitutional: Reports: Fatigue; Denies: Chills, Fever, Night Sweats, Weakness, Weight Loss ENT: Denies: Head Aches, Ear Pain, Dysphagia Skin: Denies: Rash, Lesions, Breakdown Pulmonary: Reports: Dyspnea, Cough, Pleuritic Chest Pain Cardiovascular: Denies: Chest Pain, Palpitations, Orthopnea, Lt Headedness Gastrointestinal: Denies: Nausea, Vomiting, Abdominal Pain, Diarrhea, Constipation Musculoskeletal: Denies: Neck Pain, Back Pain, Joint Pain, Muscle Pain, Spasms Neurological: Denies: Weakness, Numbness, Change in speech, Confusion Psych: Reports: Mood Normal; Denies: Depression, Memory Issues Physical Examination General Exam: Positive: Alert, Cooperative, No Acute Distress Eye Exam: Positive: PERRLA, Conjunctiva & lids normal, EOMI; Negative: Sclera icteric ENT Exam: Positive: Atraumatic, Mucous membr. moist/pink, Pharynx Normal Neck Exam: Positive: Supple; Negative: JVD, thyromegaly Chest Exam: Positive: Normal air movement; Negative: Clear to auscultation (faint bilateral wheezes, no increased work of breathing, speaking in full sentences) Heart Exam: Positive: Rate Normal, Regular Rhythm, Normal S1, Normal S2; Negative: Murmurs, Rubs Abdomen Exam: Positive: Normal bowel sounds, Soft; Negative: Tenderness, Hepatospenomegaly Extremity Exam: Positive: Normal pulses; Negative: Clubbing, Cyanosis, Edema Skin Exam: Positive: Nl turgor and temperature; Negative: Breakdown, Lesion Neuro Exam: Positive: Normal Gait, Normal Speech, Cranial Nerves 3-12 NL, Reflexes 2+ Psych Exam: Positive: Mental status NL, Mood NL, Oriented x 3 Vital Signs Vital Signs Date Time Temp Pulse Resp B/P (MAP) Pulse Ox O2 Delivery O2 Flow Rate FiO2 05/07/21 18:30 99.0 69 16 142/63 (89) 93 Room Air Assessment/Plan Mrs. Richardson is a 60 year old female w/ mild COVID-19 risk, renal disease, coronary artery disease, age >60 who presented for mild COVID-19 symptoms in the setting of a broken nebulizer and COPD. She qualifies for MAB therapy and would like to receive this. Will facilitate outpatient monoclonal antibody therapy and provide patient with new script for nebulizer. Plan / VTE VTE Prophylaxis Ordered?: No VTE Exclusion Mechanical Proph: Low Risk for VTE VTE Exclusion Pharmacological: At Low Risk for VTE Plan Plan Moving to infusion center for monoclonal antibody therapy with follow up with pulmonology and pcm within a week. Will also provide patient with steroid burst in setting of known COPD and limited nebulizer use within the past few days. Disposition Discharge to home with close follow up with pulmonology and PCM Anticipated Discharge: Home CAROLYN CROW MD [facility] May 07, 2021 19:00
== END 2021-05-07 20:45 | disposition home or self-care (01) ==
LOC: M OPCLI4 15:09 → M ICU 16:36 → M OPCLI4 20:45
PROVIDERS: ATTEND General Practice
DX: U07.1 COVID-19 (principal)

== ENCOUNTER 2021-05-11 11:28 | Emergency (ER) | payer MEDICARE, MEDICAID ==
[~2021-05-11] VITALS: Ht 160 cm; Wt 65.9 kg
[2021-05-11 12:23] LABS: HEMATOCRIT 33.2 % (36.0-47.0); MEAN CORPUSCULAR HEMOGLOBIN 35.6 pg (27.0-33.0); MEAN CORPUSCULAR HGB CONC 33.1 g/dl (32.0-36.5); MEAN CORPUSCULAR VOLUME 107.4 fl (80.0-96.0); PLATELET COUNT, AUTOMATED 175 10^3/uL (150-450); RED BLOOD COUNT 3.09 10^6/uL (4.00-5.40); WHITE BLOOD COUNT 4.5 10^3/uL (4.0-10.0)
--- NOTE | 2021-05-11 12:33 | REP ---
INDICATION: Coronavirus workup. COMPARISON: Comparison chest x-ray May 07, 2021. April 27, 2021 prior chest x-ray is also reviewed. TECHNIQUE: Portable upright AP chest radiograph. FINDINGS: There is a new infiltrate in the right lung base associated with some platelike atelectasis. Lung oden are otherwise clear. The pleural angles are sharp. The heart is not enlarged. The aorta is calcific and tortuous. Pulmonary vasculature is not increased.. EKG monitoring electrodes are seen. IMPRESSION: New interstitial infiltrate right base consistent with pneumonia. There is also some platelike atelectasis in the right base.. <Electronically signed by Andrae Kemp > 05/11/21 1756
[2021-05-11 12:39] LABS: INR 0.86; PROTHROMBIN TIME 11.9 SECONDS (12.5-14.3)
[2021-05-11 12:42] LABS: D-DIMER QUANT 1385.2 ng/ml (<500)
[2021-05-11 12:52] LABS: BLOOD UREA NITROGEN 14 MG/DL (7-18); CARBON DIOXIDE LEVEL 26 MEQ/L (21-32); CHLORIDE LEVEL 109 MEQ/L (98-107); CREATININE FOR GFR 0.92 MG/DL (0.55-1.30); GLOMERULAR FILTRATION RATE > 60.0 (>45); GLUCOSE, FASTING 82 MG/DL (70-100); POTASSIUM SERUM 4.6 MEQ/L (3.5-5.1); SODIUM LEVEL 141 MEQ/L (136-145)
[2021-05-11] MEDS: COMBIVENT RESPIMAT 100-20MCG INHALER 4GM INH SCH ×3 (12:52→13:02)
[2021-05-11 12:53] LABS: ALT/SGPT 35 U/L (12-78); BILIRUBIN,TOTAL 0.2 MG/DL (0.2-1.0); CALCIUM LEVEL 8.5 MG/DL (8.8-10.2); CK-MB VALUE MASS < 1.0 NG/ML (<3.6); CPK CREATINE PHOSPHOKINASE 43 U/L (26-192); FERRITIN 479 NG/ML (8-252); LDH LACTATE DEHYDROGENASE 223 U/L (84-246); MB/CK RELATIVE INDEX 2.33 (< OR =4); TROPONIN I < 0.02 NG/ML (< 0.10)
[2021-05-11 13:05] LABS: ATYPICAL LYMPH 1 % (0-5); EOSINOPHILS 3 % (0-3); LYMPHOCYTES 25 % (16-44); MONOCYTES 4 % (0-5); NEUTROPHILS 64 % (28-66)
[2021-05-11 13:06] LABS: ANISOCYTOSIS 2+; PLATELET ESTIMATE NORMAL (NORMAL)
[2021-05-11 14:45] VITALS: BP 152/83
[2021-05-11] MEDS ORDERED: PRED20TA PO (14:50)
--- NOTE | 2021-05-11 20:18 | ECGEPIP ---
[facility] - ED Test Date: 2021-05-11 Pat Name: YOLANDA PENA Department: Room: - Gender: Female [employer]: DEB : 1960 Requested By: Ayan Pedroza Order Number: [id number] Reading MD: Ayan Rodriguez Measurements Intervals [place] Rate: 71 P: 52 TN: 196 QRS: 47 QRSD: 84 T: 45 QT: 404 QTc: 439 Interpretive Statements Normal sinus rhythm NONSPECIFIC T WAVE ABNORMALITY(S) SIMILAR TO 05/07/21 Electronically Signed on 05-11-2021 20:17:59 EDT by Ayan Rodriguez
== END 2021-05-11 15:00 | disposition home or self-care (01) ==
LOC: M ED 11:28 → EDBD 11:28 → M ED 15:00
DX: J44.1 Chronic obstructive pulmonary disease with (acute) exacerbation (principal); U07.1 COVID-19; N18.30 Chronic kidney disease, stage 3 unspecified; E78.5 Hyperlipidemia, unspecified; I25.10 Atherosclerotic heart disease of native coronary artery without angina pectoris; Z98.84 Bariatric surgery status; Z79.899 Other long term (current) drug therapy; Z79.84 Long term (current) use of oral hypoglycemic drugs; Z88.8 Allergy status to other drugs, medicaments and biological substances; Z87.891 Personal history of nicotine dependence

== ENCOUNTER → 2021-06-08 | Outpatient (REF) | payer OTHER, MEDICARE, MEDICAID ==
[2021-06-08 13:59] LABS: MAGNESIUM LEVEL 2.1 MG/DL (1.8-2.4)
[2021-06-08 14:13] LABS: FOLATE 14.3 NG/ML
== END ==
LOC: M LAB REF 12:54
PROVIDERS: ATTEND Nurse Practitioner Family
DX: D51.9 Vitamin B12 deficiency anemia, unspecified (principal); E83.42 Hypomagnesemia; N18.31 Chronic kidney disease, stage 3a

== ENCOUNTER → 2021-10-11 | Outpatient (REF) | payer MEDICARE, MEDICAID ==
[~2021-10-11] MED LIST changes: -CEFD1CAP8 PO; +CEFD300C41 PO; -DOXY100C PO; +DOXY100C3 PO; -KLOR10TA76 PO; -LEVO250T12 PO; +LEVO250T3 PO; +POTA-136 PO
[2021-10-11 14:00] LABS: FOLATE 21.3 NG/ML
== END ==
LOC: M LAB REF 13:28
PROVIDERS: ATTEND Nurse Practitioner Family
DX: D53.1 Other megaloblastic anemias, not elsewhere classified (principal)

== ENCOUNTER → 2022-02-04 | Outpatient (CLI) | payer MEDICARE, MEDICAID | LOC: M RAD 09:27 | PROVIDERS: ATTEND Physician Assistant | DX: Z87.891 Personal history of nicotine dependence (principal) ==

== ENCOUNTER → 2022-02-23 | Outpatient (CLI) | payer MEDICARE, MEDICAID ==
[2022-02-23 10:36] LABS: HEMATOCRIT 35.9 % (36.0-47.0); HEMOGLOBIN 12.1 g/dl (12.0-15.5); MEAN CORPUSCULAR HEMOGLOBIN 36.7 pg (27.0-33.0); MEAN CORPUSCULAR HGB CONC 33.7 g/dl (32.0-36.5); MEAN CORPUSCULAR VOLUME 108.8 fl (80.0-96.0); PLATELET COUNT, AUTOMATED 245 10^3/uL (150-450)
[2022-02-23 11:12] LABS: HEMOGLOBIN A1c 5.1 %
[2022-02-23 11:24] LABS: ALBUMIN 3.6 GM/DL (3.2-5.2); BILIRUBIN,TOTAL 1.3 MG/DL (0.2-1.0); CHOLESTEROL RISK RATIO 2.012 (<5); GLOMERULAR FILTRATION RATE 59.6 (>45); POTASSIUM SERUM 4.4 MEQ/L (3.5-5.1); THYROID STIMULATING HORMONE 1.79 uIU/ML (0.358-3.740); TOTAL PROTEIN 6.8 GM/DL (6.4-8.2)
== END ==
LOC: M RAD 08:08
PROVIDERS: ATTEND Family Medicine
DX: D64.9 Anemia, unspecified (principal); R53.83 Other fatigue; E03.9 Hypothyroidism, unspecified; F31.76 Bipolar disorder, in full remission, most recent episode depressed; Z79.899 Other long term (current) drug therapy

== ENCOUNTER → 2022-06-25 | Outpatient (REF) | payer MEDICARE, MEDICAID ==
[~2022-06-25] MED LIST changes: +ALBU2.5V10 INH; -ALBU83IN INH; +LEVO1TAB38 PO; -LEVO250T3 PO; +POTA-150 PO; -POTA10TA17 PO
[2022-06-25 19:26] LABS: VITAMIN B12 LEVEL 448 PG/ML
== END ==
LOC: M LAB REF 16:58
PROVIDERS: ATTEND Nurse Practitioner Family
DX: D53.1 Other megaloblastic anemias, not elsewhere classified (principal)

== ENCOUNTER → 2022-08-26 | Outpatient (REF) | payer MEDICARE, MEDICAID | LOC: M LAB REF 20:51 | PROVIDERS: ATTEND Physician Assistant Medical | DX: B34.9 Viral infection, unspecified (principal) ==

== ENCOUNTER → 2023-02-07 | Outpatient (CLI) | payer MEDICARE, MEDICAID ==
[~2023-02-07] MED LIST changes: +MONT-5 PO; -SING10TA32 PO
== END ==
LOC: M RAD 06:20
PROVIDERS: ATTEND Internal Medicine Pulmonary Disease
DX: Z12.2 Encounter for screening for malignant neoplasm of respiratory organs (principal); Z87.891 Personal history of nicotine dependence

== ENCOUNTER 2023-06-24 09:16 | Observation (INO) | payer MEDICARE, MEDICAID ==
[~2023-06-24] VITALS: Ht 160 cm; Wt 74.1 kg
[2023-06-24] MEDS ORDERED: ISOVUE-370 76% 100ML VIAL As Ordered ONE (09:46)
[2023-06-24 10:41] LABS: BASO % 0.6 % (0.0-1.0); EOS # 0.2 10^3/uL (0.0-0.5); HEMATOCRIT 36.5 % (36.0-47.0); HEMOGLOBIN 12.1 g/dl (12.0-15.5); LYMPH # 1.2 10^3/uL (1.5-5.0); LYMPH % 22.7 % (24.0-44.0); MEAN CORPUSCULAR HEMOGLOBIN 36.1 pg (27.0-33.0); MEAN CORPUSCULAR HGB CONC 33.2 g/dl (32.0-36.5); MONO # 0.3 10^3/uL (0.0-0.8); MONO % 6.2 % (2.0-8.0); NEUTROPHILS # 3.6 10^3/uL (1.5-8.5); NEUTROPHILS % 67.1 % (36.0-66.0); PLATELET COUNT, AUTOMATED 197 10^3/uL (150-450); RED BLOOD COUNT 3.35 10^6/uL (4.00-5.40); WHITE BLOOD COUNT 5.3 10^3/uL (4.0-10.0)
[2023-06-24 10:51] LABS: INR 0.99; PROTHROMBIN TIME 12.8 SECONDS (12.5-14.5)
[2023-06-24 10:52] LABS: PARTIAL THROMBOPLASTIN TIME 24.5 SECONDS (24.8-34.2)
[2023-06-24 11:09] LABS: LIPASE 68 U/L (12-53)
[2023-06-24 11:12] LABS: ALBUMIN 3.7 G/DL (3.2-5.2); ALKALINE PHOSPHATASE 90 U/L (46-116); ALT/SGPT 53 U/L (7.0-40); AST/SGOT 35 U/L (<34); BILIRUBIN,DIRECT 0.1 MG/DL (<0.4); BILIRUBIN,TOTAL 0.4 MG/DL (0.3-1.2); BLOOD UREA NITROGEN 20 MG/DL (9-23); CALCIUM LEVEL 8.5 MG/DL (8.3-10.6); CARBON DIOXIDE LEVEL 22 MMOL/L (20-31); CHLORIDE LEVEL 110 MMOL/L (98-107); CK-MB VALUE MASS < 1.0 NG/ML (<3.6); CREATININE FOR GFR 0.85 MG/DL (0.55-1.30); GLOMERULAR FILTRATION RATE > 60.0 (>45); GLUCOSE, FASTING 100 MG/DL (74-106); POTASSIUM SERUM 4.4 MMOL/L (3.5-5.1); SODIUM LEVEL 142 MMOL/L (136-145); TOTAL PROTEIN 6.4 G/DL (5.7-8.2)
[2023-06-24 11:16] LABS: THYROID STIMULATING HORMONE 2.916 uIU/ML (0.55-4.78)
[2023-06-24 11:22] LABS: CPK CREATINE PHOSPHOKINASE 66 U/L (34-145); MB/CK RELATIVE INDEX 1.51 (< OR =4)
[2023-06-24 11:49] LABS: CK-MB VALUE MASS < 1.0 NG/ML (<3.6)
[2023-06-24 11:50] LABS: CPK CREATINE PHOSPHOKINASE 59 U/L (34-145); MB/CK RELATIVE INDEX 1.69 (< OR =4)
[2023-06-24] MEDS ORDERED: BREO1INH3 (13:01)
[2023-06-24] MEDS ORDERED: COMBAER6 (13:01)
[2023-06-24] MEDS ORDERED: OYST500C PO (13:01)
[2023-06-24] MEDS ORDERED: THERTAB52 PO (13:01)
[2023-06-24] MEDS ORDERED: CYAN1000VL IM (13:06)
[2023-06-24] MEDS ORDERED: ZINC100T3 PO (13:06)
[2023-06-24] MEDS ORDERED: MED REC IN PROGRESS XX SCH (13:10)
[2023-06-24] MEDS ORDERED: SERO400T4 PO (13:10)
[2023-06-24] MEDS ORDERED: HOME MED LIST COMPLETE! XX SCH (13:10)
[2023-06-24] MEDS ORDERED: COMBIVENT RESPIMAT 100-20MCG INHALER 4GM INH PRN (15:25)
[2023-06-24 16:09] LABS: MAGNESIUM LEVEL 2.1 MG/DL (1.8-2.4)
[2023-06-24 17:19] LABS: VITAMIN B12 LEVEL 1180 PG/ML (211-911)
[2023-06-24] MEDS: CALCIUM CARBONATE 500 MG CHEW U/D PO SCH (18:22)
[2023-06-24] MEDS: ACETAMINOPHEN TAB 650MG DOSE (2X325MG) PO PRN (18:47)
[2023-06-24 20:34] VITALS: BP 136/70; TEMP 97.4; O2SAT 95
[2023-06-24] MEDS ORDERED: carBAMazepine 200MG TABLET PO SCH (21:00)
[2023-06-24] MEDS ORDERED: QUEtiapine FUMARATE **XR** 200MG TABLET PO SCH (21:00)
[2023-06-24] MEDS ORDERED: MONTELUKAST 10 MG TAB PO SCH (21:00)
[2023-06-24] MEDS ORDERED: ATORVASTATIN 20 MG TAB PO SCH (21:00)
[2023-06-24 23:36] VITALS: BP 121/67; TEMP 97.7; O2SAT 93
[2023-06-25 03:53] VITALS: BP 123/67; TEMP 98.2; O2SAT 97
[2023-06-25 04:11] LABS: HEMATOCRIT 35.2 % (36.0-47.0); HEMOGLOBIN 11.6 g/dl (12.0-15.5); MEAN CORPUSCULAR HEMOGLOBIN 35.9 pg (27.0-33.0); PLATELET COUNT, AUTOMATED 179 10^3/uL (150-450); RED BLOOD COUNT 3.23 10^6/uL (4.00-5.40); WHITE BLOOD COUNT 5.1 10^3/uL (4.0-10.0)
[2023-06-25 04:34] LABS: LIPASE 64 U/L (12-53)
[2023-06-25 04:36] LABS: BLOOD UREA NITROGEN 16 MG/DL (9-23); CALCIUM LEVEL 8.9 MG/DL (8.3-10.6); CARBON DIOXIDE LEVEL 27 MMOL/L (20-31); CHLORIDE LEVEL 113 MMOL/L (98-107); CREATININE FOR GFR 0.88 MG/DL (0.55-1.30); GLOMERULAR FILTRATION RATE > 60.0 (>45); GLUCOSE, FASTING 87 MG/DL (74-106); MAGNESIUM LEVEL 2.1 MG/DL (1.8-2.4); POTASSIUM SERUM 4.4 MMOL/L (3.5-5.1); SODIUM LEVEL 146 MMOL/L (136-145)
[2023-06-25 08:00] VITALS: BP 122/73; TEMP 97.5; O2SAT 95
[2023-06-25 08:12] LABS: CARBAMAZEPINE (TEGRETOL) LEVEL 9.8 ug/mL (4.0-12.0)
[2023-06-25] MEDS: CALCIUM CARBONATE 500 MG CHEW U/D PO SCH ×2 (08:56→12:37)
[2023-06-25] MEDS: ACETAMINOPHEN TAB 650MG DOSE (2X325MG) PO PRN ×2 (08:58→12:37)
[2023-06-25] MEDS ORDERED: ENOXAPARIN 40MG/0.4ML SYRINGE (J1650 PER 10MG) SC SCH (09:00)
[2023-06-25] MEDS ORDERED: ASPIRIN 81MG ENTERIC TABLET PO SCH (09:00)
[2023-06-25] MEDS ORDERED: CALCITRIOL 0.25 MCG CAP (S0169) PO SCH (09:00)
[2023-06-25] MEDS ORDERED: FERROUS SULFATE 325MG TAB PO SCH (09:00)
[2023-06-25] MEDS ORDERED: ESCITALOPRAM OXALATE 10 MG TAB (LEXAPRO) PO SCH (09:00)
[2023-06-25] MEDS ORDERED: AZITHROMYCIN 250MG TABLET PO SCH (09:00)
[2023-06-25] MEDS ORDERED: PANTOPRAZOLE 40MG TAB (PROTONIX) PO SCH (09:00)
[2023-06-25 11:36] VITALS: BP 131/81; TEMP 97.4; O2SAT 95
[2023-06-25] MEDS ORDERED: TEGR200T PO ×2 (13:44)
== END 2023-06-25 15:37 | disposition home or self-care (01) ==
LOC: M ED 09:16 → M ED INP 09:17 → M PCU 20:20
PROVIDERS: ADMIT Family Medicine; ATTEND Family Medicine
DX: R25.1 Tremor, unspecified (principal); R53.1 Weakness; I67.82 Cerebral ischemia; F31.9 Bipolar disorder, unspecified; I25.10 Atherosclerotic heart disease of native coronary artery without angina pectoris; J44.9 Chronic obstructive pulmonary disease, unspecified; N18.9 Chronic kidney disease, unspecified; R07.9 Chest pain, unspecified; R74.8 Abnormal levels of other serum enzymes; Z88.8 Allergy status to other drugs, medicaments and biological substances; Z79.899 Other long term (current) drug therapy; Z79.82 Long term (current) use of aspirin; Z79.51 Long term (current) use of inhaled steroids
CPT/HCPCS: 36415; 70450; 70496; 70498; 70544; 70551; 71045; 71250; 80047; 80048; 80076; 80156; 82525; 82550; 82553; 82607; 83690; 83735; 84443; 84484; 85025; 85027; 85610; 85730; 87635; 93005; 93041; 94760; 96372; 97161; 97165; 99285; G0378; J1650; Q9967

== ENCOUNTER → 2023-07-09 | Outpatient (CLI) | payer MEDICARE, MEDICAID ==
[~2023-07-09] MED LIST changes: +BREO1INH3; +COMBAER6; +CYAN1000VL IM; +OYST500C PO; +THERTAB52 PO; +ZINC100T3 PO
== END ==
LOC: M WUC 09:10
PROVIDERS: ATTEND Psychiatry & Neurology Psychiatry
DX: F31.76 Bipolar disorder, in full remission, most recent episode depressed (principal)

== ENCOUNTER → 2024-02-20 | Outpatient (REF) | payer MEDICARE, MEDICAID ==
[~2024-02-20] MED LIST changes: +CEFD1CAP9 PO; -CEFD300C41 PO; +GLIP5TAB17 PO; -GLIP5TAB8 PO
[2024-02-20 18:52] LABS: FOLATE > 24.0 NG/ML (>5.4); VITAMIN B12 LEVEL 1594 PG/ML (211-911)
== END ==
LOC: M LAB REF 17:03
PROVIDERS: ATTEND Nurse Practitioner Family
DX: D53.1 Other megaloblastic anemias, not elsewhere classified (principal)

== ENCOUNTER → 2024-03-01 | Outpatient (CLI) | payer MEDICARE, MEDICAID ==
[2024-03-01 07:39] LABS: BASO % 0.5 % (0.0-1.0); EOS # 0.2 10^3/uL (0.0-0.5); EOS % 5.6 % (0.0-3.0); HEMATOCRIT 36.8 % (36.0-47.0); HEMOGLOBIN 12.2 g/dl (12.0-15.5); LYMPH # 1.6 10^3/uL (1.5-5.0); LYMPH % 41.4 % (24.0-44.0); MEAN CORPUSCULAR HEMOGLOBIN 36.2 pg (27.0-33.0); MEAN CORPUSCULAR HGB CONC 33.2 g/dl (32.0-36.5); MEAN CORPUSCULAR VOLUME 109.2 fl (80.0-96.0); MONO # 0.3 10^3/uL (0.0-0.8); MONO % 8.1 % (2.0-8.0); NEUTROPHILS # 1.8 10^3/uL (1.5-8.5); NEUTROPHILS % 44.4 % (36.0-66.0); PLATELET COUNT, AUTOMATED 156 10^3/uL (150-450); RED BLOOD COUNT 3.37 10^6/uL (4.00-5.40)
[2024-03-01 07:59] LABS: CALCIUM LEVEL 8.6 MG/DL (8.3-10.6); CREATININE FOR GFR 1.01 MG/DL (0.55-1.30); GLOMERULAR FILTRATION RATE 58.6 (>45); POTASSIUM SERUM 4.9 MMOL/L (3.5-5.1)
== END ==
LOC: M LAB 07:01
PROVIDERS: ATTEND Internal Medicine Cardiovascular Disease
DX: I20.9 Angina pectoris, unspecified (principal); R94.39 Abnormal result of other cardiovascular function study

== ENCOUNTER → 2024-06-22 | Outpatient (REF) | payer MEDICARE, MEDICAID ==
[2024-06-22 19:19] LABS: VITAMIN B12 LEVEL 898 PG/ML (211-911)
[2024-06-22 19:21] LABS: FOLATE > 24.0 NG/ML (>5.4)
== END ==
LOC: M LAB REF 17:18
PROVIDERS: ATTEND Nurse Practitioner Family
DX: D53.1 Other megaloblastic anemias, not elsewhere classified (principal)

== ENCOUNTER → 2025-01-07 | Outpatient (CLI) | payer MEDICARE, MEDICAID ==
[~2025-01-07] MED LIST changes: +ADVA1AER10 INH
[2025-01-07 09:08] LABS: CHOLESTEROL RISK RATIO 2.36 (<5); HDL CHOLESTEROL 73.5 MG/DL (>40); LDL CHOLESTEROL 87.3 MG/DL (<100); NON-HDL-C 100.5 MG/DL
== END ==
LOC: M LAB 07:33
PROVIDERS: ATTEND Psychiatry & Neurology Psychiatry
DX: F31.76 Bipolar disorder, in full remission, most recent episode depressed (principal); E78.00 Pure hypercholesterolemia, unspecified

== ENCOUNTER → 2025-01-09 | Outpatient (CLI) | payer MEDICARE, MEDICAID | LOC: M RAD 11:21 | PROVIDERS: ATTEND Internal Medicine Pulmonary Disease | DX: J44.9 Chronic obstructive pulmonary disease, unspecified (principal); J90 Pleural effusion, not elsewhere classified ==

== ENCOUNTER → 2025-02-26 | Outpatient (CLI) | payer MEDICARE, MEDICAID ==
[2025-02-26 09:37] LABS: HEMATOCRIT 36.3 % (36.0-47.0); HEMOGLOBIN 12.1 g/dl (12.0-15.5); MEAN CORPUSCULAR HEMOGLOBIN 36.1 pg (27.0-33.0); MEAN CORPUSCULAR HGB CONC 33.3 g/dl (32.0-36.5); MEAN CORPUSCULAR VOLUME 108.4 fl (80.0-96.0); PLATELET COUNT, AUTOMATED 215 10^3/uL (150-450); RED BLOOD COUNT 3.35 10^6/uL (4.00-5.40); WHITE BLOOD COUNT 4.4 10^3/uL (4.0-10.0)
[2025-02-26 09:49] LABS: INR 0.91; PROTHROMBIN TIME 12.6 SECONDS (12.5-14.5)
[2025-02-26 09:54] LABS: ERYTHROCYTE SEDIMENTATION RATE 17 mm/hr (0-30)
[2025-02-26 10:08] LABS: ALBUMIN 3.5 G/DL (3.2-5.2); BILIRUBIN,TOTAL 0.4 MG/DL (0.3-1.2); CALCIUM LEVEL 9.7 MG/DL (8.3-10.6); GLOMERULAR FILTRATION RATE 62.1 (>45); POTASSIUM SERUM 5.2 MMOL/L (3.5-5.1); TOTAL PROTEIN 6.4 G/DL (5.7-8.2)
== END ==
LOC: M LAB 08:42
PROVIDERS: ATTEND Orthopaedic Surgery
DX: Z01.812 Encounter for preprocedural laboratory examination (principal); M17.12 Unilateral primary osteoarthritis, left knee

== ENCOUNTER → 2025-03-10 | Outpatient (CLI) | payer MEDICARE, MEDICAID | LOC: M WHC 10:38 | PROVIDERS: ATTEND Nurse Practitioner Family | DX: N18.31 Chronic kidney disease, stage 3a (principal); N28.1 Cyst of kidney, acquired; N26.1 Atrophy of kidney (terminal) ==

== ENCOUNTER → 2025-06-30 | Outpatient (CLI) | payer MEDICARE, MEDICAID ==
[2025-06-30 08:23] LABS: PLATELET COUNT, AUTOMATED 207 10^3/uL (150-450)
== END ==
LOC: M LAB 07:38
PROVIDERS: ATTEND Psychiatry & Neurology Psychiatry
DX: F31.76 Bipolar disorder, in full remission, most recent episode depressed (principal)

== ENCOUNTER → 2025-07-15 | Outpatient (CLI) | payer MEDICARE, MEDICAID | LOC: M PLAIMG 09:52 | PROVIDERS: ATTEND Internal Medicine Pulmonary Disease | DX: R91.8 Other nonspecific abnormal finding of lung field (principal) ==

== ENCOUNTER → 2025-08-19 | Outpatient (CLI) | payer MEDICARE, MEDICAID | LOC: M RAD 12:18 | DX: M79.644 Pain in right finger(s) (principal) ==

== ENCOUNTER → 2025-10-26 | Outpatient (REF) | payer MEDICARE, MEDICAID ==
[~2025-10-26] MED LIST changes: +NEBU1EAC XX; -[UNRECOGNIZED DRUG - CODE] XX
[2025-10-26 18:09] LABS: FREE T4 0.71 NG/DL (0.89-1.76); VITAMIN B12 LEVEL 392.0 PG/ML (211-911)
== END ==
LOC: M LAB REF 17:19
PROVIDERS: ATTEND Nurse Practitioner Family
DX: R53.83 Other fatigue (principal); E55.9 Vitamin D deficiency, unspecified